=== PATIENT | female | born 1940 | race Caucasian/White ===

== ENCOUNTER 2016-09-29 10:00 | Inpatient (IN) | payer MEDICARE ==
[2016-10-19 11:25] VITALS: BMI 48.3
--- NOTE | 2016-10-29 11:22 | HP ---
DATE OF ADMISSION: Radha Ventura is a 76-year-old patient seen with symptomatic left knee osteoarthritis. After having options regarding treatment discussed, she elected to proceed with left total knee arthroplasty. Consent was obtained. Medical clearance was provided by Dr. Santhosh Ponce. Past medical history is hypertension, hypothyroidism. PAST SURGICAL HISTORY: Cataract surgery. Daily medications: 1. Aspirin. 2. Atenolol. 3. Hydrochlorothiazide/triamterene. 4. Synthroid. ALLERGIES: PENICILLIN, CIPROFLOXACIN, MOTRIN AND LASIX. SOCIAL HISTORY: Patient denies tobacco use. Physical evaluation of the left knee: Range of motion is -4 to 95 degrees. There is a mild effusion. Tenderness along the lateral joint line with a positive lateral Deb's. Ligaments are stable. Hip rotation is limited, but without pain. Crepitus along the lateral and patellofemoral compartments with range of motion. Pain with patellofemoral compression. Distal neurovascular exam intact. Left knee radiographs revealed severe lateral and moderate patellofemoral compartment osteoarthritis. IMPRESSION: Left knee osteoarthritis. PLAN: Left total knee arthroplasty.
[2016-10-30] MEDS ORDERED: MELOXICAM 7.5 MG TAB PO ONE (05:00)
[2016-10-30] MEDS ORDERED: CLINDAMYCIN 900 MG in DEXTROSE 5% IN WATER 50 ML IVPB ONE ×2 (05:00)
[2016-10-30] MEDS ORDERED: TRANEXAMIC ACID 1,000 MG in SODIUM CHLORIDE 0.9% 100 ML IVPB ONE ×4 (05:00)
[2016-10-30] MEDS ORDERED: ACETAMINOPHEN TAB 500 MG TAB PO ONE (05:00)
[2016-10-30] MEDS ORDERED: DEXAMETHASONE SOD PHOSPHATE 10 MG/ML 1 ML VIAL IV ONE (05:59)
[2016-10-30] MEDS ORDERED: MIDAZOLAM 2 MG/2 ML VIAL IV PRN (05:59)
[2016-10-30] MEDS ORDERED: LIDOCAINE 1% 20 ML VIAL (10MG/ML) FOR IV START INTRADERMA ONE ×2 (11:25→11:32)
[2016-10-30] MEDS: LACTATED RINGERS 1,000 ML IV SCH (11:28)
[2016-10-30] MEDS: ONDANSETRON 4 MG/2 ML VIAL IVP ONE ×2 (11:30→15:44)
[2016-10-30] MEDS ORDERED: ROPIVACAINE 246.25 MG, EPINEPHrine 0.5 MG, KETOROLAC 30 MG, cloNIDine HCL/PF 80 MCG, WA... MISCELLANE ONE ×5 (12:31)
[2016-10-30] MEDS ORDERED: MIDAZOLAM 2 MG/2 ML VIAL ONE (13:16)
[2016-10-30] MEDS ORDERED: TRANEXAMIC ACID 1,000 MG/10 ML VIAL ONE (13:16)
[2016-10-30] MEDS ORDERED: SODIUM CHLORIDE 0.9% 100 ML BAG ONE (13:16)
[2016-10-30] MEDS ORDERED: GLYCOPYRROLATE 0.2 MG/ML 2 ML VIAL ONE (13:16)
[2016-10-30] MEDS ORDERED: LIDOCAINE 1% INJ 10MG/ML (20 ML MDV) ONE (13:16)
[2016-10-30] MEDS ORDERED: PROPOFOL 10 MG/ML 20 ML VIAL IV ONE (13:16)
[2016-10-30] MEDS ORDERED: HYDROmorphone (PF) 1 MG/ML ONE (13:16)
[2016-10-30] MEDS ORDERED: LACTATED RINGERS 1,000 ML IV ONE ×2 (14:02→15:22)
[2016-10-30] MEDS ORDERED: CLINDAMYCIN 1,800 MG in SODIUM CHLORIDE 0.9% IRRIGATIO 3,000 ML IRRIGATION ONE (14:02)
[2016-10-30] MEDS ORDERED: HYDROmorphone 1 MG/ML 1 ML SYRINGE IVP PRN ×3 (15:39)
[2016-10-30] MEDS ORDERED: NALOXONE 0.4 MG/ML 1 ML VIAL IV PRN (15:39)
[2016-10-30] MEDS ORDERED: hydrOXYzine PAMOATE 25 MG CAP PO PRN (15:39)
[2016-10-30] MEDS ORDERED: HYDROcodone/APAP 7.5-325MG 1 EACH TAB PO PRN (15:39)
--- NOTE | 2016-10-30 15:39 | P.OP ---
Date of Procedure: 10/30/16 Preoperative Diagnosis: Left knee osteoarthritis Postoperative Diagnosis: Left knee osteoarthritis Procedure(s) Performed: Left total knee arthroplasty Implants: 1. Angela persona size 7 left cruciate-retaining standard cemented femoral component 2. Angela persona size D left cemented tibial component 3. Angela persona 12 mm medial congruent polyethylene tibial insert 4. Angela persona 32 mm all polyethylene cemented patella Anesthesia: local, spinal Surgeon: Bola Bae Incubator Tender #1: Rinku Valdovinos Estimated Blood Loss (ml): 150 Pathology: other (Bone) Condition: stable Disposition: PACU Indications for Procedure: 76-year-old patient seen with symptomatically left knee osteoarthritis. After having treatment options discussed, she elected to proceed with left total knee arthroplasty. Operative Findings: See description of procedure Description of Procedure: Patient was taken to the operative suite. Patient underwent a spinal anesthetic by the department of anesthesia. Patient was given preoperative IV intake antibiotics and TXA. A well-padded tourniquet was placed about the left lower extremity. The lower extremity was then prepped and draped in the normal sterile orthopedic fashion. The extremity was elevated, a tourniquet was insufflated to 350. A standard anterior incision was made sharply through skin. Dissection was taken down through the subcutaneous soft tissues down to the extensor mechanism. A medial arthrotomy was performed, patella was everted and knee was flexed. There was advanced osteoarthritis noted. A proximal tibial cutting guide was positioned. Proximal tibial cut was made. A distal intramedullary femoral cutting guide was positioned, distal femoral cut made. We placed the appropriate sizing guide and selected the appropriate size. A distal 4-in-1 femoral cutting block was positioned, distal femoral cuts were made. We now placed a trial femoral component into position, along with an appropriate size tibial tray and insert. We now took the knee through range of motion and had full extension good flexion and good overall soft tissue balance noted. The patella was everted and a flush cut made with patellar quad tendon. We templated the patella, appropriate drill holes were made. An appropriate trial patella was positioned, knee was taken through full range of motion with the patella tracking very nicely. The trial patella was removed. Drill holes were made through the femoral component. All trial components were removed after marking off the appropriate rotation of the tibia. Retractors were now positioned along the proximal tibia. An appropriate keel punch was made with the appropriate size tibial guide. At this point appropriate size implants were chosen and opened. The joint was irrigated copiously with pulse lavage mechanical irrigation. The deep soft tissues were infiltrated local analgesic. We mixed antibiotic methylmethacrylate. Once the methyl methacrylate was ready, the tibial component was cemented into place removing any excess methylmethacrylate. The femoral component was cemented into place removing the removing any excess methylmethacrylate. We then inserted the appropriate size polyethylene tibial insert. We made sure that it was locked into position. We took the knee into full extension, and then back in a flexion making sure we had removed any excess methylmethacrylate. The patellar component was then cemented down and secured with clamp. Excess methylmethacrylate removed. We kept the knee in full extension, patellar clamp in position until methylmethacrylate had hardened. Once it had hardened the patellar clamp was removed. The knee was taken through full range of motion. The patella tracked nicely. There was good soft tissue balancing. The tourniquet was now released. Additional hemostasis was achieved via electrocautery. A second gram of TXA was given. The wound was irrigated with pulse lavage mechanical irrigation. The superficial soft tissues were infiltrated local analgesic. The extensor mechanism was repaired with Vicryl. We checked the repair with range of motion and it was stable. The subcutaneous soft tissues were repaired with Vicryl in layers. The skin was approximated with skin jose. Sterile dressings were applied followed by loose web roll and Casey bandage. The patient was transferred to a bed, and taken to recovery in stable and satisfactory condition. Rinku TORRES assisted with the procedure.
[2016-10-30] MEDS: HYDROmorphone 1 MG/ML 1 ML SYRINGE IVP PRN ×2 (16:09→16:21)
--- NOTE | 2016-10-30 16:22 | XR ---
EXAMINATION TYPE: XR knee limited LT DATE OF EXAM: 10/30/2016 4:14 PM CLINICAL HISTORY: pain TECHNIQUE: Three views of the left knee are obtained. COMPARISON: None. FINDINGS: There is no acute fracture/dislocation. The tri-compartment joint spaces appear within no rmal limits. The overlying soft tissue appears unremarkable. IMPRESSION: There is no acute fracture or dislocation ICD 10 NO FRACTURE, INITIAL EVALUATION
[2016-10-30] MEDS: CLINDAMYCIN 900 MG in DEXTROSE 5% IN WATER 50 ML IVPB SCH ×2 (18:01)
[2016-10-30] MEDS: ONDANSETRON 4 MG/2 ML VIAL IVP PRN (18:01)
[2016-10-30 18:30] LABS: Glucose,Whole Blood 154 mg/dL (75-99)
--- NOTE | 2016-10-30 20:26 | CONS ---
DATE OF CONSULTATION: 10/30/2016 This is a 76-year-old white female who has a long-standing history of degenerative arthritis of the knees bilaterally. Her left knee was progressively getting worse and patient was evaluated by Dr. Bae and patient was recommended to have left knee arthroplasty. She had the surgery this morning, a left total knee arthroplasty by Dr. Bae. I was asked to see the patient for postoperative medical management. Her past medical history reveals that that she has multiple medical problems: 1. Morbid obesity. 2. Hypertensive cardiovascular disease. 3. Hypothyroidism. 4. Gastroesophageal reflux disease. Her current medications include: 1. Synthroid 100 mcg p.o. daily. 2. Dyazide 37.5/25 one daily. 3. Atenolol 25 mg daily. 4. Multivitamins. 5. Prevacid 30 mg p.o. daily. 6. She has been on aspirin 81 mg p.o. daily. She denies any diabetes mellitus. She has had no major operations in the past. ALLERGIES: 1. CIPRO. 2. LASIX. 3. DOXYCYCLINE. 4. LATEX. 5. PRILOSEC. 6. PENICILLINS. The exact allergic reaction to these medications is not clear. She does not smoke and she does not drink alcohol. Family history is strongly positive for hypertension, diabetes and heart disease. REVIEW OF SYSTEMS: Patient denies any headache. Appetite has been good, bowels regular. She has had no chest pain. She has no cough. She has no abdominal pain. She has no polyuria or dysuria. She has no neurological symptoms. Physical examination reveals a 76-year-old white female who is morbidly obese. She is still sleepy from anesthesia, but she is gradually waking up. She complains of nausea. There is no jaundice. There is no generalized lymphadenopathy. There are no petechiae or bruises. Pulse 76 per minute, regular. She is afebrile. Blood pressure 152/67. Examination of the ENT is negative. Neck is supple. There is no jugular venous distention. There is no goiter. There is no carotid bruit. Heart is in sinus rhythm. Lungs are clear to auscultation and percussion. There are diminished breath sounds over both bases. Abdomen is soft and nontender. There is no mass palpable. Examination of the lower extremities: She is status post left total knee arthroplasty. IMPRESSION: 1. Degenerative arthritis of left knee, status post total left knee arthroplasty. 2. Hypertensive cardiovascular disease. 3. Hypothyroidism. 4. Gastroesophageal reflux disease. 5. Degenerative arthritis of multiple joints. This patient was extensively evaluated by clinical document improvement educator prior to surgery. Patient was cleared for surgery by clinical document improvement educator. Postoperatively her vital signs are stable and she has no acute cardiorespiratory problems. Will place her back on her home medications and we will monitor her blood pressure and hemoglobin, etc. Over prognosis is guarded. Thank you for asking me to see this patient in consultation. Will follow the patient with you for her medical problems.
[2016-10-30] MEDS: traMADol 50 MG TAB PO SCH ×2 (21:45→22:13)
[2016-10-30] MEDS: ENOXAPARIN 30 MG/0.3 ML SYRINGE SQ SCH (21:45)
[2016-10-30] MEDS: SENNOSIDES-DOCUSATE SODIUM 1 EACH TAB PO SCH (21:47)
[2016-10-30] MEDS: SODIUM CHLORIDE 0.9% 1,000 ML IV SCH (22:15)
[2016-10-31] MEDS: CLINDAMYCIN 900 MG in DEXTROSE 5% IN WATER 50 ML IVPB SCH ×2 (00:24)
[2016-10-31] MEDS: HYDROcodone/APAP 7.5-325MG 1 EACH TAB PO PRN ×4 (00:25→18:10)
[2016-10-31] MEDS: ONDANSETRON 4 MG/2 ML VIAL IVP PRN ×2 (01:43→07:38)
[2016-10-31] MEDS: LEVOTHYROXINE 100 MCG TAB PO SCH (04:59)
[2016-10-31 07:48] LABS: Basophils % (A) 0 %; CH 26.8; Eosinophils % (A) 0 %; HCT 32.2 % (34.0-46.0); HDW 2.43; Hypochromasia Slight; Luc # (Auto) 0.08; Luc % (Auto) 1; Lymphocytes # (A) 0.4 k/uL (1.0-4.8); Lymphocytes % (A) 5 %; MCH 27.1 pg (25.0-35.0); MCHC 31.1 g/dL (31.0-37.0); MCV 87.1 fL (80.0-100.0); Mean Platelet Volume 6.8; Monocytes # (A) 0.4 k/uL (0-1.0); Monocytes % (A) 5 %; Neutrophils # (A) 6.3 k/uL (1.3-7.7); Neutrophils % (A) 89 %; RBC 3.69 m/uL (3.80-5.40); RDW 12.9 % (11.5-15.5); WBC 7.1 k/uL (3.8-10.6); WBC (Perox) 7.57
[2016-10-31] MEDS ORDERED: FAMOTIDINE 20 MG TAB PO SCH (09:00)
[2016-10-31] MEDS: traMADol 50 MG TAB PO SCH ×4 (09:20→21:37)
[2016-10-31] MEDS: ENOXAPARIN 30 MG/0.3 ML SYRINGE SQ SCH ×2 (09:21→20:01)
[2016-10-31] MEDS: MELOXICAM 7.5 MG TAB PO SCH (09:22)
[2016-10-31] MEDS: TRIAMTERENE-HCTZ 37.5-25MG 1 EACH TAB PO SCH ×2 (09:22→09:24)
[2016-10-31] MEDS: PANTOPRAZOLE 40 MG TABLET PO SCH (09:24)
[2016-10-31] MEDS: ATENOLOL 25 MG TAB PO SCH (09:24)
[2016-10-31] MEDS: LACTATED RINGERS 1,000 ML IV SCH ×2 (09:28→19:54)
[2016-10-31] MEDS ORDERED: FUROSEMIDE 10 MG/ML 2 ML VIAL IV ONE (10:22)
[2016-10-31] MEDS: ALPRAZolam 0.25 MG TAB PO PRN (10:25)
[2016-10-31] MEDS: CALCIUM CARB-VIT D 500MG-200UN 1 EACH TAB PO SCH (11:50)
[2016-10-31] MEDS: SODIUM CHLORIDE 0.9% 250 ML IV SCH ×3 (14:06→15:14)
--- NOTE | 2016-10-31 15:29 | P.PN ---
Subjective Principal diagnosis: Status post left total knee arthroplasty Patient is seen today in her hospital chair, she appears comfortable. Patient had a lot of nausea and vomiting today. She is ambulating very minimally at this time. She denies any chest pain, shortness of breath, lightheadedness. Objective - Vital Signs Vital signs: Vital Signs Temp 97.4 F L 10/31/16 14:08 Pulse 51 L 10/31/16 14:08 Resp 17 10/31/16 14:08 BP 143/72 10/31/16 14:08 Pulse Ox 98 10/31/16 14:08 Intake & Output 10/30/16 10/31/16 10/31/16 18:59 06:59 18:59 Intake Total 3278 1050 370 Output Total 185 280 580 Balance 3093 770 -210 Weight 116.12 kg Intake: IV 3158 Intake, IV Titration 750 250 Amount Clindamycin 900 mg In 50 Dextrose 5% in Water 50 ml @ 100 mls/hr IVPB Q6HR [facility] Rx#:[id number] Sodium Chloride 0.9% 1, 700 000 ml @ 50 mls/hr IV . Q20H [facility] Rx#:[id number] Sodium Chloride 0.9% 250 250 ml @ 999 mls/hr IV .Q16M [facility] Rx#:[id number] Oral 120 300 120 Output: Urine 60 250 580 Uretheral (Woodward) 580 Emesis 30 Estimated Blood Loss 125 Other: Voiding Method Indwelling Catheter Indwelling Catheter Indwelling Catheter - Exam Left lower extremity: Incision is clean, dry and intact. [place] are in good position. The swelling surrounding the knee. Calf is soft, no tenderness with palpation. Plantar flexion, dorsiflexion, EHL, FHL are intact. Sensory exam to light touch is intact, cap refills less than 3 seconds. - Labs CBC & Chem 7: 10/31/16 06:54 Labs: Abnormal Lab Results - Last 24 Hours (Table) 10/30/16 10/31/16 Range/Units 18:28 06:54 RBC 3.69 L (3.80-5.40) m/uL Hgb 10.0 L (11.4-16.0) gm/dL Hct 32.2 L (34.0-46.0) % Lymphocytes # 0.4 L (1.0-4.8) k/uL POC Glucose (mg/dL) 154 H (75-99) mg/dL Assessment and Plan Plan: Assessment: 1. Postop day #1 status post left total knee arthroplasty Plan: 1. Pain control, limit narcotics due to nausea and vomiting 2. Ice and elevate the leg 3. Daily dressing changes 4. Encourage incentive spirometer 5. Continue use of IV fluids and IV bolus to help prevent dehydration 6. GI and DVT prophylaxis, continue Lovenox during inpatient stay 7. Medical recommendations 8. Discharge planning: Patient will be discharged to rehab in 2 days Time with Patient: Less than 30
--- NOTE | 2016-10-31 15:32 | P.DS ---
Providers Date of admission: 10/30/16 10:50 Expected date of discharge: 11/02/16 Attending physician: Bola Bae Consults: 10/30/16 15:39 Consult Physician Routine Consulting Provider: Beny Ponce Reason/Comments: Medical management Do you want consulting provider notified?: Yes Primary care physician: Beny Ponce [facility] Course: Date of admission: 10/30/2016 Date of discharge: 11/02/2016 Admission diagnosis: Status post left total knee arthroplasty Discharge diagnosis: Same Attending physician: Dr. Bae Surgical procedures: Left total knee arthroplasty Brief history: Patient is a 76-year-old female with a history of progressive left knee osteoarthritis. At this point patient has failed conservative treatment measures and has opted to proceed with a elective total knee arthroplasty. Hospital course: Details of patient's surgery can be found in operative report. Patient tolerated the procedure well and was subsequently transported to orthopedic floor. Patient's orthopeidc and medical care was provided daily. Patient had daily laboratory tests performed for evaluation of overall blood counts. Patient had daily physical therapy to include strengthening range of motion as well as education with walker ambulation. Patient had daily CPM usage as part of their physical therapy program. Patient was treated with Lovenox for their postoperative DVT prophylaxis during their inpatient stay. Patient was noted to have a relatively uneventful postoperative course. Patient reported satisfactory pain control with oral pain medications by postoperative day 0. Patient showed satisfactory progress with physical therapy. Patient moved steadily through the program and had no difficulty meeting the goals by postoperative day 3. Given patient's otherwise satisfactory course and having met physical therapy goals, plan is to discharge patient rehab on postoperative day 3. Discharge condition/disposition: Patient will be discharged rehab in stable condition. Discharge medications: Instructions are given on resumption of patient's normal daily medications per primary care recommendation, in addition patient will be prescribed [place] 7.5 mg/5 mg, Colace 100 mg, Pepcid 20 mg, Xarelto 10 mg. Discharge instructions: 1. Wound care and infection precautions, keep incision dry and covered while showering, no lotions, creams, moisturizers. No soaking, tubs, pools, hottubs. Do not scrub over the incision. 2. Weight-bear as tolerated with walker / cane until follow-up. 3. Ice and elevate when necessary. Do not exceed 20 minutes per hour with ice pack. 4. Utilize compression sleeve until seen at first follow up appointment. 5. Visiting nursing care. 6. Home physical therapy including home CPM. 7. Pain meds and anticoagulants per prescription. 8. Pain medication has potential to cause constipation. Increase oral fluid and fiber intake. Contact primary care provider if you have not had a bowel movement within 48 hours after discharge 9. No anti-inflammatory medication until discussed at first post operative visit, this including Motrin, Aleve, Mobic, Diclofenac. 10. Follow up in office at 2 weeks postop with Evans Valdovinos PA-C 11. Follow up with your primary care doctor 7-10 days after discharge. 12. Contact [facility] with any questions, . Procedures: Left total knee arthroplasty Patient Condition at Discharge: Good Plan - Discharge Summary New Discharge Prescriptions: Docusate [Colace] 100 mg PO DAILY #30 capsule Famotidine [Pepcid] 20 mg PO DAILY #30 tablet HYDROcodone/APAP 7.5-325MG [Austin 7.5] 1 - 2 each PO Q6HR PRN #60 tab PRN Reason: Pain Rivaroxaban [Xarelto] 10 mg PO DAILY #12 tab Discharge Medication List Aspirin 81 mg PO DAILY 09/26/14 [History] Atenolol [Tenormin] 25 mg PO DAILY 09/26/14 [History] Calcium Carbonate/Vitamin D3 [Caltrate 600 + D Tablet] 1 tab PO DAILY 09/26/14 [ History] Lansoprazole 30 mg PO DAILY 09/26/14 [History] Levothyroxine Sodium [Synthroid] 100 mcg PO DAILY 09/26/14 [History] Multivitamin/Iron/Folic Acid [Centrum Complete Multivit Tab] 1 tab PO DAILY [History] Triamterene-Hctz 37.5-25Mg [Maxzide 37.5-25] 1 tab PO DAILY 09/26/14 [History] Acetaminophen Tab [Tylenol Tab] 1,000 mg PO Q6H PRN 10/19/16 [History] Calcium Carbonate [Tums] 500 mg PO TID PRN 10/19/16 [History] Rivaroxaban [Xarelto] 10 mg PO DAILY #12 tab 10/31/16 [Rx] Docusate [Colace] 100 mg PO DAILY #30 capsule 11/02/16 [Rx] Famotidine [Pepcid] 20 mg PO DAILY #30 tablet 11/02/16 [Rx] HYDROcodone/APAP 7.5-325MG [[place] 7.5] 1 - 2 each PO Q6HR PRN #60 tab 11/02/16 [ Rx] Follow up Appointment(s)/Referral(s): Beny Ponce MD [Primary Care Provider] - 1 Week Rinku Valdovinos PAC [PHYSICIAN BALANCING MACHINE SET UP WORKER] - 11/17/16 2:10 pm Patient Instructions/Handouts: Knee Replacement (DC) Activity/Diet/Wound Care/Special Instructions: Orthopedic Discharge Instructions: 1. Wound care and infection precautions, keep incision dry and covered while showering, no lotions, creams, moisturizers. No soaking, pools, hot tubs. Do not scrub over incision. 2. Weight-bear as tolerated with walker / cane until follow-up. 3. Ice and elevate when necessary. Do not exceed 20 minutes per hour with ice pack. 4. Utilize compression sleeve until seen at first follow up appointment. 5. Visiting nursing care. 6. Home physical therapy including home CPM. 7. Pain meds and anticoagulants per prescription. 8. Pain medication has potential to cause constipation. Increase oral fluid and fiber intake. Contact primary care provider if you have not had a bowel movement within 48 hours after discharge. 9. No anti-inflammatory medication until discussed at first post operative visit, this including Motrin, Aleve, Mobic, Diclofenac. 10. Follow up in office at 2 weeks postop with Evans Valdovinos PA-C 11. Follow up with your primary care doctor 7-10 days after discharge. 12. Contact [facility] with any questions, . Discharge Disposition: TRANSFER TO SNF/ECF
[2016-10-31] MEDS: MULTIVITAMINS, THERA 1 EACH TAB PO SCH (15:34)
[2016-10-31] MEDS: SODIUM CHLORIDE 0.9% 1,000 ML IV SCH (16:22)
--- NOTE | 2016-10-31 19:05 | PN ---
DATE OF SERVICE: 10/31/2016 This 76-year-old white female who has a history of advanced degenerative arthritis of the left knee had a left total knee arthroplasty yesterday. I was asked to see the patient in consultation for postoperative medical management. Patient is known to have morbid obesity, hypothyroidism, gastroesophageal reflux disease and hypertensive cardiovascular disease. Patient was placed back on her previous medications. Her vital signs are stable. She had some bradycardia and the atenolol is being held. Patient also has nausea and vomiting which are being controlled with Zofran given on a p.r.n. basis. Otherwise her vital signs are stable. Heart is in sinus rhythm. Lungs are clear to auscultation and percussion. Patient is tolerating increased activities well. Prognosis guarded.
[2016-10-31] MEDS: SENNOSIDES-DOCUSATE SODIUM 1 EACH TAB PO SCH (20:01)
[2016-10-31 20:59] VITALS: RESP 16
[2016-11-01] MEDS: HYDROcodone/APAP 7.5-325MG 1 EACH TAB PO PRN ×2 (01:04→06:12)
[2016-11-01] MEDS: LEVOTHYROXINE 100 MCG TAB PO SCH (05:15)
[2016-11-01] MEDS: ATENOLOL 25 MG TAB PO SCH (06:28)
[2016-11-01] MEDS: PANTOPRAZOLE 40 MG TABLET PO SCH (08:24)
[2016-11-01] MEDS: SODIUM CHLORIDE 0.9% 1,000 ML IV SCH ×2 (08:25→20:58)
[2016-11-01] MEDS: TRIAMTERENE-HCTZ 37.5-25MG 1 EACH TAB PO SCH (08:25)
[2016-11-01] MEDS: MELOXICAM 7.5 MG TAB PO SCH (08:25)
[2016-11-01] MEDS: ENOXAPARIN 30 MG/0.3 ML SYRINGE SQ SCH ×2 (08:25→20:59)
[2016-11-01] MEDS: CALCIUM CARB-VIT D 500MG-200UN 1 EACH TAB PO SCH (08:26)
[2016-11-01] MEDS: MULTIVITAMINS, THERA 1 EACH TAB PO SCH (08:26)
[2016-11-01] MEDS: traMADol 50 MG TAB PO SCH ×4 (08:31→20:59)
[2016-11-01] MEDS: ALPRAZolam 0.25 MG TAB PO PRN ×2 (12:39→18:24)
--- NOTE | 2016-11-01 19:55 | PN ---
DATE OF SERVICE: 11/01/2016 This 76-year-old white female who had a left total knee arthroplasty by Dr. Bae was seen by me in consultation for postoperative medical management. Patient is known to have morbid obesity, hypothyroidism and hypertensive cardiovascular disease. Patient has been placed back on her previous medications. She also has severe anxiety. This is being controlled with Xanax p.r.n. Patient is recovering from surgery without any complications; however, Dr. Bae feels that the patient is going to be transferred to a rehab unit rather than being discharged home. The patient seems to be doing all right except that she still has some nausea and also has some headache. Will give her Zofran for controlling nausea and ( ) patient's vital signs are stable. Heart is in sinus rhythm. Lungs are clear. No acute cardiorespiratory problems. Prognosis guarded.
[2016-11-01] MEDS: LACTATED RINGERS 1,000 ML IV SCH (20:59)
[2016-11-01] MEDS: SENNOSIDES-DOCUSATE SODIUM 1 EACH TAB PO SCH (20:59)
[2016-11-02] MEDS: HYDROcodone/APAP 7.5-325MG 1 EACH TAB PO PRN ×3 (01:03→14:09)
[2016-11-02] MEDS: LEVOTHYROXINE 100 MCG TAB PO SCH (05:00)
[2016-11-02 07:14] VITALS: BP 148/61; PULSE 59; TEMP 97.9
[2016-11-02] MEDS: MELOXICAM 7.5 MG TAB PO SCH (07:30)
[2016-11-02] MEDS: ENOXAPARIN 30 MG/0.3 ML SYRINGE SQ SCH (07:30)
[2016-11-02] MEDS: ALPRAZolam 0.25 MG TAB PO PRN (07:31)
[2016-11-02] MEDS: TRIAMTERENE-HCTZ 37.5-25MG 1 EACH TAB PO SCH (07:31)
[2016-11-02] MEDS: ATENOLOL 25 MG TAB PO SCH (07:31)
[2016-11-02] MEDS: PANTOPRAZOLE 40 MG TABLET PO SCH (07:31)
[2016-11-02 07:37] LABS: Basophils % (A) 0 %; CH 27.2; CHCM 31.8; Eosinophils # (A) 0.1 k/uL (0-0.7); Eosinophils % (A) 1 %; HCT 34.2 % (34.0-46.0); HGB 10.5 gm/dL (11.4-16.0); Luc # (Auto) 0.12; Luc % (Auto) 2; Lymphocytes # (A) 0.9 k/uL (1.0-4.8); Lymphocytes % (A) 11 %; MCH 26.3 pg (25.0-35.0); MCHC 30.7 g/dL (31.0-37.0); MCV 85.8 fL (80.0-100.0); Mean Platelet Volume 7.3; Monocytes # (A) 0.7 k/uL (0-1.0); Monocytes % (A) 8 %; Neutrophils # (A) 6.4 k/uL (1.3-7.7); Neutrophils % (A) 78 %; RBC 3.98 m/uL (3.80-5.40); RDW 13.1 % (11.5-15.5); WBC 8.2 k/uL (3.8-10.6); WBC (Perox) 8.45
[2016-11-02] MEDS: traMADol 50 MG TAB PO SCH ×2 (10:35→14:10)
--- NOTE | 2016-11-02 11:01 | P.PN ---
Subjective Principal diagnosis: Status post left total knee arthroplasty Patient is seen today in her hospital chair, she appears comfortable. Patient is continued to feel better during the hospital stay. She denies headaches, lightheadedness, chest pain. Objective - Vital Signs Vital signs: Vital Signs Temp 97.9 F 11/02/16 07:00 Pulse 59 L 11/02/16 07:00 Resp 16 11/02/16 07:00 BP 148/61 11/02/16 07:00 Pulse Ox 96 11/02/16 07:00 Intake & Output 11/01/16 11/02/16 11/02/16 18:59 06:59 18:59 Intake Total 300 120 Output Total 650 Balance -350 120 Intake: Oral 300 120 Output: Urine 650 Uretheral ([place]) 250 Other: Voiding Method Indwelling Catheter Toilet Toilet # Voids 1 1 2 - Exam Left lower extremity: Incision is clean, dry and intact. [place] are in good position. The swelling surrounding the knee. Calf is soft, no tenderness with palpation. Plantar flexion, dorsiflexion, EHL, FHL are intact. Sensory exam to light touch is intact, cap refills less than 3 seconds. - Labs CBC & Chem 7: 11/02/16 07:11 Labs: Abnormal Lab Results - Last 24 Hours (Table) 11/02/16 Range/Units 07:11 Hgb 10.5 L (11.4-16.0) gm/dL MCHC 30.7 L (31.0-37.0) g/dL Lymphocytes # 0.9 L (1.0-4.8) k/uL Assessment and Plan Plan: Assessment: 1. Postop day #3 status post left total knee arthroplasty Plan: 1. Pain control, continue with oral medications 2. Ice and elevate the leg 3. Daily dressing changes 4. Encourage incentive spirometer 5. GI and DVT prophylaxis, will be discharged on Xarelto 10 mg 6. Medical recommendations 7. Discharge planning: Patient will be discharged to rehab today Time with Patient: Less than 30
[2016-11-02] MEDS: CALCIUM CARB-VIT D 500MG-200UN 1 EACH TAB PO SCH (14:09)
[2016-11-02] MEDS: MULTIVITAMINS, THERA 1 EACH TAB PO SCH (14:09)
--- NOTE | 2016-11-02 18:19 | PN ---
This is a 76-year-old white female who has a long-standing history of degenerative arthritis of the knee and she had a left total knee arthroplasty by Dr. Bae and patient was seen by me in consultation for her postoperative medical management. Patient is known to have hypertensive cardiovascular disease and hypothyroidism and morbid obesity. Patient postoperatively recovered without any significant complications and her vital signs were stable. There was no acute cardiorespiratory problems. She tolerated the increased activities and physical therapy well. Patient is going to be transferred to [facility] rehab unit today and detailed discharge instructions were given and the patient has been given pain medication and physical therapy instructions were given by the orthopedic surgeon and patient also needs a prescription for Xanax and we have given a prescription. The patient will continue on the Xanax while she is in the rehab unit at [facility]. For her medical problems she will be followed by me in [facility]. Prognosis guarded.
== END 2016-11-02 15:09 | DRG 470 ==
LOC: 2ORMAIN 10-30 10:50 → 3SUR 10-30 15:29
PROVIDERS: ADMIT Orthopaedic Surgery; ATTEND Orthopaedic Surgery
PROC: 0SRD0J9 Replacement of Left Knee Joint with Synthetic Substitute, Cemented, Open Approach (ICD-10-PCS; principal; 2016-10-30 12:55)
DX: M17.0 Bilateral primary osteoarthritis of knee (principal); I11.9 Hypertensive heart disease without heart failure; E03.9 Hypothyroidism, unspecified; F41.9 Anxiety disorder, unspecified; K21.9 Gastro-esophageal reflux disease without esophagitis; Z79.82 Long term (current) use of aspirin; Z79.899 Other long term (current) drug therapy; Z88.6 Allergy status to analgesic agent; Z88.1 Allergy status to other antibiotic agents; Z88.0 Allergy status to penicillin; Z88.8 Allergy status to other drugs, medicaments and biological substances; Z91.040 Latex allergy status
CPT/HCPCS: 85025; 88300

== ENCOUNTER → 2016-10-14 | Outpatient (CLI) | payer MEDICARE ==
[2016-10-14 11:54] LABS: Basophils % (A) 0 %; CH 27.1; CHCM 30.9; Eosinophils # (A) 0.2 k/uL (0-0.7); Eosinophils % (A) 4 %; HCT 36.8 % (34.0-46.0); HDW 2.48; HGB 11.2 gm/dL (11.4-16.0); Hypochromasia Slight; Luc # (Auto) 0.15; Luc % (Auto) 3; Lymphocytes % (A) 16 %; MCH 26.9 pg (25.0-35.0); MCHC 30.5 g/dL (31.0-37.0); MCV 88.3 fL (80.0-100.0); Mean Platelet Volume 7.5; Monocytes # (A) 0.4 k/uL (0-1.0); Monocytes % (A) 7 %; Neutrophils # (A) 4.2 k/uL (1.3-7.7); Neutrophils % (A) 71 %; RBC 4.17 m/uL (3.80-5.40); RDW 13.4 % (11.5-15.5); WBC 5.9 k/uL (3.8-10.6); WBC (Perox) 6.34
[2016-10-14 12:02] LABS: Anion Gap 10 mmol/L; Blood Urea Nitrogen 29 mg/dL (7-17); Calcium 10.1 mg/dL (8.4-10.2); Carbon Dioxide 30 mmol/L (22-30); Chloride 103 mmol/L (98-107); Glucose 93 mg/dL (74-99); Non-African American GFR(MDRD) 53 (>60 ml/min/1.73 sqM); Partial Thromboplastin Time 25.9 sec (22.0-30.0); Potassium 4.6 mmol/L (3.5-5.1); Prothrombin Time 10.5 sec (9.0-12.0); Sodium 143 mmol/L (137-145)
[2016-10-14 12:40] LABS: Appearance,Urine Clear (Clear); Bilirubin,Urine Negative (Negative); Glucose,Urine (UA) Negative (Negative); Ketones,Urine Negative (Negative); Leukocyte Esterase,Urine Negative (Negative); Nitrite,Urine Negative (Negative); PH, Urine 7.5 (5.0-8.0); Protein,Urine Negative (Negative); Specific Gravity,Urine 1.016 (1.001-1.035); UA Billing (MACRO vs. MICRO) CHEM; Urobilinogen,Urine <2.0 mg/dL (<2.0)
--- NOTE | 2016-10-14 13:09 | XR ---
EXAMINATION TYPE: XR chest 2V DATE OF EXAM: 10/14/2016 12:27 PM COMPARISON: 03/28/2016 HISTORY: 76-year-old female preoperative evaluation prior to knee replacement TECHNIQUE: Frontal and lateral views FINDINGS: The heart remains borderline enlarged. Aorta within normal limits. Mild diffuse interstitial prominen ce is unchanged. No consolidation or pleural effusion. IMPRESSION: Chronic changes, possible chronic bronchitis/asthma. No acute infiltrate.
== END | disposition home or self-care (01) ==
LOC: LABPAT 11:27
PROVIDERS: ATTEND Internal Medicine
DX: Z01.818 Encounter for other preprocedural examination (principal); Z01.812 Encounter for preprocedural laboratory examination; R91.8 Other nonspecific abnormal finding of lung field; E03.9 Hypothyroidism, unspecified; I11.9 Hypertensive heart disease without heart failure; M19.90 Unspecified osteoarthritis, unspecified site
CPT/HCPCS: 71020; 80048; 81003; 85025; 85610; 85730; 87070

== ENCOUNTER → 2017-05-11 | Outpatient (CLI) | payer MEDICARE ==
[2017-05-11 10:37] LABS: CH 25.9; CHCM 30.7; HCT 33.9 % (34.0-46.0); HDW 2.54; HGB 10.2 gm/dL (11.4-16.0); Hypochromasia Moderate; MCH 25.6 pg (25.0-35.0); MCHC 30.2 g/dL (31.0-37.0); MCV 84.8 fL (80.0-100.0); Mean Platelet Volume 7.5; WBC 6.2 k/uL (3.8-10.6)
[2017-05-11 10:55] LABS: Calcium 9.8 mg/dL (8.4-10.2); Potassium 4.6 mmol/L (3.5-5.1); Total Bilirubin 0.6 mg/dL (0.2-1.3); Total Protein 7.6 g/dL (6.3-8.2)
== END | disposition home or self-care (01) ==
LOC: LABWHC1 10:11
PROVIDERS: ATTEND Internal Medicine
DX: Z00.01 Encounter for general adult medical examination with abnormal findings (principal); E03.9 Hypothyroidism, unspecified; E78.2 Mixed hyperlipidemia; I11.9 Hypertensive heart disease without heart failure
CPT/HCPCS: 36415; 80053; 80061; 84439; 84443; 85027

== ENCOUNTER → 2017-05-18 | Outpatient (CLI) | payer MEDICARE ==
--- NOTE | 2017-05-21 09:56 | MM ---
Reason for exam: screening (asymptomatic). Last mammogram was performed 1 year and 3 months ago. History: Patient is postmenopausal and is nulliparous. Physical Findings: A clinical breast exam by your physician is recommended on an annual basis and results should be correlated with mammographic findings. MG Screening Mammo w CAD Bilateral CC and MLO view(s) were taken. Prior study comparison: February 18, 2016, bilateral MG screening mammo w CAD. January 06, 2015, bilateral MG screening mammo w CAD. There are scattered fibroglandular densities. Finding: There are typically benign calcifications in both breasts. There is a chronic nodularity in the left breast. ASSESSMENT: Benign, BI-RAD 2 RECOMMENDATION: Routine screening mammogram of both breasts in 1 year.
== END | disposition home or self-care (01) ==
LOC: RADMAMWWP 14:34
PROVIDERS: ATTEND Internal Medicine
DX: Z12.31 Encounter for screening mammogram for malignant neoplasm of breast (principal)

== ENCOUNTER 2018-03-27 09:37 | Day surgery (SDC) | payer MEDICARE ==
[2018-03-21 16:26] VITALS: BMI 48.2
[~2018-03-27 09:37] MED LIST: TETRACAINE 0.5% OPHTH (PF) DROPS 4 ML BTL OP ONE; TIMOLOL 0.5% OPHTH DROPS 5 ML BTL OP ONE
[2018-03-27] MEDS ORDERED: LACTATED RINGERS 1,000 ML IV SCH (11:07)
[2018-03-27] MEDS: PHENYLEPHRINE 2.5% OPHTH DRP 2ML OP NR ×4 (11:49→12:04)
[2018-03-27] MEDS: CYCLOPENTOLATE 1% OPHTH SOLN 2 ML BTL OP ONE ×3 (11:52→12:06)
[2018-03-27] MEDS: MOXIFLOXACIN HCL 0.5% DROPS 3 ML BTL OP ONE ×2 (11:53→12:37)
[2018-03-27] MEDS ORDERED: LIDOCAINE 1% 20 ML VIAL (10MG/ML) FOR IV START INTRADERMA ONE (12:17)
[2018-03-27] MEDS ORDERED: MIDAZOLAM 2 MG/2 ML VIAL ONE (12:25)
[2018-03-27] MEDS ORDERED: LACTATED RINGERS 1,000 ML IV ONE (12:25)
[2018-03-27] MEDS ORDERED: fentaNYL (PF) 50 MCG/ML 2 ML AMP ONE (12:25)
[2018-03-27 12:29] VITALS: RESP 16; TEMP 98
[2018-03-27] MEDS ORDERED: BALANCED SALT IRRIG SOLN COMB2 15 ML IRRIG.SOLN IRRIGATION ONE (12:36)
[2018-03-27] MEDS ORDERED: DUOVISC KIT (GREEN BOX) INTRAOCULA ONE (12:36)
[2018-03-27] MEDS ORDERED: LIDOCAINE 1% (PF) 10MG/ML VIAL SQ ONE (12:37)
[2018-03-27] MEDS ORDERED: EPINEPHrine (PF) 0.3 ML in BALANCED SALT IRRIG SOLN COMB2 500 ML IRRIGATION ONE (12:38)
--- NOTE | 2018-03-27 13:01 | P.OP ---
Date of Procedure: 03/27/18 Preoperative Diagnosis: NS & CS & PSC Postoperative Diagnosis: same Procedure(s) Performed: PIOL, OD Implants: PCB00 25.50 Anesthesia: MAC Surgeon: Omar Orr Estimated Blood Loss (ml): 0 Pathology: none sent Condition: stable Disposition: same day Indications for Procedure: blurry vision Operative Findings: No complication
[2018-03-27 13:44] VITALS: BP 168/73; PULSE 55
[2018-03-27] MEDS ORDERED: ACETAMINOPHEN TAB 325 MG TAB PO ONE (13:48)
--- NOTE | 2018-04-02 17:10 | OP ---
OPERATIVE REPORT DATE OF SURGERY: 27 March 2018. PROCEDURE: Phacoemulsification of cataract and intraocular lens implant of the right eye. PREOPERATIVE DIAGNOSES:: 1. Nuclear sclerosis. 2. Cortical sclerosis. 3. Posterior subcapsular cataract. POSTOPERATIVE DIAGNOSES:: 1. Nuclear sclerosis. 2. Cortical sclerosis. 3. Posterior subcapsular cataract. ESTIMATED BLOOD LOSS:: Zero. SPECIMEN TAKEN:: None. NARRATIVE: After obtaining the appropriate consent, the patient was brought to the Operating Room where the patient was placed under cardiac monitoring and prepped and draped in the usual sterile manner. At the 11 o'clock position a 15 degree super sharp blade was used to create a paracentesis followed by instillation of 1% Xylocaine MPF 50:50 mix with BSS into the anterior chamber. This was followed by Duovisc to stabilize the anterior chamber. At the 9 o'clock position a self-sealing corneal flap incision was created using 2.8 mm cindy keratome. A cystatome was used to initiate a continuous tear capsulorrhexis which was completed with the Utrata forceps. A Binkhorst cannula was used to hydrodissect the lens nucleus followed by hydrodelineation. Phacoemulsification of the lens was performed utilizing phacochop in 24.92 seconds at 12% power. The remaining cortical material was removed using the irrigation aspiration mode followed by additional 1% Xylocaine MPF into the anterior chamber followed by viscoelastic to stabilize the capsular bag. An AMEI PCP 00 25.5 diopters posterior chamber lens was placed into the capsular bag without difficulty. The remaining viscoelastic material was removed from the anterior chamber with the irrigation/aspiration. Balanced salt solution was used to normalize the intraocular pressure. The incision was checked for watertight integrity. The patient then received two drops of 0.5% timolol followed by two drops Vigamox, was lightly patched and shielded in the usual manner. There were no complications from the procedure. The patient tolerated the procedure well and was returned to recovery in good condition. MMODL / IJN: [id number] /
== END 2018-03-27 14:33 | disposition home or self-care (01) ==
LOC: OR 09:37
PROVIDERS: ATTEND Ophthalmology
DX: H25.011 Cortical age-related cataract, right eye (principal); I10 Essential (primary) hypertension; E07.9 Disorder of thyroid, unspecified; K21.9 Gastro-esophageal reflux disease without esophagitis; Z79.82 Long term (current) use of aspirin; Z79.890 Hormone replacement therapy; Z79.899 Other long term (current) drug therapy; Z88.0 Allergy status to penicillin; Z88.2 Allergy status to sulfonamides; Z88.8 Allergy status to other drugs, medicaments and biological substances; Z88.6 Allergy status to analgesic agent; Z88.1 Allergy status to other antibiotic agents; Z91.040 Latex allergy status; Z91.09 Other allergy status, other than to drugs and biological substances
CPT/HCPCS: 66984; C1780; J2250; J0171; J3010; J2001

== ENCOUNTER → 2018-06-14 | Outpatient (CLI) | payer MEDICARE ==
--- NOTE | 2018-06-17 12:38 | MM ---
Reason for exam: screening (asymptomatic). Last mammogram was performed 1 year and 1 month ago. History: Patient is postmenopausal and is nulliparous. Physical Findings: A clinical breast exam by your physician is recommended on an annual basis and results should be correlated with mammographic findings. MG Screening Mammo w CAD Bilateral CC and MLO view(s) were taken. Prior study comparison: May 18, 2017, bilateral MG screening mammo w CAD. February 18, 2016, bilateral MG screening mammo w CAD. There are scattered fibroglandular densities. Stable benign calcifications. There is no discrete abnormality. No significant changes when compared with prior studies. ASSESSMENT: Benign, BI-RAD 2 RECOMMENDATION: Routine screening mammogram of both breasts in 1 year.
== END | disposition home or self-care (01) ==
LOC: RADMAMWWP 15:59
PROVIDERS: ATTEND Internal Medicine
DX: Z12.31 Encounter for screening mammogram for malignant neoplasm of breast (principal)
CPT/HCPCS: 77067

== ENCOUNTER → 2018-07-05 | Outpatient (CLI) | payer MEDICARE ==
[2018-07-05 11:42] LABS: HCT 35.7 % (34.0-46.0); HGB 11.3 gm/dL (11.4-16.0); MCH 27.2 pg (25.0-35.0); MCHC 31.8 g/dL (31.0-37.0); MCV 85.6 fL (80.0-100.0); Mean Platelet Volume 6.5; Platelet Count 214 k/uL (150-450); RBC 4.17 m/uL (3.80-5.40); RDW 14.3 % (11.5-15.5); WBC 9.2 k/uL (3.8-10.6)
[2018-07-05 12:05] LABS: Albumin 3.6 g/dL (3.5-5.0); Calcium 9.9 mg/dL (8.4-10.2); Potassium 4.5 mmol/L (3.5-5.1); Total Bilirubin 0.6 mg/dL (0.2-1.3); Total Protein 7.1 g/dL (6.3-8.2)
[2018-07-05 12:18] LABS: T4, Free (Free Thyroxine) 1.48 ng/dL (0.78-2.19)
== END | disposition home or self-care (01) ==
LOC: LABWHC1 10:40
PROVIDERS: ATTEND Internal Medicine
DX: Z00.00 Encounter for general adult medical examination without abnormal findings (principal); E78.2 Mixed hyperlipidemia; E83.9 Disorder of mineral metabolism, unspecified; I11.9 Hypertensive heart disease without heart failure; K21.0 Gastro-esophageal reflux disease with esophagitis
CPT/HCPCS: 36415; 80053; 80061; 84439; 84443; 85027

== ENCOUNTER → 2019-07-30 | Outpatient (CLI) | payer MEDICARE ==
--- NOTE | 2019-08-01 14:31 | MM ---
Reason for exam: screening (asymptomatic). Last mammogram was performed 1 year and 2 months ago. History: Patient is postmenopausal and is nulliparous. Physical Findings: A clinical breast exam by your physician is recommended on an annual basis and results should be correlated with mammographic findings. MG Screening Mammo w CAD Bilateral CC and MLO view(s) were taken. Prior study comparison: June 14, 2018, bilateral MG screening mammo w CAD. May 18, 2017, bilateral MG screening mammo w CAD. There are scattered fibroglandular densities. Benign appearing bilateral calcifications. No suspicious abnormality. No significant changes when compared with prior studies. ASSESSMENT: Benign, BI-RAD 2 RECOMMENDATION: Routine screening mammogram of both breasts in 1 year.
== END | disposition home or self-care (01) ==
LOC: RADMAMWWP 13:49
PROVIDERS: ATTEND Internal Medicine
DX: Z12.31 Encounter for screening mammogram for malignant neoplasm of breast (principal); Z90.12 Acquired absence of left breast and nipple
CPT/HCPCS: 77067

== ENCOUNTER → 2019-11-18 | Outpatient (CLI) | payer MEDICARE ==
[2019-11-18 10:15] LABS: Basophils % (A) 0 %; Eosinophils # (A) 0.3 k/uL (0-0.7); Eosinophils % (A) 4 %; HCT 35.8 % (34.0-46.0); HGB 11.2 gm/dL (11.4-16.0); Lymphocytes # (A) 0.9 k/uL (1.0-4.8); Lymphocytes % (A) 12 %; MCH 27.3 pg (25.0-35.0); MCHC 31.3 g/dL (31.0-37.0); MCV 87.3 fL (80.0-100.0); Mean Platelet Volume 7.5; Monocytes # (A) 0.5 k/uL (0-1.0); Monocytes % (A) 7 %; Neutrophils # (A) 5.3 k/uL (1.3-7.7); Neutrophils % (A) 74 %; Platelet Count 234 k/uL (150-450); RDW 12.6 % (11.5-15.5); WBC 7.2 k/uL (3.8-10.6)
[2019-11-18 14:42] LABS: Erythrocyte Sedimentation Rate 58 mm/hr (0-20)
[2019-11-18 16:57] LABS: African American GFR (CKD) 55.3 (60.0-200.0); Albumin 3.8 g/dL (3.80-4.90); Albumin/Globulin Ratio 1.52 (1.60-3.17); Anion Gap 9.5 mmol/L (4.00-12.00); BUN/Creat Ratio 33.64 Ratio (12.00-20.00); C Reactive Protein 1.3 mg/dL (0.0-0.8); Calcium 9.6 mg/dL (8.7-10.3); Carbon Dioxide 26.5 mmol/L (21.6-31.8); Chol/HDL Ratio 2.63; Globulin 2.5 g/dL (1.6-3.3); LDL Cholesterol,Calculated 102.2 mg/dL (0.0-131.0); Non-African American GFR(CKD) 47.7 (60.0-200.0); Potassium 4.6 mmol/L (3.5-5.5); Total Bilirubin 0.3 mg/dL (0.3-1.2); Total Protein 6.3 g/dL (6.2-8.2); VLDL Calculation 14.8 mg/dL (5.00-40.00)
[2019-11-18 17:09] LABS: T4, Free (Free Thyroxine) 1.5 ng/dL (0.80-1.80)
[2019-11-18 18:53] LABS: Appearance,Urine Clear (Clear); Color,Urine Yellow
[2019-11-18 18:54] LABS: Bilirubin,Urine Negative (Negative); Blood,Urine Negative (Negative); Glucose,Urine (UA) Negative (Negative); Ketones,Urine Negative (Negative); Leukocyte Esterase,Urine Negative (Negative); Nitrite,Urine Negative (Negative); Protein,Urine Negative (Negative); Urobilinogen,Urine <2.0 mg/dL (<2.0)
[2019-11-18 19:39] LABS: Hemoglobin A1C 5.5 % (4.0-6.0)
== END | disposition home or self-care (01) ==
LOC: LABWHC1 09:27
PROVIDERS: ATTEND Internal Medicine
DX: D64.9 Anemia, unspecified (principal); E11.9 Type 2 diabetes mellitus without complications; I10 Essential (primary) hypertension; E78.5 Hyperlipidemia, unspecified; E55.9 Vitamin D deficiency, unspecified
CPT/HCPCS: 36415; 80053; 80061; 81003; 82272; 82306; 82550; 83036; 84439; 84443; 85025; 85652; 86140

== ENCOUNTER → 2020-08-02 | Outpatient (CLI) | payer MEDICARE ==
--- NOTE | 2020-08-02 15:43 | CT ---
EXAMINATION TYPE: CT iac wo con DATE OF EXAM: 08/02/2020 COMPARISON: None HISTORY: hearing loss CT DLP: 142mGycm Automated exposure control for dose reduction was used. FINDINGS: The external auditory canals are patent bilaterally. Mastoid air cells show no evidence of abnormal opacification bilaterally. The middle ear ossicles are symmetric and unremarkable. There is no evidence of suspicious surrounding soft tissue density to suggest cholesteatoma. The scutum is preserved bilaterally. The cochlea and the semicircular canals are symmetric and unremarkable. Ves tibular aqueduct and internal carotid canal appear unremarkable. Temporomandibular joints are mainta ined bilaterally. IMPRESSION: No significant abnormality seen to account for patient's symptoms.
== END | disposition home or self-care (01) ==
LOC: RADCTMAIN 14:36
PROVIDERS: ATTEND Otolaryngology
DX: H91.90 Unspecified hearing loss, unspecified ear (principal); Z91.09 Other allergy status, other than to drugs and biological substances
CPT/HCPCS: 70480

== ENCOUNTER → 2021-01-04 | Outpatient (CLI) | payer MEDICARE ==
--- NOTE | 2021-01-04 15:22 | US ---
EXAMINATION TYPE: US kidneys/renal and bladder DATE OF EXAM: 01/04/2021 COMPARISON: NONE CLINICAL HISTORY: N18.30 Chronic kidney disease, stage 3. abnormal labs, patient scanned in [facility] EXAM MEASUREMENTS: Right Kidney: 8.2 x 4.5 x 4.8 cm Left Kidney: 9.1 x 3.9 x 5.4 cm Right Kidney: lateral lower pole cystic lesion = 3.3 x 3.7 x 2.5 cm Left Kidney: No hydronephrosis or masses seen Bladder: mildly distended, anechoic Right jet seen Incidental finding: Right adnexal cystic lesion = 6.5 x 6.4 x 5.1 cm IMPRESSION: 1. Right renal cysts. 2. Incidental note made of a right adnexal cyst. Pelvic ultrasound could further evaluate this findin g
[2021-01-04 15:34] LABS: Calcium 9.5 mg/dL (8.4-10.2); Potassium 4.8 mmol/L (3.5-5.1)
== END | disposition home or self-care (01) ==
LOC: RADUSWWP 14:35
PROVIDERS: ATTEND Internal Medicine
DX: N28.1 Cyst of kidney, acquired (principal); N18.30 Chronic kidney disease, stage 3 unspecified; E87.8 Other disorders of electrolyte and fluid balance, not elsewhere classified; E87.5 Hyperkalemia
CPT/HCPCS: 76770; 80048

== ENCOUNTER → 2021-02-24 | Outpatient (CLI) | payer MEDICARE ==
--- NOTE | 2021-02-24 15:54 | US ---
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 EXAM MEASUREMENTS: RIGHT: Peak Systolic Velocity (PSV) cm/sec ----- Right CCA: 96.8 ----- Right ICA: 88.0 ----- Right ECA: 136.0 ICA/CCA ratio: 0.9 RIGHT: End Diastole cm/sec ----- Right CCA: 16.9 ----- Right ICA: 23.0 ----- Right ECA: 0.0 LEFT: Peak Systolic Velocity (PSV) cm/sec ----- Left CCA: 64.0 ----- Left ICA: 67.6 ----- Left ECA: 61.2 ICA/CCA ratio: 1.1 LEFT: End Diastole cm/sec ----- Left CCA: 9.6 ----- Left ICA: 20.0 ----- Left ECA: 0.0 VERTEBRALS (direction of flow): Right Vertebral: Antegrade Left Vertebral: Antegrade Rhythm: Normal No significant stenosis. Wkys-oa-brirdioe atherosclerotic plaque at the common carotid artery bifurca tions. IMPRESSION: 1. No hemodynamically significant stenosis. Less than 50% stenosis of the bilateral internal caroti d arteries is seen. Mild to moderate atherosclerotic plaque at the bilateral common carotid artery bi furcations. Criteria for Assigning % of Stenosis / Diameter reduction (Estimation based on the indirect measurements of the internal carotid artery velocities (ICA PSV). 1. Normal (no stenosis)=ICA PSV < 125 cm/s: ratio < 2.0: ICA EDV<40 cm/s. 2. Less than 50% stenosis=ICA PSV < 125 cm/s: ratio < 2.0: ICA EDV<40 cm/s. 3. 50 to 69% stenosis=ICA PSV of 125 to 230 cm/s: ration 2.0 ? 4.0: ICA EDV 40-100 cm/s. 4. Greater than 70% stenosis to near occlusion= ICA PSV > 230 cm/s: ratio > 4.0: ICA EDV > 100 cm/s. 5. Near occlusion= ICA PSV velocities may be low or undetectable: variable ratio and ICA EDV. 6. Total occlusion=unable to detect flow.
--- NOTE | 2021-02-24 16:43 | US ---
EXAMINATION TYPE: US pelvic complete DATE OF EXAM: 02/24/2021 COMPARISON: 01/04/2021 ultrasound kidney study CLINICAL HISTORY: N83.8 noninflammatory disorders of ovary, fallopian. Right adnexal mass, 0 TECHNIQUE: Transabdominal sonographic images of the pelvis were acquired. Date of LMP: 25 years ago EXAM MEASUREMENTS: Uterus: 5.5 x 2.0 x 3.2 cm Endometrial Stripe: 0.3 cm Right Ovary there is a cystic structure within the right adnexa measuring 7.2 x 4.8 x 5.6 cm. This ab uts the uterus. This may represent a cystadenoma or cystadenocarcinoma. This is indeterminate on this study 80-year-old postmenopausal patient. Gynecologic evaluation and possible MRI of the pelvis is r ecommended. Left Ovary: 1.6 x 0.9 x 1.2 cm 1. Uterus: anteverted 2. Endometrium: appears wnl 3. Right Ovary: Not visualized 4. Left Ovary: wnl 5. Bilateral Adnexa: Right adnexal cystic mass: 7.2 x 4.8 x 5.6cm cystic mass 6. Posterior cul-de-sac: wnl IMPRESSION: 1. Right adnexal cystic mass measuring 7.2 cm. This abuts the uterus. This may represent a cystadenom a or cystadenocarcinoma. This is indeterminant. This patient is 80-year-old postmenopausal patient. G ynecologic evaluation and possible pelvic MRI is recommended.
== END ==
LOC: RADUSWWP 13:19
PROVIDERS: ATTEND Internal Medicine
DX: N83.8 Other noninflammatory disorders of ovary, fallopian tube and broad ligament (principal); I63.233 Cerebral infarction due to unspecified occlusion or stenosis of bilateral carotid arteries
CPT/HCPCS: 76856; 93880

== ENCOUNTER → 2021-05-16 | Outpatient (CLI) | payer MEDICARE | END | disposition home or self-care (01) | LOC: LABWHC1 16:05 | PROVIDERS: ATTEND Internal Medicine | DX: R19.00 Intra-abdominal and pelvic swelling, mass and lump, unspecified site (principal) | CPT/HCPCS: 36415; 82105 ==

== ENCOUNTER → 2021-05-25 | Outpatient (CLI) | payer MEDICARE ==
--- NOTE | 2021-05-25 22:08 | CT ---
EXAMINATION TYPE: CT pelvis w con DATE OF EXAM: 05/25/2021 COMPARISON: Correlation ultrasound 02/24/2021 HISTORY: 81-year-old female R1 9.00, Pelvic mass TECHNIQUE: Contiguous axial scanning of the pelvis following administration of 80 ml Isovue 300 IV co ntrast. Delayed images through the bladder and coronal/sagittal reconstructions performed. CT DLP: 1401 mGycm Automated exposure control for dose reduction was used. FINDINGS: Redemonstrated cystic right adnexal mass. This measures 6.7 x 5.7 x 5.6 cm. No enhancing internal sep tations or nodularity is apparent by CT. Bladder partially distended. There is pelvic floor relaxation with numerous pelvic phleboliths. Uteru s is anteverted. Left ovary is visualized. Moderate stool burden. Extensive sigmoid diverticulosis without pericolonic inflammation. Partially visualized cyst lower pole right kidney measuring 3.2 cm. No abnormal fluid collection in the pelvis or pelvic lymphadenopathy. Bones: Advanced hypertrophic facet arthropathy with nearly grade 2 anterolisthesis L4-L5. Trace grade 1 retrolisthesis L3-L4.. IMPRESSION: 1. RIGHT OVARIAN LESION HAS THE APPEARANCE OF A SIMPLE CYST MEASURING 6.7 CM. IN A POSTMENOPAUSAL FEM MELIDA, THIS IS CLASSIFIED O-RADS 2, ALMOST CERTAINLY BENIGN, <1% RISK OF MALIGNANCY. 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 CONSIDER PEDIATRIC SOCIAL WORKER CONSULTATION TO CONFIRM MANAGEMENT RECOMMENDATIONS WITH ANNUAL ULTRASOU ND SURVEILLANCE. 2. EXTENSIVE SIGMOID DIVERTICULOSIS WITHOUT ACUTE DIVERTICULITIS.
== END | disposition home or self-care (01) ==
LOC: RADCTMAIN 13:35
PROVIDERS: ATTEND Internal Medicine
DX: N83.201 Unspecified ovarian cyst, right side (principal); K57.30 Diverticulosis of large intestine without perforation or abscess without bleeding
CPT/HCPCS: 82565; 84520; 72193; 36415; Q9967

== ENCOUNTER → 2021-09-06 | Outpatient (CLI) | payer MEDICARE ==
[2021-09-06 20:25] LABS: Cancer Antigen 19-9 9.3 U/mL (0.0-34.9); Carcinoembryonic Antigen 1.8 ng/mL (0.0-4.9)
== END | disposition home or self-care (01) ==
LOC: LABWHC1 11:51
PROVIDERS: ATTEND Obstetrics & Gynecology
DX: N83.201 Unspecified ovarian cyst, right side (principal)
CPT/HCPCS: 36415; 82378; 86301; 86304

== ENCOUNTER → 2021-09-07 | Outpatient (CLI) | payer MEDICARE ==
--- NOTE | 2021-09-07 15:13 | US ---
EXAMINATION TYPE: US pelvic complete DATE OF EXAM: 09/07/2021 COMPARISON: NONE CLINICAL HISTORY: N83.201 Unspecified ovarian cyst, right side. elderly female with known right ovari an cyst, no pelvic pain TECHNIQUE: TA. Transabdominal sonographic images of the pelvis were acquired. pt did not want TV a pproach Date of LMP: 26 yrs ago EXAM MEASUREMENTS: Uterus: 5.1 x 3.9 x 2.3 cm Endometrial Stripe: unable to discern Right Ovary: 7.2 x 5.8 x 5.1 cm Left Ovary: not seen 1. Uterus: Anteverted atrophic and heterogenous 2. Endometrium: unable to visualize 3. Right Ovary: 6.6 x 5.2 x 5.1cm 4. Left Ovary: not seen due to atrophy and bowel gas 5. Bilateral Adnexa: wnl 6. Posterior cul-de-sac: wnl IMPRESSION: 1. Right ovarian cyst. Follow-up is recommended.
== END | disposition home or self-care (01) ==
LOC: RADUSWWP 12:30
PROVIDERS: ATTEND Obstetrics & Gynecology
DX: N83.291 Other ovarian cyst, right side (principal)
CPT/HCPCS: 76856

== ENCOUNTER → 2021-12-20 | Outpatient (CLI) | payer MEDICARE ==
[2021-12-20 20:12] LABS: ALT 17 U/L (8-44); AST 30 U/L (13-35); African American GFR (CKD) 52.8 (60.0-200.0); Albumin 4.2 g/dL (3.8-4.9); Albumin/Globulin Ratio 1.15 (1.60-3.17); Alkaline Phosphatase 148 U/L (41-126); BUN/Creat Ratio 18.32 Ratio (12.00-20.00); Blood Urea Nitrogen 20.7 mg/dL (9.0-27.0); Calcium 10.6 mg/dL (8.7-10.3); Carbon Dioxide 22.6 mmol/L (20.0-27.5); Chloride 103 mmol/L (96-109); Chol/HDL Ratio 2.15 Ratio; Creatine Kinase 173 U/L (26-186); Globulin 3.6 g/dL (1.6-3.3); Glucose 88 mg/dL (70-110); LDL Cholesterol,Calculated 92.6 mg/dL (0.0-131.0); Non-African American GFR(CKD) 45.5 (60.0-200.0); Phosphorus 3.1 mg/dL (2.4-5.1); Potassium 4.7 mmol/L (3.5-5.5); Sodium 142 mmol/L (135-145); Total Protein 7.8 g/dL (6.2-8.2); Uric Acid 6.6 mg/dL (2.9-7.7)
[2021-12-20 21:09] LABS: Basophils # (A) 0.04 X 10*3/uL (0.00-0.10); Basophils % (A) 0.5 %; Eosinophils # (A) 0.07 X 10*3/uL (0.04-0.35); Eosinophils % (A) 0.8 %; HCT 38.3 % (37.2-46.3); HGB 11.8 g/dL (12.0-15.0); Immature Grans, Automated 0.3 %; Lymphocytes # (A) 0.87 X 10*3/uL (0.90-5.00); MCH 26.6 pg (27.0-32.0); MCHC 30.8 g/dL (32.0-37.0); MCV 86.5 fL (80.0-97.0); Mean Platelet Volume 11.7 fL (9.5-12.2); Monocytes # (A) 0.63 X 10*3/uL (0.20-1.00); Monocytes % (A) 7.3 %; NRBC Per 100 WBC 0 /100 WBCS (0.0-0.0); Neutrophils # (A) 7.02 X 10*3/uL (1.80-7.70); Neutrophils % (A) 81.1 %; Platelet Count 245 X 10*3/uL (140-440); RBC 4.43 X 10*6/uL (4.10-5.20); RDW 15.3 % (11.5-14.5); WBC 8.66 X 10*3/uL (4.50-10.00)
[2021-12-20 21:32] LABS: Erythrocyte Sedimentation Rate 105 mm/Hr (0-30)
[2021-12-21 05:29] LABS: Appearance,Urine Clear (Clear); Bilirubin,Urine Negative (Negative); Blood,Urine Negative (Negative); Color,Urine Yellow (Yellow); Ketones,Urine Negative (Negative); Leukocyte Esterase,Urine Negative (Negative); Nitrite,Urine Negative (Negative); Protein,Urine Negative (Negative); Specific Gravity,Urine 1.015 (1.001-1.030); Urobilinogen,Urine 0.2 (0.2,1.0)
[2021-12-21 06:26] LABS: Microalbumin Creatinine Ratio <30 mg/g Creat (0-30); Urine Creatinine 54.9 mg/dL (28.0-217.0)
== END | disposition home or self-care (01) ==
LOC: LABWHC1 10:57
PROVIDERS: ATTEND Internal Medicine
DX: Z00.00 Encounter for general adult medical examination without abnormal findings (principal); I10 Essential (primary) hypertension; E78.5 Hyperlipidemia, unspecified; E21.3 Hyperparathyroidism, unspecified; E03.9 Hypothyroidism, unspecified; E55.9 Vitamin D deficiency, unspecified; M81.0 Age-related osteoporosis without current pathological fracture; R80.9 Proteinuria, unspecified
CPT/HCPCS: 36415; 80053; 80061; 81003; 82043; 82272; 82306; 82550; 82570; 83735; 83970; 84100; 84439; 84443; 84550; 85025; 85652; 86140; 86376

== ENCOUNTER → 2022-07-25 | Outpatient (CLI) | payer MEDICARE ==
[2022-07-25 23:46] LABS: Basophils # (A) 0.04 X 10*3/uL (0.00-0.10); Basophils % (A) 0.7 %; Eosinophils # (A) 0.17 X 10*3/uL (0.04-0.35); Eosinophils % (A) 2.8 %; HCT 33.3 % (37.2-46.3); HGB 10.5 g/dL (12.0-15.0); Immature Grans, Automated 0.3 %; Lymphocytes # (A) 1.15 X 10*3/uL (0.90-5.00); MCH 26.9 pg (27.0-32.0); MCHC 31.5 g/dL (32.0-37.0); MCV 85.4 fL (80.0-97.0); Mean Platelet Volume 11.2 fL (9.5-12.2); Monocytes # (A) 0.67 X 10*3/uL (0.20-1.00); Monocytes % (A) 11.1 %; NRBC Per 100 WBC 0 /100 WBCS (0.0-0.0); Neutrophils # (A) 3.99 X 10*3/uL (1.80-7.70); Neutrophils % (A) 66.1 %; Platelet Count 301 X 10*3/uL (140-440); RDW 14.7 % (11.5-14.5); WBC 6.04 X 10*3/uL (4.50-10.00)
[2022-07-26 00:05] LABS: Erythrocyte Sedimentation Rate 118 mm/Hr (0-30)
[2022-07-26 05:19] LABS: Magnesium 1.8 mg/dL (1.5-2.4); T4, Free (Free Thyroxine) 1.21 ng/dL (0.800-1.800)
[2022-07-26 05:36] LABS: Albumin 3.7 g/dL (3.8-4.9); Albumin/Globulin Ratio 1.12 (1.60-3.17); Anion Gap 12.8 mmol/L (10.00-18.00); BUN/Creat Ratio 18.5 Ratio (12.00-20.00); Blood Urea Nitrogen 19.8 mg/dL (9.0-27.0); Calcium 9.4 mg/dL (8.7-10.3); Carbon Dioxide 23.5 mmol/L (20.0-27.5); Globulin 3.3 g/dL (1.6-3.3); Non-African American GFR(CKD) 48.3 (60.0-200.0); Potassium 4.6 mmol/L (3.5-5.5); Total Bilirubin 0.2 mg/dL (0.30-1.20); Total Protein 6.9 g/dL (6.2-8.2)
== END | disposition home or self-care (01) ==
LOC: LABWHC1 16:08
PROVIDERS: ATTEND Internal Medicine
DX: I10 Essential (primary) hypertension (principal); D64.9 Anemia, unspecified; E87.8 Other disorders of electrolyte and fluid balance, not elsewhere classified; E03.9 Hypothyroidism, unspecified
CPT/HCPCS: 36415; 80053; 82306; 83735; 84100; 84439; 84443; 85025; 85652

== ENCOUNTER 2022-08-27 18:59 | Emergency (ER) | payer MEDICARE ==
[2022-08-27 20:07] LABS: Basophils % (A) 0 %; Eosinophils % (A) 0 %; HCT 35.7 % (34.0-46.0); HGB 11.7 gm/dL (11.4-16.0); Hypochromasia Slight; Lymphocytes # (A) 0.7 k/uL (1.0-4.8); Lymphocytes % (A) 20 %; MCH 27.3 pg (25.0-35.0); MCHC 32.7 g/dL (31.0-37.0); MCV 83.6 fL (80.0-100.0); Mean Platelet Volume 8.9; Monocytes # (A) 0.3 k/uL (0-1.0); Monocytes % (A) 8 %; Neutrophils # (A) 2.5 k/uL (1.3-7.7); Neutrophils % (A) 68 %; Platelet Count 137 k/uL (150-450); RBC 4.27 m/uL (3.80-5.40); RDW 13.8 % (11.5-15.5); WBC 3.6 k/uL (3.8-10.6)
--- NOTE | 2022-08-27 20:19 | ED ---
General Adult HPI - General Chief complaint: Nausea/Vomiting/Diarrhea Stated complaint: Diarrhea Time Seen by Provider: 08/27/22 19:03 Source: patient, RN notes reviewed Mode of arrival: EMS Limitations: no limitations - History of Present Illness Initial comments: Patient is a 82-year-old female presenting to the emergency room via EMS with complaints of generalized unwell feeling along with diarrhea ongoing since Sunday (6 days ago). She reports that she received her flu vaccination on Sunday and symptoms began afterwards. She does report that she had a headache initially as well but denies any headache at this time and just reports gen eralized malaise. She denies any abdominal pain, chest pain, shortness of breath, nausea, vomiting, dizziness, lethargy, fevers or chills. Patient has a past medical history significant for hypertension, arthritis, hypothyroidism, urinary incontinence, and very hard of hearing. - Related Data Home Medications Medication Instructions Recorded Confirmed Aspirin 81 mg PO DAILY 09/26/14 03/27/18 Atenolol [Tenormin] 25 mg PO DAILY 09/26/14 03/27/18 Calcium Carbonate/Vitamin D3 1 tab PO DAILY 09/26/14 03/27/18 [Caltrate 600 + D Tablet] Lansoprazole 30 mg PO DAILY 09/26/14 03/27/18 Levothyroxine Sodium [Synthroid] 100 mcg PO DAILY 09/26/14 03/27/18 Multivitamin/Iron/Folic Acid 1 tab PO DAILY 09/26/14 03/27/18 [Centrum Complete Multivit Tab] Acetaminophen Tab [Tylenol Tab] 1,000 mg PO Q6H PRN 10/19/16 03/27/18 Calcium Carbonate [Tums] 500 mg PO TID PRN 10/19/16 03/27/18 Triamterene-Hctz 37.5-25Mg 1 cap PO DAILY 03/21/18 03/27/18 [Dyazide 37.5-25 Capsule] Previous Rx's Medication Instructions Recorded Docusate [Colace] 100 mg PO DAILY #30 capsule 11/02/16 Famotidine [Pepcid] 20 mg PO DAILY #30 tablet 11/02/16 Allergies Allergy/AdvReac Type Severity Reaction Status Date / Time sulfamethoxazole Allergy Unknown "Sick as a Verified 08/27/22 19:06 [From Bactrim] Dog" trimethoprim [From Bactrim] Allergy Unknown "Sick as a Verified 08/27/22 19:06 Dog" adhesive AdvReac Unknown Rash, Red Verified 08/27/22 19:06 Skin from tape and cardiac electrodes. ciprofloxacin [From Cipro] AdvReac Unknown Pain in Verified 08/27/22 19:06 Arms ibuprofen [From Motrin] AdvReac Unknown Eye Pain Verified 08/27/22 19:06 doxycycline AdvReac Unknown Verified 08/27/22 19:06 ferrous sulfate AdvReac SEVERE Verified 08/27/22 19:06 HEADACHE furosemide [From Lasix] AdvReac Rapid Verified 08/27/22 19:06 Heart Rate latex AdvReac Unknown Verified 08/27/22 19:06 omeprazole [From Prilosec] AdvReac Unknown Verified 08/27/22 19:06 omeprazole magnesium AdvReac Unknown Verified 08/27/22 19:06 [From Prilosec] Penicillins AdvReac Unknown Verified 08/27/22 19:06 Review of Systems ROS Statement: Those systems with pertinent positive or pertinent negative responses have been documented in the HPI. ROS Other: All systems not noted in ROS Statement are negative. Past Medical History Past Medical History: Hypertension, Osteoarthritis (OA), Thyroid Disorder Additional Past Medical History / Comment(s): arthritis, sub arachniod hemorhage, URINARY INCONTINENCE History of Any Multi-Drug Resistant Organisms: None Reported Past Surgical History: Joint Replacement Additional Past Surgical History / Comment(s): L cataract. LEFT KNEE Past Anesthesia/Blood Transfusion Reactions: Motion Sickness, Postoperative Nausea & Vomiting (PONV) Past Psychological History: No Psychological Hx Reported Smoking Status: Never smoker Past Alcohol Use History: None Reported Past Drug Use History: None Reported - Past Family History Sister(s) Family Medical History: Cancer Additional Family Medical History / Comment(s): SKIN CANCER Mother Family Medical History: CVA/TIA General Exam Limitations: physical limitation (Very hard of hearing) General appearance: alert, in no apparent distress Head exam: Present: atraumatic, normocephalic, normal inspection Eye exam: Present: normal appearance, PERRL, EOMI. Absent: scleral icterus, conjunctival injection, periorbital swelling ENT exam: Present: normal exam, mucous membranes moist Neck exam: Present: normal inspection. Absent: lymphadenopathy Respiratory exam: Present: normal lung sounds bilaterally. Absent: respiratory distress, wheezes, rales, rhonchi, stridor Cardiovascular Exam: Present: regular rate, normal rhythm, normal heart sounds. Absent: systolic murmur, diastolic murmur, rubs, gallop, clicks GI/Abdominal exam: Present: soft, normal bowel sounds. Absent: distended, tenderness, guarding, rebound, rigid Rectal exam: Present: deferred Extremities exam: Present: normal inspection. Absent: pedal edema, joint swelling Back exam: Present: normal inspection Neurological exam: Present: alert, oriented X3, CN II-XII intact Psychiatric exam: Present: normal affect, normal mood Skin exam: Present: warm, dry, intact, normal color. Absent: rash Course Vital Signs 08/27/22 08/27/22 08/27/22 19:02 19:37 20:33 Temperature 98.1 F 97.8 F 98.6 F Pulse Rate 66 68 78 Respiratory 16 18 16 Rate Blood Pressure 169/80 168/78 O2 Sat by Pulse 97 97 97 Oximetry Medical Decision Making - Medical Decision Making 82-year-old female presenting to the emergency room with complaints of generalized malaise along with worsening of chronic and diarrhea with benign cardiovascular, respiratory and abdominal exam and no acute distress. No indication for diagnostic imaging at this time. Will obtain a CBC, CMP along with COVID and influenza swabs. CBC reveals chronic anemia and leukopenia no other significant abnormalities. CMP with slight dehydration noted with a BUN of 20 normal creatinine alk phos and AST slightly elevated no other concerning abnormalities with electrolytes. Influenza swabs negative, Covid swab positive. No indication for further diagnostic imaging or laboratory studies. Education regarding Covid symptoms and symptomatic management for Covid reviewed with family. Due to onset of symptoms a week ago not a candidate for Paxlovid. Return parameters to the emergency room reviewed. Will discharge home with family in stable condition with symptomatic management. Case discussed with Dr. Coffman. - Lab Data Result diagrams: 08/27/22 19:33 08/27/22 19:33 Lab Results 08/27/22 08/27/22 08/27/22 Range/Units 19:17 19:17 19:33 WBC 3.6 L (3.8-10.6) k/uL RBC 4.27 (3.80-5.40) m/uL Hgb 11.7 (11.4-16.0) gm/dL Hct 35.7 (34.0-46.0) % MCV 83.6 (80.0-100.0) fL MCH 27.3 (25.0-35.0) pg MCHC 32.7 (31.0-37.0) g/dL RDW 13.8 (11.5-15.5) % Plt Count 137 L (150-450) k/uL MPV 8.9 Neutrophils % 68 % Lymphocytes % 20 % Monocytes % 8 % Eosinophils % 0 % Basophils % 0 % Neutrophils # 2.5 (1.3-7.7) k/uL Lymphocytes # 0.7 L (1.0-4.8) k/uL Monocytes # 0.3 (0-1.0) k/uL Eosinophils # 0.0 (0-0.7) k/uL Basophils # 0.0 (0-0.2) k/uL Hypochromasia Slight Sodium (137-145) mmol/L Potassium (3.5-5.1) mmol/L Chloride (98-107) mmol/L Carbon Dioxide (22-30) mmol/L Anion Gap mmol/L BUN (7-17) mg/dL Creatinine (0.52-1.04) mg/dL Est GFR (CKD-EPI)AfAm (>60 ml/min/1.73 sqM) Est GFR (CKD-EPI)NonAf (>60 ml/min/1.73 sqM) Glucose (74-99) mg/dL Calcium (8.4-10.2) mg/dL Total Bilirubin (0.2-1.3) mg/dL AST (14-36) U/L ALT (4-34) U/L Alkaline Phosphatase (38-126) U/L Total Protein (6.3-8.2) g/dL Albumin (3.5-5.0) g/dL Coronavirus (PCR) Detected A (Not Detectd) Influenza Type A RNA Not Detected (Not Detectd) Influenza Type B (PCR) Not Detected (Not Detectd) 08/27/22 Range/Units 19:33 WBC (3.8-10.6) k/uL RBC (3.80-5.40) m/uL Hgb (11.4-16.0) gm/dL Hct (34.0-46.0) % MCV (80.0-100.0) fL MCH (25.0-35.0) pg MCHC (31.0-37.0) g/dL RDW (11.5-15.5) % Plt Count (150-450) k/uL MPV Neutrophils % % Lymphocytes % % Monocytes % % Eosinophils % % Basophils % % Neutrophils # (1.3-7.7) k/uL Lymphocytes # (1.0-4.8) k/uL Monocytes # (0-1.0) k/uL Eosinophils # (0-0.7) k/uL Basophils # (0-0.2) k/uL Hypochromasia Sodium 134 L (137-145) mmol/L Potassium 4.3 (3.5-5.1) mmol/L Chloride 102 (98-107) mmol/L Carbon Dioxide 27 (22-30) mmol/L Anion Gap 5 mmol/L BUN 20 H (7-17) mg/dL Creatinine 0.96 (0.52-1.04) mg/dL Est GFR (CKD-EPI)AfAm 64 (>60 ml/min/1.73 sqM) Est GFR (CKD-EPI)NonAf 55 (>60 ml/min/1.73 sqM) Glucose 101 H (74-99) mg/dL Calcium 8.1 L (8.4-10.2) mg/dL Total Bilirubin 0.3 (0.2-1.3) mg/dL AST 54 H (14-36) U/L ALT 23 (4-34) U/L Alkaline Phosphatase 163 H (38-126) U/L Total Protein 6.9 (6.3-8.2) g/dL Albumin 3.5 (3.5-5.0) g/dL Coronavirus (PCR) (Not Detectd) Influenza Type A RNA (Not Detectd) Influenza Type B (PCR) (Not Detectd) Disposition Clinical Impression: COVID-19 Disposition: HOME SELF-CARE Condition: Stable Instructions (If sedation given, give patient instructions): Acute Diarrhea ( ED), COVID-19 (Coronavirus Disease 2019) (ED) Additional Instructions: Please quarantine for 5 days after testing positive and restart quarantine if symptoms worsen. Please utilize Tylenol as needed for fevers and pain. Taking vitamin C, Zinc, vitamin D 50 mcg, and melatonin may help symptom recovery. Please return to the Emergency Department if symptoms worsen or any other concerns. Is patient prescribed a controlled substance at d/c from ED?: No Referrals: Sorin Reynoso MD [Primary Care Provider] - 1-2 days Time of Disposition: 20:43
[2022-08-27 20:34] VITALS: BP 168/78; PULSE 78; RESP 16; TEMP 98.6
[2022-08-27 20:45] LABS: Albumin 3.5 g/dL (3.5-5.0); Calcium 8.1 mg/dL (8.4-10.2); Potassium 4.3 mmol/L (3.5-5.1); Total Bilirubin 0.3 mg/dL (0.2-1.3); Total Protein 6.9 g/dL (6.3-8.2)
== END 2022-08-27 21:01 | disposition home or self-care (01) ==
LOC: SUPCPDRO 18:59 → EC 18:59
DX: U07.1 COVID-19 (principal); I10 Essential (primary) hypertension; E03.9 Hypothyroidism, unspecified; Z88.0 Allergy status to penicillin; Z88.1 Allergy status to other antibiotic agents; Z88.2 Allergy status to sulfonamides; Z88.6 Allergy status to analgesic agent; Z88.8 Allergy status to other drugs, medicaments and biological substances; Z91.048 Other nonmedicinal substance allergy status; Z91.040 Latex allergy status; Z79.890 Hormone replacement therapy; Z79.82 Long term (current) use of aspirin
CPT/HCPCS: 36415; 80053; 85025; 87502; 87635; 99285

== ENCOUNTER → 2023-01-18 | Outpatient (CLI) | payer MEDICARE | END | disposition home or self-care (01) | LOC: LABWHC1 15:24 | PROVIDERS: ATTEND Obstetrics & Gynecology | DX: N83.201 Unspecified ovarian cyst, right side (principal) | CPT/HCPCS: 36415; 86304 ==

== ENCOUNTER → 2023-01-18 | Outpatient (CLI) | payer MEDICARE ==
--- NOTE | 2023-01-18 15:31 | US ---
EXAMINATION TYPE: US pelvic complete DATE OF EXAM: 01/18/2023 COMPARISON: NONE CLINICAL INDICATION: Female, 82 years old with history of N83.201 UNSPECIFIED OVARIAN CYST, RIGHT SHANNON E; h/o right ovarian cyst, no pain, 82 years old TECHNIQUE: TA. Transabdominal sonographic images of the pelvis were acquired. *Patient states she physically could not tolerate TV Date of LMP: 30+yrs ago EXAM MEASUREMENTS: Uterus: 5.5 x 3.4 x 1.8 cm Endometrial Stripe: 0.3 cm Right Ovary: 7.5 x 4.9 x 4.1cm Left Ovary: not seen 1. Uterus: Anteverted wnl 2. Endometrium: wnl 3. Right Ovary: 7.0 x 3.8 x 3.9cm simple 4. Left Ovary: not seen due to atrophy and bowel gas 5. Bilateral Adnexa: wnl 6. Posterior cul-de-sac: wnl Unremarkable appearance of the uterus and endometrium. Simple appearing right ovarian cyst is redemon strated measuring up to 7 cm. Left ovary is not visualized due to atrophy M overlying bowel gas. No f ree fluid. IMPRESSION: Stable right ovarian simple appearing cyst. Follow-up ultrasound in one year is recommended.
== END | disposition home or self-care (01) ==
LOC: RADUSWWP 14:41
PROVIDERS: ATTEND Obstetrics & Gynecology
DX: N83.201 Unspecified ovarian cyst, right side (principal)
CPT/HCPCS: 76856

== ENCOUNTER → 2023-03-27 | Outpatient (CLI) | payer MEDICARE ==
[2023-03-27 20:17] LABS: BUN/Creat Ratio 22.73 Ratio (12.00-20.00); Calcium 9.7 mg/dL (8.7-10.3); Carbon Dioxide 25.1 mmol/L (21.6-31.8); Chloride 104 mmol/L (96-109); Glucose 89 mg/dL (70-110); Potassium 4.9 mmol/L (3.5-5.5); Sodium 139 mmol/L (135-145)
[2023-03-27 20:50] LABS: Basophils # (A) 0.03 X 10*3/uL (0.00-0.10); Basophils % (A) 0.5 %; Eosinophils # (A) 0.12 X 10*3/uL (0.04-0.35); Eosinophils % (A) 1.9 %; HCT 32.8 % (37.2-46.3); HGB 10.4 d/dL (12.0-15.0); Lymphocytes # (A) 1.28 X 10*3/uL (0.90-5.00); Lymphocytes % (A) 19.9 %; MCH 27.5 pg (27.0-32.0); MCHC 31.7 d/dL (32.0-37.0); MCV 86.8 FL (80.0-97.0); Mean Platelet Volume 10.6 FL (9.5-12.2); Monocytes % (A) 10.9 %; NRBC Per 100 WBC 0 X 10*3/uL (0.00-0.01); Neutrophils % (A) 66.6 %; Platelet Count 237 X 10*3/uL (140-440); RBC 3.78 X 10*6/uL (4.10-5.20); RDW 14.9 % (11.5-14.5); WBC 6.44 X 10*3/uL (4.50-10.00)
[2023-03-27 21:48] LABS: Erythrocyte Sedimentation Rate 125 mm/Hr (0-30)
--- NOTE | 2023-03-28 07:31 | XR ---
EXAMINATION TYPE: XR chest 2V DATE OF EXAM: 03/27/2023 4:24 PM COMPARISON: Chest radiographs from 10/14/2016 TECHNIQUE: XR chest 2V Frontal and lateral views of the chest. CLINICAL INDICATION:Female, 82 years old with history of R06.02 SHORTNESS OF BREATH; FINDINGS: Lungs/Pleura: There is no evidence of pleural effusion, focal consolidation, or pneumothorax. Pulmonary vascularity: Pulmonary vascular congestion. Heart/mediastinum: Cardiomediastinal silhouette is enlarged and stable. Musculoskeletal: No acute osseous pathology. IMPRESSION: Cardiomegaly and mild pulmonary vascular congestion. Correlate with BNP for congestive heart failure.
== END | disposition home or self-care (01) ==
LOC: LABWHC1 15:08
PROVIDERS: ATTEND Internal Medicine
DX: I10 Essential (primary) hypertension (principal); J44.9 Chronic obstructive pulmonary disease, unspecified; E87.8 Other disorders of electrolyte and fluid balance, not elsewhere classified; R09.89 Other specified symptoms and signs involving the circulatory and respiratory systems
CPT/HCPCS: 36415; 71046; 80048; 85025; 85652

== ENCOUNTER → 2023-06-07 | Outpatient (CLI) | payer MEDICARE ==
[2023-06-07 13:24] LABS: NT-Pro-B-Type Natriuretic Pept 1860 pg/mL
[2023-06-08 02:53] LABS: % Iron Saturation 14.29 (12.00-45.00); Iron 41 UG/DL (50-170); Total Iron Binding Capacity 287 UG/DL (228-460)
== END | disposition home or self-care (01) ==
LOC: LABWHC1 11:41
PROVIDERS: ATTEND Internal Medicine
DX: D64.9 Anemia, unspecified (principal)
CPT/HCPCS: 36415; 80048; 82728; 83540; 83550; 83880

== ENCOUNTER → 2023-09-20 | Outpatient (CLI) | payer MEDICARE ==
--- NOTE | 2023-09-20 19:25 | XR ---
EXAMINATION TYPE: XR cervical spine comp DATE OF EXAM: 09/20/2023 3:10 PM CLINICAL INDICATION:Female, 83 years old with history of M81.0; COMPARISON: None TECHNIQUE: The cervical spine was imaged in frontal, lateral, odontoid and bilateral oblique. FINDINGS: The osseous structures show normal alignment without evidence of an acute fracture. There are osteoph ytes noted throughout the cervical spine on the anterior and lateral aspects of the vertebral bodies. The intervertebral disk spaces are narrowed at multiple levels. Pedicles are intact. Soft tissues a re within normal limits. The odontoid appears intact. Neural foraminal stenosis worse in the upper sp ine at C3-C4 and C4-C5. IMPRESSION: 1. No fracture or dislocation. 2. Moderate to severe degenerative disc disease changes of the cervical spine.
== END | disposition home or self-care (01) ==
LOC: RADXRMAIN 14:17
PROVIDERS: ATTEND Internal Medicine
DX: M50.30 Other cervical disc degeneration, unspecified cervical region (principal)
CPT/HCPCS: 72050

== ENCOUNTER → 2023-10-29 | Outpatient (CLI) | payer MEDICARE ==
[2023-10-29 19:04] LABS: BUN/Creat Ratio 19.73 Ratio (12.00-20.00); Blood Urea Nitrogen 29.6 mg/dL (9.0-27.0); Carbon Dioxide 26.4 mmol/L (21.6-31.8); Chloride 105 mmol/L (96-109); Glucose 111 mg/dL (70-110); Sodium 144 mmol/L (135-145)
[2023-10-29 19:05] LABS: ALT 18 U/L (8-44); AST 26 U/L (13-35); Albumin 3.8 g/dL (3.8-4.9); Albumin/Globulin Ratio 1.15 Ratio (1.60-3.17); Alkaline Phosphatase 156 U/L (41-126); Calcium 9.5 mg/dL (8.7-10.3); Globulin 3.3 g/dL (1.6-3.3); T4, Free (Free Thyroxine) 1.38 ng/dL (0.80-1.80); Total Bilirubin 0.2 mg/dL (0.3-1.2); Total Protein 7.1 g/dL (6.2-8.2)
[2023-10-29 20:19] LABS: Thyroid Peroxidase Antibodies 21.1 U/mL (0.0-33.0)
== END | disposition home or self-care (01) ==
LOC: LABWHC1 13:56
PROVIDERS: ATTEND Internal Medicine
DX: I10 Essential (primary) hypertension (principal); E55.9 Vitamin D deficiency, unspecified; E03.9 Hypothyroidism, unspecified
CPT/HCPCS: 36415; 80053; 84439; 84443; 86376; 86800

== ENCOUNTER 2023-11-20 17:08 | Observation (INO) | payer MEDICARE ==
--- NOTE | 2023-11-20 17:44 | ED ---
General Adult HPI - General Chief complaint: Weakness Stated complaint: Weakness Time Seen by Provider: 11/20/23 17:15 Source: EMS Mode of arrival: EMS - History of Present Illness Initial comments: Dictation was produced using [employer] dictation software. please excuse any grammatical, word or spelling errors. Chief Complaint: 83-year-old female presents to the emergency department for worsening disability History of Present Illness: Patient is 83-year-old female who presents with worsening disability. She was told by correction that she should come to the ER if she felt like she was unable to care for self at home. For the last several days her leg symptoms have been making it harder for her to perform her activities of daily living. She lives at home by herself and does not have any assistance. The ROS documented in this emergency department record has been reviewed and confirmed by me. Those systems with pertinent positive or negative responses have been documented in the HPI. All other systems are other negative and/or noncontributory. - Related Data Home Medications Medication Instructions Recorded Confirmed Aspirin 81 mg PO DAILY 09/26/14 03/27/18 Atenolol [Tenormin] 25 mg PO DAILY 09/26/14 03/27/18 Calcium Carbonate/Vitamin D3 1 tab PO DAILY 09/26/14 03/27/18 [Caltrate 600 + D Tablet] Lansoprazole 30 mg PO DAILY 09/26/14 03/27/18 Levothyroxine Sodium [Synthroid] 100 mcg PO DAILY 09/26/14 03/27/18 Multivitamin/Iron/Folic Acid 1 tab PO DAILY 09/26/14 03/27/18 [Centrum Complete Multivit Tab] Acetaminophen Tab [Tylenol Tab] 1,000 mg PO Q6H PRN 10/19/16 03/27/18 Calcium Carbonate [Tums] 500 mg PO TID PRN 10/19/16 03/27/18 Triamterene-Hctz 37.5-25Mg 1 cap PO DAILY 03/21/18 03/27/18 [Dyazide 37.5-25 Capsule] Previous Rx's Medication Instructions Recorded Docusate [Colace] 100 mg PO DAILY #30 capsule 11/02/16 Famotidine [Pepcid] 20 mg PO DAILY #30 tablet 11/02/16 Allergies Allergy/AdvReac Type Severity Reaction Status Date / Time sulfamethoxazole Allergy Unknown "Sick as a Verified 08/27/22 19:06 [From Bactrim] Dog" trimethoprim [From Bactrim] Allergy Unknown "Sick as a Verified 08/27/22 19:06 Dog" adhesive AdvReac Unknown Rash, Red Verified 08/27/22 19:06 Skin from tape and cardiac electrodes. ciprofloxacin [From Cipro] AdvReac Unknown Pain in Verified 08/27/22 19:06 Arms ibuprofen [From Motrin] AdvReac Unknown Eye Pain Verified 08/27/22 19:06 doxycycline AdvReac Unknown Verified 08/27/22 19:06 ferrous sulfate AdvReac SEVERE Verified 08/27/22 19:06 HEADACHE furosemide [From Lasix] AdvReac Rapid Verified 08/27/22 19:06 Heart Rate latex AdvReac Unknown Verified 08/27/22 19:06 omeprazole [From Prilosec] AdvReac Unknown Verified 08/27/22 19:06 omeprazole magnesium AdvReac Unknown Verified 08/27/22 19:06 [From Prilosec] Penicillins AdvReac Unknown Verified 08/27/22 19:06 Review of Systems ROS Statement: Those systems with pertinent positive or pertinent negative responses have been documented in the HPI. ROS Other: All systems not noted in ROS Statement are negative. Past Medical History Past Medical History: Hypertension, Osteoarthritis (OA), Thyroid Disorder Additional Past Medical History / Comment(s): arthritis, sub arachniod hemorhage, URINARY INCONTINENCE History of Any Multi-Drug Resistant Organisms: None Reported Past Surgical History: Joint Replacement Additional Past Surgical History / Comment(s): L cataract. LEFT KNEE Past Anesthesia/Blood Transfusion Reactions: Motion Sickness, Postoperative Nausea & Vomiting (PONV) Past Psychological History: No Psychological Hx Reported Smoking Status: Never smoker Past Alcohol Use History: None Reported Past Drug Use History: None Reported - Past Family History Sister(s) Family Medical History: Cancer Additional Family Medical History / Comment(s): SKIN CANCER Mother Family Medical History: CVA/TIA General Exam - General Exam Comments Initial Comments: ed General: Well-appearing, nontoxic, no acute distress. Head: Normocephalic, atraumatic Eyes: PERRLA, EOMI ENT: Airway patent Chest: Nonlabored breathing Skin: No visual rash, normal skin tone Neuro: Alert and oriented 3 Musculoskeletal: No gross abnormalities Course Vital Signs 11/20/23 17:11 Temperature 97.9 F Pulse Rate 53 L Respiratory 18 Rate Blood Pressure 159/70 O2 Sat by Pulse 96 Oximetry Medical Decision Making - Medical Decision Making Was pt. sent in by a medical professional or institution (MELISSA Dale, ASSEMBLING MACHINE OPERATOR, urgent care, hospital, or correction...) When possible be specific @ -No Did you speak to anyone other than the patient for history (EMS, parent, family, police, friend...)? What history was obtained from this source @ -No Did you review nursing and triage notes (agree or disagree)? Why? @ -I reviewed and agree with nursing and triage notes Were old charts reviewed (outside hosp., previous admission, EMS record, old EKG, old radiological studies, urgent care reports/EKG's, correction records)? Report findings @ -No old charts were reviewed Differential Diagnosis (chest pain, altered mental status, abdominal pain women, abdominal pain men, vaginal bleeding, musculoskeletal, weakness, fever, dyspnea, syncope, headache, dizziness, GI bleed, back pain, seizure, CVA, palpatations, m ental health)? @ -Differential Weakness: Hypoglycemia, shock, sepsis, hyponatremia, anemia, infection, CO, ETOH, adverse medicine reaction, overdose, stroke, this is not meant to be an all-inclusive list. EKG interpreted by me (3pts min.). @ -None done X-rays interpreted by me (1pt min.). @ -None done CT interpreted by me (1pt min.). @ -None done U/S interpreted by me (1pt. min.). @ -None done What testing was considered but not performed or refused? (CT, X-rays, U/S, labs)? Why? @ -None What meds were considered but not given or refused? Why? @ -None Did you discuss the management of the patient with other professionals (professionals i.e. MELISSA Dale, ASSEMBLING MACHINE OPERATOR, lab, RT, psych nurse, social worker assistant, material handler loader, teacher, international first officer, director of casework services)? Give summary @ -No Was smoking cessation discussed for >3mins.? @ -No Was critical care preformed (if so, how long)? @ -No Were there social determinants of health that impacted care today? How? (Homelessness, low income, unemployed, alcoholism, drug addiction, transportation, low edu. Level, literacy, decrease access to med. care, custodial, r ehab)? @ -No Was there de-escalation of care discussed even if they declined (Discuss DNR or withdrawal of care, Hospice)? DNR status @ -No What co-morbidities impacted this encounter? (DM, HTN, Smoking, COPD, CAD, Cancer, CVA, ARF, Chemo, Hep., AIDS, mental health diagnosis, sleep apnea, morbid obesity)? @ -None Was patient admitted / discharged? Hospital course, mention meds given and route, prescriptions, significant lab abnormalities, going to OR and other pertinent info. @ -83-year-old female being admitted to the hospital for grave disability. She is 83 with very poor social support. She has chronic lower extremity lymphedema that she reports makes performing her activities daily living difficult. Vital signs stable. Patient has no acute complaints. Physical examination is o therwise benign. Patient will be admitted with social work consult Undiagnosed new problem with uncertain prognosis? @ -No Drug Therapy requiring intensive monitoring for toxicity (Heparin, Nitro, I nsulin, Cardizem)? @ -No Were any procedures done? @ -No Diagnosis/symptom? Acute, or Chronic, or Acute on Chronic? Uncomplicated (without systemic symptoms) or Complicated (systemic symptoms)? @ -Gravely disabled Side effects of treatment? @ -No Exacerbation, Progression, or Severe Exacerbation? @ -No Poses a threat to life or bodily function? How? (Chest pain, USA, CO, pneumonia, PE, COPD, DKA, ARF, appy, cholecystitis, CVA, Diverticulitis, Homicidal, Suicidal, threat to staff... and all critical care pts) @ -yes - Lab Data Result diagrams: 11/20/23 18:31 11/20/23 18:31 Lab Results 11/20/23 11/20/23 Range/Units 18:31 18:31 WBC 6.0 (3.8-10.6) k/uL RBC 3.80 (3.80-5.40) m/uL Hgb 10.6 L (11.4-16.0) gm/dL Hct 33.1 L (34.0-46.0) % MCV 87.1 (80.0-100.0) fL MCH 28.0 (25.0-35.0) pg MCHC 32.1 (31.0-37.0) g/dL RDW 15.5 (11.5-15.5) % Plt Count 120 L (150-450) k/uL MPV 10.3 Neutrophils % 64 % Lymphocytes % 22 % Monocytes % 7 % Eosinophils % 3 % Basophils % 0 % Neutrophils # 3.8 (1.3-7.7) k/uL Lymphocytes # 1.3 (1.0-4.8) k/uL Monocytes # 0.4 (0-1.0) k/uL Eosinophils # 0.2 (0-0.7) k/uL Basophils # 0.0 (0-0.2) k/uL Hypochromasia Slight Sodium 142 (137-145) mmol/L Potassium 5.6 H (3.5-5.1) mmol/L Chloride 108 H (98-107) mmol/L Carbon Dioxide 32 H (22-30) mmol/L Anion Gap 2 mmol/L BUN 39 H (7-17) mg/dL Creatinine 1.72 H (0.52-1.04) mg/dL Est GFR (CKD-EPI)AfAm 31 (>60 ml/min/1.73 sqM) Est GFR (CKD-EPI)NonAf 27 (>60 ml/min/1.73 sqM) Glucose 106 H (74-99) mg/dL Calcium 9.5 (8.4-10.2) mg/dL Total Bilirubin 0.9 (0.2-1.3) mg/dL AST 68 H (14-36) U/L ALT 34 (4-34) U/L Alkaline Phosphatase 143 H (38-126) U/L Total Protein 7.4 (6.3-8.2) g/dL Albumin 3.8 (3.5-5.0) g/dL Disposition Clinical Impression: Gravely disabled Disposition: ADMITTED IP TO THIS HOSP Condition: Fair Referrals: Sorin Reynoso MD [Primary Care Provider] - 1-2 days Decision Time: 19:05
[2023-11-20 18:45] LABS: Basophils % (A) 0 %; Eosinophils # (A) 0.2 k/uL (0-0.7); Eosinophils % (A) 3 %; HCT 33.1 % (34.0-46.0); HGB 10.6 gm/dL (11.4-16.0); Hypochromasia Slight; Lymphocytes # (A) 1.3 k/uL (1.0-4.8); Lymphocytes % (A) 22 %; MCHC 32.1 g/dL (31.0-37.0); MCV 87.1 fL (80.0-100.0); Mean Platelet Volume 10.3; Monocytes # (A) 0.4 k/uL (0-1.0); Monocytes % (A) 7 %; Neutrophils # (A) 3.8 k/uL (1.3-7.7); Neutrophils % (A) 64 %; Platelet Count 120 k/uL (150-450); RDW 15.5 % (11.5-15.5)
[2023-11-20 18:53] LABS: ALT 34 U/L (4-34); AST 68 U/L (14-36); African American GFR (CKD) 31 (>60 ml/min/1.73 sqM); Albumin 3.8 g/dL (3.5-5.0); Alkaline Phosphatase 143 U/L (38-126); Anion Gap 2 mmol/L; Blood Urea Nitrogen 39 mg/dL (7-17); Calcium 9.5 mg/dL (8.4-10.2); Carbon Dioxide 32 mmol/L (22-30); Chloride 108 mmol/L (98-107); Glucose 106 mg/dL (74-99); Non-African American GFR(CKD) 27 (>60 ml/min/1.73 sqM); Sodium 142 mmol/L (137-145); Total Bilirubin 0.9 mg/dL (0.2-1.3); Total Protein 7.4 g/dL (6.3-8.2)
[2023-11-20 18:54] LABS: Potassium 5.6 mmol/L (3.5-5.1)
[2023-11-20] MEDS ORDERED: NALOXONE 0.4 MG/ML 1 ML VIAL IV PRN (19:03)
[2023-11-20 21:36] LABS: Appearance,Urine Clear (Clear); Bilirubin,Urine Negative (Negative); Blood,Urine Negative (Negative); Color,Urine Colorless; Glucose,Urine (UA) Negative (Negative); Ketones,Urine Negative (Negative); Leukocyte Esterase,Urine Negative (Negative); Nitrite,Urine Negative (Negative); Protein,Urine Negative (Negative); Specific Gravity,Urine 1.011 (1.001-1.035); Urobilinogen,Urine <2.0 mg/dL (<2.0)
[2023-11-21] MEDS ORDERED: CALCIUM CARBONATE 500 MG CHEWABLE PO PRN (09:25)
[2023-11-21] MEDS ORDERED: PANTOPRAZOLE 40 MG TABLET PO SCH (09:30)
[2023-11-21] MEDS: PANTOPRAZOLE 40 MG TABLET PO SCH (10:15)
[2023-11-21] MEDS: ASPIRIN 81 MG PO SCH (10:15)
[2023-11-21] MEDS: hydrALAZINE HCL 50 MG TAB PO SCH (10:15)
[2023-11-21] MEDS: LEVOTHYROXINE 75 MCG TAB PO SCH (10:15)
[2023-11-21] MEDS: TORSEMIDE 20 MG TAB PO SCH (10:15)
[2023-11-21] MEDS: METOPROLOL SUCCINATE (ER) 25 MG TAB.ER.24H PO SCH (10:15)
[2023-11-21] MEDS: LOSARTAN 25 MG TAB PO SCH (10:16)
--- NOTE | 2023-11-21 11:22 | XR ---
EXAMINATION TYPE: XR Hip Bilateral 2 views Complete, XR knee complete 3 views bilateral DATE OF EXAM: 11/21/2023 COMPARISON: NONE HISTORY: 83-year-old female unable to stand or walk, pain after fall FINDINGS: Hips: There is marked osteopenia limiting evaluation. Hips appear symmetric with mild degenerative spurring . No displaced fracture is seen. Knees: Generalized soft tissue swelling bilaterally. On the right, there is end-stage, [id number] tricompa rtmental degenerative change. Small knee joint effusion likely reactive. There is a retained 1.1 cm l carla needle fragment within the anteromedial infrapatellar soft tissues. Vascular calcifications. On t he left, there is a total knee arthroplasty. Post distal femoral proximal tibial components appear we ll-seated without periprosthetic fracture. IMPRESSION: 1. Hips: The degree of marked osteopenia significantly limits the exam. No displaced fracture is seen . If concern for occult osseous injury, MRI can provide more sensitive evaluation. 2. Right knee: End stage, [id number] tricompartmental osteoarthrosis. Note a 1.1 cm long retained n eedle fragment within the anteromedial infrapatellar soft tissues. 3. Left knee: Uncomplicated left total knee arthroplasty. Some generalized soft tissue swelling is pr esent on both sides. No acute osseous abnormality seen.
[2023-11-21 12:54] LABS: African American GFR (CKD) 30 (>60 ml/min/1.73 sqM); Anion Gap 5 mmol/L; Blood Urea Nitrogen 33 mg/dL (7-17); Calcium 9.6 mg/dL (8.4-10.2); Carbon Dioxide 31 mmol/L (22-30); Chloride 108 mmol/L (98-107); Glucose 124 mg/dL (74-99); Non-African American GFR(CKD) 26 (>60 ml/min/1.73 sqM); Potassium 4.4 mmol/L (3.5-5.1); Sodium 144 mmol/L (137-145)
[2023-11-21 15:04] LABS: T4, Free (Free Thyroxine) 1.54 ng/dL (0.78-2.19)
--- NOTE | 2023-11-21 15:33 | P.CNOR ---
History of Present Illness - [facility] Consult date: 11/21/23 Requesting physician: Sorin Reynoso Consult reason: other (Severe bone on bone, 1.1cm needle fragment, effusion, see imaging....) History of present illness: Patient is an 83 -year-old female who presented to the emergency department today due to worsening disability. Patient says that at home she is having a difficult time getting care of herself and she uses a walker all the time and sometimes even with a walker still has difficulty ambulating due to some lower leg symptoms. Patient states she does live by herself at home and does not have anyone to help her. Orthopedics was consulted due to [id number] arthritis and knee effusion. Patient was seen at bedside this afternoon lying in semirecumbent position in the emergency department. Patient does present with significant edema to the bilateral lower extremities and cellulitis in the bilateral ankles and calves. Patient says she presented to the hospital because she has been having difficulty performing activities of daily living at home and is using a walker all the time. Even with the use a walker she says she has difficulty walking and notes that she has very weak. Patient says sometimes she does fall at home and denies ever losing consciousness/hitting her head. Patient currently does not complain of any significant pain in lower extremities. She says she had a previous left total knee arthroplasty [place] [address] Bae. She also mentions she does have oglv-[id number] arthritis in the right knee. Patient denies any other previous orthopedic surgeries. Patient states she does take aspirin daily. Patient denies chest pain, fever, shortness of breath, nausea, vomiting, change in vision, loss of bowel/bladder control. Past Medical History Past Medical History: Hypertension, Osteoarthritis (OA), Thyroid Disorder Additional Past Medical History / Comment(s): arthritis, sub arachniod hemorhage, URINARY INCONTINENCE History of Any Multi-Drug Resistant Organisms: None Reported Past Surgical History: Joint Replacement Additional Past Surgical History / Comment(s): L cataract. LEFT KNEE Past Anesthesia/Blood Transfusion Reactions: Motion Sickness, Postoperative Nausea & Vomiting (PONV) Past Psychological History: No Psychological Hx Reported Smoking Status: Never smoker Past Alcohol Use History: None Reported Past Drug Use History: None Reported - Past Family History Sister(s) Family Medical History: Cancer Additional Family Medical History / Comment(s): SKIN CANCER Mother Family Medical History: CVA/TIA Medications and Allergies Home Medications Medication Instructions Recorded Confirmed Type Aspirin 81 mg PO DAILY 09/26/14 11/20/23 History Calcium Carbonate/Vitamin D3 1 tab PO HS 09/26/14 11/20/23 History [Caltrate 600 + D Tablet] Lansoprazole 30 mg PO DAILY 09/26/14 11/20/23 History Calcium Carbonate [Tums] 500 mg PO TID PRN 10/19/16 11/20/23 History Levothyroxine Sodium [Synthroid] 75 mcg PO DAILY 11/20/23 11/20/23 History Losartan [Cozaar] 25 mg PO DAILY 11/20/23 11/20/23 History Metoprolol Succinate (ER) [Toprol 25 mg PO DAILY 11/20/23 11/20/23 History Xl] Multivit-Min/Iron/Folic/Lutein 1 tab PO HS 11/20/23 11/20/23 History [Centrum Silver Women Tablet] Torsemide [Demadex] 40 mg PO DAILY 11/20/23 11/20/23 History hydrALAZINE HCL [Apresoline] 50 mg PO BID 11/20/23 11/20/23 History Allergies Allergy/AdvReac Type Severity Reaction Status Date / Time sulfamethoxazole Allergy Unknown "Sick as a Verified 11/20/23 19:28 [From Bactrim] Dog" trimethoprim [From Bactrim] Allergy Unknown "Sick as a Verified 11/20/23 19:28 Dog" Penicillins Allergy Verified 11/20/23 19:28 adhesive AdvReac Unknown Rash, Red Verified 11/20/23 19:28 Skin from tape and cardiac electrodes. ciprofloxacin [From Cipro] AdvReac Unknown Pain in Verified 11/20/23 19:28 Arms ibuprofen [From Motrin] AdvReac Unknown Eye Pain Verified 11/20/23 19:28 doxycycline AdvReac Unknown Verified 11/20/23 19:28 ferrous sulfate AdvReac SEVERE Verified 11/20/23 19:28 HEADACHE furosemide [From Lasix] AdvReac Rapid Verified 11/20/23 19:28 Heart Rate latex AdvReac Unknown Verified 11/20/23 19:28 omeprazole [From Prilosec] AdvReac Unknown Verified 11/20/23 19:28 omeprazole magnesium AdvReac Unknown Verified 11/20/23 19:28 [From Prilosec] Physical Examination Inspection: Significant edema present in the bilateral lower extremities from the knees extending distally into the feet. Cellulitis present in the bilateral lower extremities and both ankles extending proximally to mid calf. Negative for any open fractures, significant erythema/ecchymosis. Negative for any significant effusion/redness/swelling to the bilateral knees. Scar is present over the left anterior knee appears to be well-healed. Sensation: Equal, symmetric, bilaterally intact throughout the upper and lower extremities Palpation: There is some tenderness to palpation over the bilateral ankles and lower calves near the cellulitic areas. There is some generalized tenderness to the patient over the medial and lateral femoral condyle on the right knee. nonTender to palpation throughout rest of exam Range of motion: Patient does have some movement range of motion in the bilat eral shoulders and internal/external rotation and forward elevation. Patient has full range of motion throughout bilateral elbows and wrists in flexion/extension. Patient is able to flex and extend both knees to about 105 flexion and lacking about 10 of extension bilaterally. Motor: 4/5 in all major motor groups in upper extremities. Principal Statistical Programmer strength 4/5 bilaterally. 4-/5 in bilateral lower extremities on exam Special tests: Negative Homans bilaterally. Negative clonus. Negative Samia bilaterally. Neurovascular: Radial pulse intact, 2+. Cap refill under 3 seconds in digits upper extremities. Results - Labs Labs: Abnormal Lab Results - Last 24 Hours (Table) 11/20/23 11/20/23 11/21/23 Range/Units 18:31 18:31 11:35 Hgb 10.6 L (11.4-16.0) gm/dL Hct 33.1 L (34.0-46.0) % Plt Count 120 L (150-450) k/uL Potassium 5.6 H (3.5-5.1) mmol/L Chloride 108 H 108 H (98-107) mmol/L Carbon Dioxide 32 H 31 H (22-30) mmol/L BUN 39 H 33 H (7-17) mg/dL Creatinine 1.72 H 1.76 H (0.52-1.04) mg/dL Glucose 106 H 124 H (74-99) mg/dL AST 68 H (14-36) U/L Alkaline Phosphatase 143 H (38-126) U/L TSH 4.860 H (0.465-4.680) mIU/L H & H 11/20/23 Range/Units 18:31 Hgb 10.6 L (11.4-16.0) gm/dL Hct 33.1 L (34.0-46.0) % Result Diagrams: 11/20/23 18:31 11/21/23 11:35 - Diagnostic results Knee x-ray: report reviewed, image reviewed (X-rays of the bilateral knees have been reviewed. Femoral and tibial implants appear to be stable in left knee negative for any loosening. Negative for any fractures/dislocations. X-ray of the right knee does reveal severe osteoarthritis in the medial and lateral compartments. Negative for any f) Assessment and Plan Assessment: 1 Lymphedema BLE; right knee osteoarthritis; history of left total knee arthroplasty; bilateral lower extremity weakness Plan: 1. Lymphedema BLE; right knee osteoarthritis; history of left total knee arthroplasty; bilateral lower extremity weakness - X-rays of the bilateral knees have been reviewed. Femoral and tibial implants appear to be stable in left knee; negative for any loosening. Negative for any fractures/dislocations. X- ray of the right knee does reveal severe osteoarthritis in the medial and lateral compartments. On exam patient does not present with any significant pain during range of motion in the bilateral knees in flexion/extension. Both knees lukewarm to touch and some generalized swelling. Negative for any fractures/dislocations. I did review the findings of the imaging with my attending, Dr. Newman. At this time are not recommending any surgical int ervention. We recommend surgery measures at this time with the use of pain medication and daily PT/OT. Recommend as PANDA placement. Patient is stable from orthopedic standpoint for discharge. Orthopedics is signing off at this time. Please do not hesitate to contact us for any further questions. Patient may follow-up in the outpatient setting as needed 2. Appreciate medical management 3. Pain management recs 4. DVT prophylaxis - aspirin; heparin 5. GI Prophylaxis - tums; Protonix 6. PT/OT - weightbearing is hard with walker and assistance 7. Encourage incentive spirometer use 8. Appreciate consult Time with Patient: Less than 30
--- NOTE | 2023-11-21 15:44 | P.HPIM ---
History of Present Illness H&P Date: 11/21/23 Chief Complaint: Patient cannot care for herself, living alone, edema of the lower extremiti History and physical Dictation by Dr. Reynoso Date of service 11/21 2023 Chief complaint: Patient presented to the emergency room at [facility] with the severe debility weakness could not ambulate with the progression of her symptoms she called the ambulance to bring her to the ER with the underlying edema of the lower extremities and unable to do her daily activity with inability to thrive, no children and no family. History of present illness Radha Marroquin 83 years old white female single live alone no family member and no children. Date of 1940. Patient seen in the ER and complaining of generalized weakness with the underlying multiple medical problem but she could not navigate on her own. In the ER seen by Dr. Deniz Alvarez evaluated had a laboratories and subsequently he called me to be admitted the patient with the future plan correction however patient is evaluated today and examined she had multiple other medical problem. On reviewing the laboratory done in the ER found that she had Acute on the top of chronic renal failure nonoliguric with the history of chronic kidney disease stage III with the GFR down to 27 and a creatinine up from 1.1-1.7 to. Also found her potassium 5.6. Her CBC was indicators of anemia with a hemoglobin 10.6 and a hematocrit 33.1 and MCV 87.1 with the platelet count 120 slightly below normal level and underlying anemia the etiology is unclear could be from chronic kidney disease versus underlying blood loss considering or mixed picture. On admission her vital sign on 11/20/2023 1711 the temperature was 97.9 F heart rate 53 respiratory rate 18 and blood pressure was 159/70 with the oxygen saturation 96%. On questioning the patient in module 9 ER Patient stated that she could not help herself anymore with severe leg edema and advanced arthritis of her right knee and the left knee with a history of left total knee arthroplasty also she had pain in the hips bilateral with inability to walk and she could not navigate with wheelchair as she could not drive herself. And with being lonely alone her necessity of life is not present. She complained of her leg swelling and erythematous but she denied any diabetes in the past and the underlying dermatitis on the front of the shaft of the legs with the significant edema unclear etiology will be consulting infectious disease. She had multiple allergy to all antibiotic medication. Which is noted above Current list of medication: She is on bumetanide 1 mg once a day and she take also multivitamin, she is on lansoprazole 30 mg every morning for GERD, levothyroxine 75 mcg for hypothyroidism, hydralazine 50 mg 3 times a day for hypertension, She is also on Caltrate 600 mg once a day Sustain solution ophthalmic as needed aspirin 81 mg daily Metoprolol succinate 25 mg daily and losartan 25 mg daily at suppertime MiraLAX 17 g scoop powder dissolved in water or juice as needed once a day. Tylenol extra strength 500 mg p.o. twice a day. Past medical history Hypothyroidism hyper lipidemia. Arthritis with left total knee arthroplasty and history of subarachnoid hemorrhage in 1986 Urinary incontinence since 1986 Cholelithiasis Hypertension GERD disease. Family history: 1. She is single retired had 2 pets cats drink 1 cup of coffee a day Never smoked in her life. Allergy multiple including doxycycline penicillin amlodipine, Bactrim ferrous sulfate Maxzide ciprofloxacin ibuprofen Most of the above is adverse effect not actual allergy and her Lasix did not help her for diuresis and she considered that is allergy. Review review of system: Neuropsychiatry: Awake alert oriented no evidence of dementia Cardiovascular history of congestive heart failure in the past and hypertension, bradycardia Pulmonary: Never smoked however had short of breath with obesity Abdomen chronic constipation Bladder urine incontinent Endocrine thyroid disease Musculoskeletal inability to walk and inability to stand up, left knee arthroplasty and severe arthritis and osteopenia. Extremities heavy legs with lymphedema and edema. Neurologically stable no lateralizing sign but severe weakness unable to stand up or do her ADLs and could not walk with advanced arthritis. Assessment: Patient is very disabled with inability to do her daily activity and even to buy groceries or go out of the house and has to be in a wheelchair dependent. Bradycardia with the chronic congestive heart failure and history of elevated pro BNP. Need cardiac evaluation and treatment Obesity class II Large lower extremities due to combined lymphedema as well has edema Extremities she had erythema of the shaft and underlying cellulitis versus dermatitis will consult infectious disease. Chronic kidney disease currently acute with the change creatinine from 1.1-1.7 to and will consult nephrology. It regard of anemia we will check her stool for Hemoccult, iron studies and to exclude anemia of blood loss. Plan: Will consult cardiology For evaluation and echocardiogram and the pro BNP 2. Consult rehabilitation 3. Consult orthopedic as the x-ray was done today after I saw the patient ordered and found that she had right knee [id number] Tricon compartmental degenerative changes small knee effusion and there is a 1.1 cm long needle fragment within the anteromedial infrapatellar soft tissue left knee she had left knee arthroplasty hip was severe marked osteopenia. Dr. Dia has been consulted orthopedic for this matter. Will check on the thyroid function Consult with Dr. Barajas infectious disease for her erythema and possible cellulitis of the lower extremities Will consult nephrology Dr. Crawford/Dr. Dr. Awan. And consultation with the vp digital marketing social media and crm and habitat conservation planner for future plan and for correction placement. Past Medical History Past Medical History: Hypertension, Osteoarthritis (OA), Thyroid Disorder Additional Past Medical History / Comment(s): arthritis, sub arachniod hemorhage, URINARY INCONTINENCE History of Any Multi-Drug Resistant Organisms: None Reported Past Surgical History: Joint Replacement Additional Past Surgical History / Comment(s): L cataract. LEFT KNEE Past Anesthesia/Blood Transfusion Reactions: Motion Sickness, Postoperative Nausea & Vomiting (PONV) Past Psychological History: No Psychological Hx Reported Smoking Status: Never smoker Past Alcohol Use History: None Reported Past Drug Use History: None Reported - Past Family History Sister(s) Family Medical History: Cancer Additional Family Medical History / Comment(s): SKIN CANCER Mother Family Medical History: CVA/TIA Medications and Allergies Home Medications Medication Instructions Recorded Confirmed Type Aspirin 81 mg PO DAILY 09/26/14 11/20/23 History Calcium Carbonate/Vitamin D3 1 tab PO HS 09/26/14 11/20/23 History [Caltrate 600 + D Tablet] Lansoprazole 30 mg PO DAILY 09/26/14 11/20/23 History Calcium Carbonate [Tums] 500 mg PO TID PRN 10/19/16 11/20/23 History Levothyroxine Sodium [Synthroid] 75 mcg PO DAILY 11/20/23 11/20/23 History Losartan [Cozaar] 25 mg PO DAILY 11/20/23 11/20/23 History Metoprolol Succinate (ER) [Toprol 25 mg PO DAILY 11/20/23 11/20/23 History Xl] Multivit-Min/Iron/Folic/Lutein 1 tab PO HS 11/20/23 11/20/23 History [Centrum Silver Women Tablet] Torsemide [Demadex] 40 mg PO DAILY 11/20/23 11/20/23 History hydrALAZINE HCL [Apresoline] 50 mg PO BID 11/20/23 11/20/23 History Allergies Allergy/AdvReac Type Severity Reaction Status Date / Time sulfamethoxazole Allergy Unknown "Sick as a Verified 11/20/23 19:28 [From Bactrim] Dog" trimethoprim [From Bactrim] Allergy Unknown "Sick as a Verified 11/20/23 19:28 Dog" Penicillins Allergy Verified 11/20/23 19:28 adhesive AdvReac Unknown Rash, Red Verified 11/20/23 19:28 Skin from tape and cardiac electrodes. ciprofloxacin [From Cipro] AdvReac Unknown Pain in Verified 11/20/23 19:28 Arms ibuprofen [From Motrin] AdvReac Unknown Eye Pain Verified 11/20/23 19:28 doxycycline AdvReac Unknown Verified 11/20/23 19:28 ferrous sulfate AdvReac SEVERE Verified 11/20/23 19:28 HEADACHE furosemide [From Lasix] AdvReac Rapid Verified 11/20/23 19:28 Heart Rate latex AdvReac Unknown Verified 11/20/23 19:28 omeprazole [From Prilosec] AdvReac Unknown Verified 11/20/23 19:28 omeprazole magnesium AdvReac Unknown Verified 11/20/23 19:28 [From Prilosec] Physical Exam Vitals: Vital Signs Temp Pulse Resp BP Pulse Ox 11/21/23 10:00 50 L 20 173/76 95 11/21/23 07:31 52 L 16 199/71 93 L 11/21/23 06:00 51 L 14 145/69 95 11/21/23 04:00 53 L 13 164/75 95 11/20/23 22:10 56 L 15 170/90 95 11/20/23 21:40 58 L 16 184/77 94 L 11/20/23 21:30 52 L 13 175/68 95 11/20/23 17:11 97.9 F 53 L 18 159/70 96 Intake and Output 11/21/23 11/21/23 11/21/23 06:59 14:59 22:59 Output Total 800 Balance -800 Output: Urine 800 Results CBC & Chem 7: 11/20/23 18:31 11/21/23 11:35 Labs: Abnormal Lab Results - Last 24 Hours (Table) 11/20/23 11/20/23 11/21/23 Range/Units 18:31 18:31 11:35 Hgb 10.6 L (11.4-16.0) gm/dL Hct 33.1 L (34.0-46.0) % Plt Count 120 L (150-450) k/uL Potassium 5.6 H (3.5-5.1) mmol/L Chloride 108 H 108 H (98-107) mmol/L Carbon Dioxide 32 H 31 H (22-30) mmol/L BUN 39 H 33 H (7-17) mg/dL Creatinine 1.72 H 1.76 H (0.52-1.04) mg/dL Glucose 106 H 124 H (74-99) mg/dL AST 68 H (14-36) U/L Alkaline Phosphatase 143 H (38-126) U/L TSH 4.860 H (0.465-4.680) mIU/L
--- NOTE | 2023-11-21 16:03 | US ---
EXAMINATION TYPE: US kidneys/renal and bladder DATE OF EXAM: 11/21/2023 COMPARISON: Pelvic ultrasound 01/18/2023 CLINICAL INDICATION: Female, 83 years old with history of Chronic kidney disease with acute renal kameron lure on; Chronic kidney disease. EXAM MEASUREMENTS: Right Kidney: 9.2 x 4.2 x 5.0 cm Left Kidney: 9.1 x 4.2 x 4.6 cm Right Kidney: Anechoic area seen lower pole: 3.7 x 3.9 x 3.2 cm. Left Kidney: Hyperechoic focus seen lower pole: 0.4 x 0.4 x 0.4 cm. Both kidneys show cortical thinning and increased echogenicity. No hydronephrosis on either side. Bladder: Appears wnl Bilateral Jets seen: Yes Incidental finding: Anechoic area seen in right adnexa, as seen on prior ultrasound: 5.1 x 3.6 x 3.8 cm. 7.0 x 3.9 x 3.8 cm on 01/18/2023) IMPRESSION: 1. Changes of bilateral chronic medical renal disease. No hydronephrosis. 2. A benign cortical cyst right kidney measuring 3.9 cm and a nonobstructive 4 mm left renal calculus . 3. Incidental right adnexal cyst measuring 5.1 cm, likely of ovarian origin. The patient's previous ultrasound shows a 7.0 cm cyst at that time. Given size, annual ultrasound surveillance foll ow-up is advised. A cystic epithelial ovarian neoplasm is in the differential, though likely benign.
--- NOTE | 2023-11-21 18:51 | XR ---
EXAMINATION TYPE: XR chest 2V DATE OF EXAM: 11/21/2023 5:54 PM CLINICAL INDICATION:Female, 83 years old with history of Cardiomegaly, shortness of breath, edema of the lo; COMPARISON: Chest radiographs from 03/27/2023. TECHNIQUE: XR chest 2V Frontal and lateral views of the chest. FINDINGS: Lungs/Pleura: There is no evidence of pleural effusion, focal consolidation, or pneumothorax. Pulmonary vascularity: Pulmonary vascular congestion. Heart/mediastinum: Cardiomediastinal silhouette is enlarged and stable. Musculoskeletal: No acute osseous pathology. IMPRESSION: Cardiomegaly and mild pulmonary vascular congestion. Correlate with BNP for congestive heart failure.
[2023-11-21 19:46] LABS: % Iron Saturation 17.34 (12.00-45.00); Iron 60 UG/DL (50-170); Total Iron Binding Capacity 346 UG/DL (228-460)
[2023-11-21] MEDS: CALCIUM CARB-VIT D 500 MG-5 MCG TAB PO SCH (20:29)
[2023-11-21] MEDS: HEPARIN SODIUM,PORCINE 5,000 UNIT/ML 1 ML VIAL SQ SCH (20:29)
[2023-11-22] MEDS: CLOBETASOL PROP 0.05% CR 15GM TOPICAL SCH (01:53)
[2023-11-22] MEDS: ACETAMINOPHEN TAB 325 MG TAB PO PRN (06:35)
--- NOTE | 2023-11-22 08:35 | P.CONS ---
History of Present Illness - Reason for Consult Consult date: 11/21/23 - History of Present Illness Patient is a 83-year-old female with a past medical history significant for hypertension osteoarthritis renal disease hypothyroidism heart failure patient has been brought to the hospital for evaluation of worsening disability, patient was advised to go to the ER as the patient was unable to take care of her self at home for several days her legs has been making it harder for activities of daily living patient lives at home by herself and does not have any help patient did have a chronic swelling to lower extremity and also have some erythema to bilateral lower leg which has been chronic for her the patient denies having any worsening swelling or redness to the lower extremity and denies having any significant pain to the lower extremity patient denies having any fever or any chills no headache or URI symptoms no chest pain shortness of breath or cough abdominal pain or any diarrhea patient on presentation to the hospital was afebrile and no fever have been called subse quently patient was not tachycardic hypotensive or hypoxic and no need for supplemental oxygen white count was 6.0 BUN and creatinine has been mildly elevated AST was mildly elevated urine has been negative patient did have a hip and knee x-ray negative for any fracture and did have severe osteoarthritis in the right knee, infectious disease was consulted concern for possible cellulitis to bilateral extremity and need for antibiotic therapy Past Medical History Past Medical History: Heart Failure, Hypertension, Osteoarthritis (OA), Renal Disease, Thyroid Disorder Additional Past Medical History / Comment(s): arthritis, sub arachnoid hemorrhage 1986, URINARY INCONTINENCE, CKD stage 3, cyst on kidney and ovary, hypothyroidism History of Any Multi-Drug Resistant Organisms: None Reported Past Surgical History: Joint Replacement Additional Past Surgical History / Comment(s): bilat. cataract surgery, LEFT KNEE replacement Past Anesthesia/Blood Transfusion Reactions: Motion Sickness, Postoperative Nausea & Vomiting (PONV) Past Psychological History: No Psychological Hx Reported Smoking Status: Never smoker Past Alcohol Use History: None Reported Past Drug Use History: None Reported - Past Family History Sister(s) Family Medical History: Cancer Additional Family Medical History / Comment(s): SKIN CANCER Mother Family Medical History: CVA/TIA Medications and Allergies Home Medications Medication Instructions Recorded Confirmed Type Aspirin 81 mg PO DAILY 09/26/14 11/20/23 History Calcium Carbonate/Vitamin D3 1 tab PO HS 09/26/14 11/20/23 History [Caltrate 600 + D Tablet] Lansoprazole 30 mg PO DAILY 09/26/14 11/20/23 History Calcium Carbonate [Tums] 500 mg PO TID PRN 10/19/16 11/20/23 History Levothyroxine Sodium [Synthroid] 75 mcg PO DAILY 11/20/23 11/20/23 History Losartan [Cozaar] 25 mg PO DAILY 11/20/23 11/20/23 History Metoprolol Succinate (ER) [Toprol 25 mg PO DAILY 11/20/23 11/20/23 History Xl] Multivit-Min/Iron/Folic/Lutein 1 tab PO HS 11/20/23 11/20/23 History [Centrum Silver Women Tablet] Torsemide [Demadex] 40 mg PO DAILY 11/20/23 11/20/23 History hydrALAZINE HCL [Apresoline] 50 mg PO BID 11/20/23 11/20/23 History Allergies Allergy/AdvReac Type Severity Reaction Status Date / Time sulfamethoxazole Allergy Unknown "Sick as a Verified 11/20/23 19:28 [From Bactrim] Dog" trimethoprim [From Bactrim] Allergy Unknown "Sick as a Verified 11/20/23 19:28 Dog" Penicillins Allergy Verified 11/20/23 19:28 adhesive AdvReac Unknown Rash, Red Verified 11/20/23 19:28 Skin from tape and cardiac electrodes. ciprofloxacin [From Cipro] AdvReac Unknown Pain in Verified 11/20/23 19:28 Arms ibuprofen [From Motrin] AdvReac Unknown Eye Pain Verified 11/20/23 19:28 doxycycline AdvReac Unknown Verified 11/20/23 19:28 ferrous sulfate AdvReac SEVERE Verified 11/20/23 19:28 HEADACHE furosemide [From Lasix] AdvReac Rapid Verified 11/20/23 19:28 Heart Rate latex AdvReac Unknown Verified 11/20/23 19:28 omeprazole [From Prilosec] AdvReac Unknown Verified 11/20/23 19:28 omeprazole magnesium AdvReac Unknown Verified 11/20/23 19:28 [From Prilosec] Physical Exam Vitals: Vital Signs Temp Pulse Pulse Resp BP BP Pulse Ox 11/21/23 19:23 57 L 18 156/75 95 11/21/23 16:25 97.8 F 54 L 17 158/59 95 11/21/23 15:58 56 L 16 130/60 96 11/21/23 10:00 50 L 20 173/76 95 11/21/23 07:31 52 L 16 199/71 93 L 11/21/23 06:00 51 L 14 145/69 95 11/21/23 04:00 53 L 13 164/75 95 11/20/23 22:10 56 L 15 170/90 95 11/20/23 21:40 58 L 16 184/77 94 L 11/20/23 21:30 52 L 13 175/68 95 Intake and Output 11/21/23 11/21/23 11/21/23 06:59 14:59 22:59 Intake Total 120 Output Total 800 Balance -800 120 Intake: Oral 120 Output: Urine 800 Other: Weight 80.558 kg Results CBC & Chem 7: 11/20/23 18:31 11/21/23 11:35 Labs: Abnormal Lab Results - Last 24 Hours (Table) 11/21/23 Range/Units 11:35 Chloride 108 H (98-107) mmol/L Carbon Dioxide 31 H (22-30) mmol/L BUN 33 H (7-17) mg/dL Creatinine 1.76 H (0.52-1.04) mg/dL Glucose 124 H (74-99) mg/dL TSH 4.860 H (0.465-4.680) mIU/L Assessment and Plan Plan: 1patient with bilateral lower extremity swelling and also have some 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 please excuse any grammatical, word or spelling errors. Time with Patient: Greater than 30
[2023-11-22 10:01] LABS: African American GFR (CKD) 31 (>60 ml/min/1.73 sqM); Anion Gap 2 mmol/L; Blood Urea Nitrogen 37 mg/dL (7-17); Calcium 9.7 mg/dL (8.4-10.2); Carbon Dioxide 32 mmol/L (22-30); Chloride 109 mmol/L (98-107); Glucose 109 mg/dL (74-99); Non-African American GFR(CKD) 27 (>60 ml/min/1.73 sqM); Potassium 4.3 mmol/L (3.5-5.1); Sodium 143 mmol/L (137-145)
[2023-11-22] MEDS: BUMETANIDE 1 MG TAB PO SCH (10:35)
[2023-11-22] MEDS: ISOSORBIDE MONONITRATE ER 30 MG TAB.ER.24H PO SCH (10:35)
--- NOTE | 2023-11-22 11:09 | P.CRDCN ---
History of Present Illness Consult date: 11/22/23 Reason for Consult (text): BRADYCARDIA, CHF, CHRONIC EDEMA History of present illness: History of present illness: This is an 83-year-old female with past medical history of hypertension, hypothyroidism, subarachnoid hemorrhage, chronic kidney disease stage III. We have been asked to evaluate the patient for bradycardia, CHF and chronic edema. Patient's history is mostly obtained from the patient's daughter. Patient presented to the hospital due to generalized weakness struggling to stand up and walk. She is sleeping more during the day and may be not eating enough food or drinking enough. Patient currently lives alone and daughter states it may be time for her to go to rehab or other setting. Patient denies having any chest pain. No history of coronary artery disease and no previous cardiac workup. Patient does not follow with a hemodialysis charge nurse. EKG sinus rhythm at 50 bpm Chest x-ray: Cardiomegaly and mild pulmonary vascular congestion. WBC 6, hemoglobin 10.6, platelet count 120. Sodium 143, potassium 4.3, chloride 109, CO2 32, BUN 37 creatinine 1.74. Glucose 109. AST 68, alkaline phosphatase 143. proBNP 9340. TSH 4.86. Procalcitonin 0.08. Home cardiac medications: Aspirin 81 mg daily, hydralazine 50 mg twice daily, losartan 25 mg daily, metoprolol succinate 25 mg daily, torsemide 40 mg daily, also on levothyroxine 75 mcg daily Review Of Systems: At the time of my exam: CONSTITUTIONAL: Denies fever or chills. + Generalized weakness HEENT: Denies blurred vision, vision changes, or eye pain. Denies hemoptysis CARDIOVASCULAR: Denies chest pain. Denies orthopnea. Denies PND. Denies palpitations RESPIRATORY: Denies shortness of breath. GASTROINTESTINAL: Denies abdominal pain. Denies nausea or vomiting. HEMATOLOGIC: Denies bleeding disorders. GENITOURINARY: Denies any blood in urine. SKIN: Denies pruitis. Denies rash. Physical examination: Gen: This is an 83-year-old female in no acute distress VS: reviewed blood pressure 159/69, heart rate 53, pulse ox 94% on room air. HEENT: Head is atraumatic, normocephalic. Pupils equal, round. Sclerae is anicteric. NECK: Supple. No JVD. LUNGS: Clear to auscultation. No wheezes or rhonchi. No intercostal retractions. HEART: Regular rate and rhythm. No murmur. ABDOMEN: Soft No tenderness. EXTREMITIES: 2+ bilateral pedal edema with chronic skin changes. No calf tenderness. NEUROLOGICAL: Patient is awake, alert and oriented x3. Assessment: Bradycardia stable Acute on chronic heart failure Chronic lower extremity edema Generalized weakness Chronic kidney disease stage III, possible acute kidney injury Hypertension Hypothyroidism Plan: Resume patient's home hydralazine Discontinue aspirin, Toprol-XL, Demadex Start patient on Bumex 1 mg twice daily Start patient on Imdur 30 mg daily Monitor TYLER, daily weights, electrolytes and renal function Obtain 2-D echocardiogram and Doppler study to assess cardiac structure and function Start telemetry monitoring Further recommendations to follow based upon clinical course Thank you kindly for this consultation. Nurse practitioner note has been reviewed, I agree with documented findings and plan of care. Patient was seen and examined. Past Medical History Past Medical History: Heart Failure, Hypertension, Osteoarthritis (OA), Renal Disease, Thyroid Disorder Additional Past Medical History / Comment(s): arthritis, sub arachnoid hemorrhage 1986, URINARY INCONTINENCE, CKD stage 3, cyst on kidney and ovary, hypothyroidism History of Any Multi-Drug Resistant Organisms: None Reported Past Surgical History: Joint Replacement Additional Past Surgical History / Comment(s): bilat. cataract surgery, LEFT KNEE replacement Past Anesthesia/Blood Transfusion Reactions: Motion Sickness, Postoperative Nausea & Vomiting (PONV) Past Psychological History: No Psychological Hx Reported Smoking Status: Never smoker Past Alcohol Use History: None Reported Past Drug Use History: None Reported - Past Family History Sister(s) Family Medical History: Cancer Additional Family Medical History / Comment(s): SKIN CANCER Mother Family Medical History: CVA/TIA Medications and Allergies Home Medications Medication Instructions Recorded Confirmed Type Aspirin 81 mg PO DAILY 09/26/14 11/20/23 History Calcium Carbonate/Vitamin D3 1 tab PO HS 09/26/14 11/20/23 History [Caltrate 600 + D Tablet] Lansoprazole 30 mg PO DAILY 09/26/14 11/20/23 History Calcium Carbonate [Tums] 500 mg PO TID PRN 10/19/16 11/20/23 History Levothyroxine Sodium [Synthroid] 75 mcg PO DAILY 11/20/23 11/20/23 History Losartan [Cozaar] 25 mg PO DAILY 11/20/23 11/20/23 History Metoprolol Succinate (ER) [Toprol 25 mg PO DAILY 11/20/23 11/20/23 History Xl] Multivit-Min/Iron/Folic/Lutein 1 tab PO HS 11/20/23 11/20/23 History [Centrum Silver Women Tablet] Torsemide [Demadex] 40 mg PO DAILY 11/20/23 11/20/23 History hydrALAZINE HCL [Apresoline] 50 mg PO BID 11/20/23 11/20/23 History Allergies Allergy/AdvReac Type Severity Reaction Status Date / Time sulfamethoxazole Allergy Unknown "Sick as a Verified 11/20/23 19:28 [From Bactrim] Dog" trimethoprim [From Bactrim] Allergy Unknown "Sick as a Verified 11/20/23 19:28 Dog" Penicillins Allergy Verified 11/20/23 19:28 adhesive AdvReac Unknown Rash, Red Verified 11/20/23 19:28 Skin from tape and cardiac electrodes. ciprofloxacin [From Cipro] AdvReac Unknown Pain in Verified 11/20/23 19:28 Arms ibuprofen [From Motrin] AdvReac Unknown Eye Pain Verified 11/20/23 19:28 doxycycline AdvReac Unknown Verified 11/20/23 19:28 ferrous sulfate AdvReac SEVERE Verified 11/20/23 19:28 HEADACHE furosemide [From Lasix] AdvReac Rapid Verified 11/20/23 19:28 Heart Rate latex AdvReac Unknown Verified 11/20/23 19:28 omeprazole [From Prilosec] AdvReac Unknown Verified 11/20/23 19:28 omeprazole magnesium AdvReac Unknown Verified 11/20/23 19:28 [From Prilosec] Physical Exam Vitals: Vital Signs Temp Pulse Pulse Resp BP BP Pulse Ox 11/22/23 02:04 97.4 F L 50 L 18 162/70 96 11/21/23 19:23 57 L 18 156/75 95 11/21/23 16:25 97.8 F 54 L 17 158/59 95 11/21/23 15:58 56 L 16 130/60 96 11/21/23 10:00 50 L 20 173/76 95 Intake and Output 11/21/23 11/22/23 11/22/23 22:59 06:59 14:59 Intake Total 120 Output Total 300 Balance 120 -300 Intake: Oral 120 Output: Urine 300 Other: Voiding Method Toilet External Catheter Weight 80.558 kg 80.739 kg Results 11/20/23 18:31 11/22/23 09:20 Comprehensive Metabolic Panel 11/21/23 Range/Units 11:35 Sodium 144 (137-145) mmol/L Potassium 4.4 (3.5-5.1) mmol/L Chloride 108 H (98-107) mmol/L Carbon Dioxide 31 H (22-30) mmol/L BUN 33 H (7-17) mg/dL Creatinine 1.76 H (0.52-1.04) mg/dL Glucose 124 H (74-99) mg/dL Calcium 9.6 (8.4-10.2) mg/dL Current Medications Generic Name Dose Route Start Last Admin Trade Name Freq PRN Reason Stop Dose Admin Acetaminophen 650 mg 11/22/23 06:25 11/22/23 06:35 Acetaminophen Tab 325 Mg Tab PO 650 mg Q8HR PRN Administration Fever and/ or Mild Pain Aspirin 81 mg 11/21/23 09:30 11/21/23 10:15 Aspirin 81 Mg PO 81 mg DAILY TAYLOR Administration Calcium Carbonate 1 each 11/21/23 21:00 11/21/23 20:29 Calcium Carb-Vit D 500 Mg-5 Mcg Tab PO 1 each HS TAYLOR Administration Calcium Carbonate/Glycine 500 mg 11/21/23 09:25 Calcium Carbonate 500 Mg Chewable PO TID PRN Heartburn Clobetasol Propionate 1 applic 11/21/23 21:30 11/22/23 01:53 Clobetasol Prop 0.05% Cr 15gm TOPICAL 1 applic DAILY TAYLOR Administration Protocol Heparin Sodium (Porcine) 5,000 unit 11/21/23 21:00 11/21/23 20:29 Heparin Sodium,Porcine 5,000 Unit/Ml 1 Ml Vial SQ 5,000 unit Q12HR TAYLOR Administration Hydralazine HCl 50 mg 11/21/23 09:30 11/21/23 20:29 Hydralazine Hcl 50 Mg Tab PO 50 mg BID TAYLOR Administration Levothyroxine Sodium 75 mcg 11/21/23 09:30 11/22/23 06:13 Levothyroxine 75 Mcg Tab PO 75 mcg DAILY@0630 TAYLOR Administration Losartan Potassium 25 mg 11/21/23 09:30 11/21/23 10:16 Losartan 25 Mg Tab PO 25 mg DAILY TAYLOR Administration Metoprolol Succinate 25 mg 11/21/23 09:30 11/21/23 10:15 Metoprolol Succinate (Er) 25 Mg Tab.Er.24h PO 25 mg DAILY TAYLOR Administration Naloxone HCl 0.2 mg 11/20/23 19:03 Naloxone 0.4 Mg/Ml 1 Ml Vial IV Q2M PRN Opioid Reversal Pantoprazole Sodium 40 mg 11/21/23 10:00 11/21/23 10:15 Pantoprazole 40 Mg Tablet PO 40 mg [id number] TAYLOR Administration Torsemide 40 mg 11/21/23 10:00 11/21/23 10:15 Torsemide 20 Mg Tab PO 40 mg DAILY TAYLOR Administration Intake and Output 11/21/23 11/22/23 11/22/23 22:59 06:59 14:59 Intake Total 120 Output Total 300 Balance 120 -300 Intake: Oral 120 Output: Urine 300 Other: Voiding Method Toilet External Catheter Weight 80.558 kg 80.739 kg 11/20/23 18:31 11/21/23 11:35
--- NOTE | 2023-11-22 14:57 | P.PN ---
Subjective Progress Note Date: 11/22/23 Principal diagnosis: Bilateral lower extremity necrobiosis lipoidica Patient is a 83-year-old female with a past medical history significant for hypertension osteoarthritis renal disease hypothyroidism heart failure patient has been brought to the hospital for evaluation of worsening dability and also complaining of pain to bilateral knee also noticed to have some erythema to bilateral neck concerning for possible cellulitis On today's evaluation that is 11/22/2023,the patient denies any fever or any chills, patient is breathing comfortably on room air, the patient denies chest pain shortness of breath and no significant cough, patient denies abdominal pain, no nausea vomiting or diarrhea., However has been complaining of weakness and pain to bilateral knee area denies pain to bilateral lower legs with the patient did have area of erythema. The patient did have a creatinine of 1.74 white count was normal 6.0 on admission no CBC done today Objective - Vital Signs Vital signs: Vital Signs Temp 97.3 F L 11/22/23 08:00 Pulse 53 L 11/22/23 08:00 Resp 17 11/22/23 08:00 BP 159/69 11/22/23 08:00 Pulse Ox 94 L 11/22/23 08:00 FiO2 Intake & Output 11/21/23 11/22/23 11/22/23 18:59 06:59 18:59 Intake Total 120 Output Total 800 300 Balance -680 -300 Weight 80.558 kg 80.739 kg Intake: Oral 120 Output: Urine 800 300 Other: Voiding Method Toilet Diaper External Catheter External Catheter - Exam GENERAL DESCRIPTION: An elderly female lying in bed in no distress RESPIRATORY SYSTEM: Unlabored breathing , decreased breath sounds at bases HEART: S1 S2 regular rate and rhythm , ABDOMEN: Soft , no tenderness EXTREMITIES: Bilateral lower extremity with swelling did have any erythema to the anterior castillo area - Labs CBC & Chem 7: 11/20/23 18:31 11/22/23 09:20 Labs: Abnormal Lab Results - Last 24 Hours (Table) 11/22/23 Range/Units 09:20 Chloride 109 H (98-107) mmol/L Carbon Dioxide 32 H (22-30) mmol/L BUN 37 H (7-17) mg/dL Creatinine 1.74 H (0.52-1.04) mg/dL Glucose 109 H (74-99) mg/dL Assessment and Plan (1) Necrobiosis lipoidica Current Visit: Yes Status: Acute Code(s): L92.1 - NECROBIOSIS LIPOIDICA, NOT ELSEWHERE CLASSIFIED SNOMED Code(s): 6010268 (2) Localized swelling of both lower legs Current Visit: Yes Status: Acute Code(s): R22.43 - LOCALIZED SWELLING, MASS AND LUMP, LOWER LIMB, BILATERAL SNOMED Code(s): 52596642185231341 Plan: 1patient with bilateral lower extremity swelling and also have some erythema which is mostly suggestive of necrobiosis lipoidica and not behaving as a cellulitis as the patient does not have significant warmth fever or elevated white count 2 patient with multiple antibiotic ALLERGIES that would limit the number of antibiotic safe to use 3-we will advise local steroids in the form of clobetasol 0.05 daily at night and also benefit from Casey wrap to keep some of the swelling down Daughter at the bedside questions were answered Dictation was produced using Qraved dictation software. please excuse any grammatical, word or spelling errors. Time with Patient: Less than 30
[2023-11-22] MEDS ORDERED: BUMETANIDE 1 MG TAB PO SCH (16:00)
--- NOTE | 2023-11-22 17:19 | P.PN ---
Subjective Progress Note Date: 11/22/23 Principal diagnosis: Diagnosis: #1 severe debility with inability to ambulate #2 advanced arthritis of the knee bilateral with the presence of bone on bone in the right knee and a foreign body i.e. unequal. #3 total left knee arthroplasty #4 bilateral lower extremities lymphedema as well as pitting edema #5 lower shaft above the ankle erythematous patch seen by infectious disease with the thought to be cellulitis his diagnosis necrobiosis lipoidica #6 congestive heart failure acute on the top of chronic with the pro BNP 9340. #7 anemia of chronic disease with normal iron. #8 hypercalcemia on admission resolved #9 acute kidney injury on the top of chronic kidney disease currently stage IV. #10 no evidence of diabetes mellitus hemoglobin A1c 5.5. #11 multiple ALLERGIES #12 obesity class I #13 Limited mobility with inability to walk and use only wheelchair with difficulty with transfer This progress note Dictation by Dr. Reynoso Date of service 11/22/2023. Patient seen today [id number] and evaluated and discussed with her the plan. Patient is conscious alert oriented 3. Laboratories: Sodium 143, potassium 4.3, chloride 109, carbon dioxide 32, creatinine 1.74 with a baseline 1.1, bun 37, EGFR 27 Hemoglobin A1c 5.5, iron 60, TIBC 346, transferrin 247. Pro-BNP 9340 Vitamin B12 613 Pro-calcitonin 0.08. Vital sign: Temperature 97.0 oral, heart rate fluctuating between 52 and 63. Respiratory rate 16 blood pressure 97/61 and 102/58 Oxygen saturation 95% on room air. Nephrology did see the patient today however we waiting for their note and the recommendation. Echocardiogram ordered however the results in on available with the underlying acute congestive heart failure on the top of chronic On examination: Patient in bed conscious alert oriented 3, Head was normocephalic and atraumatic pupil was equal reactive conjunctiva was pink sclera was nonicteric and she wearing glasses and no fascial asymmetry Neck was supple thyromegaly and she had hypothyroidism, no lymph nodes Chest: The increased anteroposterior diameter with the kyphoscoliosis and consi deration of rales has been improved Heart she had underlying bradycardia with elevated pro-BNP and underlying congestive heart failure echocardiogram is not available Abdomen obese positive bowel sounds no tenderness. Musculoskeletal in the x-ray of the right knee indicating foreign body with navel in the soft tissue however we don't have any note from the orthopedic to indicate what should be done for that or leave it alone. Physical therapy was ordered and occupational therapy and the plan for [facility] care home once we clear the patient. Assessment: And plan #1 we will will be waiting for advice of nephrology with the chronic kidney disease stage IV as well as acute event Waiting for the cardiology to evaluate the echocardiogram with the evidence of hypo-BMP and edema of the lower extremities and chronic congestive heart failure with the x-ray indicating also congestion. #3 waiting for the orthopedic surgeon opinion in the regarding of the foreign body in the right knee has been mentioned in the x-ray of the right knee and what to do with it. #4 plan for care home placement once we have the clearance from the above workday consultant. Objective - Vital Signs Vital signs: Vital Signs Temp 97.0 F L 11/22/23 16:11 Pulse 63 11/22/23 16:11 Resp 16 11/22/23 16:11 BP 102/58 11/22/23 16:11 Pulse Ox 95 11/22/23 16:11 FiO2 Intake & Output 11/21/23 11/22/23 11/22/23 18:59 06:59 18:59 Intake Total 120 Output Total 800 300 200 Balance -680 -300 -200 Weight 80.558 kg 80.739 kg Intake: Oral 120 Output: Urine 800 300 200 Other: Voiding Method Toilet Diaper External Catheter External Catheter - Labs CBC & Chem 7: 11/20/23 18:31 11/22/23 09:20 Labs: Abnormal Lab Results - Last 24 Hours (Table) 11/22/23 Range/Units 09:20 Chloride 109 H (98-107) mmol/L Carbon Dioxide 32 H (22-30) mmol/L BUN 37 H (7-17) mg/dL Creatinine 1.74 H (0.52-1.04) mg/dL Glucose 109 H (74-99) mg/dL
--- NOTE | 2023-11-22 17:58 | P.NPCON ---
History of Present Illness - Reason for Consult acute renal failure - History of Present Illness Patient is an 83-year-old female with history of chronic kidney disease and Stage III a with previous creatinine 1.1 to 1.5 mg/dL Patient is admitted to the hospital with complaints of decreased ambulation and increased weakness. There are plans for admission to rehab versus ECF. Patient is hard of hearing. Most of the history is obtained from chart review. Serum creatinine was 1.7 mg/dL on admission and has stayed the same for the last 3 days. Blood pressure has not been low however last couple of readings showed systolic blood pressure of 103 and 98 mmHg. Maintained on angiotensin receptor blockers. Patient has an external catheter. Urine output not charted. Patient is maintained on oral diuretics. Chest x-ray on admission showed pulmonary vascular congestion. Patient also has significant chronic lower extremity edema. Currently not on oxygen. No diarrhea or vomiting nausea or chest pain reported. No complaints of shortness of breath. Review of Systems As per HPI Past Medical History Past Medical History: Heart Failure, Hypertension, Osteoarthritis (OA), Renal Disease, Thyroid Disorder Additional Past Medical History / Comment(s): arthritis, sub arachnoid hemorrhage 1986, URINARY INCONTINENCE, CKD stage 3, cyst on kidney and ovary, hypothyroidism History of Any Multi-Drug Resistant Organisms: None Reported Past Surgical History: Joint Replacement Additional Past Surgical History / Comment(s): bilat. cataract surgery, LEFT KNEE replacement Past Anesthesia/Blood Transfusion Reactions: Motion Sickness, Postoperative Nausea & Vomiting (PONV) Past Psychological History: No Psychological Hx Reported Smoking Status: Never smoker Past Alcohol Use History: None Reported Past Drug Use History: None Reported - Past Family History Sister(s) Family Medical History: Cancer Additional Family Medical History / Comment(s): SKIN CANCER Mother Family Medical History: CVA/TIA Medications and Allergies Home Medications Medication Instructions Recorded Confirmed Type Aspirin 81 mg PO DAILY 09/26/14 11/20/23 History Calcium Carbonate/Vitamin D3 1 tab PO HS 09/26/14 11/20/23 History [Caltrate 600 + D Tablet] Lansoprazole 30 mg PO DAILY 09/26/14 11/20/23 History Calcium Carbonate [Tums] 500 mg PO TID PRN 10/19/16 11/20/23 History Levothyroxine Sodium [Synthroid] 75 mcg PO DAILY 11/20/23 11/20/23 History Losartan [Cozaar] 25 mg PO DAILY 11/20/23 11/20/23 History Metoprolol Succinate (ER) [Toprol 25 mg PO DAILY 11/20/23 11/20/23 History Xl] Multivit-Min/Iron/Folic/Lutein 1 tab PO HS 11/20/23 11/20/23 History [Centrum Silver Women Tablet] Torsemide [Demadex] 40 mg PO DAILY 11/20/23 11/20/23 History hydrALAZINE HCL [Apresoline] 50 mg PO BID 11/20/23 11/20/23 History Allergies Allergy/AdvReac Type Severity Reaction Status Date / Time sulfamethoxazole Allergy Unknown "Sick as a Verified 11/20/23 19:28 [From Bactrim] Dog" trimethoprim [From Bactrim] Allergy Unknown "Sick as a Verified 11/20/23 19:28 Dog" Penicillins Allergy Verified 11/20/23 19:28 adhesive AdvReac Unknown Rash, Red Verified 11/20/23 19:28 Skin from tape and cardiac electrodes. ciprofloxacin [From Cipro] AdvReac Unknown Pain in Verified 11/20/23 19:28 Arms ibuprofen [From Motrin] AdvReac Unknown Eye Pain Verified 11/20/23 19:28 doxycycline AdvReac Unknown Verified 11/20/23 19:28 ferrous sulfate AdvReac SEVERE Verified 11/20/23 19:28 HEADACHE furosemide [From Lasix] AdvReac Rapid Verified 11/20/23 19:28 Heart Rate latex AdvReac Unknown Verified 11/20/23 19:28 omeprazole [From Prilosec] AdvReac Unknown Verified 11/20/23 19:28 omeprazole magnesium AdvReac Unknown Verified 11/20/23 19:28 [From Prilosec] Physical Exam Vitals: Vital Signs Temp Pulse Resp BP Pulse Ox 11/22/23 16:11 97.0 F L 63 16 102/58 95 11/22/23 14:00 97.4 F L 52 L 17 97/61 11/22/23 08:00 97.3 F L 53 L 17 159/69 94 L 11/22/23 02:04 97.4 F L 50 L 18 162/70 96 11/21/23 19:23 57 L 18 156/75 95 Intake and Output 11/22/23 11/22/23 11/22/23 06:59 14:59 22:59 Output Total 300 200 Balance -300 -200 Output: Urine 300 200 Other: Voiding Method Diaper External Catheter Weight 80.739 kg Patient is awake, comfortable, no acute distress Patient is hard of hearing but responds appropriately to questions. Examination of the heart S1 and S2 Examination of the lungs bilateral breath sounds are heard, decreased breath sounds at the bases Abdomen is soft morbidly obese Examination of lower extremities showed chronic edema 3+ bilaterally with chronic skin changes Results - Lab Results Most recent lab results Calcium 9.7 mg/dL (8.4-10.2) 11/22/23 09:20 11/20/23 18:31 11/22/23 09:20 Assessment and Plan Assessment: 1. Acute kidney injury, ATN rule out urine retention. UA is completely benign. No evidence of hydronephrosis on ultrasound. Angiotensin receptor blockers currently on hold. 2. Chronic kidney disease and Stage III a with baseline creatinine 1.1 to 1.5 mg/dL. Etiology is nephrosclerosis 3. Chronic lower extremity edema. Ejection fraction not known. Possible elevated right heart pressures. 4. Hypertension with low blood pressures noted today. Cozaar is held. 5. Volume overload maintained on oral Bumex Plan: Continue oral Bumex Check bladder scan Continue to hold angiotensin receptor blockers as blood pressure is borderline. Repeat labs in a.m. Avoid hypotension. Thank you for the consultation. We will continue to follow the patient with you during her hospitalization.
[2023-11-23 09:24] VITALS: BMI 34.0
--- NOTE | 2023-11-23 10:34 | CA ---
Transthoracic Echo Report Name: Radha Villavicencio Age: 83 Gender: F : 1940 Exam Date: 11/22/2023 08:38 Exam Location: [facility] Ht (in): 61 Wt (lb): 177 Ordering Physician: Sorin Reynoso MD Attending/Referring Phys: Web Marketing Manager Kary Fenton RCS Procedure CPT: Indications: atrial fib .htnurgency,tia, bradycardia, congestiv Cardiac Hx: Technical Quality: Good, Fair Contrast 1: Total Dose (mL): Contrast 2: Total Dose (mL): MEASUREMENTS (Male / Female) Normal Values 2D ECHO LV Diastolic Diameter PLAX 5.5 cm 4.2 - 5.9 / 3.9 - 5.3 cm LV Systolic Diameter PLAX 3.4 cm IVS Diastolic Thickness 0.9 cm 0.6 - 1.0 / 0.6 - 0.9 cm LVPW Diastolic Thickness 0.9 cm 0.6 - 1.0 / 0.6 - 0.9 cm LV Relative Wall Thickness 0.3 LVOT Diameter 1.9 cm LV Diastolic Volume MOD BP 138.8 cm??? 67 - 155 / 56 - 104 cm??? LV Systolic Volume MOD BP 53.6 cm??? 22 - 58 / 19 - 49 cm??? LV Ejection Fraction MOD BP 61.4 % >= 55 % LV Cardiac Index MOD BP 2741.4 cm???/min???m??? LV Diastolic Volume MOD 4C 141.2 cm??? LV Systolic Volume MOD 4C 59.6 cm??? LV Ejection Fraction MOD 4C 57.8 % LV Cardiac Index MOD 4C 2629.6 cm???/min???m??? LV Diastolic Length 4C 7.8 cm LV Systolic Length 4C 7.0 cm LV Diastolic Volume MOD 2C 125.0 cm??? LV Systolic Volume MOD 2C 46.0 cm??? LV Ejection Fraction MOD 2C 63.2 % LV Cardiac Index MOD 2C 2545.4 cm???/min???m??? LV Diastolic Length 2C 8.5 cm LV Systolic Length 2C 6.6 cm LA Volume 149.0 cm??? 18 - 58 / 22 - 52 cm??? LA Volume Index 78.6 cm???/m??? 16 - 28 cm???/m??? DOPPLER AV Peak Velocity 134.3 cm/s AV Peak Gradient 7.2 mmHg AV Mean Velocity 88.0 cm/s AV Mean Gradient 3.6 mmHg AV Velocity Time Integral 34.4 cm LVOT Peak Velocity 93.7 cm/s LVOT Peak Gradient 3.5 mmHg LVOT Velocity Time Integral 23.2 cm LVOT Stroke Volume 64.6 cm??? LVOT Stroke Volume Index 36.0 ml/m??? LVOT Cardiac Index 2078.6 cm???/min???m??? AV Area Cont Eq vti 1.9 cm??? AV Area Cont Eq pk 1.9 cm??? MV Area PHT 4.4 cm??? Mitral E Point Velocity 67.4 cm/s Mitral A Point Velocity 50.0 cm/s Mitral E to A Ratio 1.3 MV Deceleration Time 173.4 ms TR Peak Velocity 308.9 cm/s TR Peak Gradient 38.2 mmHg PV Peak Velocity 84.9 cm/s PV Peak Gradient 2.9 mmHg FINDINGS Left Ventricle Left ventricular ejection fraction is estimated at 55-60 %. Mildly increased left ventricular diastolic diameter. Mildly increased left ventricular systolic volume. No obvious regional wall motion abnormalities. Right Ventricle Right ventricle not well visualized. Severely increased right ventricular systolic pressure. Right Atrium Severe right atrial dilatation. Left Atrium Severely increased left atrial volume. Moderately increased left atrial area. Mitral Valve Structurally normal mitral valve. No mitral stenosis. Mild mitral regurgitation. Aortic Valve Trileaflet aortic valve. No aortic valve stenosis or regurgitation. Tricuspid Valve Structurally normal tricuspid valve. No tricuspid stenosis. Moderate tricuspid regurgitation. Pulmonic Valve No pulmonic stenosis. Trace pulmonic regurgitation. Pericardium No pericardial effusion. Aorta Normal size aortic root and proximal ascending aorta. CONCLUSIONS Left ventricular ejection fraction is estimated at 55-60 %. No obvious regional wall motion abnormalities. Severe Pulmo HTN with RVSP 55 mmHg Mild mitral regurgitation. Dilated IVC with <50% collapse Previewed by: Dr Alin Stallings (Electronically Signed) Final Date: 23 November 2023 10:33
--- NOTE | 2023-11-23 10:38 | P.PN ---
Subjective Progress Note Date: 11/23/23 Reason for Consult (text): BRADYCARDIA, CHF, CHRONIC EDEMA History of present illness: History of present illness: This is an 83-year-old female with past medical history of hypertension, hypothyroidism, subarachnoid hemorrhage, chronic kidney disease stage III. We have been asked to evaluate the patient for bradycardia, CHF and chronic edema. Patient's history is mostly obtained from the patient's daughter. Patient presented to the hospital due to generalized weakness struggling to stand up and walk. She is sleeping more during the day and may be not eating enough food or drinking enough. Patient currently lives alone and daughter states it may be time for her to go to rehab or other setting. Patient denies having any chest pain. No history of coronary artery disease and no previous cardiac workup. Patient does not follow with a manganese heater. EKG sinus rhythm at 50 bpm Chest x-ray: Cardiomegaly and mild pulmonary vascular congestion. WBC 6, hemoglobin 10.6, platelet count 120. Sodium 143, potassium 4.3, chloride 109, CO2 32, BUN 37 creatinine 1.74. Glucose 109. AST 68, alkaline phosphatase 143. proBNP 9340. TSH 4.86. Procalcitonin 0.08. Home cardiac medications: Aspirin 81 mg daily, hydralazine 50 mg twice daily, losartan 25 mg daily, metoprolol succinate 25 mg daily, torsemide 40 mg daily, also on levothyroxine 75 mcg daily 11/23 Patient's concern today is regarding knee pain. She denies having any chest pain or shortness of breath. Telemetry has been a sinus bradycardia lowest being 48 bpm, no pauses and no blocks noted. Blood pressure running between 115/50 to 164/66, pulse ox 94% on room air. Echocardiogram reveals EF of 55 to 60%, severe pulmonary hypertension with RVSP 55 mmHg, mild mitral regurgitation. Dilated IVC with less than 50% collapse. Physical examination: Gen: This is an 83-year-old female in no acute distress VS: reviewed blood pressure 159/69, heart rate 53, pulse ox 94% on room air. HEENT: Head is atraumatic, normocephalic. Pupils equal, round. Sclerae is anicteric. NECK: Supple. No JVD. LUNGS: Clear to auscultation. No wheezes or rhonchi. No intercostal retractions. HEART: Regular rate and rhythm. No murmur. ABDOMEN: Soft No tenderness. EXTREMITIES: 2+ bilateral pedal edema with chronic skin changes. No calf tenderness. NEUROLOGICAL: Patient is awake, alert and oriented x3. Assessment: Bradycardia stable Acute on chronic heart failure Chronic lower extremity edema Generalized weakness Chronic kidney disease stage III, possible acute kidney injury Hypertension Hypothyroidism Plan: Continue patient's current cardiac medications No further cardiac workup warranted at this time. Cardiology will sign off this case and follow on an as-needed basis. Please r econsult for any new concerns. Patient may follow-up in the office in one to 2 weeks.. Nurse practitioner note has been reviewed, I agree with documented findings and plan of care. Patient was seen and examined. Objective - Vital Signs Vital signs: Vital Signs Temp 97.7 F 11/23/23 07:34 Pulse 54 L 11/23/23 07:34 Resp 17 11/23/23 07:34 BP 164/66 11/23/23 07:34 Pulse Ox 94 L 11/23/23 07:34 FiO2 Intake & Output 11/22/23 11/23/23 11/23/23 18:59 06:59 18:59 Intake Total 780 Output Total 1000 575 Balance -220 -575 Weight 81.542 kg 81.542 kg Intake: Oral 780 Output: Urine 1000 575 Other: Voiding Method Diaper Toilet External Catheter External Catheter Bedside Commode External Catheter # Voids 1 # Bowel Movements 1 - Labs CBC & Chem 7: 11/20/23 18:31 11/22/23 09:20
--- NOTE | 2023-11-23 13:27 | P.PN ---
Subjective Progress Note Date: 11/23/23 Principal diagnosis: Bilateral lower extremity necrobiosis lipoidica Patient is a 83-year-old female with a past medical history significant for hypertension osteoarthritis renal disease hypothyroidism heart failure patient has been brought to the hospital for evaluation of worsening dability and also complaining of pain to bilateral knee also noticed to have some erythema to bilateral neck concerning for possible cellulitis On today's evaluation that is 11/23/2023,the patient remains to be afebrile, patient is on room air not requiring supplemental oxygen and denies any shortness of breath no chest pain or cough.Patient denies having any nausea or vomiting, no abdominal pain and no diarrhea has been reported denies pain to the bilateral lower extremity erythematous area still complaining of pain to the joints. Patient creatinine is 1.74 procalcitonin 0.08 urine is negative Objective - Vital Signs Vital signs: Vital Signs Temp 97.7 F 11/23/23 07:34 Pulse 54 L 11/23/23 07:34 Resp 17 11/23/23 07:34 BP 164/66 11/23/23 07:34 Pulse Ox 94 L 11/23/23 07:34 FiO2 Intake & Output 11/22/23 11/23/23 11/23/23 18:59 06:59 18:59 Intake Total 780 Output Total 1000 575 Balance -220 -575 Weight 81.542 kg 81.542 kg Intake: Oral 780 Output: Urine 1000 575 Other: Voiding Method Diaper Toilet External Catheter External Catheter Bedside Commode External Catheter # Voids 1 # Bowel Movements 1 - Exam GENERAL DESCRIPTION: An elderly female lying in bed in no distress RESPIRATORY SYSTEM: Unlabored breathing , decreased breath sounds at bases HEART: S1 S2 regular rate and rhythm , ABDOMEN: Soft , no tenderness EXTREMITIES: Bilateral lower extremity with swelling did have any erythema to the anterior castillo area - Labs CBC & Chem 7: 11/20/23 18:31 11/22/23 09:20 Assessment and Plan (1) Necrobiosis lipoidica Current Visit: Yes Status: Acute Code(s): L92.1 - NECROBIOSIS LIPOIDICA, NOT ELSEWHERE CLASSIFIED SNOMED Code(s): 3558167 (2) Localized swelling of both lower legs Current Visit: Yes Status: Acute Code(s): R22.43 - LOCALIZED SWELLING, MASS AND LUMP, LOWER LIMB, BILATERAL SNOMED Code(s): 43808671092276140 Plan: 1patient with bilateral lower extremity swelling and also have some erythema which is mostly suggestive of necrobiosis lipoidica and not behaving as a cellulitis as the patient does not have significant warmth fever or elevated white count 2 patient with multiple antibiotic ALLERGIES that would limit the number of antibiotic safe to use 3-patient to continue with clobtetasol 0.05 daily along with Casey wrap to keep some of the swelling down Family member at the bedside questions were answered Dictation was produced using [employer] dictation software. please excuse any grammatical, word or spelling errors. Time with Patient: Less than 30
[2023-11-23 17:02] LABS: African American GFR (CKD) 31 (>60 ml/min/1.73 sqM); Anion Gap 4 mmol/L; Blood Urea Nitrogen 45 mg/dL (7-17); Calcium 9.5 mg/dL (8.4-10.2); Carbon Dioxide 32 mmol/L (22-30); Chloride 105 mmol/L (98-107); Glucose 116 mg/dL (74-99); Non-African American GFR(CKD) 27 (>60 ml/min/1.73 sqM); Potassium 4.6 mmol/L (3.5-5.1); Sodium 141 mmol/L (137-145)
--- NOTE | 2023-11-23 20:54 | P.PN ---
Subjective Patient is seen for follow-up for acute kidney injury and chronic kidney disease. No significant complaints today. Serum creatinine staying at about 1.7 mg/dL Urine output at 1100 mL 4024 hours. Objective - Vital Signs Vital signs: Vital Signs Temp 97.3 F L 11/23/23 19:38 Pulse 59 L 11/23/23 19:38 Resp 16 11/23/23 19:38 BP 137/69 11/23/23 19:38 Pulse Ox 95 11/23/23 19:38 FiO2 Intake & Output 11/23/23 11/23/23 11/24/23 06:59 18:59 06:59 Output Total 575 1100 Balance -575 -1100 Weight 81.542 kg 81.542 kg Output: Urine 575 1100 Other: Voiding Method Toilet External Catheter Toilet Bedside Commode Bedside Commode External Catheter Diaper Incontinent External Catheter - Exam Patient is awake, comfortable, no acute distress Examination lower extremity shows edema 1+ bilaterally SHINGLE GRADER exam grossly intact Patient is currently sitting on the toilet - Labs CBC & Chem 7: 11/20/23 18:31 11/23/23 15:55 Labs: Abnormal Lab Results - Last 24 Hours (Table) 11/23/23 Range/Units 15:55 Carbon Dioxide 32 H (22-30) mmol/L BUN 45 H (7-17) mg/dL Creatinine 1.73 H (0.52-1.04) mg/dL Glucose 116 H (74-99) mg/dL Assessment and Plan Assessment: 1. Acute kidney injury, ATN rule out urine retention. UA is completely benign. No evidence of hydronephrosis on ultrasound. Angiotensin receptor blockers currently on hold. 2. Chronic kidney disease and Stage III a with baseline creatinine 1.1 to 1.5 mg/dL. Etiology is nephrosclerosis 3. Chronic lower extremity edema. Ejection fraction not known. Possible elevated right heart pressures. 4. Hypertension with low blood pressures noted today. Cozaar is held. 5. Volume overload maintained on oral Bumex 6. Bradycardia currently stable. Being followed by cardiology. Plan: Continue oral Bumex Continue to hold angiotensin receptor blockers as blood pressure is borderline. Repeat labs in a.m. Avoid hypotension.
--- NOTE | 2023-11-24 00:30 | PN ---
PROGRESS NOTE DATE OF SERVICE: 11/23/2023 SUBJECTIVE: This is an 83-year-old white female. The patient is seen and evaluated [id number] and discussed with her the plan. Her vital sign is stable. She has no complaint at this time. I reviewed the laboratory with anemia and she had congestive heart failure with an elevated troponin. Seen by several consulting physicians and currently her bradycardia improved with the adjustment. She had underlying elevation of the troponin, acute congestive heart failure on the top of chronic, the underlying also bradycardia, but currently improved with the adjustment of medication. She has history of hypertension and underlying edema of the lower extremities as well as lymphedema and generalized weakness due to effect of severe arthropathy of the knee with bone on bone by the x-ray on the right knee. She had also underlying foreign body needle 1.1 cm and we did consult Orthopedics; however, Orthopedics stated that they will not do anything for that and we are not intended to have any surgery. We really also did reevaluation by Nephrology and with the underlying acute kidney injury as well as the chronic kidney disease, Dr. Awan did see the patient, evaluated, as well as Dr. Barajas, Infectious Disease with the erythema of the front of the shaft of tibia above the ankle joint and currently he did indicate that is not cellulitis, but it is underlying reaction which has indicated necrobiosis lipoidica and he recommended the treatment and Casey bandage; however, the patient is currently using it by applying the nurses help. We did the rehabilitation as well and we are today on the physical exam. Please note that there is retained 1.1 cm long needle fragment within the anteromedial infrapatellar soft tissue, but at this time as nursing staff did contact the Orthopedics, Dr. Dia, and stated that no intention for doing any surgical approach for that. PHYSICAL EXAMINATION: GENERAL: The patient is conscious, alert, oriented. She has severe hearing deficit. Oropharynx normal, natural teeth. NECK: Supple. CHEST: Normal breath sounds today with the diuresis. She has underlying urinary incontinence, but no infection and checking the 4-hour bladder scan per order of the Nephrology, Dr. Awan. She had an echocardiogram also obtained and we have a question of consideration of atrial fibrillation and the echocardiogram result with the underlying valvular heart disease and chronic diastolic dysfunction. ABDOMEN: Obese, positive bowel sounds. EXTREMITIES: She has lymphedema as well as pitting edema and she had treatment with Casey bandage wrap and continuation of physical therapy. ASSESSMENT: 1. She is very disabled for ambulation physically and failure to thrive alone at home with no help. 2. Obesity. 3. 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 Left knee has a total knee arthroplasty. RECOMMENDATION AND PLAN: 1. The patient will be planned for going to prison, [facility]. 2. Authorization is in process by the director of casework. However, we do not have the authorization from the insurance today and the patient will be waiting for the approval from the insurance and subsequently we will transfer the patient to [facility]. However, we are going to request clearance from the Cardiology as well as the Orthopedics and Orthopedics stated that they will not do any surgical intervention and for any of her knees or the underlying foreign body needle retained in 1.1 cm long fragment in the right knee in the anteromedial infrapatellar soft tissue. The patient will wait for tomorrow and hopefully be able to be discharged tomorrow on Sunday, November. MMODL / IJN: [id number] /
[2023-11-24 02:33] VITALS: TEMP 97
--- NOTE | 2023-11-24 10:58 | P.PN ---
Subjective Patient is seen for follow-up for acute kidney injury and chronic kidney disease. No significant complaints today. Serum creatinine staying at about 1.7 mg/dL Urine output at 1800 mL for 24 hours. Maintained on oral Bumex. No complaints of shortness of breath. Objective - Vital Signs Vital signs: Vital Signs Temp 97.0 F L 11/24/23 02:00 Pulse 50 L 11/24/23 09:52 Resp 18 11/24/23 02:00 BP 184/68 11/24/23 08:00 Pulse Ox 98 11/24/23 08:00 FiO2 Intake & Output 11/23/23 11/24/23 11/24/23 18:59 06:59 18:59 Output Total 1100 700 Balance -1100 -700 Weight 81.542 kg 75.8 kg Output: Urine 1100 700 Other: Voiding Method External Catheter Toilet Bedside Commode Diaper Incontinent External Catheter # Bowel Movements 2 - Exam Patient is awake, comfortable, no acute distress Examination of the heart S1 and S2 Examination of the lungs bilateral breath sounds are heard Abdomen is soft nontender Examination lower extremity shows edema 1+ bilaterally APPOINTMENT COORDINATOR exam grossly intact - Labs CBC & Chem 7: 11/20/23 18:31 11/23/23 15:55 Labs: Abnormal Lab Results - Last 24 Hours (Table) 11/23/23 Range/Units 15:55 Carbon Dioxide 32 H (22-30) mmol/L BUN 45 H (7-17) mg/dL Creatinine 1.73 H (0.52-1.04) mg/dL Glucose 116 H (74-99) mg/dL Assessment and Plan Assessment: 1. Acute kidney injury, ATN rule out urine retention. UA is completely benign. No evidence of hydronephrosis on ultrasound. Angiotensin receptor blockers c urrently on hold. 2. Chronic kidney disease and Stage III a with baseline creatinine 1.1 to 1.5 mg/dL. Etiology is nephrosclerosis 3. Chronic lower extremity edema. Ejection fraction not known. Possible elevated right heart pressures. 4. Hypertension with low blood pressures noted today. Cozaar is held. 5. Volume overload maintained on oral Bumex 6. Bradycardia currently stable. Being followed by cardiology. Plan: Continue oral Bumex Repeat chest x-ray Continue to hold angiotensin receptor blockers for now Repeat labs in a.m. Avoid hypotension.
--- NOTE | 2023-11-24 11:54 | P.PN ---
Subjective Progress Note Date: 11/24/23 Principal diagnosis: Bilateral lower extremity necrobiosis lipoidica Patient is a 83-year-old female with a past medical history significant for hypertension osteoarthritis renal disease hypothyroidism heart failure patient has been brought to the hospital for evaluation of worsening dability and also complaining of pain to bilateral knee also noticed to have some erythema to bilateral neck concerning for possible cellulitis On today's evaluation that is 11/24/2023, the patient continues to be afebrile, the patient is on room air and breathing comfortably, the Pt denies having any chest pain or cough, the patient denies having any abdominal pain no vomiting or any diarrhea, denies pain to the bilateral lower extremity rash area. No new labs has been obtained today Objective - Vital Signs Vital signs: Vital Signs Temp 97.0 F L 11/24/23 02:00 Pulse 50 L 11/24/23 09:52 Resp 18 11/24/23 08:35 BP 184/68 11/24/23 08:00 Pulse Ox 98 11/24/23 08:00 FiO2 Intake & Output 11/23/23 11/24/23 11/24/23 18:59 06:59 18:59 Output Total 1100 700 Balance -1100 -700 Weight 81.542 kg 75.8 kg Output: Urine 1100 700 Other: Voiding Method External Catheter Toilet Toilet Bedside Commode Bedside Commode Diaper Diaper Incontinent Incontinent External Catheter External Catheter # Bowel Movements 2 - Exam GENERAL DESCRIPTION: An elderly female lying in bed in no distress RESPIRATORY SYSTEM: Unlabored breathing , decreased breath sounds at bases HEART: S1 S2 regular rate and rhythm , ABDOMEN: Soft , no tenderness EXTREMITIES: Bilateral lower extremity with swelling did have any erythema to the anterior castillo area - Labs CBC & Chem 7: 11/20/23 18:31 11/23/23 15:55 Labs: Abnormal Lab Results - Last 24 Hours (Table) 11/23/23 Range/Units 15:55 Carbon Dioxide 32 H (22-30) mmol/L BUN 45 H (7-17) mg/dL Creatinine 1.73 H (0.52-1.04) mg/dL Glucose 116 H (74-99) mg/dL Assessment and Plan (1) Necrobiosis lipoidica Current Visit: Yes Status: Acute Code(s): L92.1 - NECROBIOSIS LIPOIDICA, NOT ELSEWHERE CLASSIFIED SNOMED Code(s): 3118406 (2) Localized swelling of both lower legs Current Visit: Yes Status: Acute Code(s): R22.43 - LOCALIZED SWELLING, MASS AND LUMP, LOWER LIMB, BILATERAL SNOMED Code(s): 45728806130506054 Plan: 1patient with bilateral lower extremity swelling and also have some erythema which is mostly suggestive of necrobiosis lipoidica and not behaving as a cellulitis as the patient does not have significant warmth fever or elevated white count 2 patient with multiple antibiotic ALLERGIES that would limit the number of antibiotic safe to use 3-patient remains to be afebrile, white count has been normal to continue with clobtetasol 0.05 daily along with Casey wrap to keep some of the swelling down, no need for systemic antibiotics Dictation was produced using [employer] dictation software. please excuse any grammatical, word or spelling errors. Time with Patient: Less than 30
[2023-11-24] MEDS: hydrALAZINE HCL 50 MG TAB PO SCH (12:29)
--- NOTE | 2023-11-24 12:39 | P.DS ---
Providers Date of admission: 11/20/23 19:04 Expected date of discharge: 11/24/23 Attending physician: Sorin Reynoso Consults: 11/21/23 12:22 Consult Physician Stat Consulting Provider: Silvestre Newman Consult Reason/Comments: Severe bone on bone, 1.1cm needle fragment, effusion, see imaging.... Do you want consulting provider notified?: Yes 11/21/23 14:59 Consult Physician Urgent Consulting Provider: Jemal Cobos Consult Reason/Comments: Bradycardia, congestive heart failure chronic with chronic edema Do you want consulting provider notified?: Yes 11/21/23 15:46 Consult Physician Routine Consulting Provider: Ivis Awan Consult Reason/Comments: Acute kidney injury on the top of chronic kidney disease Do you want consulting provider notified?: Yes Consult Physician Urgent Consulting Provider: Justin Barajas Consult Reason/Comments: Cellulitis of the legs bilateral Do you want consulting provider notified?: Yes Primary care physician: Sorin Reynoso Dictation discharge summary Date of service 11/24/[address] Reynoso. Final diagnosis: 1. Failure to thrive living alone, severe disability of ambulation 2. Advanced osteoarthritis of the knee, right knee [id number] by x-ray, foreign body 1.1 cm remnant of needle in the soft tissue of the right knee Left knee total arthroplasty, underlying obesity. 3. Lymphedema of the lower extremities 4. 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 5. Acute kidney injury on the top of chronic kidney disease with the thinning of the cortex of the kidney and stage IV. 6. Hypertension with hypertensive heart disease 7. Diastolic dysfunction with valvular heart disease grade 2. 8. Obesity 9. Hypothyroidism.. Disposition to [facility] and rehab. Consulting physician: Cardiology Nephrology Infectious disease Rehabilitation. Presentation to the ER Brought by EMS from home with inability to take care of herself with progressive disease and edema and swelling of her legs and lives alone. No family and she is single Patient admitted to the hospital with the several consulting physician due to the fact of acute kidney injury as well as congestive heart failure was found to be diastolic as well as edema of the lower extremities and lymphedema. On exam on discharge: HEENT normal head was normocephalic atraumatic, pupils equal reactive, patient is conscious alert oriented x 3 Neck was supple no JVD no thyromegaly no lymphadenopathy trachea midline, she had history of arthritis of the cervical spine as generalized arthritis. Chest mild thoracic kyphosis and along on admission was congestive heart failure with vascular congestion and elevated proBNP seen by cardiology. Heart she had bradycardia with the underlying hypertension and she received an echo by cardiology reading with normal ejection fraction but with diastolic dysfunction and valvular heart disease Abdomen obese positive bowel sound and she had also ultrasound of the kidney and indicating thinning of the cortex with the elevated creatinine recommendation from nephrology no HERSON inhibitor or HERSON receptor inhibitor with the initial a dmission she was with hyperkalemia. Extremities very advanced arthritis of the joint right knee [id number] orthopedic consultation indicating that no for third treatment even with the foreign body in the right knee by x-ray and the indicating to go to the skilled nursing. Left knee total arthroplasty in the past. Neurologically stable with a conscious alert oriented. Psychiatry stable no anxiety and no depression Assessment: Patient today increased her medication the hydralazine to 50 mg 4 times daily due to elevated blood pressure cardiology did not follow the patient unfortunately with the blood pressure adjustment and we had to increase her hydralazine to 4 times a day to be started today and she cleared to go to skilled nursing for placement. Patient plan: Admitted to skilled nursing [facility] and rehab I will be following her at [facility]. Patient has multiple allergy and allergy to codeine and she treated with simple Tylenol, acetaminophen Medication reconciled. Patient Condition at Discharge: Fair Plan - Discharge Summary Discharge Rx Participant: No New Discharge Prescriptions: New Bumetanide [BUMEX] 1 mg PO BID@0900,1600 tab Isosorbide Mononitrate ER [Imdur] 30 mg PO DAILY tab Clobetasol Propionate [Temovate 0.05% Cream] 1 applic TOPICAL DAILY each hydrALAZINE HCL [Apresoline] 50 mg PO QID tab Heparin Sodium,Porcine (1 ml) [Heparin Sodium] 5,000 unit SQ Q12HR each Acetaminophen Tab [Tylenol] 650 mg PO Q8HR PRN tab PRN Reason: Fever and/ or Mild Pain Continue Lansoprazole 30 mg PO DAILY Aspirin 81 mg PO DAILY Calcium Carbonate/Vitamin D3 [Caltrate 600 Plus D3 Tablet] 1 tab PO HS Calcium Carbonate [Tums] 500 mg PO TID PRN PRN Reason: Heartburn Levothyroxine Sodium [Synthroid] 75 mcg PO DAILY Multivit-Min/Iron/Folic/Lutein [Centrum Silver Women Tablet] 1 tab PO HS Discontinued hydrALAZINE HCL [Apresoline] 50 mg PO BID Metoprolol Succinate (ER) [Toprol Xl] 25 mg PO DAILY Torsemide [Demadex] 40 mg PO DAILY Losartan [Cozaar] 25 mg PO DAILY Discharge Medication List Aspirin 81 mg PO DAILY 09/26/14 [History] Calcium Carbonate/Vitamin D3 [Caltrate 600 Plus D3 Tablet] 1 tab PO HS 09/26/14 [History] Lansoprazole 30 mg PO DAILY 09/26/14 [History] Calcium Carbonate [Tums] 500 mg PO TID PRN 10/19/16 [History] Levothyroxine Sodium [Synthroid] 75 mcg PO DAILY 11/20/23 [History] Multivit-Min/Iron/Folic/Lutein [Centrum Silver Women Tablet] 1 tab PO HS 11/20/23 [History] Acetaminophen Tab [Tylenol] 650 mg PO Q8HR PRN tab 11/24/23 [Rx] Bumetanide [BUMEX] 1 mg PO BID@0900,1600 tab 11/24/23 [Rx] Clobetasol Propionate [Temovate 0.05% Cream] 1 applic TOPICAL DAILY each 11/24/23 [Rx] Heparin Sodium,Porcine (1 ml) [Heparin Sodium] 5,000 unit SQ Q12HR each 11/24/23 [Rx] Isosorbide Mononitrate ER [Imdur] 30 mg PO DAILY tab 11/24/23 [Rx] hydrALAZINE HCL [Apresoline] 50 mg PO QID tab 11/24/23 [Rx] Follow up Appointment(s)/Referral(s): Sorin Reynoso MD [Primary Care Provider] - 1-2 days
[2023-11-24 13:30] VITALS: BP 130/64; PULSE 48; RESP 16
--- NOTE | 2023-11-24 13:53 | XR ---
EXAMINATION TYPE: XR chest 2V DATE OF EXAM: 11/24/2023 1:35 PM CLINICAL INDICATION:Female, 83 years old with history of chf; [facility] COMPARISON: Chest radiographs from 11/21/2023 TECHNIQUE: XR chest 2V Frontal and lateral views of the chest. FINDINGS: Lungs/Pleura: There is no evidence of pleural effusion, focal consolidation, or pneumothorax. Pulmonary vascularity: Pulmonary vascular congestion. Heart/mediastinum: Cardiomediastinal silhouette is enlarged and stable. Musculoskeletal: Degenerative changes of the shoulder joints. IMPRESSION: Cardiomegaly and mild pulmonary vascular congestion. Correlate with BNP for congestive heart failure.
== END 2023-11-24 16:08 ==
LOC: EC 17:08 → OBSVTOIN 19:04 → 5NMEDONC 19:04 → INTOOBSV 19:04 → 5NMEDONC 20:28
PROVIDERS: ADMIT Internal Medicine; ATTEND Internal Medicine
DX: R62.7 Adult failure to thrive (principal); M17.11 Unilateral primary osteoarthritis, right knee; I89.0 Lymphedema, not elsewhere classified; L92.1 Necrobiosis lipoidica, not elsewhere classified; R54 Age-related physical debility; R60.0 Localized edema; M17.0 Bilateral primary osteoarthritis of knee; D63.1 Anemia in chronic kidney disease; E83.52 Hypercalcemia; R26.2 Difficulty in walking, not elsewhere classified; N17.9 Acute kidney failure, unspecified; R00.1 Bradycardia, unspecified; E03.9 Hypothyroidism, unspecified; I13.0 Hypertensive heart and chronic kidney disease with heart failure and stage 1 through stage 4 chronic kidney disease, or unspecified chronic kidney disease; I50.32 Chronic diastolic (congestive) heart failure; N18.4 Chronic kidney disease, stage 4 (severe); E78.5 Hyperlipidemia, unspecified; K21.9 Gastro-esophageal reflux disease without esophagitis; E66.9 Obesity, unspecified; Z68.31 Body mass index [BMI] 31.0-31.9, adult; Z96.652 Presence of left artificial knee joint; Z79.82 Long term (current) use of aspirin; Z79.890 Hormone replacement therapy; Z79.899 Other long term (current) drug therapy; Z88.0 Allergy status to penicillin; Z88.1 Allergy status to other antibiotic agents; Z88.2 Allergy status to sulfonamides; Z88.5 Allergy status to narcotic agent; Z88.6 Allergy status to analgesic agent; Z91.040 Latex allergy status
CPT/HCPCS: 96372 ×4; 99285; 36415; 93005 ×2; 93306; 97530; 97162; 97166; 84439; 83880; 80053; 80048 ×3; 84443; 82607; 83540; 83550; 85025; 81003; 83036; 84145; 73562; 73521; 71046 ×2; 76770; G0378 ×5; J1644 ×4

== ENCOUNTER 2024-06-23 08:12 | Inpatient (IN) | payer MEDICARE ==
[2024-06-23] MEDS: SODIUM CHLORIDE 0.9% 1,000 ML IV STA (08:31)
[2024-06-23] MEDS: ONDANSETRON 4 MG/2 ML VIAL IVP STA (08:32)
--- NOTE | 2024-06-23 08:32 | ED ---
Recheck HPI - General Chief Complaint: Shortness of Breath Stated Complaint: covid Time Seen by Provider: 06/23/24 08:13 Source: patient, RN notes reviewed, old records reviewed Mode of arrival: EMS Limitations: no limitations - History of Present Illness Initial Comments: This is a 84-year-old female to the ER today. Presenting today for evaluation regards to coronavirus with known coronavirus diagnosis. Patient comes from [facility] care facility where coronavirus is going around. She feels weak persistent fever and shortness of breath -: days(s) Returns Today for: Called Because of Abnormal Lab/Test, persistent/worsening pain related to initial visit Symptoms Since Prior Visit: no new symptoms Associated Symptoms: none Treatments Prior to Arrival: other (0) - Related Data Home Medications Medication Instructions Recorded Confirmed Aspirin 81 mg PO DAILY 09/26/14 06/23/24 Lansoprazole 30 mg PO DAILY 09/26/14 06/23/24 Levothyroxine Sodium [Synthroid] 75 mcg PO DAILY 11/20/23 06/23/24 Torsemide [Demadex] 20 mg PO BID 06/23/24 06/23/24 hydrALAZINE HCL [Apresoline] 25 mg PO QID 06/23/24 06/23/24 Previous Rx's Medication Instructions Recorded Isosorbide Mononitrate ER [Imdur] 30 mg PO DAILY tab 11/24/23 Acetaminophen Tab [Tylenol] 650 mg PO Q6HR PRN tab 06/30/24 Albuterol Inhaler [Ventolin Hfa 2 puff INHALATION RT-QID PRN each 06/30/24 Inhaler] Spironolactone [Aldactone] 25 mg PO DAILY tab 06/30/24 guaiFENesin-DM 100-10MG/5ML 10 ml PO Q6H ml 06/30/24 [Robitussin DM] Allergies Allergy/AdvReac Type Severity Reaction Status Date / Time sulfamethoxazole Allergy Unknown "Sick as a Verified 06/23/24 14:28 [From Bactrim] Dog" trimethoprim [From Bactrim] Allergy Unknown "Sick as a Verified 06/23/24 14:28 Dog" Penicillins Allergy Rash/Hives Verified 06/23/24 14:28 adhesive AdvReac Unknown Rash, Red Verified 06/23/24 14:28 Skin from tape and cardiac electrodes. ciprofloxacin [From Cipro] AdvReac Unknown Pain in Verified 06/23/24 14:28 Arms ibuprofen [From Motrin] AdvReac Unknown Eye Pain Verified 06/23/24 14:28 doxycycline AdvReac Unknown Verified 06/23/24 14:28 ferrous sulfate AdvReac SEVERE Verified 06/23/24 14:28 HEADACHE furosemide [From Lasix] AdvReac Rapid Verified 06/23/24 14:28 Heart Rate latex AdvReac Unknown Verified 06/23/24 14:28 omeprazole [From Prilosec] AdvReac Unknown Verified 06/23/24 14:28 omeprazole magnesium AdvReac Unknown Verified 06/23/24 14:28 [From Prilosec] Review of Systems ROS Statement: Those systems with pertinent positive or pertinent negative responses have been documented in the HPI. ROS Other: All systems not noted in ROS Statement are negative. Past Medical History Past Medical History: Heart Failure, Hypertension, Osteoarthritis (OA), Renal Disease, Thyroid Disorder Additional Past Medical History / Comment(s): arthritis, sub arachnoid hemorrhage 1986, URINARY INCONTINENCE, CKD stage 3, cyst on kidney and ovary, hypothyroidism History of Any Multi-Drug Resistant Organisms: None Reported Past Surgical History: Joint Replacement Additional Past Surgical History / Comment(s): bilat. cataract surgery, LEFT KNEE replacement Past Anesthesia/Blood Transfusion Reactions: Motion Sickness, Postoperative Nausea & Vomiting (PONV) Past Psychological History: No Psychological Hx Reported Smoking Status: Never smoker Past Alcohol Use History: None Reported Past Drug Use History: None Reported - Past Family History Sister(s) Family Medical History: Cancer Additional Family Medical History / Comment(s): SKIN CANCER Mother Family Medical History: CVA/TIA General Exam Limitations: no limitations General appearance: alert, in no apparent distress, anxious Head exam: Present: atraumatic, normocephalic, normal inspection Eye exam: Present: normal appearance, PERRL, EOMI. Absent: scleral icterus, conjunctival injection, periorbital swelling ENT exam: Present: normal exam, mucous membranes moist Neck exam: Present: normal inspection. Absent: tenderness, meningismus, lymphadenopathy Respiratory exam: Present: normal lung sounds bilaterally. Absent: respiratory distress, wheezes, rales, rhonchi, stridor Cardiovascular Exam: Present: regular rate, normal rhythm, normal heart sounds. Absent: systolic murmur, diastolic murmur, rubs, gallop, clicks GI/Abdominal exam: Present: soft, normal bowel sounds. Absent: distended, tenderness, guarding, rebound, rigid Extremities exam: Present: normal inspection, full ROM, normal capillary refill. Absent: tenderness, pedal edema, joint swelling, calf tenderness Back exam: Present: normal inspection Neurological exam: Present: alert, oriented X3, CN II-XII intact Psychiatric exam: Present: normal affect, normal mood Skin exam: Present: warm, dry, intact, normal color. Absent: rash Course Vital Signs 06/23/24 06/23/24 06/23/24 08:20 08:34 10:06 Temperature 100.6 F H 98.1 F Pulse Rate 93 58 L Respiratory 24 18 16 Rate Blood Pressure 172/71 130/59 O2 Sat by Pulse 95 91 L Oximetry 06/23/24 06/23/24 06/23/24 11:00 12:36 14:39 Temperature 97.6 F Pulse Rate 60 61 58 L Respiratory 18 18 18 Rate Blood Pressure 141/66 118/52 131/57 O2 Sat by Pulse 96 96 97 Oximetry 06/23/24 06/23/24 06/23/24 15:00 15:54 18:21 Temperature 98.4 F Pulse Rate 56 L 57 L Respiratory 18 18 Rate Blood Pressure 137/59 150/80 O2 Sat by Pulse 97 94 L 95 Oximetry 06/23/24 06/23/24 21:25 22:20 Temperature Pulse Rate 57 L 61 Respiratory 16 18 Rate Blood Pressure 149/69 143/72 O2 Sat by Pulse 94 L 94 L Oximetry - Reevaluation(s) Reevaluation #1: 06/23/24 13:09 Medical records reviewed Reevaluation #2: 06/23/24 13:09 Patient symptoms unchanged Reevaluation #3: 06/23/24 13:09 Informed of results and questions answered Reevaluation #4: Was pt. sent in by a medical professional or institution (, PA, FAMILY MEDICINE CHAIR, urgent care, hospital, or assisted...) When possible be specific @ -no Did you speak to anyone other than the patient for history (EMS, parent, family, police, friend...)? What history was obtained from this source @ -no Did you review nursing and triage notes (agree or disagree)? Why? @ -agree Are old charts reviewed (outside hosp., previous admission, EMS record, old EKG, old radiological studies, urgent care reports/EKG's, assisted records)? Report findings @ -yes Differential Diagnosis (chest pain, altered mental status, abdominal pain women, abdominal pain men, vaginal bleeding, weakness, fever, dyspnea, syncope, headache, dizziness, GI bleed, back pain, seizure, CVA, palpatations, mental health, musculoskeletal)? @ -prior EKG interpreted by me (3pts min.). @ -yes X-rays interpreted by me (1pt min.). @ -yes negative for acute disease CT interpreted by me (1pt min.). @ -no U/S interpreted by me (1pt. min.). @ -no What testing was considered but not performed or refused? (CT, X-rays, U/S, labs)? Why? @ -none What meds were considered but not given or refused? Why? @ -none Did you discuss the management of the patient with other professionals (professionals i.e. , PA, FAMILY MEDICINE CHAIR, lab, RT, psych nurse, social security specialist, physician surgeon, teacher, navigation officer, case management social worker)? Give summary @ -no Was smoking cessation discussed for >3mins.? @ -no Was critical care preformed (if so, how long)? @ -yes31 Were there social determinants of health that impacted care today? How? (Homelessness, low income, unemployed, alcoholism, drug addiction, transportation, low edu. Level, literacy, decrease access to med. care, nursing home, rehab)? @ -none Was there de-escalation of care discussed even if they declined (Discuss DNR or withdrawal of care, Hospice)? DNR status @ -no What co-morbidities impacted this encounter? (DM, HTN, Smoking, COPD, CAD, Cancer, CVA, ARF, Chemo, Hep., AIDS, mental health diagnosis, sleep apnea, morbid obesity)? @ -none Was patient admitted / discharged? Hospital course, mention meds given and route, prescriptions, significant lab abnormalities, going to OR and other pertinent info. @ - 84 female to ER for evaluation patient [facility] for evaluation regards to a fever. Patient has known coronavirus will admit for symptom control and pneumonia Admitted Undiagnosed new problem with uncertain prognosis? @ -no Drug Therapy requiring intensive monitoring for toxicity (Heparin, Nitro, Insulin, Cardizem)? @ -no Were any procedures done? @ -no Diagnosis/symptom? @ -Fever and illness Acute, or Chronic, or Acute on Chronic? @ -Acute Uncomplicated (without systemic symptoms) or Complicated (systemic symptoms)? @ -Complicated Side effects of treatment? @ -no Exacerbation, Progression, or Severe Exacerbation? @ -exacerbation Poses a threat to life or bodily function? How? (Chest pain, USA, DC, pneumonia, PE, COPD, DKA, ARF, appy, cholecystitis, CVA, Diverticulitis, Homicidal, Suicidal, threat to staff... and all critical care pts) @ -yes with sepsis Reevaluation #5: Differential Fever: Pneumonia, viral URI, endocarditis, myocarditis, pericarditis, otitis, sinusitis, peritonsillar Abscess, retropharyngeal Abscess, epiglottitis, peritonitis, appendicitis, Faiza cystitis, diverticulitis, hepatitis, colitis, UTI, PID, TOA, pyelonephritis, prostatitis, epididymitis, meningitis, encephalitis, pulmonary embolism, CVA, thyroid storm, pancreatitis, adrenal crisis, cavernous sinus thrombosis, this is not meant to be an all-inclusive list. Differential Dyspnea: Coronary syndrome, arrhythmia, tamponade, asthma, COPD, pulmonary embolism, pneumonia, pneumothorax, pulmonary effusion, anaphylaxis, diabetic ketoacidosis, flailed chest, pulmonary contusion, diaphragmatic rupture, anemia, neuromuscular, this is not meant to be an all-inclusive list. - Consultations Consultation #1: Spoke with admitting who agrees to admit this patient Medical Decision Making - Medical Decision Making 84 female to ER for evaluation patient [facility] for evaluation regards to a fever. Patient has known coronavirus will admit for symptom control and pneumonia - Lab Data Result diagrams: 06/26/24 02:44 06/26/24 02:44 Lab Results 06/23/24 06/23/24 06/23/24 Range/Units 08:38 08:38 08:38 WBC 7.9 (3.8-10.6) k/uL RBC 3.84 (3.80-5.40) m/uL Hgb 10.4 L (11.4-16.0) gm/dL Hct 32.8 L (34.0-46.0) % MCV 85.5 (80.0-100.0) fL MCH 27.0 (25.0-35.0) pg MCHC 31.6 (31.0-37.0) g/dL RDW 14.2 (11.5-15.5) % Plt Count 189 (150-450) k/uL MPV 8.5 Neutrophils % 78 % Lymphocytes % 10 % Monocytes % 8 % Eosinophils % 0 % Basophils % 0 % Neutrophils # 6.2 (1.3-7.7) k/uL Lymphocytes # 0.8 L (1.0-4.8) k/uL Monocytes # 0.6 (0-1.0) k/uL Eosinophils # 0.0 (0-0.7) k/uL Basophils # 0.0 (0-0.2) k/uL Hypochromasia Slight PT 10.3 (10.0-12.5) sec INR 0.9 (<1.2) APTT 28.4 (22.0-30.0) sec Sodium 133 L (137-145) mmol/L Potassium 3.8 (3.5-5.1) mmol/L Chloride 104 (98-107) mmol/L Carbon Dioxide 29 (22-30) mmol/L Anion Gap 0 mmol/L BUN 38 H (7-17) mg/dL Creatinine 1.45 H (0.52-1.04) mg/dL Est GFR (CKD-EPI)AfAm 38 (>60 ml/min/1.73 sqM) Est GFR (CKD-EPI)NonAf 33 (>60 ml/min/1.73 sqM) Glucose 98 (74-99) mg/dL Plasma Lactic Acid Kimani (0.7-2.0) mmol/L Calcium 8.9 (8.4-10.2) mg/dL Phosphorus 3.2 (2.5-4.5) mg/dL Magnesium 1.9 (1.6-2.3) mg/dL Total Bilirubin 0.5 (0.2-1.3) mg/dL AST 50 H (14-36) U/L ALT 26 (4-34) U/L Alkaline Phosphatase 164 H (38-126) U/L Troponin I (0.000-0.034) ng/mL NT-Pro-B Natriuret Pep 2350 pg/mL Total Protein 7.0 (6.3-8.2) g/dL Albumin 3.5 (3.5-5.0) g/dL Procalcitonin (0.02-0.50) ng/mL Influenza Type A (PCR) (Not Detectd) Influenza Type B (PCR) (Not Detectd) RSV (PCR) (Not Detectd) SARS-CoV-2 (PCR) (Not Detectd) 06/23/24 06/23/24 06/23/24 Range/Units 08:38 08:38 08:38 WBC (3.8-10.6) k/uL RBC (3.80-5.40) m/uL Hgb (11.4-16.0) gm/dL Hct (34.0-46.0) % MCV (80.0-100.0) fL MCH (25.0-35.0) pg MCHC (31.0-37.0) g/dL RDW (11.5-15.5) % Plt Count (150-450) k/uL MPV Neutrophils % % Lymphocytes % % Monocytes % % Eosinophils % % Basophils % % Neutrophils # (1.3-7.7) k/uL Lymphocytes # (1.0-4.8) k/uL Monocytes # (0-1.0) k/uL Eosinophils # (0-0.7) k/uL Basophils # (0-0.2) k/uL Hypochromasia PT (10.0-12.5) sec INR (<1.2) APTT (22.0-30.0) sec Sodium (137-145) mmol/L Potassium (3.5-5.1) mmol/L Chloride (98-107) mmol/L Carbon Dioxide (22-30) mmol/L Anion Gap mmol/L BUN (7-17) mg/dL Creatinine (0.52-1.04) mg/dL Est GFR (CKD-EPI)AfAm (>60 ml/min/1.73 sqM) Est GFR (CKD-EPI)NonAf (>60 ml/min/1.73 sqM) Glucose (74-99) mg/dL Plasma Lactic Acid Kimani 0.6 L (0.7-2.0) mmol/L Calcium (8.4-10.2) mg/dL Phosphorus (2.5-4.5) mg/dL Magnesium (1.6-2.3) mg/dL Total Bilirubin (0.2-1.3) mg/dL AST (14-36) U/L ALT (4-34) U/L Alkaline Phosphatase (38-126) U/L Troponin I 0.013 (0.000-0.034) ng/mL NT-Pro-B Natriuret Pep pg/mL Total Protein (6.3-8.2) g/dL Albumin (3.5-5.0) g/dL Procalcitonin (0.02-0.50) ng/mL Influenza Type A (PCR) Not Detected (Not Detectd) Influenza Type B (PCR) Not Detected (Not Detectd) RSV (PCR) Not Detected (Not Detectd) SARS-CoV-2 (PCR) Detected A (Not Detectd) 06/23/24 Range/Units 08:38 WBC (3.8-10.6) k/uL RBC (3.80-5.40) m/uL Hgb (11.4-16.0) gm/dL Hct (34.0-46.0) % MCV (80.0-100.0) fL MCH (25.0-35.0) pg MCHC (31.0-37.0) g/dL RDW (11.5-15.5) % Plt Count (150-450) k/uL MPV Neutrophils % % Lymphocytes % % Monocytes % % Eosinophils % % Basophils % % Neutrophils # (1.3-7.7) k/uL Lymphocytes # (1.0-4.8) k/uL Monocytes # (0-1.0) k/uL Eosinophils # (0-0.7) k/uL Basophils # (0-0.2) k/uL Hypochromasia PT (10.0-12.5) sec INR (<1.2) APTT (22.0-30.0) sec Sodium (137-145) mmol/L Potassium (3.5-5.1) mmol/L Chloride (98-107) mmol/L Carbon Dioxide (22-30) mmol/L Anion Gap mmol/L BUN (7-17) mg/dL Creatinine (0.52-1.04) mg/dL Est GFR (CKD-EPI)AfAm (>60 ml/min/1.73 sqM) Est GFR (CKD-EPI)NonAf (>60 ml/min/1.73 sqM) Glucose (74-99) mg/dL Plasma Lactic Acid Kimani (0.7-2.0) mmol/L Calcium (8.4-10.2) mg/dL Phosphorus (2.5-4.5) mg/dL Magnesium (1.6-2.3) mg/dL Total Bilirubin (0.2-1.3) mg/dL AST (14-36) U/L ALT (4-34) U/L Alkaline Phosphatase (38-126) U/L Troponin I (0.000-0.034) ng/mL NT-Pro-B Natriuret Pep pg/mL Total Protein (6.3-8.2) g/dL Albumin (3.5-5.0) g/dL Procalcitonin 0.25 (0.02-0.50) ng/mL Influenza Type A (PCR) (Not Detectd) Influenza Type B (PCR) (Not Detectd) RSV (PCR) (Not Detectd) SARS-CoV-2 (PCR) (Not Detectd) - EKG Data -: EKG Interpreted by Me (EKG is Sinus 69 NM 172 QRS 90 QTc 393) - Radiology Data Radiology results: report reviewed (Chest x-ray is positive for pneumonia), image reviewed Critical Care Time Critical Care Time: Yes Total Critical Care Time: 31 Disposition Clinical Impression: Weakness, Community acquired pneumonia, Coronavirus infection, Fever Disposition: ADMITTED IP TO THIS HOSP Condition: Fair Is patient prescribed a controlled substance at d/c from ED?: No Time of Disposition: 13:00
[2024-06-23] MEDS: ACETAMINOPHEN TAB 500 MG TAB PO STA (08:33)
[2024-06-23] MEDS: DEXAMETHASONE SOD PHOSPHATE 10 MG/ML 1 ML VIAL IVP STA (08:37)
[2024-06-23 08:47] LABS: Basophils % (A) 0 %; Eosinophils % (A) 0 %; HCT 32.8 % (34.0-46.0); HGB 10.4 gm/dL (11.4-16.0); Hypochromasia Slight; Lymphocytes # (A) 0.8 k/uL (1.0-4.8); Lymphocytes % (A) 10 %; MCHC 31.6 g/dL (31.0-37.0); MCV 85.5 fL (80.0-100.0); Mean Platelet Volume 8.5; Monocytes # (A) 0.6 k/uL (0-1.0); Monocytes % (A) 8 %; Neutrophils # (A) 6.2 k/uL (1.3-7.7); Neutrophils % (A) 78 %; Platelet Count 189 k/uL (150-450); RBC 3.84 m/uL (3.80-5.40); RDW 14.2 % (11.5-15.5); WBC 7.9 k/uL (3.8-10.6)
[2024-06-23 09:05] LABS: INR 0.9 (<1.2); Partial Thromboplastin Time 28.4 sec (22.0-30.0); Prothrombin Time 10.3 sec (10.0-12.5)
[2024-06-23 10:04] LABS: ALT 26 U/L (4-34); AST 50 U/L (14-36); African American GFR (CKD) 38 (>60 ml/min/1.73 sqM); Albumin 3.5 g/dL (3.5-5.0); Alkaline Phosphatase 164 U/L (38-126); Anion Gap 0 mmol/L; Blood Urea Nitrogen 38 mg/dL (7-17); Calcium 8.9 mg/dL (8.4-10.2); Carbon Dioxide 29 mmol/L (22-30); Chloride 104 mmol/L (98-107); Glucose 98 mg/dL (74-99); Magnesium 1.9 mg/dL (1.6-2.3); Non-African American GFR(CKD) 33 (>60 ml/min/1.73 sqM); Phosphorus 3.2 mg/dL (2.5-4.5); Potassium 3.8 mmol/L (3.5-5.1); Sodium 133 mmol/L (137-145); Total Bilirubin 0.5 mg/dL (0.2-1.3)
[2024-06-23 10:12] LABS: NT-Pro-B-Type Natriuretic Pept 2350 pg/mL
--- NOTE | 2024-06-23 10:36 | XR ---
EXAMINATION TYPE: XR chest 1V DATE OF EXAM: 06/23/2024 COMPARISON: 11/24/2023 INDICATION: Cough TECHNIQUE: Single frontal view of the chest is obtained. FINDINGS: The heart size is upper limits of normal. The pulmonary vasculature is normal. Retrocardiac infiltrate may be present. IMPRESSION: 1. Retrocardiac infiltrate. Proliferative pneumonia and atelectasis. Underlying hiatal hernia may be present. Follow-up recommended [facility], , 06/23/2024 10:33 AM
[2024-06-23] MEDS ORDERED: PNEUMONIA PROTOCOL UTILIZED 1 EACH MISC PO PRN (13:07)
[2024-06-23] MEDS ORDERED: IPRATROPIUM-ALBUTEROL 3 ML NEB INHALATION PRN (13:07)
[2024-06-23] MEDS: SODIUM CHLORIDE 0.9% 1,000 ML IV SCH (14:51)
[2024-06-23] MEDS: AZITHROMYCIN 500 MG in SODIUM CHLORIDE 0.9% 250 ML IVPB STA (15:56)
[2024-06-23] MEDS: ACETAMINOPHEN TAB 325 MG TAB PO PRN (16:16)
[2024-06-23] MEDS: hydrALAZINE HCL 25 MG TAB PO SCH (18:23)
[2024-06-23] MEDS: DEXAMETHASONE SOD PHOSPHATE 4 MG/ML 1 ML VIAL IVP SCH (18:23)
--- NOTE | 2024-06-23 19:10 | P.HPIM ---
History of Present Illness H&P Date: 06/23/24 Chief Complaint: Shortness of breath with the low-grade temperature and sore throat Admission history and physical Date of service 06/23/[address] Reynoso. Chief complaint: Short of breath, sore throat, low-grade temperature started on Sunday. History of present illness: Patient brought to the emergency room by ambulance and send from [facility] living will be COVID-19 has been running in the facility which the current team and the patient in their room. Patient checked in the facility for COVID on last Sunday which was negative. Patient subsequently worsened her condition and started with low-grade temperature, sore throat, shortness of breath, patient send to the hospital for reevaluation with the presence of cough and in the hospital ER They found the patient is positive for COVID they did a chest x-ray and indicat ing a retrocardiac pneumonia with normal white count 7.9 WBC and hemoglobin of 10.4/hematocrit 32.5/platelet count 189 with normal PTT and normal INR Patient seen in the ER by Audie Mendiola and he called me to admit the patient with the advice of pulmonary as well as cardiology with the elevated proBNP with the congestive heart failure diastolic is in consideration. EKG in the ER ordered with the underlying right bundle branch block and sinus rhythm, her textile designer is Dr. Tam Vazquez who was consulted as well Chest x-ray was read with a retrocardiac infiltrate with possible pneumonia and atelectasis. Patient admitted regular admission to the hospital. Past medical history: Bilateral hearing deficit, she wearing her hearing aid today. She had history of admission earlier this year in November 2023 at that time she had acute renal failure and congestive heart failure and seen by cardiology and nephrology Patient with the underlying chronic kidney disease stage III. History of hypothyroidism History of COVID19 on 08/27/2022 at that time treated symptomatically only she could not recall if she had antiviral. Bladder incontinent with a history of recurrent UTI. History of coronary artery disease atherosclerotic heart disease and she was seen by Dr. Turcios with the underlying as well hypertensive heart disease History of GERD disease. She had history of subarachnoid hemorrhage in 1986 and she had history of cholelithiasis and GERD disease. She had moderate to severe cervical disc disease affecting C3--C4, C4-C5 with no fracture on 09/22 x-ray of the cervical spine She had total left knee arthroplasty by Dr. Dia and she had right knee adva nced arthritis with the previous x-ray on 11/21/2023 indicating retained fragment of amenable in the anteromedial and infrapatellar soft tissue we ask at that time the orthopedic but there is no comment at that time. She has multiple allergy has been written on the computer which is long last of allergies. Social history: Patient single never and no children. No smoking, no drinking, no illicit drugs. 2 cats Review of system: Neuropsychiatry: Patient able to give history she is conscious alert oriented x 3 Musculoskeletal she is morbidly obese with the bilateral lymphedema and diasto lic dysfunction preventing her from exercise but she uses wheelchair or walker. Respiratory she stated that she is always have a borderline shortness of breath Cardiac serrano she denied any chest pain but she is short of breath Genitourinary she indicating she had urine incontinent with occasional urine infection but she could not feel it. Endocrine she had hypothyroidism but no diabetes. Reviewing rest of the 14 Blount was not contributories The physical exam: Normal Respiratory rate on admission 24 and On admission her temperature was 100.6, subsequently the heart rate slowed down to the 48 and 60 bpm Respiratory rate 24/min and short of breath with cough Blood pressure 172/71 with the mean blood pressure 104 and oxygen saturation on admission 95 on room air however she desaturated subsequently to 91 and started on 2 L nasal cannula. On examination: Patient is conscious alert oriented x 3 no history of dementia Head was normocephalic atraumatic and pupil was equal reactive and oropharynx natural teeth with covering with the mask because of the COVID, hearing aid bilateral able to hear me however she read lips. Neck supple no JVD no thyromegaly no lymphadenopathy trachea midline however he he had short neck Chest auscultation bilateral rhonchi's with no wheezes. Heart: Regular sinus rhythm and she had soft murmur with the no available echocardiogram with the elevated proBNP for her age 2350 NT proB natruretic peptide, troponin was 0.013 with no chest pain In regard of genitourinary she has severe incontinent as well as she had chronic kidney disease with the baseline 1.45 currently BUN 38 and creatinine 1.45 with the GFR for non- 33 with no metabolic acidosis and her lactic acid is 0.6. New Abdomen: Obese positive bowel sounds and she had no tenderness in the 4 quadrant. Extremities she had significant lymphedema but also she had a pitting edema 2+. Bilateral and she had left total knee scar for total knee arthroplasty. Pulse ox is intact on the dorsalis pedis and posterior tibial and popliteal with good perfusion Assessment: 1. Short of breath 2. Retrocardiac infiltrate per chest x-ray with normal white count 3. BMI of 34.2 kg/m with the obesity 4. Lymphedema severe as well as pitting edema 5. Positive SARSCOV2 PCR COVID detected, negative for influenza A, influenza B PCR and negative for RSV PCR. 6. Chronic kidney disease stage III 7. Chronic anemia 8. Chronic bladder incontinent 9. Diastolic congestive heart failure with elevated NT proBNP. Plan and recommendation: 1. Consultation with the pulmonary for evaluation and treatment with the underlying COVID and x-ray indicating retrocardiac pneumonia and the question of and resolved antiviral treatment 2. Community-acquired pneumonia currently on the protocol started in the ER. 3. Pulmonary consideration of elevated NT proBNP and the possibility of diastolic dysfunction consultation with Dr. Tam Vazquez cardiology her textile designer. 4. Laboratory evaluated with the repeat lab in a.m. 5. Patient started in the ER on ceftriaxone 2 g IV piggyback every 12 hours and azithromycin 500 mg daily 6. They started on dexamethasone IV every 6 hour, which considered for age of the patient to high-dose and will change it to once a day until pulmonary reevaluate the dose of the dexamethasone and changed will be up to the pulmonary and critical care 7. Heparin subcu every 12 hour 8. Continue home medication for the hypertension and thyroid however will obtain in a.m. TSH and free T4 prior to the morning dose to assess the hypothyroid level and control. 9. Further adjustment of her medication depending on the patient condition and improvement. Past Medical History Past Medical History: Heart Failure, Hypertension, Osteoarthritis (OA), Renal Disease, Thyroid Disorder Additional Past Medical History / Comment(s): arthritis, sub arachnoid hemorrhage 1986, URINARY INCONTINENCE, CKD stage 3, cyst on kidney and ovary, hypothyroidism History of Any Multi-Drug Resistant Organisms: None Reported Past Surgical History: Joint Replacement Additional Past Surgical History / Comment(s): bilat. cataract surgery, LEFT KNEE replacement Past Anesthesia/Blood Transfusion Reactions: Motion Sickness, Postoperative Nausea & Vomiting (PONV) Past Psychological History: No Psychological Hx Reported Smoking Status: Never smoker Past Alcohol Use History: None Reported Past Drug Use History: None Reported - Past Family History Sister(s) Family Medical History: Cancer Additional Family Medical History / Comment(s): SKIN CANCER Mother Family Medical History: CVA/TIA Medications and Allergies Home Medications Medication Instructions Recorded Confirmed Type Aspirin 81 mg PO DAILY 09/26/14 06/23/24 History Lansoprazole 30 mg PO DAILY 09/26/14 06/23/24 History Levothyroxine Sodium [Synthroid] 75 mcg PO DAILY 11/20/23 06/23/24 History Isosorbide Mononitrate ER [Imdur] 30 mg PO DAILY tab 11/24/23 06/23/24 Rx Torsemide [Demadex] 20 mg PO BID 06/23/24 06/23/24 History hydrALAZINE HCL [Apresoline] 25 mg PO QID 06/23/24 06/23/24 History Allergies Allergy/AdvReac Type Severity Reaction Status Date / Time sulfamethoxazole Allergy Unknown "Sick as a Verified 06/23/24 14:28 [From Bactrim] Dog" trimethoprim [From Bactrim] Allergy Unknown "Sick as a Verified 06/23/24 14:28 Dog" Penicillins Allergy Rash/Hives Verified 06/23/24 14:28 adhesive AdvReac Unknown Rash, Red Verified 06/23/24 14:28 Skin from tape and cardiac electrodes. ciprofloxacin [From Cipro] AdvReac Unknown Pain in Verified 06/23/24 14:28 Arms ibuprofen [From Motrin] AdvReac Unknown Eye Pain Verified 06/23/24 14:28 doxycycline AdvReac Unknown Verified 06/23/24 14:28 ferrous sulfate AdvReac SEVERE Verified 06/23/24 14:28 HEADACHE furosemide [From Lasix] AdvReac Rapid Verified 06/23/24 14:28 Heart Rate latex AdvReac Unknown Verified 06/23/24 14:28 omeprazole [From Prilosec] AdvReac Unknown Verified 06/23/24 14:28 omeprazole magnesium AdvReac Unknown Verified 06/23/24 14:28 [From Prilosec] Physical Exam Vitals: Vital Signs Temp Pulse Resp BP Pulse Ox 06/23/24 18:21 98.4 F 57 L 18 150/80 95 06/23/24 15:54 56 L 18 137/59 94 L 06/23/24 15:00 97 06/23/24 14:39 97.6 F 58 L 18 131/57 97 06/23/24 12:36 61 18 118/52 96 06/23/24 11:00 60 18 141/66 96 06/23/24 10:06 98.1 F 58 L 16 130/59 91 L 06/23/24 08:34 18 06/23/24 08:20 100.6 F H 93 24 172/71 95 Intake and Output 06/23/24 06/23/24 06/23/24 06:59 14:59 22:59 Other: Weight 79.379 kg Results CBC & Chem 7: 06/23/24 08:38 06/23/24 08:38 Labs: Abnormal Lab Results - Last 24 Hours (Table) 06/23/24 06/23/24 06/23/24 Range/Units 08:38 08:38 08:38 Hgb 10.4 L (11.4-16.0) gm/dL Hct 32.8 L (34.0-46.0) % Lymphocytes # 0.8 L (1.0-4.8) k/uL Sodium 133 L (137-145) mmol/L BUN 38 H (7-17) mg/dL Creatinine 1.45 H (0.52-1.04) mg/dL Plasma Lactic Acid Kimani 0.6 L (0.7-2.0) mmol/L AST 50 H (14-36) U/L Alkaline Phosphatase 164 H (38-126) U/L SARS-CoV-2 (PCR) (Not Detectd) 06/23/24 Range/Units 08:38 Hgb (11.4-16.0) gm/dL Hct (34.0-46.0) % Lymphocytes # (1.0-4.8) k/uL Sodium (137-145) mmol/L BUN (7-17) mg/dL Creatinine (0.52-1.04) mg/dL Plasma Lactic Acid Kimani (0.7-2.0) mmol/L AST (14-36) U/L Alkaline Phosphatase (38-126) U/L SARS-CoV-2 (PCR) Detected A (Not Detectd)
[2024-06-23] MEDS: TORSEMIDE 20 MG TAB PO SCH (21:29)
[2024-06-23] MEDS: ASCORBIC ACID 500 MG TAB PO SCH (21:29)
[2024-06-23] MEDS: ZINC SULFATE 220 MG CAP PO SCH (21:32)
[2024-06-23] MEDS: HEPARIN SODIUM,PORCINE 5,000 UNIT/ML 1 ML VIAL SQ SCH (21:32)
[2024-06-23 23:48] LABS: Appearance,Urine Clear (Clear); Bilirubin,Urine Negative (Negative); Blood,Urine Negative (Negative); Color,Urine Light Yellow; Glucose,Urine (UA) Negative (Negative); Ketones,Urine Negative (Negative); Leukocyte Esterase,Urine Negative (Negative); Nitrite,Urine Negative (Negative); Protein,Urine Trace (Negative); Specific Gravity,Urine 1.016 (1.001-1.035); Urobilinogen,Urine <2.0 mg/dL (<2.0)
[2024-06-24] MEDS: PANTOPRAZOLE 40 MG TABLET PO SCH (08:23)
[2024-06-24] MEDS: ISOSORBIDE MONONITRATE ER 30 MG TAB.ER.24H PO SCH (08:23)
[2024-06-24] MEDS: LEVOTHYROXINE 75 MCG TAB PO SCH (08:23)
[2024-06-24] MEDS: ASPIRIN 81 MG PO SCH (08:23)
[2024-06-24] MEDS: DEXAMETHASONE SOD PHOSPHATE 4 MG/ML 1 ML VIAL IVP SCH (08:24)
[2024-06-24 08:48] LABS: Basophils # (A) 0.01 X 10*3/uL (0.00-0.10); Basophils % (A) 0.1 %; Eosinophils # (A) 0 X 10*3/uL (0.04-0.35); Eosinophils % (A) 0 %; HCT 30.6 % (37.2-46.3); HGB 9.4 g/dL (12.0-15.0); Lymphocytes # (A) 0.65 X 10*3/uL (0.90-5.00); MCH 26.5 pg (27.0-32.0); MCHC 30.7 g/dL (32.0-37.0); MCV 86.2 FL (80.0-97.0); Mean Platelet Volume 11.1 FL (9.5-12.2); Monocytes # (A) 0.62 X 10*3/uL (0.20-1.00); Monocytes % (A) 8.6 %; NRBC Per 100 WBC 0 X 10*3/uL (0.00-0.01); Neutrophils # (A) 5.92 X 10*3/uL (1.80-7.70); Neutrophils % (A) 81.6 %; Platelet Count 197 X 10*3/uL (140-440); RBC 3.55 X 10*6/uL (4.10-5.20); RDW 14.9 % (11.5-14.5); WBC 7.25 X 10*3/uL (4.50-10.00)
[2024-06-24 09:16] LABS: BUN/Creat Ratio 29.43 Ratio (12.00-20.00); Blood Urea Nitrogen 41.2 mg/dL (9.0-27.0); Chloride 106 mmol/L (96-109); Glucose 125 mg/dL (70-110); Sodium 143 mmol/L (135-145)
[2024-06-24 09:17] LABS: Calcium 8.3 mg/dL (8.7-10.3); Carbon Dioxide 26.5 mmol/L (21.6-31.8)
[2024-06-24] MEDS: BUMETANIDE 0.25 MG/ML 4 ML VIAL IVP SCH (11:02)
--- NOTE | 2024-06-24 11:13 | P.CRDCN ---
History of Present Illness History of present illness: HISTORY OF PRESENT ILLNESS: This is a 84-year-old female with a past medical history significant for hypertension, congestive heart failure, and hypothyroidism. Patient follows in the office with Dr. Sierra. We have been asked to see the patient in consultation for congestive heart failure. Patient examined at the bedside. Patient was brought to the hospital from her E[facility] due to fever and shortness of breath. Patient was found to be positive for COVID. The patient currently denies any chest pain or pressure. She does report port a frequent cough and feels congested this morning. DIAGNOSTICS: - EKG reveals sinus mechanism with no signs of acute ischemia - Chest xray retrocardiac infiltrate. Proliferative pneumonia and atelectasis. - Laboratory data: WBC 7.25. Hemoglobin 9.4. Platelet count 197. Sodium 143. Potassium 4.0. BUN 41. Creatinine 1.40. proBNP 2350. - Current home cardiac medications include aspirin 81 mg daily, Demadex 20 mg twice a day, hydralazine 25 mg 4 times a day, Imdur 30 mg daily - Most recent echocardiogram obtained in November 2023 revealed ejection fraction 55 to 60%, severe pulmonary hypertension, mild MR -Patient underwent Lexiscan stress test in 2017 which was negative for ischemia REVIEW OF SYSTEMS: At the time of my exam: CONSTITUTIONAL: Denies fever or chills. HEENT: Denies blurred vision, vision changes, or eye pain. Denies hemoptysis CARDIOVASCULAR: Denies chest pain. Denies orthopnea. Denies PND. Denies palpitations RESPIRATORY: Denies shortness of breath. GASTROINTESTINAL: Denies abdominal pain. Denies nausea or vomiting. HEMATOLOGIC: Denies bleeding disorders. GENITOURINARY: Denies any blood in urine. SKIN: Denies pruitis. Denies rash. PHYSICAL EXAM: VITAL SIGNS: Reviewed. GENERAL: Well-developed in no acute distress. HEENT: Head is normocephalic. Pupils are equal, round. Sclerae anicteric. Mucous membranes of the mouth are moist. Neck supple. No JVD or thyromegaly LUNGS: Respirations even and unlabored. Lungs with expiratory wheezing noted. Congested. HEART: Regular rate and rhythm. S1 and S2 heard. ABDOMEN: Soft. Nondistended. Nontender. EXTREMITIES: Normal range of motion. No clubbing or cyanosis. Peripheral pulses intact. 3+ bilateral lower extremity edema NEUROLOGIC: Awake and alert. Oriented x 3. ASSESSMENT: Fever Acute COVID-19 Acute on chronic heart failure with preserved EF Severe pulmonary hypertension Chronic kidney disease Hypertension Hypothyroidism PLAN: Obtain additional troponin level Obtain 2D echo to assess cardiac structure and function Resume home cardiac medications Discontinue oral Demadex. Begin Bumex 1 mg IV push every 12 hours Daily weights, accurate intake and output, and monitoring of kidney function Further recommendations pending patient course Nurse practitioner note has been reviewed by physician. Signing provider agrees with the documented findings, assessment, and plan of care documented by FILENET P8 DEVELOPER as a scribe. Past Medical History Past Medical History: Heart Failure, Hypertension, Osteoarthritis (OA), Renal Disease, Thyroid Disorder Additional Past Medical History / Comment(s): arthritis, sub arachnoid hemorrhage 1986, URINARY INCONTINENCE, CKD stage 3, cyst on kidney and ovary, hypothyroidism History of Any Multi-Drug Resistant Organisms: None Reported Past Surgical History: Joint Replacement Additional Past Surgical History / Comment(s): bilat. cataract surgery, LEFT KNEE replacement Past Anesthesia/Blood Transfusion Reactions: Motion Sickness, Postoperative Naus ea & Vomiting (PONV) Past Psychological History: No Psychological Hx Reported Smoking Status: Never smoker Past Alcohol Use History: None Reported Past Drug Use History: None Reported - Past Family History Sister(s) Family Medical History: Cancer Additional Family Medical History / Comment(s): SKIN CANCER Mother Family Medical History: CVA/TIA Medications and Allergies Home Medications Medication Instructions Recorded Confirmed Type Aspirin 81 mg PO DAILY 09/26/14 06/23/24 History Lansoprazole 30 mg PO DAILY 09/26/14 06/23/24 History Levothyroxine Sodium [Synthroid] 75 mcg PO DAILY 11/20/23 06/23/24 History Isosorbide Mononitrate ER [Imdur] 30 mg PO DAILY tab 11/24/23 06/23/24 Rx Torsemide [Demadex] 20 mg PO BID 06/23/24 06/23/24 History hydrALAZINE HCL [Apresoline] 25 mg PO QID 06/23/24 06/23/24 History Allergies Allergy/AdvReac Type Severity Reaction Status Date / Time sulfamethoxazole Allergy Unknown "Sick as a Verified 06/23/24 14:28 [From Bactrim] Dog" trimethoprim [From Bactrim] Allergy Unknown "Sick as a Verified 06/23/24 14:28 Dog" Penicillins Allergy Rash/Hives Verified 06/23/24 14:28 adhesive AdvReac Unknown Rash, Red Verified 06/23/24 14:28 Skin from tape and cardiac electrodes. ciprofloxacin [From Cipro] AdvReac Unknown Pain in Verified 06/23/24 14:28 Arms ibuprofen [From Motrin] AdvReac Unknown Eye Pain Verified 06/23/24 14:28 doxycycline AdvReac Unknown Verified 06/23/24 14:28 ferrous sulfate AdvReac SEVERE Verified 06/23/24 14:28 HEADACHE furosemide [From Lasix] AdvReac Rapid Verified 06/23/24 14:28 Heart Rate latex AdvReac Unknown Verified 06/23/24 14:28 omeprazole [From Prilosec] AdvReac Unknown Verified 06/23/24 14:28 omeprazole magnesium AdvReac Unknown Verified 06/23/24 14:28 [From Prilosec] Physical Exam Vitals: Vital Signs Temp Pulse Pulse Resp BP BP Pulse Ox 06/24/24 07:34 98.7 F 62 16 160/73 94 L 06/24/24 04:09 158/66 06/24/24 02:05 97.5 F L 62 18 171/89 93 L 06/23/24 22:20 61 18 143/72 94 L 06/23/24 21:25 57 L 16 149/69 94 L 06/23/24 18:21 98.4 F 57 L 18 150/80 95 06/23/24 15:54 56 L 18 137/59 94 L 06/23/24 15:00 97 06/23/24 14:39 97.6 F 58 L 18 131/57 97 06/23/24 12:36 61 18 118/52 96 Intake and Output 06/23/24 06/24/24 06/24/24 22:59 06:59 14:59 Intake Total 540 Output Total 600 Balance -60 Intake: Oral 540 Output: Urine 600 Other: # Voids 1 Weight 79.379 kg Results 06/24/24 06:25 06/24/24 05:55 CBC 06/24/24 Range/Units 06:25 WBC 7.25 (4.50-10.00) X 10*3/uL RBC 3.55 L (4.10-5.20) X 10*6/uL Hgb 9.4 L (12.0-15.0) g/dL Hct 30.6 L (37.2-46.3) % Plt Count 197 (140-440) X 10*3/uL Comprehensive Metabolic Panel 06/24/24 Range/Units 05:55 Sodium 143 (135-145) mmol/L Potassium 4.0 (3.5-5.5) mmol/L Chloride 106 (96-109) mmol/L Carbon Dioxide 26.5 (21.6-31.8) mmol/L BUN 41.2 H (9.0-27.0) mg/dL Creatinine 1.4 (0.6-1.5) mg/dL Glucose 125 H (70-110) mg/dL Calcium 8.3 L (8.7-10.3) mg/dL Current Medications Generic Name Dose Route Start Last Admin Trade Name Freq PRN Reason Stop Dose Admin Acetaminophen 650 mg 06/23/24 16:03 06/23/24 16:16 Acetaminophen Tab 325 Mg Tab PO 650 mg Q6HR PRN Administration Fever and/ or Pain Albuterol Sulfate 2 puff 06/23/24 15:11 Albuterol Hfa Inhaler INHALATION RT-QID PRN Shortness Of Breath Or Wheezing Ascorbic Acid 500 mg 06/23/24 19:15 06/24/24 08:23 Ascorbic Acid 500 Mg Tab PO 500 mg DAILY TAYLOR Administration Aspirin 81 mg 06/24/24 09:00 06/24/24 08:23 Aspirin 81 Mg PO 81 mg DAILY TAYLOR Administration Azithromycin 500 mg 06/24/24 09:00 Azithromycin 500 Mg Tab PO 06/25/24 09:01 DAILY [facility] Protocol Bumetanide 1 mg 06/24/24 10:00 06/24/24 11:02 Bumetanide 0.25 Mg/Ml 4 Ml Vial IVP 1 mg Q12HR TAYLOR Administration Dexamethasone Sodium Phosphate 4 mg 06/24/24 09:00 06/24/24 08:24 Dexamethasone Sod Phosphate 4 Mg/Ml 1 Ml Vial IVP 4 mg DAILY TAYLOR Administration Heparin Sodium (Porcine) 5,000 unit 06/23/24 21:00 06/24/24 08:24 Heparin Sodium,Porcine 5,000 Unit/Ml 1 Ml Vial SQ 5,000 unit Q12HR TAYLOR Administration Hydralazine HCl 25 mg 06/23/24 18:00 06/24/24 08:23 Hydralazine Hcl 25 Mg Tab PO 25 mg QID TAYLOR Administration Ceftriaxone Sodium 2 gm/ 50 mls @ 100 mls/hr 06/24/24 09:00 06/24/24 08:24 Sodium Chloride IVPB 06/27/24 09:29 100 mls/hr Q24HR TAYLOR Administration Protocol Isosorbide Mononitrate 30 mg 06/24/24 09:00 06/24/24 08:23 Isosorbide Mononitrate Er 30 Mg Tab.Er.24h PO 30 mg DAILY TAYLOR Administration Levothyroxine Sodium 75 mcg 06/24/24 09:00 06/24/24 08:23 Levothyroxine 75 Mcg Tab PO 75 mcg DAILY TAYLOR Administration Miscellaneous Information 1 each 06/23/24 13:07 Pneumonia Protocol Utilized 1 Each Misc PO ONCE PRN Per Protocol Pantoprazole Sodium 40 mg 06/24/24 09:00 06/24/24 08:23 Pantoprazole 40 Mg Tablet PO 40 mg DAILY TAYLOR Administration Zinc Sulfate 220 mg 06/23/24 19:15 06/24/24 08:23 Zinc Sulfate 220 Mg Cap PO 220 mg DAILY TAYLOR Administration Intake and Output 06/23/24 06/24/24 06/24/24 22:59 06:59 14:59 Intake Total 540 Output Total 600 Balance -60 Intake: Oral 540 Output: Urine 600 Other: # Voids 1 Weight 79.379 kg 06/24/24 06:25 06/24/24 05:55
--- NOTE | 2024-06-24 13:25 | P.PN ---
Subjective Progress Note Date: 06/24/24 Progress note Date of service 06/24/[address] Reynoso Patient seen today [id number] and evaluated. Patient also seen by the PA of cardiology Deb Manning nurse practitioner. Patient denied any complaint except for cough, not seen yet by the pulmonary. Vital sign temperature 98.7, pulse 62 bpm regular, respiratory rate 16, blood pressure 160/74 with a mean 102. Oxygen on room air 94%. Patient admitted through the emergency room with the underlying COVID-pneumonia with the community acquired pneumonia protocol placed this is her second episode of infection with the COVID and the first COVID was not 2021. Her blood pressure is uncontrolled patient has multiple medical adverse effect and allergy Patient seen by cardiology team and they placed her on the diuretic. On the exam Head was normocephalic atraumatic pupil was equal reactive conjunctiva was pink sclera was nonicteric Able to eat and swallow but she lost her appetite Probably lost the taste as well Chest she had bilateral basilar rhonchi's with the history of retrocardiac pneumonia, we do not have yet the input from pulmonary and critical care or any fourth or adding on the treatment Cardiac she has underlying chronic diastolic congestive heart failure on the top acute with the edema of the lower extremity pitting as well as she had lymphedema. Abdomen is obese positive bowel sounds Extremities there is large edema of the lower extremities. She had also history of pulmonary hypertension. Laboratory today WBC 7.25, hemoglobin 9.4 and hematocrit 30.6 and platelet count 149 TSH 1.24 and the free T4 1 normal range and continued on her thyroid pill Legionella of the urine test was negative and procalcitonin 0.25 which is normal Urine was negative for infection with trace protein. Sodium 143, potassium 4, chloride 106, carbon dioxide 26.5 and creatinine 1.4 with a BUN 48.2, glucose 125, calcium 8.3. Assessment and plan 1. I did ask the nurse Reg to apply Casey bandage 6 cm from the foot to below the knee bilaterally #2 patient started on diuresis 3. Because of the incontinent Woodward catheter was placed and draining well patient lost her ability to control her urine which will result in maceration of the skin of the perineal area. 4. Hypertension with hypertensive heart disease 5. Multiple allergies to medication. 6. Acute diastolic congestive heart failure on top of chronic 7. Cardiology order echocardiogram the result is not available. 8. COVID pneumonia with a community-acquired on the protocol for treatment. Will continue the current treatment Will wait for the pulmonary and critical care evaluation Objective - Vital Signs Vital signs: Vital Signs Temp 98.7 F 06/24/24 07:34 Pulse 62 06/24/24 07:34 Resp 16 06/24/24 07:34 BP 160/73 06/24/24 07:34 Pulse Ox 94 L 06/24/24 07:34 FiO2 Intake & Output 06/23/24 06/24/24 06/24/24 18:59 06:59 18:59 Intake Total 540 Output Total 600 Balance -60 Weight 79.379 kg 79.379 kg Intake: Oral 540 Output: Urine 600 Other: # Voids 1 - Labs CBC & Chem 7: 06/24/24 06:25 06/24/24 05:55 Labs: Abnormal Lab Results - Last 24 Hours (Table) 06/23/24 06/24/24 06/24/24 Range/Units 23:30 05:55 06:25 RBC 3.55 L (4.10-5.20) X 10*6/uL Hgb 9.4 L (12.0-15.0) g/dL Hct 30.6 L (37.2-46.3) % MCH 26.5 L (27.0-32.0) pg MCHC 30.7 L (32.0-37.0) g/dL RDW 14.9 H (11.5-14.5) % Immature Gran # 0.05 H (0.00-0.04) X 10*3/uL Lymphocytes # 0.65 L (0.90-5.00) X 10*3/uL Eosinophils # 0 L (0.04-0.35) X 10*3/uL BUN 41.2 H (9.0-27.0) mg/dL Est GFR (CKD-EPI) 37 L (>=60) BUN/Creatinine Ratio 29.43 H (12.00-20.00) Ratio Glucose 125 H (70-110) mg/dL Calcium 8.3 L (8.7-10.3) mg/dL Urine Protein Trace H (Negative)
--- NOTE | 2024-06-24 15:26 | P.CNPUL ---
History of Present Illness Consult date: 06/24/24 Reason for consult: dyspnea History of present illness: this is a 84-year-old female patient who is being seen for some symptoms of increased shortness of breath. The patient lives in an assisted living, and apparently, COVID-19 has been going around the facility and the patient has been exposed to the virus. Subsequently, she started developing symptoms of low- grade fever, sore throat, cough and congestion. No nausea no vomiting. No di arrhea. Abdominal pain. No altered mentation. There was a concern for COVID- 19 and the patient was brought into the hospital and she tested positive. Her chest x-ray shows some left basilar atelectasis, questionable retrocardiac infiltrate. Nevertheless, the patient is currently on room air oxygen. She has no signs of any respiratory distress. She is hemodynamically stable. The white cell count of 7.25 with a hemoglobin 9.4 and a platelet count of 197. Normal electrolytes. Procalcitonin level is at 0.25. Troponin is 0.01. proBNP level is 2350. LFTs are normal. Normal thyroid function test. Normal UA. The rest of the viral screen was negative. The patient is currently stable on room air oxygen with a pulse ox of 94%. She was started on Decadron and she is also on broad-spectrum antibiotics with a combination of Rocephin and Zithromax. She states that this is her second infection with a virus. She has never been vaccinated for COVID-19. Review of Systems Constitutional: Reports fatigue, Reports weakness Eyes: denies as per HPI, denies blurred vision, denies bulging eye, denies decreased vision, denies diplopia, denies discharge, denies dry eye, denies irritation, denies itching, denies pain, denies photophobia, denies loss of peripheral vision, denies loss of vision, denies tunnel vision/blind spots Ears: bilateral: decreased hearing, deny: ear discharge, earache, tinnitus Ears, nose, mouth and throat: Reports as per HPI, Reports sore throat Breasts: absent: as per HPI, change in shape, gynecomastia, masses, nipple d ischarge, pain, skin changes, swelling Cardiovascular: Reports as per HPI, Reports dyspnea on exertion Respiratory: Reports cough with sputum, Reports dyspnea Gastrointestinal: Reports as per HPI Genitourinary: Reports as per HPI Menstruation: Reports as per HPI Musculoskeletal: Reports as per HPI Musculoskeletal: absent: ankle pain, ankle stiffness, ankle swelling Integumentary: Reports as per HPI Neurological: Reports as per HPI, Reports balance difficulties, Reports gait dysfunction Psychiatric: Reports as per HPI Endocrine: Reports as per HPI Hematologic/Lymphatic: Reports as per HPI Allergic/Immunologic: Reports as per HPI Past Medical History Past Medical History: Heart Failure, Hypertension, Osteoarthritis (OA), Renal Disease, Thyroid Disorder Additional Past Medical History / Comment(s): arthritis, sub arachnoid hemorrhage 1986, URINARY INCONTINENCE, CKD stage 3, cyst on kidney and ovary, hypothyroidism History of Any Multi-Drug Resistant Organisms: None Reported Past Surgical History: Joint Replacement Additional Past Surgical History / Comment(s): bilat. cataract surgery, LEFT KNEE replacement Past Anesthesia/Blood Transfusion Reactions: Motion Sickness, Postoperative Nausea & Vomiting (PONV) Past Psychological History: No Psychological Hx Reported Smoking Status: Never smoker Past Alcohol Use History: None Reported Past Drug Use History: None Reported - Past Family History Sister(s) Family Medical History: Cancer Additional Family Medical History / Comment(s): SKIN CANCER Mother Family Medical History: CVA/TIA Medications and Allergies Home Medications Medication Instructions Recorded Confirmed Type Aspirin 81 mg PO DAILY 09/26/14 06/23/24 History Lansoprazole 30 mg PO DAILY 09/26/14 06/23/24 History Levothyroxine Sodium [Synthroid] 75 mcg PO DAILY 11/20/23 06/23/24 History Isosorbide Mononitrate ER [Imdur] 30 mg PO DAILY tab 11/24/23 06/23/24 Rx Torsemide [Demadex] 20 mg PO BID 06/23/24 06/23/24 History hydrALAZINE HCL [Apresoline] 25 mg PO QID 06/23/24 06/23/24 History Allergies Allergy/AdvReac Type Severity Reaction Status Date / Time sulfamethoxazole Allergy Unknown "Sick as a Verified 06/23/24 14:28 [From Bactrim] Dog" trimethoprim [From Bactrim] Allergy Unknown "Sick as a Verified 06/23/24 14:28 Dog" Penicillins Allergy Rash/Hives Verified 06/23/24 14:28 adhesive AdvReac Unknown Rash, Red Verified 06/23/24 14:28 Skin from tape and cardiac electrodes. ciprofloxacin [From Cipro] AdvReac Unknown Pain in Verified 06/23/24 14:28 Arms ibuprofen [From Motrin] AdvReac Unknown Eye Pain Verified 06/23/24 14:28 doxycycline AdvReac Unknown Verified 06/23/24 14:28 ferrous sulfate AdvReac SEVERE Verified 06/23/24 14:28 HEADACHE furosemide [From Lasix] AdvReac Rapid Verified 06/23/24 14:28 Heart Rate latex AdvReac Unknown Verified 06/23/24 14:28 omeprazole [From Prilosec] AdvReac Unknown Verified 06/23/24 14:28 omeprazole magnesium AdvReac Unknown Verified 06/23/24 14:28 [From Prilosec] Physical Exam Vitals: Vital Signs Temp Pulse Pulse Resp BP BP Pulse Ox 06/24/24 07:34 98.7 F 62 16 160/73 94 L 06/24/24 04:09 158/66 06/24/24 02:05 97.5 F L 62 18 171/89 93 L 06/23/24 22:20 61 18 143/72 94 L 06/23/24 21:25 57 L 16 149/69 94 L 06/23/24 18:21 98.4 F 57 L 18 150/80 95 06/23/24 15:54 56 L 18 137/59 94 L 06/23/24 15:00 97 06/23/24 14:39 97.6 F 58 L 18 131/57 97 06/23/24 12:36 61 18 118/52 96 Intake and Output 06/23/24 06/24/24 06/24/24 22:59 06:59 14:59 Intake Total 540 Output Total 600 Balance -60 Intake: Oral 540 Output: Urine 600 Other: # Voids 1 Weight 79.379 kg General Appearance the patient is calm and comfortable and she is on room air oxygen. Head exam was generally normal. There was no scleral icterus or corneal arcus. Mucous membranes were moist. Neck was supple and without jugular venous distension, thyromegaly, or carotid bruits. Carotids were easily palpable bilaterally. There was no adenopathy. Lungs were clear to auscultation and percussion, and with normal diaphragmatic excursion. No wheezes or rales were noted. Diminished breath sounds at lung bases bilaterally, few scattered rhonchi. Cardiac exam revealed the PMI to be normally situated and sized. The rhythm was regular and no extrasystoles were noted during several minutes of auscultation. The first and second heart sounds were normal and physiologic splitting of the second heart sound was noted. There were no murmurs, rubs, clicks, or gallops. Abdominal exam revealed normal bowel sounds. The abdomen was soft, non-tender, and without masses, organomegaly, or appreciable enlargement of the abdominal aorta. Examination of the extremities revealed easily palpable radial, femoral and pedal pulses. There was no cyanosis, clubbing or edema. Examination of the skin revealed no evidence of significant rashes, suspicious appearing nevi or other concerning lesions. Neurologically, the patient is awake and alert and the patient does not have any focal neurological deficit. Cranial nerves are essentially intact. Results - Laboratory Findings CBC and BMP: 06/24/24 06:25 06/24/24 05:55 PT/INR, D-dimer PT 10.3 sec (10.0-12.5) 06/23/24 08:38 INR 0.9 (<1.2) 06/23/24 08:38 Abnormal lab findings: Abnormal Labs 06/23/24 06/23/24 06/23/24 08:38 08:38 08:38 RBC Hgb 10.4 L Hct 32.8 L MCH MCHC RDW Immature Gran # Lymphocytes # 0.8 L Eosinophils # Sodium 133 L BUN 38 H Creatinine 1.45 H Est GFR (CKD-EPI) BUN/Creatinine Ratio Glucose Plasma Lactic Acid Kimani 0.6 L Calcium AST 50 H Alkaline Phosphatase 164 H Urine Protein SARS-CoV-2 (PCR) 06/23/24 06/23/24 06/24/24 08:38 23:30 05:55 RBC Hgb Hct MCH MCHC RDW Immature Gran # Lymphocytes # Eosinophils # Sodium BUN 41.2 H Creatinine Est GFR (CKD-EPI) 37 L BUN/Creatinine Ratio 29.43 H Glucose 125 H Plasma Lactic Acid Kimani Calcium 8.3 L AST Alkaline Phosphatase Urine Protein Trace H SARS-CoV-2 (PCR) Detected A 06/24/24 06:25 RBC 3.55 L Hgb 9.4 L Hct 30.6 L MCH 26.5 L MCHC 30.7 L RDW 14.9 H Immature Gran # 0.05 H Lymphocytes # 0.65 L Eosinophils # 0 L Sodium BUN Creatinine Est GFR (CKD-EPI) BUN/Creatinine Ratio Glucose Plasma Lactic Acid Kimain Calcium AST Alkaline Phosphatase Urine Protein SARS-CoV-2 (PCR) - Diagnostic Findings Chest x-ray: image reviewed Assessment and Plan Plan: Acute COVID-19 infection, no previous vaccination and this is the patient's second infection with a virus. The first infection was few years back. Cough and chest congestion secondary to above Left basilar atelectasis with a vague left retrocardiac infiltrate. Possibility of a bacterial pneumonia is felt to be less likely History of subarachnoid hemorrhage back in 1986 Hypothyroidism Hypertension Chronic stage III kidney disease Chronic normocytic anemia Chronic urinary incontinence Chronic diastolic heart failure Chronic lymphedema involving lower extremities History of severe pulmonary hypertension, likely group 2. Negative stress test back in 2017. Plan Currently on room air oxygen. Monitor respiratory status. Will check inflammatory markers including LDH and CRP. Antibiotic coverage essentially empiric at this point in time. Agree with Decadron. Monitor renal function. 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 No altered mentation. No other end organ damage. Most recent echocardiogram shows a preserved LV function with severe pulm hypertension
[2024-06-24] MEDS: AZITHROMYCIN 500 MG TAB PO SCH (17:35)
[2024-06-24] MEDS: ONDANSETRON 4 MG/2 ML VIAL IVP PRN (17:52)
[2024-06-25 10:44] LABS: BUN/Creat Ratio 48.57 Ratio (12.00-20.00); Calcium 8.4 mg/dL (8.7-10.3); Carbon Dioxide 27.4 mmol/L (21.6-31.8); Chloride 103 mmol/L (96-109); Glucose 114 mg/dL (70-110); Potassium 4.1 mmol/L (3.5-5.5); Sodium 142 mmol/L (135-145)
--- NOTE | 2024-06-25 10:47 | P.PN ---
Subjective HISTORY OF PRESENT ILLNESS: This is a 84-year-old female with a past medical history significant for hypertension, congestive heart failure, and hypothyroidism. Patient follows in the office with Dr. Sierra. We have been asked to see the patient in consultation for congestive heart failure. Patient examined at the bedside. Patient was brought to the hospital from her ECF due to fever and shortness of breath. Patient was found to be positive for COVID. The patient currently denies any chest pain or pressure. She does report port a frequent cough and feels congested this morning. DIAGNOSTICS: - EKG reveals sinus mechanism with no signs of acute ischemia - Chest xray retrocardiac infiltrate. Proliferative pneumonia and atelectasis. - Laboratory data: WBC 7.25. Hemoglobin 9.4. Platelet count 197. Sodium 143. Potassium 4.0. BUN 41. Creatinine 1.40. proBNP 2350. - Current home cardiac medications include aspirin 81 mg daily, Demadex 20 mg twice a day, hydralazine 25 mg 4 times a day, Imdur 30 mg daily - Most recent echocardiogram obtained in November 2023 revealed ejection fraction 55 to 60%, severe pulmonary hypertension, mild MR -Patient underwent Lexiscan stress test in 2017 which was negative for ischemia 06/25/2024 Patient examined this morning at the bedside. Patient denies chest pain or pressure. She reports mild shortness of breath. She continues to have a cough. She remains on IV diuretics with Bumex 1 mg every 12 hours. Creatinine remained stable at 1.4. 2D echo remains pending. PHYSICAL EXAM: VITAL SIGNS: Reviewed. GENERAL: Well-developed in no acute distress. HEENT: Head is normocephalic. Pupils are equal, round. Sclerae anicteric. Mucous membranes of the mouth are moist. Neck supple. No JVD or thyromegaly LUNGS: Respirations even and unlabored. Lungs with expiratory wheezing noted. Congested. HEART: Regular rate and rhythm. S1 and S2 heard. ABDOMEN: Soft. Nondistended. Nontender. EXTREMITIES: Normal range of motion. No clubbing or cyanosis. Peripheral pulses intact. 2-3+ bilateral lower extremity edema NEUROLOGIC: Awake and alert. Oriented x 3. ASSESSMENT: Fever Acute COVID-19 Acute on chronic heart failure with preserved EF Severe pulmonary hypertension Chronic kidney disease Hypertension Hypothyroidism PLAN: 2D echo ordered. Await results. Continue current cardiac medications Continue IV Bumex 1 mg every 12 hours Daily weights, accurate intake and output, and monitoring of kidney function Further recommendations pending patient course Nurse practitioner note has been reviewed by physician. Signing provider agrees with the documented findings, assessment, and plan of care documented by CUSTOMER ADVOCACY MANAGER as a scribe. Objective - Vital Signs Vital signs: Vital Signs Temp 97.6 F 06/25/24 07:45 Pulse 60 06/25/24 07:45 Resp 18 06/25/24 07:45 BP 138/75 06/25/24 07:45 Pulse Ox 97 06/25/24 07:45 FiO2 Intake & Output 06/24/24 06/25/24 06/25/24 18:59 06:59 18:59 Intake Total 540 Output Total 2450 Balance -1910 Intake: Oral 540 Output: Urine 2450 Other: Voiding Method External Catheter # Voids 1 - Labs CBC & Chem 7: 06/24/24 06:25 06/25/24 02:54 Labs: Abnormal Lab Results - Last 24 Hours (Table) 06/25/24 Range/Units 02:54 BUN 68.0 H (9.0-27.0) mg/dL Est GFR (CKD-EPI) 37 L (>=60) BUN/Creatinine Ratio 48.57 H (12.00-20.00) Ratio Glucose 114 H (70-110) mg/dL Calcium 8.4 L (8.7-10.3) mg/dL Microbiology - Last 24 Hours (Table) 06/23/24 14:45 Blood Culture - Preliminary Blood
--- NOTE | 2024-06-25 12:49 | P.PN ---
Subjective Progress Note Date: 06/25/24 Progress note Date of service 06/25/[address] Reynoso Patient seen and evaluated today Patient stated that she had yesterday nausea questionable vomiting and the cold me on the [employer] and we started her on Zofran IV, Today no evidence of nausea or vomiting and she had yesterday small bowel movement. Still have the cough and the rhonchi and some wheezing she currently receiving dexamethasone 4 mg once a day with the question if we need to increase her steroid we will wait for the pulmonary input or if we need to switch her to Solu-Medrol IV piggyback. I will wait for the pulmonary to decide which is appropriate way to go. Patient otherwise she is comfortable and she sitting in Cyndi chair but she had a cough as well minimal expectoration Vital sign indicating temperature 97.6 F oral, heart rate 60 bpm regular sinus, respiratory rate 18/min, her blood pressure 138/75 with a mean blood pressure 96, her oxygen saturation 97% on 3 L nasal cannula. Head and neck no new changes Chest bilateral wheezing and rhonchi's Heart regular sinus rhythm and patient has significant diuresis with the intake was 540 and output 2450 with a negative balance 1910 mL. Abdomen is nontender positive bowel sounds and Extremities gradual improvement of severe pitting edema and lymphedema and posi tive pulses with gradual improvement with the diuresis. Laboratories: Chemistry sodium 142, potassium 4.1, chloride 103, carbon dioxide 27.4 no acidosis and anion gap 11.60. BUN 68 probably due to effect of dexamethasone, creatinine stable 1.4 and blood sugar glucose 114 which is stable Troponin repeated on 06/24/2025 still normal 0.013 and thyroid function was normal Because of the low calcium will obtain ionized calcium. Urine analysis was done on fourth 06/23/2024 was essentially negative. As well as urine Legionella antigen. Assessment 1. Patient admitted with the shortness of breath 2. Chest x-ray was read by radiology with the retrocardiac infiltrate with the underlying positive COVID 19 pneumonia. No leukocytosis 3. Chronic kidney disease stage III 4. Acute on the top of chronic congestive diastolic heart failure with preserved ejection fraction 5. Pulmonary hypertension 6. Primary essential hypertension 7. Hypothyroidism and has been stable. Plan and recommendation 1. Patient currently followed by cardiology as well as pulmonary 2. Because of the wheezing we will ask the pulmonary in regard of steroid planning is continue with the dexamethasone and increasing the dose or switching patient to Solu-Medrol IV piggyback with the underlying COPD probable exacerbati on with the underlying pneumonia and she is on protocol for community acquired pneumonia. 3. Will obtain chest x-ray tomorrow and a CBC for further evaluation. Objective - Vital Signs Vital signs: Vital Signs Temp 97.6 F 06/25/24 07:45 Pulse 60 06/25/24 07:45 Resp 18 06/25/24 07:45 BP 138/75 06/25/24 07:45 Pulse Ox 97 06/25/24 07:45 FiO2 Intake & Output 06/24/24 06/25/24 06/25/24 18:59 06:59 18:59 Intake Total 540 Output Total 2450 Balance -1910 Intake: Oral 540 Output: Urine 2450 Other: Voiding Method External Catheter # Voids 1 - Labs CBC & Chem 7: 06/24/24 06:25 06/25/24 02:54 Labs: Abnormal Lab Results - Last 24 Hours (Table) 06/25/24 Range/Units 02:54 BUN 68.0 H (9.0-27.0) mg/dL Est GFR (CKD-EPI) 37 L (>=60) BUN/Creatinine Ratio 48.57 H (12.00-20.00) Ratio Glucose 114 H (70-110) mg/dL Calcium 8.4 L (8.7-10.3) mg/dL Microbiology - Last 24 Hours (Table) 06/23/24 14:45 Blood Culture - Preliminary Blood
--- NOTE | 2024-06-25 15:42 | CA ---
Transthoracic Echo Report Name: Radha Villavicencio Age: 84 Gender: F : 1940 Exam Date: 06/25/2024 09:12 Exam Location: [facility] Ht (in): 60 Wt (lb): 175 Ordering Physician: Deb Manning Attending/Referring Phys: [id number], Nigel Manager [employer] Kusum Hardy RDCS Procedure CPT: Indications: LV function, CHF, COVID Cardiac Hx: Technical Quality: Fair Contrast 1: Total Dose (mL): Contrast 2: Total Dose (mL): MEASUREMENTS (Male / Female) Normal Values 2D ECHO LV Diastolic Diameter PLAX 4.5 cm 4.2 - 5.9 / 3.9 - 5.3 cm LV Systolic Diameter PLAX 2.4 cm IVS Diastolic Thickness 1.0 cm 0.6 - 1.0 / 0.6 - 0.9 cm LVPW Diastolic Thickness 1.4 cm 0.6 - 1.0 / 0.6 - 0.9 cm LV Relative Wall Thickness 0.6 RV Internal Dim ED PLAX 3.5 cm LA Volume 99.9 cm??? 18 - 58 / 22 - 52 cm??? LA Volume Index 53.4 cm???/m??? 16 - 28 cm???/m??? M-MODE Aortic Root Diameter MM 2.8 cm LA Systolic Diameter MM 5.6 cm LA Ao Ratio MM 2.0 AV Cusp Separation MM 2.0 cm DOPPLER AV Peak Velocity 141.8 cm/s AV Peak Gradient 8.0 mmHg AV Mean Velocity 83.6 cm/s AV Mean Gradient 3.4 mmHg AV Velocity Time Integral 29.6 cm LVOT Peak Velocity 115.4 cm/s LVOT Peak Gradient 5.3 mmHg LVOT Velocity Time Integral 22.2 cm MV Area PHT 2.9 cm??? Mitral E Point Velocity 85.1 cm/s Mitral A Point Velocity 81.0 cm/s Mitral E to A Ratio 1.0 MV Deceleration Time 258.8 ms MV E' Velocity 5.8 cm/s Mitral E to MV E' Ratio 14.7 TR Peak Velocity 301.9 cm/s TR Peak Gradient 36.5 mmHg Right Ventricular Systolic Press 41.2 mmHg FINDINGS Left Ventricle Mildly increased left ventricular wall thickness. Left ventricular cavity size normal. No obvious regional wall motion abnormalities. Left ventricular ejection fraction is estimated at 55-60 %. Grade 2 diastolic dysfunction. Right Ventricle Mild right ventricular dilatation. Mild pulmonary hypertension. Right Atrium Moderate right atrial dilatation. Left Atrium Severely increased left atrial volume. Mildly increased left atrial area. Mitral Valve Structurally normal mitral valve. Mitral valve thickened. Moderate mitral annular calcification. [id number] mitral regurgitation. Aortic Valve Trileaflet aortic valve. No aortic valve stenosis or regurgitation. Aortic valve sclerosis. Tricuspid Valve Structurally normal tricuspid valve. [id number] tricuspid regurgitation. Pulmonic Valve Structurally normal pulmonic valve. Pericardium No pericardial effusion. Echo free space anterior to the right ventricle likely represents a fat pad. Aorta Normal size aortic root and proximal ascending aorta. CONCLUSIONS Normal LV systolic function Mild to moderate mitral regurgitation Aortic valve sclerosis Mild pulmonary hypertension Mildly dilated right ventricle An incidental echodensity was identified in the liver on subcostal view Previewed by: Dr. Jemal Cobos MD (Electronically Signed) Final Date: 25 June 2024 15:39
--- NOTE | 2024-06-25 16:43 | P.PN ---
Subjective Progress Note Date: 06/25/24 this is a 84-year-old female patient who is being seen for some symptoms of increased shortness of breath. The patient lives in an assisted living, and apparently, COVID-19 has been going around the facility and the patient has been exposed to the virus. Subsequently, she started developing symptoms of low- grade fever, sore throat, cough and congestion. No nausea no vomiting. No diarrhea. Abdominal pain. No altered mentation. There was a concern for COVID-19 and the patient was brought into the hospital and she tested positive. Her chest x-ray shows some left basilar atelectasis, questionable retrocardiac infiltrate. Nevertheless, the patient is currently on room air oxygen. She has no signs of any respiratory distress. She is hemodynamically stable. The white cell count of 7.25 with a hemoglobin 9.4 and a platelet count of 197. Normal electrolytes. Procalcitonin level is at 0.25. Troponin is 0.01. proBNP level is 2350. LFTs are normal. Normal thyroid function test. Normal UA. The rest of the viral screen was negative. The patient is currently stable on room air oxygen with a pulse ox of 94%. She was started on Decadron and she is also on broad-spectrum antibiotics with a combination of Rocephin and Zithromax. She states that this is her second infection with a virus. She has never been vaccinated for COVID-19. 06/25/2024, the patient is being seen for a follow-up. Continues to have some congested cough. Continues to have some increased bronchospasm and wheezing. The patient Heather having an acute CF exacerbation and the patient is infected with COVID-19. Meanwhile, she remains on room air oxygen with a pulse ox of 94%. No new labs are available from today. The patient's troponin was negative. Thyroid function test was essentially within normal limits. The rest of the chemistry showed a procalcitonin level of 0.25, and the patient remains on Decadron 4 mg IV every 24 hours. She is also on albuterol HFA 4 times a day and Bumex 1 mg every 12 hours. Sodium levels at 142, potassium is 4.1, BUN 68 with a creatinine of 1.4 and a GFR is at 37. The calcium level is at 8.4. Ionized calcium is at 4.7. Echocardiogram was also done and the patient was found to have normal LV function, mild to moderate MR, aortic valve sclerosis, mild pulm hypertension and mild dilatation of the RV. Objective - Vital Signs Vital signs: Vital Signs Temp 97.6 F 06/25/24 07:45 Pulse 60 06/25/24 07:45 Resp 18 06/25/24 07:45 BP 138/75 06/25/24 07:45 Pulse Ox 97 06/25/24 07:45 FiO2 Intake & Output 06/24/24 06/25/24 06/25/24 18:59 06:59 18:59 Intake Total 540 Output Total 2450 Balance -1910 Intake: Oral 540 Output: Urine 2450 Other: Voiding Method External Catheter # Voids 1 - Exam General Appearance the patient is calm and comfortable and she is on room air oxygen. Head exam was generally normal. There was no scleral icterus or corneal arcus. Mucous membranes were moist. Neck was supple and without jugular venous distension, thyromegaly, or carotid bruits. Carotids were easily palpable bilaterally. There was no adenopathy. Lungs were clear to auscultation and percussion, and with normal diaphragmatic excursion. No wheezes or rales were noted. Diminished breath sounds at lung bases bilaterally, few scattered rhonchi. Cardiac exam revealed the PMI to be normally situated and sized. The rhythm was regular and no extrasystoles were noted during several minutes of auscultation. The first and second heart sounds were normal and physiologic splitting of the second heart sound was noted. There were no murmurs, rubs, clicks, or gallops. Abdominal exam revealed normal bowel sounds. The abdomen was soft, non-tender, and without masses, organomegaly, or appreciable enlargement of the abdominal aorta. Examination of the extremities revealed easily palpable radial, femoral and pedal pulses. There was no cyanosis, clubbing or edema. Examination of the skin revealed no evidence of significant rashes, suspicious appearing nevi or other concerning lesions. Neurologically, the patient is awake and alert and the patient does not have any focal neurological deficit. Cranial nerves are essentially intact. - Labs CBC & Chem 7: 06/24/24 06:25 06/25/24 02:54 Labs: Microbiology - Last 24 Hours (Table) 06/23/24 14:45 Blood Culture - Preliminary Blood Assessment and Plan Plan: Acute COVID-19 infection, no previous vaccination and this is the patient's second infection with a virus. The first infection was few years back. Afeb rile, no significant oxygen desaturation the patient is currently on room air oxygen with a pulse ox of 94%. Cough and chest congestion secondary to above, stable Left basilar atelectasis with a vague left retrocardiac infiltrate. Possibility of a bacterial pneumonia is felt to be less likely History of subarachnoid hemorrhage back in 1986 Hypothyroidism Hypertension Chronic stage III kidney disease Chronic normocytic anemia Chronic urinary incontinence Chronic diastolic heart failure Chronic lymphedema involving lower extremities History of severe pulmonary hypertension, likely group 2. Negative stress test back in 2017. Plan Currently on room air oxygen. Echocardiogram was essentially within normal limits Continue Decadron Continue diuretics Repeat chest x-ray in the morning We will continue to follow
[2024-06-25] MEDS: ALBUTEROL HFA INHALER INHALATION PRN (20:27)
[2024-06-25] MEDS: guaiFENesin-DM 100-10MG/5ML 10 ML CUP PO SCH (20:27)
[2024-06-26 08:24] LABS: Basophils # (A) 0.01 X 10*3/uL (0.00-0.10); Basophils % (A) 0.1 %; Eosinophils # (A) 0.01 X 10*3/uL (0.04-0.35); Eosinophils % (A) 0.1 %; HCT 28.1 % (37.2-46.3); Lymphocytes # (A) 1.43 X 10*3/uL (0.90-5.00); MCH 27.4 pg (27.0-32.0); MCV 85.7 FL (80.0-97.0); Mean Platelet Volume 11.3 FL (9.5-12.2); Monocytes # (A) 0.63 X 10*3/uL (0.20-1.00); Monocytes % (A) 7.9 %; NRBC Per 100 WBC 0 X 10*3/uL (0.00-0.01); Neutrophils # (A) 5.81 X 10*3/uL (1.80-7.70); Neutrophils % (A) 73.3 %; Platelet Count 252 X 10*3/uL (140-440); RBC 3.28 X 10*6/uL (4.10-5.20); RDW 14.6 % (11.5-14.5); WBC 7.94 X 10*3/uL (4.50-10.00)
[2024-06-26] MEDS: SPIRONOLACTONE 25 MG TAB PO SCH (09:02)
[2024-06-26] MEDS: TORSEMIDE 20 MG TAB PO SCH (09:03)
[2024-06-26 09:36] LABS: % Iron Saturation 24.91 (12.00-45.00); BUN/Creat Ratio 52.15 Ratio (12.00-20.00); Blood Urea Nitrogen 67.8 mg/dL (9.0-27.0); Calcium 8.7 mg/dL (8.7-10.3); Carbon Dioxide 29.9 mmol/L (21.6-31.8); Chloride 100 mmol/L (96-109); Glucose 108 mg/dL (70-110); Iron 69 UG/DL (50-170); Potassium 4.3 mmol/L (3.5-5.5); Sodium 141 mmol/L (135-145); Total Iron Binding Capacity 277 UG/DL (228-460)
--- NOTE | 2024-06-26 10:08 | P.PN ---
Subjective HISTORY OF PRESENT ILLNESS: This is a 84-year-old female with a past medical history significant for hypertension, congestive heart failure, and hypothyroidism. Patient follows in the office with Dr. Sierra. We have been asked to see the patient in consultation for congestive heart failure. Patient examined at the bedside. Patient was brought to the hospital from her ECF due to fever and shortness of breath. Patient was found to be positive for COVID. The patient currently denies any chest pain or pressure. She does report port a frequent cough and feels congested this morning. DIAGNOSTICS: - EKG reveals sinus mechanism with no signs of acute ischemia - Chest xray retrocardiac infiltrate. Proliferative pneumonia and atelectasis. - Laboratory data: WBC 7.25. Hemoglobin 9.4. Platelet count 197. Sodium 143. Potassium 4.0. BUN 41. Creatinine 1.40. proBNP 2350. - Current home cardiac medications include aspirin 81 mg daily, Demadex 20 mg twice a day, hydralazine 25 mg 4 times a day, Imdur 30 mg daily - Most recent echocardiogram obtained in November 2023 revealed ejection fraction 55 to 60%, severe pulmonary hypertension, mild MR -Patient underwent Lexiscan stress test in 2017 which was negative for ischemia 06/25/2024 Patient examined this morning at the bedside. Patient denies chest pain or pressure. She reports mild shortness of breath. She continues to have a cough. She remains on IV diuretics with Bumex 1 mg every 12 hours. Creatinine remained stable at 1.4. 2D echo remains pending. 06/26/2024 Patient examined this morning. Patient currently denies any chest pain or pressure. She reports improvement in her shortness of breath. At the time of examination, patient is ambulating back from the bathroom and does report shortness of breath with exertion. She remains on IV diuretics. BUN today 67.8 . Creatinine 1.3. Echocardiogram completed revealing ejection fraction 55 to 60%, mild pulm and hypertension, mild to moderate MR, mild to moderate TR PHYSICAL EXAM: VITAL SIGNS: Reviewed. GENERAL: Well-developed in no acute distress. HEENT: Head is normocephalic. Pupils are equal, round. Sclerae anicteric. Mucous membranes of the mouth are moist. Neck supple. No JVD or thyromegaly LUNGS: Respirations even and unlabored. Lungs with expiratory wheezing noted, improving HEART: Regular rate and rhythm. S1 and S2 heard. ABDOMEN: Soft. Nondistended. Nontender. EXTREMITIES: Normal range of motion. No clubbing or cyanosis. Peripheral pulses intact. 2+ bilateral lower extremity edema NEUROLOGIC: Awake and alert. Oriented x 3. ASSESSMENT: Fever Acute COVID-19 Acute on chronic heart failure with preserved EF Severe pulmonary hypertension Chronic kidney disease Hypertension Hypothyroidism PLAN: Continue current cardiac medications Discontinue IV Bumex Resume home dose of Demadex Add Aldactone 25 mg daily Patient is currently stable from a cardiac standpoint with no further inpatient recommendations We will sign off. Please reconsult if needed. Patient to follow-up postdischarge with Dr. Sierra Nurse practitioner note has been reviewed by physician. Signing provider agrees with the documented findings, assessment, and plan of care documented by [employer] as a scribe. Objective - Vital Signs Vital signs: Vital Signs Temp 97.9 F 06/26/24 07:26 Pulse 57 L 06/26/24 07:26 Resp 16 06/26/24 07:26 BP 150/68 06/26/24 07:26 Pulse Ox 94 L 06/26/24 07:26 FiO2 Intake & Output 06/25/24 06/26/24 06/26/24 18:59 06:59 18:59 Output Total 4000 1600 Balance -4000 -1600 Output: Urine 4000 1600 Other: Voiding Method External Catheter External Catheter - Labs CBC & Chem 7: 06/26/24 02:44 06/26/24 02:44 Labs: Abnormal Lab Results - Last 24 Hours (Table) 06/25/24 06/26/24 06/26/24 Range/Units 02:54 02:44 02:44 RBC 3.28 L (4.10-5.20) X 10*6/uL Hgb 9.0 L (12.0-15.0) g/dL Hct 28.1 L (37.2-46.3) % RDW 14.6 H (11.5-14.5) % Immature Gran # 0.05 H (0.00-0.04) X 10*3/uL Eosinophils # 0.01 L (0.04-0.35) X 10*3/uL BUN 68.0 H 67.8 H (9.0-27.0) mg/dL Est GFR (CKD-EPI) 37 L 41 L (>=60) BUN/Creatinine Ratio 48.57 H 52.15 H (12.00-20.00) Ratio Glucose 114 H (70-110) mg/dL Calcium 8.4 L (8.7-10.3) mg/dL Transferrin 198.0 L (204.0-354.0) mg/dL Microbiology - Last 24 Hours (Table) 06/23/24 14:45 Blood Culture - Preliminary Blood
--- NOTE | 2024-06-26 13:39 | P.PN ---
Subjective Progress Note Date: 06/26/24 Progress note Date of service 06/26/[address] Reynoso. Patient seen evaluated [id number] Currently she have Robitussin and it did help her cough. She has no other specific complaint Her vital signs stable with temperature 97.9 F oral, heart rate 57 bpm, respiratory rate 16/min, blood pressure 150/68 and the mean blood pressure 95., Pulse ox 94 on room air. Laboratories: WBC 7.94, hemoglobin 9 with a hematocrit 28.1 platelet count 252. Iron 69, TIBC 277, iron saturation 24.91, transferrin 198 within normal range [id number] with the conclusion patient has anemia of chronic disease. Chemistry indicating sodium 141, potassium 4.3, chloride 100, carbon dioxide 29.9, BUN 67.8, creatinine 1.3 and EGFR 41 with the underlying chronic kidney disease stage III. Calcium is 8.7 with ionized calcium 4.7 normal. On exam: Patient is conscious alert oriented severe hearing deficit but able to com municate and she is read lips. Head was normocephalic atraumatic pupils equal reactive, oropharynx natural teeth able to eat and swallow Neck was supple no JVD no thyromegaly no lymphadenopathy. Chest today has been much improvement on the wheezing and rhonchi and she had a chest x-ray today. Result is pending for the report Heart regular sinus rhythm echocardiogram result read by Dr. Damian who is also the rounder for the cardiology group with the ejection fraction 55-60 with the grade 2 diastolic dysfunction Mild right ventricular dilatation, mild pulmonary hypertension with the right ventricular systolic pressure 41.2 Moderate right atrial dilatation Left atrium severely increased left atrial volume, mild to moderate mitral regurg, aortic valve trileaflet no evidence of stenosis, tricuspid valve mild to moderate tricuspid regurg. Abdomen: Obese positive bowel sound and no tenderness in the 4 quadrant Extremities: The dorsum of the feet bilaterally edematous however the shaft of the leg significantly improved with the current treatment rendered with diuresis. Patient seen by cardiology team changed her diuretic to Demadex 20 mg twice a day and the add spironolactone. Assessment: Patient progressively improvement clinically Chest x-ray report not available yet for the improvement of the retrocardiac infiltrate with the underlying pneumonia. Grade 2 diastolic congestive heart failure with preserved ejection fraction. COVID 19 infection with pneumonia. Hypertension with hypertensive heart disease. Mild pulmonary hypertension aortic valve sclerosis without stenosis Normal ejection fraction 55-60% Mild mitral regurg and tricuspid regurg. Lymphedema bilateral Peripheral edema improving. Anemia of chronic disease with normal iron study Chronic kidney disease stage III. Hypothyroidism. COPD. Plan: #1 will continue the current treatment with the antibiotic We need the input of the pulmonary and if the patient need to continue antibiotic for how long, also from the pulmonary point of view she ready to go to a halfway for continuing therapy and rehabilitation. Will continue current treatment Will also requesting from cardiology as well as the pulmonary clearance for transfer to halfway when the bed is available. Objective - Vital Signs Vital signs: Vital Signs Temp 97.9 F 06/26/24 07:26 Pulse 57 L 06/26/24 07:26 Resp 16 06/26/24 07:26 BP 150/68 06/26/24 07:26 Pulse Ox 94 L 06/26/24 07:26 FiO2 Intake & Output 06/25/24 06/26/24 06/26/24 18:59 06:59 18:59 Output Total 4000 1600 Balance -4000 -1600 Output: Urine 4000 1600 Other: Voiding Method External Catheter External Catheter External Catheter - Labs CBC & Chem 7: 06/26/24 02:44 06/26/24 02:44 Labs: Abnormal Lab Results - Last 24 Hours (Table) 06/26/24 06/26/24 Range/Units 02:44 02:44 RBC 3.28 L (4.10-5.20) X 10*6/uL Hgb 9.0 L (12.0-15.0) g/dL Hct 28.1 L (37.2-46.3) % RDW 14.6 H (11.5-14.5) % Immature Gran # 0.05 H (0.00-0.04) X 10*3/uL Eosinophils # 0.01 L (0.04-0.35) X 10*3/uL BUN 67.8 H (9.0-27.0) mg/dL Est GFR (CKD-EPI) 41 L (>=60) BUN/Creatinine Ratio 52.15 H (12.00-20.00) Ratio Transferrin 198.0 L (204.0-354.0) mg/dL Microbiology - Last 24 Hours (Table) 06/23/24 14:45 Blood Culture - Preliminary Blood
--- NOTE | 2024-06-26 19:32 | P.PN ---
Subjective Progress Note Date: 06/26/24 this is a 84-year-old female patient who is being seen for some symptoms of increased shortness of breath. The patient lives in an assisted living, and apparently, COVID-19 has been going around the facility and the patient has been exposed to the virus. Subsequently, she started developing symptoms of low- grade fever, sore throat, cough and congestion. No nausea no vomiting. No diarrhea. Abdominal pain. No altered mentation. There was a concern for COVID-19 and the patient was brought into the hospital and she tested positive. Her chest x-ray shows some left basilar atelectasis, questionable retrocardiac infiltrate. Nevertheless, the patient is currently on room air oxygen. She has no signs of any respiratory distress. She is hemodynamically stable. The white cell count of 7.25 with a hemoglobin 9.4 and a platelet count of 197. Normal electrolytes. Procalcitonin level is at 0.25. Troponin is 0.01. proBNP level is 2350. LFTs are normal. Normal thyroid function test. Normal UA. The rest of the viral screen was negative. The patient is currently stable on room air oxygen with a pulse ox of 94%. She was started on Decadron and she is also on broad-spectrum antibiotics with a combination of Rocephin and Zithromax. She states that this is her second infection with a virus. She has never been vaccinated for COVID-19. 06/25/2024, the patient is being seen for a follow-up. Continues to have some congested cough. Continues to have some increased bronchospasm and wheezing. The patient Heather having an acute CF exacerbation and the patient is infected with COVID-19. Meanwhile, she remains on room air oxygen with a pulse ox of 94%. No new labs are available from today. The patient's troponin was negative. Thyroid function test was essentially within normal limits. The rest of the chemistry showed a procalcitonin level of 0.25, and the patient remains on Decadron 4 mg IV every 24 hours. She is also on albuterol HFA 4 times a day and Bumex 1 mg every 12 hours. Sodium levels at 142, potassium is 4.1, BUN 68 with a creatinine of 1.4 and a GFR is at 37. The calcium level is at 8.4. Ionized calcium is at 4.7. Echocardiogram was also done and the patient was found to have normal LV function, mild to moderate MR, aortic valve sclerosis, mild pulm hypertension and mild dilatation of the RV. On 06/26/2024, patient is being seen for a follow-up. Doing well. Specific complaints. No significant cough or congestion and the patient's oxygenation is stable with a pulse ox of 96% room air oxygen. The patient has no nausea. No emesis. No altered mentation. No fever. Tachycardia. A repeat chest x-ray was done today and the patient was found to have stable findings without any acute cardiopulmonary abnormalities. Labs from today show a white cell count of 7.9 with a hemoglobin of 9 and a platelet count of 252. Electrolytes are all within normal limits. Creatinine is 1.3 with a BUN of 67. Troponins are negative. Objective - Vital Signs Vital signs: Vital Signs Temp 97.9 F 06/26/24 07:26 Pulse 57 L 06/26/24 07:26 Resp 16 06/26/24 07:26 BP 150/68 06/26/24 07:26 Pulse Ox 94 L 06/26/24 07:26 FiO2 Intake & Output 06/25/24 06/26/24 06/26/24 18:59 06:59 18:59 Output Total 4000 1600 Balance -4000 -1600 Output: Urine 4000 1600 Other: Voiding Method External Catheter External Catheter - Exam General Appearance the patient is calm and comfortable and she is on room air o xygen. Head exam was generally normal. There was no scleral icterus or corneal arcus. Mucous membranes were moist. Neck was supple and without jugular venous distension, thyromegaly, or carotid bruits. Carotids were easily palpable bilaterally. There was no adenopathy. Lungs were clear to auscultation and percussion, and with normal diaphragmatic excursion. No wheezes or rales were noted. Diminished breath sounds at lung bases bilaterally, few scattered rhonchi. Cardiac exam revealed the PMI to be normally situated and sized. The rhythm was regular and no extrasystoles were noted during several minutes of auscultation. The first and second heart sounds were normal and physiologic splitting of the second heart sound was noted. There were no murmurs, rubs, clicks, or gallops. Abdominal exam revealed normal bowel sounds. The abdomen was soft, non-tender, and without masses, organomegaly, or appreciable enlargement of the abdominal aorta. Examination of the extremities revealed easily palpable radial, femoral and pedal pulses. There was no cyanosis, clubbing or edema. Examination of the skin revealed no evidence of significant rashes, suspicious appearing nevi or other concerning lesions. Neurologically, the patient is awake and alert and the patient does not have any focal neurological deficit. Cranial nerves are essentially intact. - Labs CBC & Chem 7: 06/26/24 02:44 06/26/24 02:44 Labs: Abnormal Lab Results - Last 24 Hours (Table) 06/25/24 06/26/24 06/26/24 Range/Units 02:54 02:44 02:44 RBC 3.28 L (4.10-5.20) X 10*6/uL Hgb 9.0 L (12.0-15.0) g/dL Hct 28.1 L (37.2-46.3) % RDW 14.6 H (11.5-14.5) % Immature Gran # 0.05 H (0.00-0.04) X 10*3/uL Eosinophils # 0.01 L (0.04-0.35) X 10*3/uL BUN 68.0 H 67.8 H (9.0-27.0) mg/dL Est GFR (CKD-EPI) 37 L 41 L (>=60) BUN/Creatinine Ratio 48.57 H 52.15 H (12.00-20.00) Ratio Glucose 114 H (70-110) mg/dL Calcium 8.4 L (8.7-10.3) mg/dL Transferrin 198.0 L (204.0-354.0) mg/dL Microbiology - Last 24 Hours (Table) 06/23/24 14:45 Blood Culture - Preliminary Blood Assessment and Plan Plan: Acute COVID-19 infection, no previous vaccination and this is the patient's second infection with a virus. The first infection was few years back. Afebrile, no significant oxygen desaturation the patient is currently on room air oxygen with a pulse ox of 94% to 96% Cough and chest congestion secondary to above, stable and improving Left basilar atelectasis with a vague left retrocardiac infiltrate. Possibility of a bacterial pneumonia is felt to be less likely History of subarachnoid hemorrhage back in 1986 Hypothyroidism Hypertension Chronic stage III kidney disease Chronic normocytic anemia Chronic urinary incontinence Chronic diastolic heart failure Chronic lymphedema involving lower extremities History of severe pulmonary hypertension, likely group 2. Negative stress test back in 2017. Plan Clinically improving Currently on room air oxygen. Echocardiogram was essentially within normal limits Continue Decadron Continue diuretics Repeat chest x-ray in the morning shows stable findings We will continue to follow
--- NOTE | 2024-06-27 14:34 | P.PN ---
Subjective Progress Note Date: 06/27/24 this is a 84-year-old female patient who is being seen for some symptoms of increased shortness of breath. The patient lives in an assisted living, and apparently, COVID-19 has been going around the facility and the patient has been exposed to the virus. Subsequently, she started developing symptoms of low- grade fever, sore throat, cough and congestion. No nausea no vomiting. No diarrhea. Abdominal pain. No altered mentation. There was a concern for COVID-19 and the patient was brought into the hospital and she tested positive. Her chest x-ray shows some left basilar atelectasis, questionable retrocardiac infiltrate. Nevertheless, the patient is currently on room air oxygen. She has no signs of any respiratory distress. She is hemodynamically stable. The white cell count of 7.25 with a hemoglobin 9.4 and a platelet count of 197. Normal electrolytes. Procalcitonin level is at 0.25. Troponin is 0.01. proBNP level is 2350. LFTs are normal. Normal thyroid function test. Normal UA. The rest of the viral screen was negative. The patient is currently stable on room air oxygen with a pulse ox of 94%. She was started on Decadron and she is also on broad-spectrum antibiotics with a combination of Rocephin and Zithromax. She states that this is her second infection with a virus. She has never been vaccinated for COVID-19. 06/25/2024, the patient is being seen for a follow-up. Continues to have some congested cough. Continues to have some increased bronchospasm and wheezing. The patient Heather having an acute CF exacerbation and the patient is infected with COVID-19. Meanwhile, she remains on room air oxygen with a pulse ox of 94%. No new labs are available from today. The patient's troponin was negative. Thyroid function test was essentially within normal limits. The rest of the chemistry showed a procalcitonin level of 0.25, and the patient remains on Decadron 4 mg IV every 24 hours. She is also on albuterol HFA 4 times a day and Bumex 1 mg every 12 hours. Sodium levels at 142, potassium is 4.1, BUN 68 with a creatinine of 1.4 and a GFR is at 37. The calcium level is at 8.4. Ionized calcium is at 4.7. Echocardiogram was also done and the patient was found to have normal LV function, mild to moderate MR, aortic valve sclerosis, mild pulm hypertension and mild dilatation of the RV. On 06/26/2024, patient is being seen for a follow-up. Doing well. Specific complaints. No significant cough or congestion and the patient's oxygenation is stable with a pulse ox of 96% room air oxygen. The patient has no nausea. No emesis. No altered mentation. No fever. Tachycardia. A repeat chest x-ray was done today and the patient was found to have stable findings without any acute cardiopulmonary abnormalities. Labs from today show a white cell count of 7.9 with a hemoglobin of 9 and a platelet count of 252. Electrolytes are all within normal limits. Creatinine is 1.3 with a BUN of 67. Troponins are negative. 06/27/2024, patient is being seen for a follow-up. Doing well on room air oxygen. No significant respiratory distress. The patient remains on Decadron regarding her COVID-19 infection. Rest of the medications remain unchanged. No other significant events overnight. No new labs are available from today. Tolerating the diet with no nausea vomiting or emesis. No other significant events overnight. Objective - Vital Signs Vital signs: Vital Signs Temp 97.6 F 06/27/24 07:08 Pulse 47 L 06/27/24 07:08 Resp 16 06/27/24 07:08 BP 136/77 06/27/24 07:08 Pulse Ox 93 L 06/27/24 08:57 FiO2 Intake & Output 06/26/24 06/27/24 06/27/24 18:59 06:59 18:59 Output Total 700 750 Balance -700 -750 Weight 66.5 kg Output: Urine 700 750 Other: Voiding Method External Catheter External Catheter - Exam General Appearance the patient is calm and comfortable and she is on room air oxygen. Head exam was generally normal. There was no scleral icterus or corneal arcus. Mucous membranes were moist. Neck was supple and without jugular venous distension, thyromegaly, or carotid bruits. Carotids were easily palpable bilaterally. There was no adenopathy. Lungs were clear to auscultation and percussion, and with normal diaphragmatic excursion. No wheezes or rales were noted. Diminished breath sounds at lung bases bilaterally, few scattered rhonchi. Cardiac exam revealed the PMI to be normally situated and sized. The rhythm was regular and no extrasystoles were noted during several minutes of auscultation. The first and second heart sounds were normal and physiologic splitting of the second heart sound was noted. There were no murmurs, rubs, clicks, or gallops. Abdominal exam revealed normal bowel sounds. The abdomen was soft, non-tender, and without masses, organomegaly, or appreciable enlargement of the abdominal aorta. Examination of the extremities revealed easily palpable radial, femoral and pedal pulses. There was no cyanosis, clubbing or edema. Examination of the skin revealed no evidence of significant rashes, suspicious appearing nevi or other concerning lesions. Neurologically, the patient is awake and alert and the patient does not have any focal neurological deficit. Cranial nerves are essentially intact. - Labs CBC & Chem 7: 06/26/24 02:44 06/26/24 02:44 Labs: Microbiology - Last 24 Hours (Table) 06/23/24 14:45 Blood Culture - Preliminary Blood Assessment and Plan Plan: Acute COVID-19 infection, no previous vaccination and this is the patient's second infection with a virus. The first infection was few years back. Afebrile, no significant oxygen desaturation the patient is currently on room air oxygen with a pulse ox of 94% to 96% Cough and chest congestion secondary to above, stable and improving Left basilar atelectasis with a vague left retrocardiac infiltrate. Possibility of a bacterial pneumonia is felt to be less likely History of subarachnoid hemorrhage back in 1986 Hypothyroidism Hypertension Chronic stage III kidney disease Chronic normocytic anemia Chronic urinary incontinence Chronic diastolic heart failure Chronic lymphedema involving lower extremities History of severe pulmonary hypertension, likely group 2. Negative stress test back in 2016. Plan Clinically improving Currently on room air oxygen. Echocardiogram was essentially within normal limits Continue Decadron Continue diuretics Repeat chest x-ray in the morning shows stable findings We will continue to follow, consider discharging this patient home today over the next 24 hours. The final discharge decision will be kept to the medical group.
--- NOTE | 2024-06-27 14:55 | P.PN ---
Subjective Progress Note Date: 06/27/24 Progress note Date of service 06/27/[address] Reynoso Patient seen and evaluated and discussed with the patient. She had today episode of gastric distress and but not associated with vomiting but she felt nauseating in association with heart rate went down to the 50s could be associated with the vagal stimulation. Her blood pressure has been elevated up to 164/74 and we continued with the hyd ralazine twice a day as needed with the blood pressure to be monitored meanwhile to hold the hydralazine if blood pressure below 120 systolic. Currently on exam her temperature 97.4 F oral, her heart rate 51 bpm and respiratory rate 18/min. Blood pressure 131/72 and pulse ox 97% on room air. Chest x-ray was done yesterday and reviewed by Dr. Ortega with the underlying less likely pneumonia however was no reading by the radiology today on the x-ray done on 06/26/2024 until this time of dictation. We thought that patient has retrocardiac pneumonitis versus atelectasis and she had pneumonia COVID. Will continue the antibiotic and the dexamethasone. Patient conscious alert oriented and able to breeze she has examination and is essentially stable and we were planning to go to [facility] if there is bed is available as she was accepted in [facility] however we had a problem with the insurance the [employer] as the have to kind of [employer] and so far we submitted for authorization again by the telehealth case manager and the possibility to be transferred to [facility] Sunday after the clarification from the insurance to be accepted to be transferred. In the meantime we will continue the current treatment. On the exam: Patient is conscious alert oriented x 3 able to communicate freely head and neck no changes and no lymphadenopathy. Chest she has decreased air entry with the atelectasis probably on the lower lung field and her white count has been stable normal. And her procalcitonin was normal. However with COVID 19 pneumonitis is viral and could be atypical no bacterial pneumonia. Heart was regular sinus rhythm and she had history of diastolic dysfunction with congestive heart failure with preserved systolic function and severe pulmonary hypertension. The blood pressure is controlled The extremities marked improved edema continue to be improving. And need for thorough rehabilitation. And follow-up for underlying post Pneumonia with COVID. The Assessment: #1 shortness of breath generalized weakness with the edema of the lower extremities and associated with diastolic congestive heart failure acute on the top of chronic with preserved systolic function and severe pulmonary hypertension. 2. Lymphedema chronic Underlying coronary artery disease atherosclerotic heart disease and valvular heart disease Hypothyroidism controlled Walking disability with the advanced arthritis of the joint. Chronic kidney disease stage III. Peripheral edema Plan: 1. Will continue the current planning of treatment 2. Waiting for authorization from insurance [facility] for acceptance to be transferred for continuing care and Adithya Walker 3. Will continue on her current treatment. Objective - Vital Signs Vital signs: Vital Signs Temp 97.4 F L 06/27/24 13:17 Pulse 51 L 06/27/24 13:17 Resp 18 06/27/24 13:17 BP 131/72 06/27/24 13:17 Pulse Ox 97 06/27/24 13:17 FiO2 Intake & Output 06/26/24 06/27/24 06/27/24 18:59 06:59 18:59 Output Total 700 750 Balance -700 -750 Weight 66.5 kg Output: Urine 700 750 Other: Voiding Method External Catheter External Catheter # Voids 1 - Labs CBC & Chem 7: 06/26/24 02:44 06/26/24 02:44 Labs: Microbiology - Last 24 Hours (Table) 06/23/24 14:45 Blood Culture - Preliminary Blood
[2024-06-28] MEDS: LEVOTHYROXINE 75 MCG TAB PO SCH (06:37)
--- NOTE | 2024-06-28 14:46 | P.PN ---
Subjective Progress Note Date: 06/28/24 this is a 84-year-old female patient who is being seen for some symptoms of increased shortness of breath. The patient lives in an assisted living, and apparently, COVID-19 has been going around the facility and the patient has been exposed to the virus. Subsequently, she started developing symptoms of low- grade fever, sore throat, cough and congestion. No nausea no vomiting. No diarrhea. Abdominal pain. No altered mentation. There was a concern for COVID-19 and the patient was brought into the hospital and she tested positive. Her chest x-ray shows some left basilar atelectasis, questionable retrocardiac infiltrate. Nevertheless, the patient is currently on room air oxygen. She has no signs of any respiratory distress. She is hemodynamically stable. The white cell count of 7.25 with a hemoglobin 9.4 and a platelet count of 197. Normal electrolytes. Procalcitonin level is at 0.25. Troponin is 0.01. proBNP level is 2350. LFTs are normal. Normal thyroid function test. Normal UA. The rest of the viral screen was negative. The patient is currently stable on room air oxygen with a pulse ox of 94%. She was started on Decadron and she is also on broad-spectrum antibiotics with a combination of Rocephin and Zithromax. She states that this is her second infection with a virus. She has never been vaccinated for COVID-19. 06/25/2024, the patient is being seen for a follow-up. Continues to have some congested cough. Continues to have some increased bronchospasm and wheezing. The patient Heather having an acute CF exacerbation and the patient is infected with COVID-19. Meanwhile, she remains on room air oxygen with a pulse ox of 94%. No new labs are available from today. The patient's troponin was negative. Thyroid function test was essentially within normal limits. The rest of the chemistry showed a procalcitonin level of 0.25, and the patient remains on Decadron 4 mg IV every 24 hours. She is also on albuterol HFA 4 times a day and Bumex 1 mg every 12 hours. Sodium levels at 142, potassium is 4.1, BUN 68 with a creatinine of 1.4 and a GFR is at 37. The calcium level is at 8.4. Ionized calcium is at 4.7. Echocardiogram was also done and the patient was found to have normal LV function, mild to moderate MR, aortic valve sclerosis, mild pulm hypertension and mild dilatation of the RV. On 06/26/2024, patient is being seen for a follow-up. Doing well. Specific complaints. No significant cough or congestion and the patient's oxygenation is stable with a pulse ox of 96% room air oxygen. The patient has no nausea. No emesis. No altered mentation. No fever. Tachycardia. A repeat chest x-ray was done today and the patient was found to have stable findings without any acute cardiopulmonary abnormalities. Labs from today show a white cell count of 7.9 with a hemoglobin of 9 and a platelet count of 252. Electrolytes are all within normal limits. Creatinine is 1.3 with a BUN of 67. Troponins are negative. 06/27/2024, patient is being seen for a follow-up. Doing well on room air oxygen. No significant respiratory distress. The patient remains on Decadron regarding her COVID-19 infection. Rest of the medications remain unchanged. No other significant events overnight. No new labs are available from today. Tolerating the diet with no nausea vomiting or emesis. No other significant events overnight. On 06/28/2024, no new complaints and the patient is on room air oxygen with a pulse ox of 92%. Medications are unchanged and the patient remains on Decadron. Remains on Demadex. Labs are not available from today. Objective - Vital Signs Vital signs: Vital Signs Temp 97.8 F 06/28/24 13:19 Pulse 55 L 06/28/24 13:19 Resp 18 06/28/24 13:19 BP 134/62 06/28/24 13:19 Pulse Ox 92 L 06/28/24 13:19 FiO2 Intake & Output 06/27/24 06/28/24 06/28/24 18:59 06:59 18:59 Output Total 800 900 Balance -800 -900 Weight 67 kg Output: Urine 800 900 Other: Voiding Method External Catheter External Catheter External Catheter # Voids 1 # Bowel Movements 1 - Exam General Appearance the patient is calm and comfortable and she is on room air oxygen. Head exam was generally normal. There was no scleral icterus or corneal arcus. Mucous membranes were moist. Neck was supple and without jugular venous distension, thyromegaly, or carotid bruits. Carotids were easily palpable bilaterally. There was no adenopathy. Lungs were clear to auscultation and percussion, and with normal diaphragmatic excursion. No wheezes or rales were noted. Diminished breath sounds at lung bases bilaterally, few scattered rhonchi. Cardiac exam revealed the PMI to be normally situated and sized. The rhythm was regular and no extrasystoles were noted during several minutes of auscultation. The first and second heart sounds were normal and physiologic splitting of the second heart sound was noted. There were no murmurs, rubs, clicks, or gallops. Abdominal exam revealed normal bowel sounds. The abdomen was soft, non-tender, and without masses, organomegaly, or appreciable enlargement of the abdominal aorta. Examination of the extremities revealed easily palpable radial, femoral and pedal pulses. There was no cyanosis, clubbing or edema. Examination of the skin revealed no evidence of significant rashes, suspicious appearing nevi or other concerning lesions. Neurologically, the patient is awake and alert and the patient does not have any focal neurological deficit. Cranial nerves are essentially intact. - Labs CBC & Chem 7: 06/26/24 02:44 06/26/24 02:44 Assessment and Plan Plan: Acute COVID-19 infection, no previous vaccination and this is the patient's second infection with a virus. The first infection was few years back. Afebrile, no significant oxygen desaturation the patient is currently on room air oxygen, no active issues for now Cough and chest congestion secondary to above, stable and improving Left basilar atelectasis with a vague left retrocardiac infiltrate. Possibility of a bacterial pneumonia is felt to be less likely History of subarachnoid hemorrhage back in 1986 Hypothyroidism Hypertension Chronic stage III kidney disease Chronic normocytic anemia Chronic urinary incontinence Chronic diastolic heart failure Chronic lymphedema involving lower extremities History of severe pulmonary hypertension, likely group 2. Negative stress test back in 2017. Plan Clinically improving Currently on room air oxygen. Echocardiogram was essentially within normal limits Continue Decadron Continue diuretics Repeat chest x-ray in the morning shows stable findings We will continue to follow,The final discharge decision will be kept to the medical group.
--- NOTE | 2024-06-28 15:42 | P.PN ---
Subjective Progress Note Date: 06/28/24 Progress note Date of service 06/28/[address] Reynoso. Patient seen and evaluated [id number] Conscious alert oriented x 3 No specific complaint Vital sign Temperature 97.8 F oral heart rate 55 bpm Respiratory rate 18/min Blood pressure 134/62 and mean blood pressure 86 Her oxygen saturation 92% on room air. On exam: Patient is conscious alert oriented x 3. Able to eat and swallow no difficulties. And she has been improved her breathing with no shortness of breath minimal cough with a history of COPD. HEENT negative Neck was supple Chest was underlying kyphoscoliosis with symmetry Minimal atelectasis on the lower lung field with improvement on breathing inspiratory and expiratory. Evidence of bacterial pneumonia Patient has COVID with the underlying initial x-ray indicating retrocardiac infiltrate with the possibility of viral in nature currently not appear to be concerning. Patient seen by pulmonary and critical care. Heart: She is regular sinus rhythm sinus rhythm and she had the echocardiogram with the underlying severe pulmonary hypertension and underlying grade 2 diast olic dysfunction with preserved systolic function Abdomen is soft positive bowel sound and no tenderness. Extremities significant improvement on the peripheral edema and she had left foot dorsal edema with the history of chronic presence and history of left ankle fracture. History of lymphedema in the past. Neurologically stable and psychiatrically stable. Assessment: Admitted with positive COVID-19 pneumonia. No evidence of bacterial pneumonia Hypertension with hypertensive heart disease currently blood pressure controlled Peripheral edema and lymphedema. Hypothyroidism Coronary artery disease atherosclerotic heart disease Mitral regurg, aortic valve sclerosis, pulmonary hypertension, Ejection fraction 55-60, severe increased left atrial volume. Right ventricular systolic pressure 41.2. Assessment and plan: Patient currently off her antibiotic and no fever no chills Dexamethasone will continue for total of 10 days and discontinue the IV dexamethasone and changed to oral dexamethasone for the remainder of the treatment protocol. Will continue diuresis with Demadex with no evidence of allergy Physical therapy planned and rehabilitation Transfer to [facility] and rehab on Sunday if bed is available and authorization from the insurance has been received and documented. Objective - Vital Signs Vital signs: Vital Signs Temp 97.8 F 06/28/24 13:19 Pulse 55 L 06/28/24 13:19 Resp 18 06/28/24 13:19 BP 134/62 06/28/24 13:19 Pulse Ox 92 L 06/28/24 13:19 FiO2 Intake & Output 06/27/24 06/28/24 06/28/24 18:59 06:59 18:59 Output Total 800 900 Balance -800 -900 Weight 67 kg Output: Urine 800 900 Other: Voiding Method External Catheter External Catheter External Catheter # Voids 1 # Bowel Movements 1 - Labs CBC & Chem 7: 06/26/24 02:44 06/26/24 02:44
[2024-06-29] MEDS: dexAMETHasone 4 MG TAB PO SCH (08:04)
--- NOTE | 2024-06-29 14:24 | P.PN ---
Subjective Progress Note Date: 06/29/24 this is a 84-year-old female patient who is being seen for some symptoms of increased shortness of breath. The patient lives in an assisted living, and apparently, COVID-19 has been going around the facility and the patient has been exposed to the virus. Subsequently, she started developing symptoms of low- grade fever, sore throat, cough and congestion. No nausea no vomiting. No diarrhea. Abdominal pain. No altered mentation. There was a concern for COVID-19 and the patient was brought into the hospital and she tested positive. Her chest x-ray shows some left basilar atelectasis, questionable retrocardiac infiltrate. Nevertheless, the patient is currently on room air oxygen. She has no signs of any respiratory distress. She is hemodynamically stable. The white cell count of 7.25 with a hemoglobin 9.4 and a platelet count of 197. Normal electrolytes. Procalcitonin level is at 0.25. Troponin is 0.01. proBNP level is 2350. LFTs are normal. Normal thyroid function test. Normal UA. The rest of the viral screen was negative. The patient is currently stable on room air oxygen with a pulse ox of 94%. She was started on Decadron and she is also on broad-spectrum antibiotics with a combination of Rocephin and Zithromax. She states that this is her second infection with a virus. She has never been vaccinated for COVID-19. 06/25/2024, the patient is being seen for a follow-up. Continues to have some congested cough. Continues to have some increased bronchospasm and wheezing. The patient Heather having an acute CF exacerbation and the patient is infected with COVID-19. Meanwhile, she remains on room air oxygen with a pulse ox of 94%. No new labs are available from today. The patient's troponin was negative. Thyroid function test was essentially within normal limits. The rest of the chemistry showed a procalcitonin level of 0.25, and the patient remains on Decadron 4 mg IV every 24 hours. She is also on albuterol HFA 4 times a day and Bumex 1 mg every 12 hours. Sodium levels at 142, potassium is 4.1, BUN 68 with a creatinine of 1.4 and a GFR is at 37. The calcium level is at 8.4. Ionized calcium is at 4.7. Echocardiogram was also done and the patient was found to have normal LV function, mild to moderate MR, aortic valve sclerosis, mild pulm hypertension and mild dilatation of the RV. On 06/26/2024, patient is being seen for a follow-up. Doing well. Specific complaints. No significant cough or congestion and the patient's oxygenation is stable with a pulse ox of 96% room air oxygen. The patient has no nausea. No emesis. No altered mentation. No fever. Tachycardia. A repeat chest x-ray was done today and the patient was found to have stable findings without any acute cardiopulmonary abnormalities. Labs from today show a white cell count of 7.9 with a hemoglobin of 9 and a platelet count of 252. Electrolytes are all within normal limits. Creatinine is 1.3 with a BUN of 67. Troponins are negative. 06/27/2024, patient is being seen for a follow-up. Doing well on room air oxygen. No significant respiratory distress. The patient remains on Decadron regarding her COVID-19 infection. Rest of the medications remain unchanged. No other significant events overnight. No new labs are available from today. Tolerating the diet with no nausea vomiting or emesis. No other significant events overnight. On 06/28/2024, no new complaints and the patient is on room air oxygen with a pulse ox of 92%. Medications are unchanged and the patient remains on Decadron. Remains on Demadex. Labs are not available from today. On 06/29/2024, the patient is resting comfortably bed and the patient is awaiting authorization insurance clearance for transfer to go to [facility]. Pulse ox 94% room air oxygen. Rest of the treatment remains unchanged. No other significant events overnight. Objective - Vital Signs Vital signs: Vital Signs Temp 97.6 F 06/29/24 07:06 Pulse 47 L 06/29/24 07:06 Resp 17 06/29/24 07:06 BP 130/63 06/29/24 07:06 Pulse Ox 94 L 06/29/24 07:06 FiO2 Intake & Output 06/28/24 06/29/24 06/29/24 18:59 06:59 18:59 Output Total 850 275 Balance -850 -275 Weight 61 kg Output: Urine 850 275 Other: Voiding Method External Catheter External Catheter # Bowel Movements 1 - Exam General Appearance the patient is calm and comfortable and she is on room air oxygen. Head exam was generally normal. There was no scleral icterus or corneal arcus. Mucous membranes were moist. Neck was supple and without jugular venous distension, thyromegaly, or carotid bruits. Carotids were easily palpable bilaterally. There was no adenopathy. Lungs were clear to auscultation and percussion, and with normal diaphragmatic excursion. No wheezes or rales were noted. Diminished breath sounds at lung bases bilaterally, few scattered rhonchi. Cardiac exam revealed the PMI to be normally situated and sized. The rhythm was regular and no extrasystoles were noted during several minutes of auscultation. The first and second heart sounds were normal and physiologic splitting of the second heart sound was noted. There were no murmurs, rubs, clicks, or gallops. Abdominal exam revealed normal bowel sounds. The abdomen was soft, non-tender, and without masses, organomegaly, or appreciable enlargement of the abdominal aorta. Examination of the extremities revealed easily palpable radial, femoral and pedal pulses. There was no cyanosis, clubbing or edema. Examination of the skin revealed no evidence of significant rashes, suspicious appearing nevi or other concerning lesions. Neurologically, the patient is awake and alert and the patient does not have any focal neurological deficit. Cranial nerves are essentially intact. - Labs CBC & Chem 7: 06/26/24 02:44 06/26/24 02:44 Labs: Microbiology - Last 24 Hours (Table) 06/23/24 14:45 Blood Culture - Final Blood Assessment and Plan Plan: Acute COVID-19 infection, no previous vaccination and this is the patient's second infection with a virus. The first infection was few years back. Afebrile, no significant oxygen desaturation the patient is currently on room air oxygen, no active issues for now Cough and chest congestion secondary to above, stable and improving Left basilar atelectasis with a vague left retrocardiac infiltrate. Possibility of a bacterial pneumonia is felt to be less likely History of subarachnoid hemorrhage back in 1986 Hypothyroidism Hypertension Chronic stage III kidney disease Chronic normocytic anemia Chronic urinary incontinence Chronic diastolic heart failure Chronic lymphedema involving lower extremities History of severe pulmonary hypertension, likely group 2. Negative stress test back in 2017. Plan Awaiting insurance authorization for ECF transfer Clinically improving Currently on room air oxygen. Echocardiogram was essentially within normal limits Continue Decadron Continue diuretics Repeat chest x-ray in the morning shows stable findings
--- NOTE | 2024-06-29 15:12 | P.PN ---
Subjective Progress Note Date: 06/29/24 Progress note Date of service 06/[address] Reynoso. Patient seen and evaluated [id number] and patient requested Ensure supplementation with the decreased appetite and decreased calorie Ensure has been ordered with meal twice a day Patient has no specific complaint with the significant improvement in her lower extremities edema pitting as well as lymphedema Her on 06/28/2024 her total intake 850 and output 850 and she had external catheter with the underlying urinary incontinent inability to control her bladder with the neurogenic bladder. Her admission was 67 kg currently on 929 2461 kg with a loss of 6 kg probably fluid in nature. Her vital sign: New Temperature 97.6 F oral, heart rate ranging between 53 and 47 bpm with the underlying bradycardia not associated with any medication currently she is not on beta-blockers or calcium channel blockers Respiratory rate 17/min, blood pressure 130/66 with a mean blood pressure 85. Oxygen saturation 94 on room air. Laboratory: Last lab was done on 06/26/2024 reviewed with the underlying normal calcium and ionized calcium, her creatinine 1.3, BUN was 67. Probably secondary to dexamethasone She has anemia of chronic disease with the laboratory indicating normal iron panel, normal troponin. Patient has grade 2 diastolic heart failure acute on the top of chronic with preserved ejection fraction. Seen by Dr. Damian cardiology and currently on diuretic Demadex to continue. History of lymphedema and pitting edema and was treated with the wrapping with his bandage of both lower extremities to be continued in the future in the [facility] home with the rehabilitation and she will be on her feet and probably will be swelling again. On exam: Patient is conscious alert oriented able to discuss her problem clearly Head was normocephalic atraumatic, pupil was equal reactive, she read lips with the underlying hearing deficit, Oropharynx natural teeth normal swallowing no choking Neck was supple no JVD no thyromegaly no lymphadenopathy trachea midline. Chest: Normal breath sound with kyphoscoliosis and minimal basal atelectasis. Heart: Sinus bradycardia with compensated no medication for beta-memo or calcium channel memo. And she was followed before with the cardiology Dr. Damian in the hospital and the primary cdl bulk driver is Dr. Tam Vazquez Abdomen soft positive bowel sounds and no tenderness in the 4 quadrant She had external [place] catheter. Extremities markedly improved and edema to appear to be completely resolved. Psych Psychiatry normal mood and affect Neurologically no lateralizing signs stable Assessment: And plan Patient currently stable 1. COVID19 infection with the possible pneumonitis as mentioned in the chest x-ray retrocardiac 2. Bacterial pneumonitis/pneumonia less likely 3. Acute congestive heart failure on the top of chronic diastolic with 2 grade dysfunction and severe peripheral edema 4. History of lymphedema. 5. COPD currently stable 6. Severe deconditioning with inability to walk need for thorough rehabilitation. 7. Hypothyroidism stable 8. Hypertension with hypertensive heart disease controlled 9. Nutritional deficiency with loss of appetite with the supplementation with Ensure twice a day. 10. Cough has improved. 11. GERD disease, mild nausea resolved #12 patient of antibiotic and probably tomorrow the last dose of dexamethasone 13. Plan for rehabilitation at [facility] and rehab patient accepted however insurance [employer] did not authorize for the transfer will wait for tomorrow. Objective - Vital Signs Vital signs: Vital Signs Temp 97.6 F 06/29/24 07:06 Pulse 47 L 06/29/24 07:06 Resp 17 06/29/24 07:06 BP 130/63 06/29/24 07:06 Pulse Ox 94 L 06/29/24 07:06 FiO2 Intake & Output 06/28/24 06/29/24 06/29/24 18:59 06:59 18:59 Output Total 850 275 Balance -850 -275 Weight 61 kg Output: Urine 850 275 Other: Voiding Method External Catheter External Catheter # Bowel Movements 1 - Labs CBC & Chem 7: 06/26/24 02:44 06/26/24 02:44 Labs: Microbiology - Last 24 Hours (Table) 06/23/24 14:45 Blood Culture - Final Blood
--- NOTE | 2024-06-30 00:19 | XR ---
EXAMINATION TYPE: XR chest 1V DATE OF EXAM: 06/26/2024 COMPARISON: 06/23/2024 INDICATION: Cold, cough TECHNIQUE: Single frontal view of the chest is obtained. FINDINGS: The heart size is enlarged. The pulmonary vasculature is normal. Mild left lower lobe infiltrate is present. Correlate for pneumonia. Atypical pneumonia should be con sidered. Chronic rotator cuff tears present on the right with degenerative joint change. Milder changes may be present on the left shoulder as well. IMPRESSION: 1. Left lower lobe infiltrate. Correlate for pneumonia. [facility], , 06/30/2024 12:17 AM
[2024-06-30 13:36] VITALS: TEMP 97.9
[2024-06-30 16:00] VITALS: BP 110/67; PULSE 61; RESP 19
--- NOTE | 2024-06-30 16:35 | P.PN ---
Subjective Progress Note Date: 06/30/24 this is a 84-year-old female patient who is being seen for some symptoms of increased shortness of breath. The patient lives in an assisted living, and apparently, COVID-19 has been going around the facility and the patient has been exposed to the virus. Subsequently, she started developing symptoms of low- grade fever, sore throat, cough and congestion. No nausea no vomiting. No diarrhea. Abdominal pain. No altered mentation. There was a concern for COVID-19 and the patient was brought into the hospital and she tested positive. Her chest x-ray shows some left basilar atelectasis, questionable retrocardiac infiltrate. Nevertheless, the patient is currently on room air oxygen. She has no signs of any respiratory distress. She is hemodynamically stable. The white cell count of 7.25 with a hemoglobin 9.4 and a platelet count of 197. Normal electrolytes. Procalcitonin level is at 0.25. Troponin is 0.01. proBNP level is 2350. LFTs are normal. Normal thyroid function test. Normal UA. The rest of the viral screen was negative. The patient is currently stable on room air oxygen with a pulse ox of 94%. She was started on Decadron and she is also on broad-spectrum antibiotics with a combination of Rocephin and Zithromax. She states that this is her second infection with a virus. She has never been vaccinated for COVID-19. 06/25/2024, the patient is being seen for a follow-up. Continues to have some congested cough. Continues to have some increased bronchospasm and wheezing. The patient Heather having an acute CF exacerbation and the patient is infected with COVID-19. Meanwhile, she remains on room air oxygen with a pulse ox of 94%. No new labs are available from today. The patient's troponin was negative. Thyroid function test was essentially within normal limits. The rest of the chemistry showed a procalcitonin level of 0.25, and the patient remains on Decadron 4 mg IV every 24 hours. She is also on albuterol HFA 4 times a day and Bumex 1 mg every 12 hours. Sodium levels at 142, potassium is 4.1, BUN 68 with a creatinine of 1.4 and a GFR is at 37. The calcium level is at 8.4. Ionized calcium is at 4.7. Echocardiogram was also done and the patient was found to have normal LV function, mild to moderate MR, aortic valve sclerosis, mild pulm hypertension and mild dilatation of the RV. On 06/26/2024, patient is being seen for a follow-up. Doing well. Specific complaints. No significant cough or congestion and the patient's oxygenation is stable with a pulse ox of 96% room air oxygen. The patient has no nausea. No emesis. No altered mentation. No fever. Tachycardia. A repeat chest x-ray was done today and the patient was found to have stable findings without any acute cardiopulmonary abnormalities. Labs from today show a white cell count of 7.9 with a hemoglobin of 9 and a platelet count of 252. Electrolytes are all within normal limits. Creatinine is 1.3 with a BUN of 67. Troponins are negative. 06/27/2024, patient is being seen for a follow-up. Doing well on room air oxygen. No significant respiratory distress. The patient remains on Decadron regarding her COVID-19 infection. Rest of the medications remain unchanged. No other significant events overnight. No new labs are available from today. Tolerating the diet with no nausea vomiting or emesis. No other significant events overnight. On 06/28/2024, no new complaints and the patient is on room air oxygen with a pulse ox of 92%. Medications are unchanged and the patient remains on Decadron. Remains on Demadex. Labs are not available from today. On 06/29/2024, the patient is resting comfortably bed and the patient is awaiting authorization insurance clearance for transfer to go to [facility]. Pulse ox 94% room air oxygen. Rest of the treatment remains unchanged. No other significant events overnight. The patient is seen today June 30, 2024 in follow-up on the regular medical floor. She is awake and alert in no acute distress. Sitting up in a chair at the bedside. Denies any worsening shortness of breath, cough or congestion. Maintaining good O2 saturations in the 90s on room air. She has been afebrile. Hemodynamically stable. Chest x-ray reveals a stable left lower lobe infiltrate. Blood cultures revealed no growth. He remains on Decadron, vitamin supplements. Heparin for DVT prophylaxis. Remains on oral diuretics Objective - Vital Signs Vital signs: Vital Signs Temp 97.9 F 09/30/24 14:41 Pulse 61 06/30/24 14:41 Resp 19 06/30/24 14:41 BP 110/67 06/30/24 14:41 Pulse Ox 95 06/30/24 14:41 FiO2 Intake & Output 06/29/24 06/30/24 06/30/24 18:59 06:59 18:59 Output Total 800 Balance -800 Output: Urine 800 Other: Voiding Method External Catheter External Catheter External Catheter - Exam GENERAL EXAM: Alert, pleasant 84-year-old female, sitting up in a chair, on room air, comfortable in no apparent distress. HEAD: Normocephalic. EYES: Normal reaction of pupils, equal size. NOSE: Clear with pink turbinates. THROAT: No erythema or exudates. NECK: No masses, no JVD. CHEST: No chest wall deformity. LUNGS: Equal air entry with faint crackles in the left lung base. CVS: S1 and S2 normal with no audible murmur, regular rhythm. ABDOMEN: No hepatosplenomegaly, normal bowel sounds, no guarding or rigidity. SPINE: No scoliosis or deformity SKIN: No rashes CENTRAL NERVOUS SYSTEM: No focal deficits, tone is normal in all 4 extremities. EXTREMITIES: There is no peripheral edema. No clubbing, no cyanosis. Peripheral pulses are intact. - Labs CBC & Chem 7: 06/26/24 02:44 06/26/24 02:44 Assessment and Plan Assessment: Acute COVID-19 infection, no previous vaccination and this is the patient's second infection with a virus. Left basilar atelectasis with a vague left retrocardiac infiltrate. Possibility of a bacterial pneumonia is felt to be less likely, procalcitonin negative History of subarachnoid hemorrhage back in 1986 Hypothyroidism Hypertension Chronic stage III kidney disease Chronic normocytic anemia Chronic urinary incontinence Chronic diastolic heart failure Chronic lymphedema involving lower extremities History of severe pulmonary hypertension, likely group 2. Negative stress test back in 2016 Plan: The patient was seen and evaluated Medications reviewed Stable and on room air Continued on steroids Continued on vitamin supplements Awaiting transfer to [facility] This patient was seen independently by the pulmonary nurse practitioner addressing pulmonary issues I have personally seen and examined the patient, performed the documentation and the assessment and plan as written. Number of minutes spent on the visit: 23.
--- NOTE | 2024-07-16 14:48 | P.DS ---
Providers Date of admission: 06/23/24 13:08 Expected date of discharge: 06/30/24 Attending physician: Sorin Reynoso Consults: 06/23/24 17:44 Consult Physician Urgent Consulting Provider: Matthew Moulton Consult Reason/Comments: Retrocardiac pneumonia and positive COVID Do you want consulting provider notified?: Yes Primary care physician: Sorin Reynoso Dictation discharge summary Date of service 06/30/[address] Reynoso Final diagnosis: 1. Acute COVID19 infection, no previous vaccination with her second episode 2. Left basilar atelectasis with left leg left retrocardiac infiltrate 3. Possibility of bacterial pneumonia is felt to be less likely. 4. Hypothyroidism stable 5. Chronic kidney disease stage III stable 6. Chronic anemia with the normocytic hypochromic with normal iron study 7. Acute congestive heart failure diastolic on the top of chronic with the underlying valvular heart disease 8. Severe pulmonary hypertension. 9. Chronic urinary incontinent with neurogenic bladder currently having [place] catheter to avoid maceration of her skin on the perineal area. 10. Hypertension with hypertensive heart disease. 11. History of 1987 subarachnoid hemorrhage. 12. Chronic lymphedema 13. Severe hearing impairment 14 COPD improved with inhalation therapy Consulting physician: 1. Dr. Damian manager financial planning 2. Dr. Ortega pulmonary and critical care. On admission patient has positive COVID19 and the x-ray was retrocardiac infiltrate treated with antibiotic also she had severe edema of the lower extremities pitting as well as nonpitting edema with the history of chronic lymphedema Investigation in the hospital: Echocardiogram to these with Doppler Repeated chest x-ray with the left lower lobe infiltrate however no clinical evidence of pneumonia and considered as atelectasis. With less likely bacterial pneumonia by pulmonary and critical care Dr. Ortega On discharge: Temperature 97.5 F oral and heart rate 4955 Respiratory rate 19, blood pressure 137/63, mean blood pressure 87, oxygen saturation 95 on room air. Patient is conscious alert oriented x 3 she able to communicate freely and the need for thorough rehabilitation. Head was normocephalic atraumatic, severe hearing deficitn hearing impairment, she used glasses, oropharynx is normal with natural teeth No history of strokes. Neck was supple no JVD no thyromegaly no lymphadenopathy trachea midline Chest she had dorsal kyphosis with the mild increased anteroposterior diameter with a history of cough and mild COPD Heart: Regular sinus rhythm with the preserved systolic function and 2+ diast olic dysfunction with the severe pulmonary hypertension Abdomen soft positive bowel sound no organ enlargement Extremities she had significant improvement on her edema of the lower extremities however when she rehabilitated and will be ambulated she may increase her edema again with the underlying venous insufficiency as well as severe pulmonary hypertension and she need continuation of wrapping of the Casey bandage 6 inches from the foot to the below the knee bilateral This psychiatry stable Anxiety or depression and Neurologically stable. Patient currently stable for discharge to [facility] for continued rehabilitation following her COVID infection and deconditioning. Will continue the current medication I did reconcile the medication Please apply Casey bandage on both lower extremities from the feet to below the knee wrapping daily And she will need lymphedema specialist to work with her for improving the lymphedema. I will follow the patient in [facility] thank you Patient Condition at Discharge: Fair Plan - Discharge Summary New Discharge Prescriptions: New Spironolactone [Aldactone] 25 mg PO DAILY tab guaiFENesin-DM 100-10MG/5ML [Robitussin DM] 10 ml PO Q6H ml Acetaminophen Tab [Tylenol] 650 mg PO Q6HR PRN tab PRN Reason: Fever And/ Or Pain Albuterol Inhaler [Ventolin Hfa Inhaler] 2 puff INHALATION RT-QID PRN each PRN Reason: Shortness Of Breath Or Wheezing Continue Lansoprazole 30 mg PO DAILY Aspirin 81 mg PO DAILY Levothyroxine Sodium [Synthroid] 75 mcg PO DAILY Isosorbide Mononitrate ER [Imdur] 30 mg PO DAILY tab Torsemide [Demadex] 20 mg PO BID hydrALAZINE HCL [Apresoline] 25 mg PO QID Discharge Medication List Aspirin 81 mg PO DAILY 09/26/14 [History] Lansoprazole 30 mg PO DAILY 09/26/14 [History] Levothyroxine Sodium [Synthroid] 75 mcg PO DAILY 11/20/23 [History] Isosorbide Mononitrate ER [Imdur] 30 mg PO DAILY tab 11/24/23 [Rx] Torsemide [Demadex] 20 mg PO BID 06/23/24 [History] hydrALAZINE HCL [Apresoline] 25 mg PO QID 06/23/24 [History] Acetaminophen Tab [Tylenol] 650 mg PO Q6HR PRN tab 06/30/24 [Rx] Albuterol Inhaler [Ventolin Hfa Inhaler] 2 puff INHALATION RT-QID PRN each 06/30/24 [Rx] Spironolactone [Aldactone] 25 mg PO DAILY tab 06/30/24 [Rx] guaiFENesin-DM 100-10MG/5ML [Robitussin DM] 10 ml PO Q6H ml 06/30/24 [Rx] Follow up Appointment(s)/Referral(s): None,Stated [REFERRING] - As Needed (Please follow-up appointment with a primary care provider.) Georeg Sierra MD [STAFF PHYSICIAN] - 1 Week (Please call for follow-up appointment. Office not answering at time of discharge.) Activity/Diet/Wound Care/Special Instructions: Patient transferred to [facility] for continued rehabilitation and ambulation and conditioning Discharge Disposition: TRANSFER TO SNF/F
== END 2024-06-30 17:43 | DRG 177 ==
LOC: EC 08:12 → 4SSUR 13:08
PROVIDERS: ADMIT Internal Medicine; ATTEND Internal Medicine
DX: U07.1 COVID-19 (principal); I50.43 Acute on chronic combined systolic (congestive) and diastolic (congestive) heart failure; J12.82 Pneumonia due to coronavirus disease 2019; I13.0 Hypertensive heart and chronic kidney disease with heart failure and stage 1 through stage 4 chronic kidney disease, or unspecified chronic kidney disease; J44.0 Chronic obstructive pulmonary disease with (acute) lower respiratory infection; J98.11 Atelectasis; N17.9 Acute kidney failure, unspecified; H91.93 Unspecified hearing loss, bilateral; J98.01 Acute bronchospasm; D63.1 Anemia in chronic kidney disease; E03.9 Hypothyroidism, unspecified; E66.01 Morbid (severe) obesity due to excess calories; I27.20 Pulmonary hypertension, unspecified; I08.0 Rheumatic disorders of both mitral and aortic valves; E63.9 Nutritional deficiency, unspecified; I25.10 Atherosclerotic heart disease of native coronary artery without angina pectoris; I89.0 Lymphedema, not elsewhere classified; R26.9 Unspecified abnormalities of gait and mobility; N83.209 Unspecified ovarian cyst, unspecified side; N28.1 Cyst of kidney, acquired; K21.9 Gastro-esophageal reflux disease without esophagitis; N18.30 Chronic kidney disease, stage 3 unspecified; M50.90 Cervical disc disorder, unspecified, unspecified cervical region; N31.9 Neuromuscular dysfunction of bladder, unspecified; Z68.34 Body mass index [BMI] 34.0-34.9, adult; Z79.82 Long term (current) use of aspirin; Z79.890 Hormone replacement therapy; Z79.899 Other long term (current) drug therapy; Z86.16 Personal history of COVID-19; Z87.440 Personal history of urinary (tract) infections; Z96.652 Presence of left artificial knee joint; Z28.310 Unvaccinated for COVID-19; Z88.0 Allergy status to penicillin; Z88.2 Allergy status to sulfonamides; Z88.8 Allergy status to other drugs, medicaments and biological substances; Z88.1 Allergy status to other antibiotic agents; Z91.040 Latex allergy status; Z97.4 Presence of external hearing-aid; Z86.73 Personal history of transient ischemic attack (TIA), and cerebral infarction without residual deficits
CPT/HCPCS: 36415; 71045; 80048; 80053; 81003; 82330; 83540; 83550; 83605; 83735; 83880; 84100; 84145; 84439; 84443; 84484; 85025; 85610; 85730; 87040; 87449; 87636; 93005; 93306; 94760; 96361; 96365; 96366; 96367; 96372; 96375; 99291

== ENCOUNTER → 2024-12-08 | Outpatient (CLI) | payer MEDICARE ==
[2024-12-08 15:37] LABS: BUN/Creat Ratio 29.47 Ratio (12.00-20.00); Blood Urea Nitrogen 44.2 mg/dL (9.0-27.0); Calcium 9.3 mg/dL (8.7-10.3); Chloride 102 mmol/L (96-109); Glucose 79 mg/dL (70-110); Potassium 4.3 mmol/L (3.5-5.5); Sodium 142 mmol/L (135-145)
[2024-12-08 17:11] LABS: NT-Pro-B-Type Natriuretic Pept 1492 pg/mL (0-450)
== END | disposition home or self-care (01) ==
LOC: LABWHC1 12:47
PROVIDERS: ATTEND Internal Medicine Cardiovascular Disease
DX: I50.22 Chronic systolic (congestive) heart failure (principal)
CPT/HCPCS: 36415; 80048; 83880

== ENCOUNTER 2024-12-09 22:21 | Emergency (ER) | payer MEDICARE ==
[2024-12-09 22:29] VITALS: TEMP 98.4
[2024-12-09 22:32] LABS: Glucose,Whole Blood 106 mg/dL (70-110)
--- NOTE | 2024-12-09 22:38 | ED ---
SOB HPI - General Chief Complaint: Shortness of Breath Stated Complaint: STONEY Time Seen by Provider: 12/09/24 22:37 Source: patient, RN notes reviewed, old records reviewed, Caregiver Mode of arrival: EMS Limitations: no limitations - History of Present Illness Initial Comments: This is an 84-year-old female to the ER for evaluation today. Patient coming in for shortness of breath found to have elevated blood pressure he does appear anxious on arrival to the hospital today. No fevers or illnesses. Patient aside from complaining of shortness of breath has no complaints, no chest pain history of heart failure and symptoms began 2 hours prior to arrival MD Complaint: shortness of breath -: hour(s) (2) Severity: moderate Severity scale (1-10): 4 Consistency: intermittent, now resolved Improves With: oxygen Known History Of: congestive heart failure Context: anxiety Associated Symptoms: denies other symptoms - Related Data Home Medications Medication Instructions Recorded Confirmed Aspirin 81 mg PO DAILY 09/26/14 06/23/24 Lansoprazole 30 mg PO DAILY 09/26/14 06/23/24 Levothyroxine Sodium [Synthroid] 75 mcg PO DAILY 11/20/23 06/23/24 Torsemide [Demadex] 20 mg PO BID 06/23/24 06/23/24 hydrALAZINE HCL [Apresoline] 25 mg PO QID 06/23/24 06/23/24 Previous Rx's Medication Instructions Recorded Isosorbide Mononitrate ER [Imdur] 30 mg PO DAILY tab 11/24/23 Acetaminophen Tab [Tylenol] 650 mg PO Q6HR PRN tab 06/30/24 Albuterol Inhaler [Ventolin Hfa 2 puff INHALATION RT-QID PRN each 06/30/24 Inhaler] Spironolactone [Aldactone] 25 mg PO DAILY tab 06/30/24 guaiFENesin-DM 100-10MG/5ML 10 ml PO Q6H ml 06/30/24 [Robitussin DM] Allergies Allergy/AdvReac Type Severity Reaction Status Date / Time sulfamethoxazole Allergy Unknown "Sick as a Verified 12/09/24 22:28 [From Bactrim] Dog" trimethoprim [From Bactrim] Allergy Unknown "Sick as a Verified 12/09/24 22:28 Dog" Penicillins Allergy Rash/Hives Verified 12/09/24 22:28 adhesive AdvReac Unknown Rash, Red Verified 12/09/24 22:28 Skin from tape and cardiac electrodes. ciprofloxacin [From Cipro] AdvReac Unknown Pain in Verified 12/09/24 22:28 Arms ibuprofen [From Motrin] AdvReac Unknown Eye Pain Verified 12/09/24 22:28 doxycycline AdvReac Unknown Verified 12/09/24 22:28 ferrous sulfate AdvReac SEVERE Verified 12/09/24 22:28 HEADACHE furosemide [From Lasix] AdvReac Rapid Verified 12/09/24 22:28 Heart Rate latex AdvReac Unknown Verified 12/09/24 22:28 omeprazole [From Prilosec] AdvReac Unknown Verified 12/09/24 22:28 omeprazole magnesium AdvReac Unknown Verified 12/09/24 22:28 [From Prilosec] Review of Systems ROS Statement: Those systems with pertinent positive or pertinent negative responses have been documented in the HPI. ROS Other: All systems not noted in ROS Statement are negative. Past Medical History Past Medical History: Heart Failure, Hypertension, Osteoarthritis (OA), Renal Disease, Thyroid Disorder Additional Past Medical History / Comment(s): arthritis, sub arachnoid hemorrhage 1986, URINARY INCONTINENCE, CKD stage 3, cyst on kidney and ovary, hypothyroidism History of Any Multi-Drug Resistant Organisms: None Reported Past Surgical History: Joint Replacement Additional Past Surgical History / Comment(s): bilat. cataract surgery, LEFT KNEE replacement Past Anesthesia/Blood Transfusion Reactions: Motion Sickness, Postoperative Nausea & Vomiting (PONV) Past Psychological History: No Psychological Hx Reported Smoking Status: Never smoker Past Alcohol Use History: None Reported Past Drug Use History: None Reported - Past Family History Sister(s) Family Medical History: Cancer Additional Family Medical History / Comment(s): SKIN CANCER Mother Family Medical History: CVA/TIA General Exam General appearance: alert, in no apparent distress, anxious Head exam: Present: atraumatic, normocephalic, normal inspection Eye exam: Present: normal appearance, PERRL, EOMI. Absent: scleral icterus, conjunctival injection, periorbital swelling ENT exam: Present: normal exam, mucous membranes moist Neck exam: Present: normal inspection. Absent: tenderness, meningismus, lymphadenopathy Respiratory exam: Present: normal lung sounds bilaterally. Absent: respiratory distress, wheezes, rales, rhonchi, stridor Cardiovascular Exam: Present: regular rate, normal rhythm, normal heart sounds. Absent: systolic murmur, diastolic murmur, rubs, gallop, clicks GI/Abdominal exam: Present: soft, normal bowel sounds. Absent: distended, tenderness, guarding, rebound, rigid Extremities exam: Present: normal inspection, full ROM, normal capillary refill. Absent: tenderness, pedal edema, joint swelling, calf tenderness Back exam: Present: normal inspection Neurological exam: Present: alert, oriented X3, CN II-XII intact Psychiatric exam: Present: normal affect, normal mood Skin exam: Present: warm, dry, intact, normal color. Absent: rash Course Vital Signs 12/09/24 12/09/24 12/09/24 22:24 22:52 23:02 Temperature 98.4 F Pulse Rate 90 90 92 Respiratory 22 Rate Blood Pressure 175/96 O2 Sat by Pulse 96 Oximetry 12/09/24 12/09/24 12/09/24 23:04 23:05 23:30 Temperature Pulse Rate 93 100 Respiratory 20 20 Rate Blood Pressure 200/92 185/69 O2 Sat by Pulse 96 97 98 Oximetry 12/09/24 23:47 Temperature Pulse Rate 100 Respiratory 18 Rate Blood Pressure 170/68 O2 Sat by Pulse 97 Oximetry - Reevaluation(s) Reevaluation #1: 12/10/24 00:31 Medical records reviewed Reevaluation #2: 12/10/24 00:32 Patient symptoms continue to improve Reevaluation #3: 12/10/24 00:32 Patient informed of results questions answered Reevaluation #4: Was pt. sent in by a medical professional or institution (, PA, TINSMITH APPRENTICE, urgent care, hospital, or shelter...) When possible be specific @ -no Did you speak to anyone other than the patient for history (EMS, parent, family, police, friend...)? What history was obtained from this source @ -no Did you review nursing and triage notes (agree or disagree)? Why? @ -agree Are old charts reviewed (outside hosp., previous admission, EMS record, old EKG, old radiological studies, urgent care reports/EKG's, shelter records)? Report findings @ -yes Differential Diagnosis (chest pain, altered mental status, abdominal pain women, abdominal pain men, vaginal bleeding, weakness, fever, dyspnea, syncope, headache, dizziness, GI bleed, back pain, seizure, CVA, palpatations, mental health, musculoskeletal)? @ -prior EKG interpreted by me (3pts min.). @ -yes X-rays interpreted by me (1pt min.). @ -yes negative for acute disease CT interpreted by me (1pt min.). @ -no U/S interpreted by me (1pt. min.). @ -no What testing was considered but not performed or refused? (CT, X-rays, U/S, labs)? Why? @ -none What meds were considered but not given or refused? Why? @ -none Did you discuss the management of the patient with other professionals (professionals i.e. , PA, TINSMITH APPRENTICE, lab, RT, psych nurse, director social welfare, order runner, teacher, fire control officer, case finisher)? Give summary @ -no Was smoking cessation discussed for >3mins.? @ -no Was critical care preformed (if so, how long)? @ -no Were there social determinants of health that impacted care today? How? (Homelessness, low income, unemployed, alcoholism, drug addiction, transporta tion, low edu. Level, literacy, decrease access to med. care, residential, rehab)? @ -none Was there de-escalation of care discussed even if they declined (Discuss DNR or withdrawal of care, Hospice)? DNR status @ -no What co-morbidities impacted this encounter? (DM, HTN, Smoking, COPD, CAD, Cancer, CVA, ARF, Chemo, Hep., AIDS, mental health diagnosis, sleep apnea, morbid obesity)? @ -none Was patient admitted / discharged? Hospital course, mention meds given and route, prescriptions, significant lab abnormalities, going to OR and other pertinent info. @ - Undiagnosed new problem with uncertain prognosis? @ -no Drug Therapy requiring intensive monitoring for toxicity (Heparin, Nitro, Insulin, Cardizem)? @ -no Were any procedures done? @ -no Diagnosis/symptom? @ - Acute, or Chronic, or Acute on Chronic? @ -Acute Uncomplicated (without systemic symptoms) or Complicated (systemic symptoms)? @ -Complicated Side effects of treatment? @ -no Exacerbation, Progression, or Severe Exacerbation? @ -exacerbation Poses a threat to life or bodily function? How? (Chest pain, [place], [place], pneumonia, PE, COPD, DKA, ARF, appy, cholecystitis, CVA, Diverticulitis, Homicidal, Suicidal, threat to staff... and all critical care pts) @ -yes Reevaluation #5: Differential Dyspnea: Coronary syndrome, arrhythmia, tamponade, asthma, COPD, pulmonary embolism, pneumonia, pneumothorax, pulmonary effusion, anaphylaxis, diabetic ketoacidosis, flailed chest, pulmonary contusion, diaphragmatic rupture, anemia, neuromuscular, this is not meant to be an all-inclusive list. Medical Decision Making - Medical Decision Making 84 female to ER for evaluation of dyspnea today. Patient is dyspnea and hypertension with symptoms resolved here in the ER for anxiety, patient can be discharged home - Lab Data Result diagrams: 12/09/24 22:30 12/09/24 22:30 Lab Results 12/09/24 12/09/24 12/09/24 Range/Units 22:29 22:30 22:30 WBC 10.8 H (3.8-10.6) k/uL RBC 4.22 (3.80-5.40) m/uL Hgb 11.0 L (11.4-16.0) gm/dL Hct 35.9 (34.0-46.0) % MCV 84.9 (80.0-100.0) fL MCH 26.0 (25.0-35.0) pg MCHC 30.6 L (31.0-37.0) g/dL RDW 15.1 (11.5-15.5) % Plt Count 328 (150-450) k/uL MPV 7.5 Neutrophils % 78 % Lymphocytes % 12 % Monocytes % 7 % Eosinophils % 2 % Basophils % 0 % Neutrophils # 8.4 H (1.3-7.7) k/uL Lymphocytes # 1.3 (1.0-4.8) k/uL Monocytes # 0.7 (0-1.0) k/uL Eosinophils # 0.2 (0-0.7) k/uL Basophils # 0.0 (0-0.2) k/uL Hypochromasia Slight PT 10.1 (10.0-12.5) sec INR 0.9 (<1.2) APTT 25.2 (22.0-30.0) sec Sodium (137-145) mmol/L Potassium (3.5-5.1) mmol/L Chloride (98-107) mmol/L Carbon Dioxide (22-30) mmol/L Anion Gap mmol/L BUN (7-17) mg/dL Creatinine (0.52-1.04) mg/dL Est GFR (CKD-EPI)AfAm (>60 ml/min/1.73 sqM) Est GFR (CKD-EPI)NonAf (>60 ml/min/1.73 sqM) Glucose (74-99) mg/dL POC Glucose (mg/dL) 106 (70-110) mg/dL POC Glu [employer] ID [employer] Plasma Lactic Acid Kimani (0.7-2.0) mmol/L Calcium (8.4-10.2) mg/dL Magnesium (1.6-2.3) mg/dL Total Bilirubin (0.2-1.3) mg/dL AST (14-36) U/L ALT (4-34) U/L Alkaline Phosphatase (38-126) U/L Troponin I (0.000-0.034) ng/mL NT-Pro-B Natriuret Pep pg/mL Total Protein (6.3-8.2) g/dL Albumin (3.5-5.0) g/dL Influenza Type A (PCR) (Not Detectd) Influenza Type B (PCR) (Not Detectd) RSV (PCR) (Not Detectd) SARS-CoV-2 (PCR) (Not Detectd) 12/09/24 12/09/24 12/09/24 Range/Units 22:30 22:30 22:30 WBC (3.8-10.6) k/uL RBC (3.80-5.40) m/uL Hgb (11.4-16.0) gm/dL Hct (34.0-46.0) % MCV (80.0-100.0) fL MCH (25.0-35.0) pg MCHC (31.0-37.0) g/dL RDW (11.5-15.5) % Plt Count (150-450) k/uL MPV Neutrophils % % Lymphocytes % % Monocytes % % Eosinophils % % Basophils % % Neutrophils # (1.3-7.7) k/uL Lymphocytes # (1.0-4.8) k/uL Monocytes # (0-1.0) k/uL Eosinophils # (0-0.7) k/uL Basophils # (0-0.2) k/uL Hypochromasia PT (10.0-12.5) sec INR (<1.2) APTT (22.0-30.0) sec Sodium 138 (137-145) mmol/L Potassium 4.5 (3.5-5.1) mmol/L Chloride 100 (98-107) mmol/L Carbon Dioxide 27 (22-30) mmol/L Anion Gap 11 mmol/L BUN 50 H (7-17) mg/dL Creatinine 1.39 H (0.52-1.04) mg/dL Est GFR (CKD-EPI)AfAm 40 (>60 ml/min/1.73 sqM) Est GFR (CKD-EPI)NonAf 35 (>60 ml/min/1.73 sqM) Glucose 102 H (74-99) mg/dL POC Glucose (mg/dL) (70-110) mg/dL POC Glu Geological Scout ID Plasma Lactic Acid Kimani 1.3 (0.7-2.0) mmol/L Calcium 9.6 (8.4-10.2) mg/dL Magnesium 2.0 (1.6-2.3) mg/dL Total Bilirubin 0.6 (0.2-1.3) mg/dL AST 37 H (14-36) U/L ALT 17 (4-34) U/L Alkaline Phosphatase 185 H (38-126) U/L Troponin I <0.012 (0.000-0.034) ng/mL NT-Pro-B Natriuret Pep 1490 pg/mL Total Protein 8.1 (6.3-8.2) g/dL Albumin 4.1 (3.5-5.0) g/dL Influenza Type A (PCR) (Not Detectd) Influenza Type B (PCR) (Not Detectd) RSV (PCR) (Not Detectd) SARS-CoV-2 (PCR) (Not Detectd) 12/09/24 Range/Units 22:50 WBC (3.8-10.6) k/uL RBC (3.80-5.40) m/uL Hgb (11.4-16.0) gm/dL Hct (34.0-46.0) % MCV (80.0-100.0) fL MCH (25.0-35.0) pg MCHC (31.0-37.0) g/dL RDW (11.5-15.5) % Plt Count (150-450) k/uL MPV Neutrophils % % Lymphocytes % % Monocytes % % Eosinophils % % Basophils % % Neutrophils # (1.3-7.7) k/uL Lymphocytes # (1.0-4.8) k/uL Monocytes # (0-1.0) k/uL Eosinophils # (0-0.7) k/uL Basophils # (0-0.2) k/uL Hypochromasia PT (10.0-12.5) sec INR (<1.2) APTT (22.0-30.0) sec Sodium (137-145) mmol/L Potassium (3.5-5.1) mmol/L Chloride (98-107) mmol/L Carbon Dioxide (22-30) mmol/L Anion Gap mmol/L BUN (7-17) mg/dL Creatinine (0.52-1.04) mg/dL Est GFR (CKD-EPI)AfAm (>60 ml/min/1.73 sqM) Est GFR (CKD-EPI)NonAf (>60 ml/min/1.73 sqM) Glucose (74-99) mg/dL POC Glucose (mg/dL) (70-110) mg/dL POC Glu Geological Scout ID Plasma Lactic Acid Kimani (0.7-2.0) mmol/L Calcium (8.4-10.2) mg/dL Magnesium (1.6-2.3) mg/dL Total Bilirubin (0.2-1.3) mg/dL AST (14-36) U/L ALT (4-34) U/L Alkaline Phosphatase (38-126) U/L Troponin I (0.000-0.034) ng/mL NT-Pro-B Natriuret Pep pg/mL Total Protein (6.3-8.2) g/dL Albumin (3.5-5.0) g/dL Influenza Type A (PCR) Not Detected (Not Detectd) Influenza Type B (PCR) Not Detected (Not Detectd) RSV (PCR) Not Detected (Not Detectd) SARS-CoV-2 (PCR) Not Detected (Not Detectd) - EKG Data -: EKG Interpreted by Me (EKG is sinus 89 CT 161 QRS 88 QTc 394) - Radiology Data Radiology results: report reviewed (X-ray is negative for acute disease), image reviewed Disposition Clinical Impression: Weakness, Anxiety, Hypertension Disposition: HOME SELF-CARE Condition: Good Instructions (If sedation given, give patient instructions): Anxiety (ED) Is patient prescribed a controlled substance at d/c from ED?: No Referrals: Sorin Reynoso MD [Primary Care Provider] - 1-2 days Time of Disposition: 00:30
[2024-12-09] MEDS: IPRATROPIUM-ALBUTEROL 3 ML NEB INHALATION STA (22:51)
[2024-12-09 23:20] LABS: ALT 17 U/L (4-34); AST 37 U/L (14-36); African American GFR (CKD) 40 (>60 ml/min/1.73 sqM); Albumin 4.1 g/dL (3.5-5.0); Alkaline Phosphatase 185 U/L (38-126); Anion Gap 11 mmol/L; Blood Urea Nitrogen 50 mg/dL (7-17); Calcium 9.6 mg/dL (8.4-10.2); Carbon Dioxide 27 mmol/L (22-30); Chloride 100 mmol/L (98-107); Glucose 102 mg/dL (74-99); Non-African American GFR(CKD) 35 (>60 ml/min/1.73 sqM); Potassium 4.5 mmol/L (3.5-5.1); Sodium 138 mmol/L (137-145); Total Bilirubin 0.6 mg/dL (0.2-1.3); Total Protein 8.1 g/dL (6.3-8.2)
[2024-12-09 23:27] LABS: INR 0.9 (<1.2); Partial Thromboplastin Time 25.2 sec (22.0-30.0); Prothrombin Time 10.1 sec (10.0-12.5)
[2024-12-09 23:29] LABS: NT-Pro-B-Type Natriuretic Pept 1490 pg/mL
[2024-12-09] MEDS: hydrALAZINE HCL 20 MG/ML 1 ML VIAL IVP STA (23:32)
[2024-12-09 23:48] LABS: Basophils % (A) 0 %; Eosinophils # (A) 0.2 k/uL (0-0.7); Eosinophils % (A) 2 %; HCT 35.9 % (34.0-46.0); Hypochromasia Slight; Lymphocytes # (A) 1.3 k/uL (1.0-4.8); Lymphocytes % (A) 12 %; MCHC 30.6 g/dL (31.0-37.0); MCV 84.9 fL (80.0-100.0); Mean Platelet Volume 7.5; Monocytes # (A) 0.7 k/uL (0-1.0); Monocytes % (A) 7 %; Neutrophils # (A) 8.4 k/uL (1.3-7.7); Neutrophils % (A) 78 %; Platelet Count 328 k/uL (150-450); RBC 4.22 m/uL (3.80-5.40); RDW 15.1 % (11.5-15.5); WBC 10.8 k/uL (3.8-10.6)
[2024-12-09 23:50] VITALS: RESP 18
[2024-12-10] LABS: Influenza A Not Detected (Not Detectd); Influenza B Not Detected (Not Detectd); RSV Not Detected (Not Detectd)
[2024-12-10] MEDS: LORazepam 2 MG/ML INJ IV STA (00:08)
--- NOTE | 2024-12-10 00:22 | XR ---
EXAM: XR Chest, 1 View CLINICAL HISTORY: ITS.REASON XR Reason: sob TECHNIQUE: Frontal view of the chest. COMPARISON: 06/26/24, 11/24/23 FINDINGS: Lungs: Mild left basilar opacity, stable across multiple prior exams, favored atelectasis in the setting of a hiatal hernia. No consolidation. Stable heart size. No significant pulmonary vascular congestion. Pleural space: No pleural effusion or pneumothorax. Heart: No cardiomegaly or pulmonary vascular congestion. Mediastinum: Suspect small hiatal hernia at the left lung base. Bones/joints: No acute fracture. No dislocation. IMPRESSION: 1. No consolidation. 2. Mild left basilar opacity, stable across multiple prior exams, favored atelectasis in the setting of a hiatal hernia. 3. Suspect small hiatal hernia at the left lung base.
[2024-12-10 00:34] VITALS: BP 168/80; PULSE 98
== END 2024-12-10 00:52 | disposition home or self-care (01) ==
LOC: EC 22:21
DX: R55 Syncope and collapse (principal); F41.9 Anxiety disorder, unspecified; I13.0 Hypertensive heart and chronic kidney disease with heart failure and stage 1 through stage 4 chronic kidney disease, or unspecified chronic kidney disease; I50.9 Heart failure, unspecified; N18.9 Chronic kidney disease, unspecified
CPT/HCPCS: 36415; 94640; 93005; 83880; 80053; 83605; 83735; 84484; 85025; 85610; 85730; 87636; 71045; 99285; 96374; 96375; J0360

== ENCOUNTER 2025-01-02 10:45 | Inpatient (IN) | payer MEDICARE ==
[2025-01-02 12:06] LABS: Influenza A Not Detected (Not Detectd); Influenza B Not Detected (Not Detectd); RSV Not Detected (Not Detectd)
--- NOTE | 2025-01-02 12:17 | ED ---
General Adult HPI - General Chief complaint: Upper Respiratory Infection Stated complaint: cough Time Seen by Provider: 01/02/25 11:08 Source: patient, family, RN notes reviewed Mode of arrival: wheelchair Limitations: no limitations - History of Present Illness Initial comments: Patient is an 84-year-old female presenting to the emergency department not feeling well. Symptoms been present for a couple of days. Patient does have cough and congestion. Patient feels fatigued. Patient is unclear whether or not she may have some mild dyspnea. Patient does have history of COPD. No reported fever. - Related Data Home Medications Medication Instructions Recorded Confirmed Aspirin 81 mg PO DAILY 09/26/14 01/02/25 Lansoprazole 30 mg PO DAILY 09/26/14 01/02/25 Levothyroxine Sodium [Synthroid] 75 mcg PO DAILY 11/20/23 01/02/25 Torsemide [Demadex] 20 mg PO BID 06/23/24 01/02/25 hydrALAZINE HCL [Apresoline] 25 mg PO QID 06/23/24 01/02/25 Acetaminophen Tab [Tylenol Tab] 1,000 mg PO Q6H PRN 01/02/25 01/02/25 Blue Emu Cream 1 applic TOPICAL DAILY PRN 01/02/25 01/02/25 Malcom/D3/Mag11/Zinc/Career Development Coordinator/Ady/Bor 1 tab PO DAILY 01/02/25 01/02/25 [Caltrate 600+D Plus Tablet] Clobetasol Propionate [Temovate 1 applic TOPICAL BID PRN 01/02/25 01/02/25 0.05% Cream] Ensure 1 can PO DAILY 01/02/25 01/02/25 Multivit with Calcium,Iron,Min 1 tab PO DAILY 01/02/25 01/02/25 [Women's Multivitamin] Prevent Silicone Cream W/ Zinc 1 applic TOPICAL DAILY PRN 01/02/25 01/02/25 Oxide busPIRone HCl [Buspar] 5 mg PO BID 01/02/25 01/02/25 Previous Rx's Medication Instructions Recorded Isosorbide Mononitrate ER [Imdur] 30 mg PO DAILY tab 11/24/23 Allergies Allergy/AdvReac Type Severity Reaction Status Date / Time sulfamethoxazole Allergy Unknown "Sick as a Verified 01/02/25 11:50 [From Bactrim] Dog" trimethoprim [From Bactrim] Allergy Unknown "Sick as a Verified 01/02/25 11:50 Dog" Penicillins Allergy Rash/Hives Verified 01/02/25 11:50 adhesive AdvReac Unknown Rash, Red Verified 01/02/25 11:50 Skin from tape and cardiac electrodes. ciprofloxacin [From Cipro] AdvReac Unknown Pain in Verified 01/02/25 11:50 Arms ibuprofen [From Motrin] AdvReac Unknown Eye Pain Verified 01/02/25 11:50 doxycycline AdvReac Unknown Verified 01/02/25 11:50 ferrous sulfate AdvReac SEVERE Verified 01/02/25 11:50 HEADACHE furosemide [From Lasix] AdvReac Rapid Verified 01/02/25 11:50 Heart Rate latex AdvReac Unknown Verified 01/02/25 11:50 omeprazole [From Prilosec] AdvReac Unknown Verified 01/02/25 11:50 omeprazole magnesium AdvReac Unknown Verified 01/02/25 11:50 [From Prilosec] Review of Systems ROS Statement: Those systems with pertinent positive or pertinent negative responses have been documented in the HPI. ROS Other: All systems not noted in ROS Statement are negative. Constitutional: Denies: fever Eyes: Denies: eye pain ENT: Reports: congestion Respiratory: Reports: as per HPI, cough Endocrine: Reports: fatigue Gastrointestinal: Denies: abdominal pain Musculoskeletal: Denies: back pain Past Medical History Past Medical History: Heart Failure, Hypertension, Osteoarthritis (OA), Renal Disease, Thyroid Disorder Additional Past Medical History / Comment(s): arthritis, sub arachnoid hemorrhage 1986, URINARY INCONTINENCE, CKD stage 3, cyst on kidney and ovary, hypothyroidism History of Any Multi-Drug Resistant Organisms: None Reported Past Surgical History: Joint Replacement Additional Past Surgical History / Comment(s): bilat. cataract surgery, LEFT KNEE replacement Past Anesthesia/Blood Transfusion Reactions: Motion Sickness, Postoperative Nausea & Vomiting (PONV) Past Psychological History: No Psychological Hx Reported Smoking Status: Never smoker Past Alcohol Use History: None Reported Past Drug Use History: None Reported - Past Family History Sister(s) Family Medical History: Cancer Additional Family Medical History / Comment(s): SKIN CANCER Mother Family Medical History: CVA/TIA General Exam Limitations: no limitations General appearance: alert, in no apparent distress Head exam: Present: normocephalic Eye exam: Present: normal appearance Neck exam: Present: normal inspection Respiratory exam: Present: rhonchi Cardiovascular Exam: Present: regular rate, normal rhythm GI/Abdominal exam: Present: soft. Absent: tenderness Extremities exam: Present: normal inspection. Absent: pedal edema, calf tenderness Neurological exam: Present: alert Psychiatric exam: Present: normal affect, normal mood Skin exam: Present: normal color Course Vital Signs 01/02/25 01/02/25 01/02/25 11:00 11:18 12:59 Temperature 97.7 F Pulse Rate 63 56 L 60 Respiratory 22 20 Rate Blood Pressure 100/53 126/55 O2 Sat by Pulse 96 97 Oximetry 01/02/25 01/02/25 13:09 13:17 Temperature Pulse Rate 64 61 Respiratory 20 Rate Blood Pressure 111/53 O2 Sat by Pulse 97 Oximetry Medical Decision Making - Medical Decision Making Was pt. sent in by a medical professional or institution (, PA, [employer], urgent care, hospital, or snf...) When possible be specific @ -Patient was sent in by Dr. Juan Miguel Silva Did you speak to anyone other than the patient for history (EMS, parent, family, police, friend...)? What history was obtained from this source @ -No Did you review nursing and triage notes (agree or disagree)? Why? @ -I reviewed and agree with nursing and triage notes Were old charts reviewed (outside hosp., previous admission, EMS record, old EKG, old radiological studies, urgent care reports/EKG's, snf records)? Report findings @ -No old charts were reviewed Differential Diagnosis (chest pain, altered mental status, abdominal pain women, abdominal pain men, vaginal bleeding, weakness, fever, dyspnea, syncope, hea dache, dizziness, GI bleed, back pain, seizure, CVA, palpatations, mental health, musculoskeletal)? @ -Differential Dyspnea: Coronary syndrome, arrhythmia, tamponade, asthma, COPD, pulmonary embolism, pneumonia, pneumothorax, pulmonary effusion, anaphylaxis, diabetic ketoacidosis, flailed chest, pulmonary contusion, diaphragmatic rupture, anemia, neuromuscular, this is not meant to be an all-inclusive list. EKG interpreted by me (3pts min.). @ -As above X-rays interpreted by me (1pt min.). @ -Chest x-ray concerning for CHF CT interpreted by me (1pt min.). @ -None done U/S interpreted by me (1pt. min.). @ -None done What testing was considered but not performed or refused? (CT, X-rays, U/S, labs)? Why? @ -None What meds were considered but not given or refused? Why? @ -None Did you discuss the management of the patient with other professionals (professionals i.e. Dr., PA, [employer], lab, RT, psych nurse, social science teacher, serger, teacher, soil science technical officer, child welfare caseworker)? Give summary @ -Case was discussed with Dr. Juan Miguel Silva who is familiar with this patient and will admit with requested cardiac consult Was smoking cessation discussed for >3mins.? @ -No Was critical care preformed (if so, how long)? @ -No Were there social determinants of health that impacted care today? How? (Homel essness, low income, unemployed, alcoholism, drug addiction, transportation, low edu. Level, literacy, decrease access to med. care, skilled nursing, rehab)? @ -No Was there de-escalation of care discussed even if they declined (Discuss DNR or withdrawal of care, Hospice)? DNR status @ -No What co-morbidities impacted this encounter? (DM, HTN, Smoking, COPD, CAD, Cancer, CVA, ARF, Chemo, Hep., AIDS, mental health diagnosis, sleep apnea, morbid obesity)? @ -COPD Was patient admitted / discharged? Hospital course, mention meds given and route, prescriptions, significant lab abnormalities, going to OR and other pertinent info. @ -Patient presents with dyspnea and some upper respiratory symptoms. Labs unremarkable, chest x-ray concerning for CHF. Patient does not feel comfortable with discharge home. Patient will be admitted with cardiac consult. Admission orders written. Patient and family updated. Undiagnosed new problem with uncertain prognosis? @ -No Drug Therapy requiring intensive monitoring for toxicity (Heparin, Nitro, Insulin, Cardizem)? @ -No Were any procedures done? @ -No Diagnosis/symptom? @ -CHF Acute, or Chronic, or Acute on Chronic? @ -Acute Uncomplicated (without systemic symptoms) or Complicated (systemic symptoms)? @ -Default Side effects of treatment? @ -No Exacerbation, Progression, or Severe Exacerbation? @ -No Poses a threat to life or bodily function? How? (Chest pain, USA, [place], pneumonia, PE, COPD, DKA, ARF, appy, cholecystitis, CVA, Diverticulitis, Homicidal, Suicidal, threat to staff... and all critical care pts) @ -Threat to pulmonary and cardiac function - Lab Data Result diagrams: 01/02/25 12:22 01/02/25 12:22 Lab Results 01/02/25 01/02/25 01/02/25 Range/Units 11:07 12:22 12:22 WBC 5.6 (3.8-10.6) k/uL RBC 3.72 L (3.80-5.40) m/uL Hgb 9.7 L (11.4-16.0) gm/dL Hct 31.2 L (34.0-46.0) % MCV 83.8 (80.0-100.0) fL MCH 26.0 (25.0-35.0) pg MCHC 31.0 (31.0-37.0) g/dL RDW 15.3 (11.5-15.5) % Plt Count 222 (150-450) k/uL MPV 8.1 Neutrophils % 72 % Lymphocytes % 13 % Monocytes % 9 % Eosinophils % 3 % Basophils % 1 % Neutrophils # 4.0 (1.3-7.7) k/uL Lymphocytes # 0.7 L (1.0-4.8) k/uL Monocytes # 0.5 (0-1.0) k/uL Eosinophils # 0.2 (0-0.7) k/uL Basophils # 0.0 (0-0.2) k/uL Hypochromasia Moderate PT 10.2 (10.0-12.5) sec INR 0.9 (<1.2) APTT 25.1 (22.0-30.0) sec Sodium (137-145) mmol/L Potassium (3.5-5.1) mmol/L Chloride (98-107) mmol/L Carbon Dioxide (22-30) mmol/L Anion Gap mmol/L BUN (7-17) mg/dL Creatinine (0.52-1.04) mg/dL Est GFR (CKD-EPI)AfAm (>60 ml/min/1.73 sqM) Est GFR (CKD-EPI)NonAf (>60 ml/min/1.73 sqM) Glucose (74-99) mg/dL Plasma Lactic Acid Kimani (0.7-2.0) mmol/L Calcium (8.4-10.2) mg/dL Magnesium (1.6-2.3) mg/dL Total Bilirubin (0.2-1.3) mg/dL AST (14-36) U/L ALT (4-34) U/L Alkaline Phosphatase (38-126) U/L NT-Pro-B Natriuret Pep pg/mL Total Protein (6.3-8.2) g/dL Albumin (3.5-5.0) g/dL Influenza Type A (PCR) Not Detected (Not Detectd) Influenza Type B (PCR) Not Detected (Not Detectd) RSV (PCR) Not Detected (Not Detectd) SARS-CoV-2 (PCR) Not Detected (Not Detectd) 01/02/25 01/02/25 Range/Units 12:22 12:22 WBC (3.8-10.6) k/uL RBC (3.80-5.40) m/uL Hgb (11.4-16.0) gm/dL Hct (34.0-46.0) % MCV (80.0-100.0) fL MCH (25.0-35.0) pg MCHC (31.0-37.0) g/dL RDW (11.5-15.5) % Plt Count (150-450) k/uL MPV Neutrophils % % Lymphocytes % % Monocytes % % Eosinophils % % Basophils % % Neutrophils # (1.3-7.7) k/uL Lymphocytes # (1.0-4.8) k/uL Monocytes # (0-1.0) k/uL Eosinophils # (0-0.7) k/uL Basophils # (0-0.2) k/uL Hypochromasia PT (10.0-12.5) sec INR (<1.2) APTT (22.0-30.0) sec Sodium 135 L (137-145) mmol/L Potassium 4.2 (3.5-5.1) mmol/L Chloride 99 (98-107) mmol/L Carbon Dioxide 31 H (22-30) mmol/L Anion Gap 5 mmol/L BUN 38 H (7-17) mg/dL Creatinine 1.33 H (0.52-1.04) mg/dL Est GFR (CKD-EPI)AfAm 42 (>60 ml/min/1.73 sqM) Est GFR (CKD-EPI)NonAf 37 (>60 ml/min/1.73 sqM) Glucose 111 H (74-99) mg/dL Plasma Lactic Acid Kimani 0.7 (0.7-2.0) mmol/L Calcium 8.9 (8.4-10.2) mg/dL Magnesium 2.1 (1.6-2.3) mg/dL Total Bilirubin 0.5 (0.2-1.3) mg/dL AST 31 (14-36) U/L ALT 14 (4-34) U/L Alkaline Phosphatase 127 H (38-126) U/L NT-Pro-B Natriuret Pep 1900 pg/mL Total Protein 6.9 (6.3-8.2) g/dL Albumin 3.4 L (3.5-5.0) g/dL Influenza Type A (PCR) (Not Detectd) Influenza Type B (PCR) (Not Detectd) RSV (PCR) (Not Detectd) SARS-CoV-2 (PCR) (Not Detectd) Disposition Clinical Impression: CHF (congestive heart failure) Disposition: ADMITTED IP TO THIS HOSP Is patient prescribed a controlled substance at d/c from ED?: No Referrals: Sorin Reynoso MD [Primary Care Provider] - 1-2 days Time of Disposition: 14:34
--- NOTE | 2025-01-02 12:33 | XR ---
EXAMINATION TYPE: XR chest 2V DATE OF EXAM: 01/02/2025 CLINICAL INDICATION: Female, 84 years old with history of difficulty breathing, TECHNIQUE: Frontal and lateral views of the chest are obtained. COMPARISON: Chest x-ray December 09, 2024 FINDINGS: Reticular increased markings bilaterally are redemonstrated. There is no focal air space o pacity, pleural effusion, or pneumothorax seen. Cardiomegaly again seen. Suspect also moderate to lar ge size hiatal hernia. Osseous structures are intact. IMPRESSION: Cardiomegaly with bilateral interstitial edema suspected. Correlate for CHF exacerbation . No significant change from most recent prior. [facility], , 01/02/2025 12:30 PM
[2025-01-02] MEDS: SODIUM CHLORIDE 0.9% 1,000 ML IV SCH (12:34)
[2025-01-02 12:35] LABS: Basophils % (A) 1 %; Eosinophils # (A) 0.2 k/uL (0-0.7); Eosinophils % (A) 3 %; HCT 31.2 % (34.0-46.0); HGB 9.7 gm/dL (11.4-16.0); Hypochromasia Moderate; Lymphocytes # (A) 0.7 k/uL (1.0-4.8); Lymphocytes % (A) 13 %; MCV 83.8 fL (80.0-100.0); Mean Platelet Volume 8.1; Monocytes # (A) 0.5 k/uL (0-1.0); Monocytes % (A) 9 %; Neutrophils % (A) 72 %; Platelet Count 222 k/uL (150-450); RBC 3.72 m/uL (3.80-5.40); RDW 15.3 % (11.5-15.5); WBC 5.6 k/uL (3.8-10.6)
[2025-01-02 12:48] LABS: INR 0.9 (<1.2); Partial Thromboplastin Time 25.1 sec (22.0-30.0); Prothrombin Time 10.2 sec (10.0-12.5)
[2025-01-02 12:54] LABS: ALT 14 U/L (4-34); AST 31 U/L (14-36); African American GFR (CKD) 42 (>60 ml/min/1.73 sqM); Albumin 3.4 g/dL (3.5-5.0); Alkaline Phosphatase 127 U/L (38-126); Anion Gap 5 mmol/L; Blood Urea Nitrogen 38 mg/dL (7-17); Calcium 8.9 mg/dL (8.4-10.2); Carbon Dioxide 31 mmol/L (22-30); Chloride 99 mmol/L (98-107); Glucose 111 mg/dL (74-99); Magnesium 2.1 mg/dL (1.6-2.3); Non-African American GFR(CKD) 37 (>60 ml/min/1.73 sqM); Potassium 4.2 mmol/L (3.5-5.1); Sodium 135 mmol/L (137-145); Total Bilirubin 0.5 mg/dL (0.2-1.3); Total Protein 6.9 g/dL (6.3-8.2)
[2025-01-02] MEDS: IPRATROPIUM-ALBUTEROL 3 ML NEB INHALATION STA (12:59)
[2025-01-02 13:00] LABS: NT-Pro-B-Type Natriuretic Pept 1900 pg/mL
[2025-01-02] MEDS: BUMETANIDE 0.25 MG/ML 10 ML VIAL IV SCH (15:23)
[2025-01-02] MEDS: ASPIRIN 325 MG TAB PO STA (15:24)
[2025-01-02] MEDS: ACETAMINOPHEN TAB 325 MG TAB PO PRN (16:50)
--- NOTE | 2025-01-02 18:35 | CT ---
EXAMINATION TYPE: CT chest wo con DATE OF EXAM: 01/02/2025 5:56 PM COMPARISON: None. CLINICAL INDICATION: Female, 84 years old with history of hi resolution ct of chest interstitial lung disease, STONEY TECHNIQUE: Axial images were obtained at 1 mm thick sections at 10 mm intervals. This will limit po rtions of the examination which may not be visualized within the [id number]. Images were obtained in the supine view with inspiration and expiration performed. Patient unable to perform prone imagin g Contrast used: mL of , (none if empty) Oral contrast used: (none if empty) CT DLP: 885.9 mGycm, Automated exposure control for dose reduction was used. FINDINGS: Portion of the thyroid visualized is normal. No suspicious lung nodules or focal infiltrat es are present. No enlarged mediastinal or hilar adenopathy is evident. The ascending aorta diameter at the level o f the main pulmonary artery is 3.5 cm. The main pulmonary artery diameter at the bifurcation is 3.1 cm. Coronary artery calcification is present. Limited CT sections are obtained through the upper abdomen. There is a large hiatal hernia present. C holelithiasis is present. IMPRESSION: 1. No acute high resolution CT chest changes evident. 2. Large hiatal hernia. [facility], , 01/02/2025 6:33 PM
[2025-01-02] MEDS: hydrALAZINE HCL 25 MG TAB PO SCH (19:15)
[2025-01-02 19:25] LABS: Appearance,Urine Clear (Clear); Bilirubin,Urine Negative (Negative); Blood,Urine Negative (Negative); Color,Urine Colorless; Glucose,Urine (UA) Negative (Negative); Ketones,Urine Negative (Negative); Leukocyte Esterase,Urine Negative (Negative); Nitrite,Urine Negative (Negative); PH, Urine 6.5 (5.0-8.0); Protein,Urine Negative (Negative); Specific Gravity,Urine 1.006 (1.001-1.035); Urobilinogen,Urine <2.0 mg/dL (<2.0)
--- NOTE | 2025-01-02 19:36 | P.HPIM ---
History of Present Illness H&P Date: 01/02/25 Chief Complaint: Cough, shortness of breath, nauseated, weakness History and physical dictation Date of service Room #4 64 bed 1 Patient seen in the EC department room 20. Chief complaint and ER presentation: 84 years old white female never presented to emergency room department feeling ill and sick with the cough short of breath feeling congested. Dyspnea however no fever. History of present illness: Patient have severe problem with mobility, usually patient will in a wheelchair and accompanied with her cousin with the underlying severe hearing impairment and difficult mobilization with chronic edema of the lower extremities Patient did call the office 2 days ago and advised with the laboratories and x- ray and to come to the office. Subsequently today advised to go to the laboratory and x-ray with the communication with her cousin, however patient when she came to the hospital went to the emergency room where she was evaluated by Dr. Sonido Coffman and he felt after his evaluation that the patient is sick enough to be admitted with the underlying cough and weakness and short of breath. Patient had long list of allergy to any medication and as well as many antibiotic as she feel that allergic or not or the adverse effect unknown. Home medication: Aspirin 81 mg Lansoprazole 30 mg daily Levothyroxine sodium 75 mg a.m. Demadex 20 mg once a day Hydralazine 25 mg 4 times daily Acetaminophen 1000 mg every 6 hour which is a large dose not accepted Blue emu cream Calcium vitamin D3 magnesium and zinc and other additive Malcom-Citrate 600+ D Clobetasol Temovate 0.05% cream twice a day Ensure 1 can daily Woman multi vitamin Buspirone 5 mg twice a day for anxiety History of using isosorbide mononitrate ER "Imdur ". Twice a day Allergies: Multiple on the chart however not documented the effect Past medical history: Severe hearing deficit with hearing aid Congestive heart failure, hypertension, advanced osteoarthritis, chronic kidney disease stage IIIb, hypothyroidism, subarachnoid hemorrhage in 1986. Cyst on the kidney and ovary. Surgical history: Left knee joint replacement total arthroplasty, bilateral cataract surgery, postoperative nausea and vomiting, Never smoked. No alcohol intake no other drug abuse. Family history: Cancer and skin cancer, mother CVA and TIA. ROS: Neuropsychiatry: Anxious, hearing deficit, suspicious Pulmonary: Short of breath, cough, never smoked in the past Heart: Cardiomegaly, no chest pain, history of congestive heart failure GI: Patient was nauseated on the floor, three-quarter of her stomach herniated into the chest wall Endocrine: Hypothyroidism, no diabetes mellitus, General constitutional no fever no chill, positive for obesity stage II Musculoskeletal: Advanced degenerative arthritis of the joint and the spine She has chronic edema of the lower extremities has been treated from lymphedema in the past Skin: Patient is not diabetic, 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 Psychiatry anxious and gravely disabled. On the physical exam: Vital sign on admission: Temperature 97.7 F oral, heart rate 63, respiratory rate 22, blood pressure 100/53 with the mean blood pressure is 68, oxygen saturation 96% on room air. At the time of the exam on the floor: Temperature 98.0 F oral pulse rate 66 bpm, respiratory rate 20/min, blood pressure 168/76 with a mean 100 and oxygen satura tion 95% on room air however patient was severely short of breath with wheezing audible and coughing. Head was normocephalic atraumatic, pupil was equal reactive, she had previous history of cataract surgery bilateral, bilateral hearing deficit with the hearing aid in 1 year Oropharynx natural teeth, nose no rhinitis Neck supple no JVD no thyromegaly no lymph adenopathy trachea midline chest bilateral inspiratory expiratory wheezing and rhonchi associated with harsh cough in the spite of influenza AMB was negative, RSV negative, and COVID negative. Patient never smoked in her life She had kyphosis scoliosis with kyphosis. With the chest x-ray suspicious of basilar atelectasis versus bronchitis. Heart regular sinus with cardiomegaly. proBNP was mildly elevated with the underlying decompensation added to her edema of the lower extremities Abdomen vague discomfort with feeling nauseated with the possible causes of herniation of the stomach in the chest cavity Extremities: Positive pulses puffiness of the dorsum of the feet bilateral and the edema of the lower extremities added to erythema in the front of the shaft. Neurologically stable Psychiatrically stable with the underlying anxiety. Laboratory was evaluated: #1 anemia with a hemoglobin 9.7 normocytic hypochromic, PT and INR and PTT within normal limit, Chemistry indicating sodium 135 mild hyponatremia, BUN 38 creatinine 1.33 suggestive of EGFR for non- 37 indicating chronic kidney disease stage III Glucose 111, lactic acid 0.7, liver enzyme is normal and alkaline phosphatase 127 within normal range 126. NT proBNP 1900. Imaging: #1 no acute high-resolution CT of the chest abnormalities but there is large hiatal hernia 2. Cholelithiasis which could be explaining the nausea and vomiting. No evidence by the CT of pneumonic process however with the cough and wheezing bronchitis still considered and we consulted pulmonary Dr. Ortega Chest x-ray indicate cardiomegaly with interstitial edema correlate with congestive heart failure exacerbation we consulted the cardiology however there is no comment by on the CT scan. Assessment and plan 1. Weakness, cough, wheezes bilateral with the spring start to affect 2. Viral infection with the underlying reactive bronchospasm 3. Significant herniation of the stomach in the chest cavity with the GERD disease 4. Underlying cholelithiasis. Participating factor. 5. Bladder scan in spite of the patient incontinent found that she had bladder retention for more than 380 mL of urine and require Woodward catheter and urology consultation added to UA and culture and sensitivity. Plan 1. Wait for cardiology evaluation and echocardiogram result 2. Wait for pulmonary and critical care evaluation and treatment 3. Will start her medication and control the blood pressure 4. For nausea we will start Zofran and started also on diuretics and we may have to check with the surgeon in evaluation of the cholelithiasis as well. And if any merit for consideration for the future laparoscopic cholecystectomy if this is causing the problem, against that is liver enzymes is normal as well as bilirubin total is 0.5 is also normal. 5. Patient had [place] catheter, on the floor bladder scan was done found that she had more than 380 mL of urine retention and will be placement of Woodward catheter and consulting urology Past Medical History Past Medical History: Heart Failure, Hypertension, Osteoarthritis (OA), Renal Disease, Thyroid Disorder Additional Past Medical History / Comment(s): arthritis, sub arachnoid hemorrhage 1986, URINARY INCONTINENCE, CKD stage 3, cyst on kidney and ovary, hypothyroidism History of Any Multi-Drug Resistant Organisms: None Reported Past Surgical History: Joint Replacement Additional Past Surgical History / Comment(s): bilat. cataract surgery, LEFT KNEE replacement Past Anesthesia/Blood Transfusion Reactions: Motion Sickness, Postoperative Nausea & Vomiting (PONV) Past Psychological History: No Psychological Hx Reported Smoking Status: Never smoker Past Alcohol Use History: None Reported Past Drug Use History: None Reported - Past Family History Sister(s) Family Medical History: Cancer Additional Family Medical History / Comment(s): SKIN CANCER Mother Family Medical History: CVA/TIA Medications and Allergies Home Medications Medication Instructions Recorded Confirmed Type Aspirin 81 mg PO DAILY 09/26/14 01/02/25 History Lansoprazole 30 mg PO DAILY 09/26/14 01/02/25 History Levothyroxine Sodium [Synthroid] 75 mcg PO DAILY 11/20/23 01/02/25 History Isosorbide Mononitrate ER [Imdur] 30 mg PO DAILY tab 11/24/23 01/02/25 Rx Torsemide [Demadex] 20 mg PO BID 06/23/24 01/02/25 History hydrALAZINE HCL [Apresoline] 25 mg PO QID 06/23/24 01/02/25 History Acetaminophen Tab [Tylenol Tab] 1,000 mg PO Q6H PRN 01/02/25 01/02/25 History Blue Emu Cream 1 applic TOPICAL DAILY PRN 01/02/25 01/02/25 History Malcom/D3/Mag11/Zinc/Small Engine Technician/Ady/Bor 1 tab PO DAILY 01/02/25 01/02/25 History [Caltrate 600+D Plus Tablet] Clobetasol Propionate [Temovate 1 applic TOPICAL BID PRN 01/02/25 01/02/25 History 0.05% Cream] Ensure 1 can PO DAILY 01/02/25 01/02/25 History Multivit with Calcium,Iron,Min 1 tab PO DAILY 01/02/25 01/02/25 History [Women's Multivitamin] Prevent Silicone Cream W/ Zinc 1 applic TOPICAL DAILY PRN 01/02/25 01/02/25 History Oxide busPIRone HCl [Buspar] 5 mg PO BID 01/02/25 01/02/25 History Allergies Allergy/AdvReac Type Severity Reaction Status Date / Time sulfamethoxazole Allergy Unknown "Sick as a Verified 01/02/25 11:50 [From Bactrim] Dog" trimethoprim [From Bactrim] Allergy Unknown "Sick as a Verified 01/02/25 11:50 Dog" Penicillins Allergy Rash/Hives Verified 01/02/25 11:50 adhesive AdvReac Unknown Rash, Red Verified 01/02/25 11:50 Skin from tape and cardiac electrodes. ciprofloxacin [From Cipro] AdvReac Unknown Pain in Verified 01/02/25 11:50 Arms ibuprofen [From Motrin] AdvReac Unknown Eye Pain Verified 01/02/25 11:50 doxycycline AdvReac Unknown Verified 01/02/25 11:50 ferrous sulfate AdvReac SEVERE Verified 01/02/25 11:50 HEADACHE furosemide [From Lasix] AdvReac Rapid Verified 01/02/25 11:50 Heart Rate latex AdvReac Unknown Verified 01/02/25 11:50 omeprazole [From Prilosec] AdvReac Unknown Verified 01/02/25 11:50 omeprazole magnesium AdvReac Unknown Verified 01/02/25 11:50 [From Prilosec] Physical Exam Vitals: Vital Signs Temp Pulse Resp BP Pulse Ox 01/02/25 17:46 97.8 F 63 20 162/66 98 01/02/25 13:17 61 20 111/53 97 01/02/25 13:09 64 01/02/25 12:59 60 01/02/25 11:18 56 L 20 126/55 97 01/02/25 11:00 97.7 F 63 22 100/53 96 Intake and Output 01/02/25 01/02/25 01/02/25 06:59 14:59 22:59 Other: Weight 81.647 kg Results CBC & Chem 7: 01/02/25 12:22 01/02/25 12:22 Labs: Abnormal Lab Results - Last 24 Hours (Table) 01/02/25 01/02/25 Range/Units 12:22 12:22 RBC 3.72 L (3.80-5.40) m/uL Hgb 9.7 L (11.4-16.0) gm/dL Hct 31.2 L (34.0-46.0) % Lymphocytes # 0.7 L (1.0-4.8) k/uL Sodium 135 L (137-145) mmol/L Carbon Dioxide 31 H (22-30) mmol/L BUN 38 H (7-17) mg/dL Creatinine 1.33 H (0.52-1.04) mg/dL Glucose 111 H (74-99) mg/dL Alkaline Phosphatase 127 H (38-126) U/L Albumin 3.4 L (3.5-5.0) g/dL
[2025-01-02] MEDS: ALBUTEROL NEBULIZED 2.5 MG/3 ML INHALATION SCH (20:46)
[2025-01-02] MEDS: methylPREDNISolone SOD SUCCI 125 MG/2 ML VIAL IV SCH ×2 (21:34→21:38)
[2025-01-02] MEDS: busPIRone HCl 5 MG TAB PO SCH (22:27)
[2025-01-03] MEDS: NITROGLYCERIN OINT 1 INCH/GM PACKET TOPICAL SCH (01:17)
[2025-01-03 03:27] LABS: Reticulocyte % 1.49 % (0.10-1.80)
[2025-01-03 03:42] LABS: % Iron Saturation 10.71 (12.00-45.00)
[2025-01-03] MEDS: PANTOPRAZOLE 40 MG TABLET PO SCH (08:54)
[2025-01-03] MEDS: ASPIRIN 81 MG PO SCH (08:54)
[2025-01-03] MEDS: ISOSORBIDE MONONITRATE ER 30 MG TAB.ER.24H PO SCH (08:54)
[2025-01-03] MEDS: MULTIVITAMINS, THERA 1 EACH TAB PO SCH (08:54)
[2025-01-03] MEDS: LEVOTHYROXINE 75 MCG TAB PO SCH (08:54)
[2025-01-03] MEDS ORDERED: NON FORMULARY DRUG (Cal/D3/Mag11/Zinc/Cop/Mang/Bor [Caltrate 600+D Plus Tablet] 1 EACH Tab PO SCH (09:00)
[2025-01-03] MEDS ORDERED: NON FORMULARY DRUG (Ensure 1 CAN Ml) PO SCH (09:00)
[2025-01-03] MEDS ORDERED: ASPIRIN 325 MG TAB PO SCH (09:00)
[2025-01-03 10:03] LABS: BUN/Creat Ratio 20.79 Ratio (12.00-20.00); Blood Urea Nitrogen 29.1 mg/dL (9.0-27.0); Carbon Dioxide 28.7 mmol/L (21.6-31.8); Chloride 99 mmol/L (96-109); Glucose 135 mg/dL (70-110); Potassium 4.6 mmol/L (3.5-5.5); Sodium 139 mmol/L (135-145)
[2025-01-03] MEDS: ONDANSETRON 4 MG/2 ML VIAL IVP PRN (10:15)
[2025-01-03 13:00] VITALS: BMI 36.3
--- NOTE | 2025-01-03 13:52 | CA ---
Transthoracic Echo Report Name: Radha Villavicencio Age: 84 Gender: F : 1940 Exam Date: 01/03/2025 08:32 Exam Location: [place] [facility] Ht (in): 60 Wt (lb): 180 Ordering Physician: Kole Coffman DO Attending/Referring Phys: Surfacing Machine Operator Sushila Odom, EDWARD Procedure CPT: Indications: Heart failure Cardiac Hx: Technical Quality: Fair Contrast 1: Total Dose (mL): Contrast 2: Total Dose (mL): MEASUREMENTS (Male / Female) Normal Values 2D ECHO LV Diastolic Diameter PLAX 4.8 cm 4.2 - 5.9 / 3.9 - 5.3 cm LV Systolic Diameter PLAX 2.7 cm IVS Diastolic Thickness 1.0 cm 0.6 - 1.0 / 0.6 - 0.9 cm LVPW Diastolic Thickness 1.1 cm 0.6 - 1.0 / 0.6 - 0.9 cm LV Relative Wall Thickness 0.4 RV Internal Dim ED PLAX 2.1 cm LA Systolic Diameter LX 4.7 cm 3.0 - 4.0 / 2.7 - 3.8 cm LV Diastolic Volume MOD 4C 49.6 cm??? LV Systolic Volume MOD 4C 17.1 cm??? LV Ejection Fraction MOD 4C 65.5 % LV Cardiac Index MOD 4C 1385.2 cm???/min???m??? LV Diastolic Length 4C 6.7 cm LV Systolic Length 4C 5.1 cm M-MODE Aortic Root Diameter MM 3.4 cm LA Systolic Diameter MM 5.6 cm LA Ao Ratio MM 1.7 AV Cusp Separation MM 1.6 cm DOPPLER MV Area PHT 2.4 cm??? Mitral E Point Velocity 66.2 cm/s Mitral A Point Velocity 102.0 cm/s Mitral E to A Ratio 0.6 MV Deceleration Time 316.0 ms TR Peak Velocity 285.5 cm/s TR Peak Gradient 32.6 mmHg Right Atrial Pressure 10.0 mmHg Pulmonary Artery Systolic Pressu 42.6 mmHg Right Ventricular Systolic Press 42.6 mmHg FINDINGS Left Ventricle Left ventricular ejection fraction is estimated at 55-60 %. Mildly increased posterior wall thickness.Normal left ventricular systolic function with no obvious regional wall motion abnormalities. Left ventricular cavity size normal. Right Ventricle Mild right ventricular dilatation. Mild pulmonary hypertension. Right Atrium Moderate right atrial dilatation. Left Atrium Moderately increased left atrial diameter. Mildly increased left atrial area. Mitral Valve Structurally normal mitral valve. [id number] mitral regurgitation. No mitral stenosis. Aortic Valve Trileaflet aortic valve. No aortic regurgitation. Diffuse thickening (sclerosis) of the aortic valve cusps without reduced excursion. Tricuspid Valve Structurally normal tricuspid valve. Moderate tricuspid regurgitation. No tricuspid stenosis. Pulmonic Valve Structurally normal pulmonic valve. Trace pulmonic regurgitation. No pulmonic stenosis. Pericardium No pericardial or pleural effusion. Aorta Normal size aortic root and proximal ascending aorta. CONCLUSIONS LVEF 55 to 60% No obvious regional wall motion abnormality Moderate biatrial dilatation Moderate mitral regurgitation Moderate tricuspid regurgitation Aortic sclerosis but no significant stenosis Previewed by: Dr Alin Stallings (Electronically Signed) Final Date: 03 January 2025 13:51
[2025-01-03] MEDS ORDERED: ENALAPRILAT 1.25 MG/ML 1 ML VIAL IVP PRN (14:01)
--- NOTE | 2025-01-03 15:05 | P.PN ---
Subjective Progress Note Date: 01/03/25 Progress note Date of service 01/03/[address] Reynoso Location 464 bed 1 Patient seen evaluated [id number] She stated that her cough and wheezing improved with the steroid, she denied any asthma and the childhood. Patient with Woodward catheter with a urine retention we consulted the urology. Interval: Echocardiogram read by Dr. Stallings Conclusion LV EF 55 to 60%, no obvious regional wall motion abnormalities Moderate by atrial dilatation Moderate mitral regurgitation Moderate tricuspid regurgitation Aortic sclerosis but no significant stenosis. Mild pulmonary hypertension. With the clinical picture with the edema of the lower extremities as well as history of congestive heart failure probably diastolic in nature however we do not have yet cardiology clinical evaluation and treatment yet. In the guarded of pulmonary not seen yet, patient on admission have inspiratory expiratory wheezes and severe short of breath started on steroid today she had some improvement and will be waiting for pulmonary evaluation with no history of smoking in the past. Patient had Woodward catheter with the urine retention and urology consulted. They did not see her yet. Vital sign: Temperature 97.5 F oral pulse rate 86 bpm regular Respiratory rate 24/min, she had elevated hide blood pressure 165/73 with a mean 103, oxygen saturation on room air 93. Still have cough mildly improved. With the episodic exacerbation of respiratory rate. Sed rate 118,, C-reactive protein 2.60, which both is elevated etiology is unclear TSH 4.04 which is normal with the current thyroid medication Her iron is low, iron 33, TIBC 308, iron saturation 10.71, transferrin 220, Liver enzyme was normal, BUN 38, creatinine 1.4, EGFR 37 with the underlying chronic kidney disease stage IIIb which has been chronic. She had negative influenza AMB, RSV, COVID. On the examination: Patient continued short of breath anxious and anemic Head was normocephalic atraumatic, pupils equal reactive, conjunctiva mildly pale Normal oropharynx, hearing deficit Neck was supple no JVD no thyromegaly no lymphadenopathy trachea midline. Chest still continued to have inspiratory expiratory wheezes no evidence of dullness Heart regular sinus rhythm EKG indicating 68 bpm with sinus rhythm with premature reviewed supraventricular contraction, Possible anterior infarction and abnormal EKG. Abdomen soft positive bowel sound no tenderness, Woodward catheter in place with urinary retention Extremities: Edema of the lower extremities was pitting in nature and has been in progress of improvement. Neurologically no lateralizing sign, conscious alert oriented no confusion Psychiatry she has still anxious. Assessment: 1. Congestive heart failure with preserved ejection fraction and diastolic improvement 2. Valvular heart disease as mentioned above 3. Mild pulmonary hypertension 4. Significant elevation of the sed rate, CRP with the underlying inflammatory process currently unknown etiology. #5 anemia with multifactorial,. 6. Iron deficiency anemia 7. Chronic kidney disease stage IIIb 8. Hypertension with hypertensive heart disease. 9. No evidence of diarrhea or C. difficile as there is traumatic order for C. difficile per hospital protocol. 10. Asthmatic bronchitis highly considered and waiting for the pulmonary evalu ation. Plan: 1. Will continue the steroid till seen by the pulmonary #2 started on HERSON inhibitor as needed IV for controlling the blood pressure 3. Increase the BuSpar for the anxiety to twice a day. 4. Obtaining stool for Hemoccult with the presence of iron deficiency anemia 5. Obtaining vitamin B12 and folic acid and missile malonic acid. 6. With the elevated inflammatory markers we will check on autoimmune disease will order ADDIE anti-DNA and rheumatoid factor. Objective - Vital Signs Vital signs: Vital Signs Temp 97.5 F L 01/03/25 13:53 Pulse 86 01/03/25 13:53 Resp 24 01/03/25 13:53 BP 130/62 01/03/25 13:53 Pulse Ox 93 L 01/03/25 13:53 FiO2 Intake & Output 01/02/25 01/03/25 01/03/25 18:59 06:59 18:59 Output Total 800 Balance -800 Weight 81.647 kg 84.5 kg 84.5 kg Output: Urine 800 Other: # Voids 0 # Bowel Movements 1 - Labs CBC & Chem 7: 01/02/25 12:22 01/03/25 05:51 Labs: Abnormal Lab Results - Last 24 Hours (Table) 01/02/25 01/03/25 01/03/25 Range/Units 12:22 05:51 05:51 ESR 118 H (0-30) mm/Hr BUN 29.1 H (9.0-27.0) mg/dL Est GFR (CKD-EPI) 37 L (>=60) BUN/Creatinine Ratio 20.79 H (12.00-20.00) Ratio Glucose 135 H (70-110) mg/dL Iron 33 L (50-170) UG/DL % Saturation 10.71 L (12.00-45.00) C-Reactive Protein 2.60 H (0.00-0.80) mg/dL
--- NOTE | 2025-01-03 15:08 | P.CNPUL ---
History of Present Illness Consult date: 01/03/25 Reason for consult: dyspnea History of present illness: This is a 84-year-old female patient, resides in assisted living, presented to the emergency with some difficulties with mobility, increased lower extremity edema and some exertional dyspnea. No chest pain. No cough production. Chest x-ray wheezing. The patient denies having any fever or chills. White count of 5.6, hemoglobin 9.7 and platelet count 222. Normal electrolytes. Sodium levels at 139, potassium is at 4.6, creatinine 9 with a bicarb of 28. The patient's BUN is at 29 with creatinine 1.4. Glucose is at 135. LFTs were essentially within normal limits. Serum iron level is at 33 which is low. proBNP level is 1900. TSH 4.04 and UA is negative. Viral screen was negative. The chest x-ray done in the emergency department shows cardiomegaly with some mild interstitial edema. Also, the patient was given a CT scan of the chest that showed a large hiatal hernia. Moderate abnormalities identified. The patient is Resting up comfortably in the chair. He is on room air oxygen. Echo showed preserved LV function with an EF of 55 to 60%. There was evidence of hypertension with estimated PA pressure of 42. Multiple hepatic rotation, no dyspnea micrograms, the aortic valve was within normal limits. The patient is currently on Bumex [place] milligram every 24 hours. Review of Systems Constitutional: Reports fatigue Eyes: denies as per HPI, denies blurred vision, denies bulging eye, denies decreased vision, denies diplopia, denies discharge, denies dry eye, denies irritation, denies itching, denies pain, denies photophobia, denies loss of peripheral vision, denies loss of vision, denies tunnel vision/blind spots Ears: deny: decreased hearing, ear discharge, earache, tinnitus Ears, nose, mouth and throat: Reports as per HPI Breasts: absent: as per HPI, change in shape, gynecomastia, masses, nipple discharge, pain, skin changes, swelling Cardiovascular: Reports decreased exercise tolerance, Reports dyspnea on exertion, Reports leg edema Respiratory: Reports dyspnea Genitourinary: Reports as per HPI Menstruation: Reports as per HPI Musculoskeletal: Reports as per HPI Musculoskeletal: bilateral: ankle swelling, absent: ankle pain, ankle stiffness Integumentary: Reports as per HPI Neurological: Reports as per HPI Psychiatric: Reports as per HPI Endocrine: Reports as per HPI Hematologic/Lymphatic: Reports as per HPI Allergic/Immunologic: Reports as per HPI Past Medical History Past Medical History: Heart Failure, Hypertension, Osteoarthritis (OA), Renal Disease, Thyroid Disorder Additional Past Medical History / Comment(s): arthritis, sub arachnoid hemorrhage 1986, URINARY INCONTINENCE, CKD stage 3, cyst on kidney and ovary, hypothyroidism History of Any Multi-Drug Resistant Organisms: None Reported Past Surgical History: Joint Replacement Additional Past Surgical History / Comment(s): bilat. cataract surgery, LEFT KNEE replacement Past Anesthesia/Blood Transfusion Reactions: Motion Sickness, Postoperative Nausea & Vomiting (PONV) Past Psychological History: No Psychological Hx Reported Smoking Status: Never smoker Past Alcohol Use History: None Reported Past Drug Use History: None Reported - Past Family History Sister(s) Family Medical History: Cancer Additional Family Medical History / Comment(s): SKIN CANCER Mother Family Medical History: CVA/TIA Medications and Allergies Home Medications Medication Instructions Recorded Confirmed Type Aspirin 81 mg PO DAILY 09/26/14 01/02/25 History Lansoprazole 30 mg PO DAILY 09/26/14 01/02/25 History Levothyroxine Sodium [Synthroid] 75 mcg PO DAILY 11/20/23 01/02/25 History Isosorbide Mononitrate ER [Imdur] 30 mg PO DAILY tab 11/24/23 01/02/25 Rx Torsemide [Demadex] 20 mg PO BID 06/23/24 01/02/25 History hydrALAZINE HCL [Apresoline] 25 mg PO QID 06/23/24 01/02/25 History Acetaminophen Tab [Tylenol Tab] 1,000 mg PO Q6H PRN 01/02/25 01/02/25 History Blue Emu Cream 1 applic TOPICAL DAILY PRN 01/02/25 01/02/25 History Malcom/D3/Mag11/Zinc/Mechanical Service Specialist/Ady/Bor 1 tab PO DAILY 01/02/25 01/02/25 History [Caltrate 600+D Plus Tablet] Clobetasol Propionate [Temovate 1 applic TOPICAL BID PRN 01/02/25 01/02/25 History 0.05% Cream] Ensure 1 can PO DAILY 01/02/25 01/02/25 History Multivit with Calcium,Iron,Min 1 tab PO DAILY 01/02/25 01/02/25 History [Women's Multivitamin] Prevent Silicone Cream W/ Zinc 1 applic TOPICAL DAILY PRN 01/02/25 01/02/25 History Oxide busPIRone HCl [Buspar] 5 mg PO BID 01/02/25 01/02/25 History Allergies Allergy/AdvReac Type Severity Reaction Status Date / Time sulfamethoxazole Allergy Unknown "Sick as a Verified 01/02/25 11:50 [From Bactrim] Dog" trimethoprim [From Bactrim] Allergy Unknown "Sick as a Verified 01/02/25 11:50 Dog" Penicillins Allergy Rash/Hives Verified 01/02/25 11:50 adhesive AdvReac Unknown Rash, Red Verified 01/02/25 11:50 Skin from tape and cardiac electrodes. ciprofloxacin [From Cipro] AdvReac Unknown Pain in Verified 01/02/25 11:50 Arms ibuprofen [From Motrin] AdvReac Unknown Eye Pain Verified 01/02/25 11:50 doxycycline AdvReac Unknown Verified 01/02/25 11:50 ferrous sulfate AdvReac SEVERE Verified 01/02/25 11:50 HEADACHE furosemide [From Lasix] AdvReac Rapid Verified 01/02/25 11:50 Heart Rate latex AdvReac Unknown Verified 01/02/25 11:50 omeprazole [From Prilosec] AdvReac Unknown Verified 01/02/25 11:50 omeprazole magnesium AdvReac Unknown Verified 01/02/25 11:50 [From Prilosec] Physical Exam Vitals: Vital Signs Temp Pulse Pulse Pulse Resp BP BP 01/03/25 09:14 84 01/03/25 09:02 80 01/03/25 07:20 97.9 F 64 18 165/73 01/03/25 01:30 98.8 F 84 17 127/68 01/02/25 22:27 73 138/65 01/02/25 20:57 82 01/02/25 20:46 84 01/02/25 19:50 98.7 F 84 16 01/02/25 18:27 98.0 F 66 20 01/02/25 17:46 97.8 F 63 20 162/66 01/02/25 13:17 61 20 111/53 01/02/25 13:09 64 01/02/25 12:59 60 01/02/25 11:18 56 L 20 126/55 01/02/25 11:00 97.7 F 63 22 100/53 BP Pulse Ox 01/03/25 09:14 01/03/25 09:02 01/03/25 07:20 93 L 01/03/25 01:30 94 L 01/02/25 22:27 01/02/25 20:57 01/02/25 20:46 01/02/25 19:50 155/72 97 01/02/25 18:27 168/67 95 01/02/25 17:46 98 01/02/25 13:17 97 01/02/25 13:09 01/02/25 12:59 01/02/25 11:18 97 01/02/25 11:00 96 Intake and Output 01/02/25 01/03/25 01/03/25 22:59 06:59 14:59 Output Total 800 Balance -800 Output: Urine 800 Other: # Voids 0 Weight 81.647 kg 84.5 kg General Appearance the patient is calm and comfortable and she is on room air oxygen. Head exam was generally normal. There was no scleral icterus or corneal arcus. Mucous membranes were moist. Neck was supple and without jugular venous distension, thyromegaly, or carotid bruits. Carotids were easily palpable bilaterally. There was no adenopathy. Lungs were clear to auscultation and percussion, and with normal diaphragmatic excursion. No wheezes or rales were noted. Diminished breath sounds at lung bases bilaterally, few scattered rhonchi. Cardiac exam revealed the PMI to be normally situated and sized. The rhythm was regular and no extrasystoles were noted during several minutes of auscultation. The first and second heart sounds were normal and physiologic splitting of the second heart sound was noted. There were no murmurs, rubs, clicks, or gallops. Abdominal exam revealed normal bowel sounds. The abdomen was soft, non-tender, and without masses, organomegaly, or appreciable enlargement of the abdominal aorta. Examination of the extremities revealed easily palpable radial, femoral and pedal pulses. There was no cyanosis, clubbing or edema. Examination of the skin revealed no evidence of significant rashes, suspicious appearing nevi or other concerning lesions. Neurologically, the patient is awake and alert and the patient does not have any focal neurological deficit. Cranial nerves are essentially intact. Results - Laboratory Findings CBC and BMP: 01/02/25 12:22 01/03/25 05:51 PT/INR, D-dimer PT 10.2 sec (10.0-12.5) 01/02/25 12:22 INR 0.9 (<1.2) 01/02/25 12:22 Abnormal lab findings: Abnormal Labs 01/02/25 01/02/25 01/02/25 12:22 12:22 12:22 RBC 3.72 L Hgb 9.7 L Hct 31.2 L Lymphocytes # 0.7 L ESR Sodium 135 L Carbon Dioxide 31 H BUN 38 H Creatinine 1.33 H Est GFR (CKD-EPI) BUN/Creatinine Ratio Glucose 111 H Iron 33 L % Saturation 10.71 L Alkaline Phosphatase 127 H C-Reactive Protein Albumin 3.4 L 01/03/25 01/03/25 05:51 05:51 RBC Hgb Hct Lymphocytes # ESR 118 H Sodium Carbon Dioxide BUN 29.1 H Creatinine Est GFR (CKD-EPI) 37 L BUN/Creatinine Ratio 20.79 H Glucose 135 H Iron % Saturation Alkaline Phosphatase C-Reactive Protein 2.60 H Albumin - Diagnostic Findings Chest x-ray: image reviewed CT scan - chest: image reviewed Assessment and Plan Plan: Acute on chronic dyspnea. CT of the chest was reviewed and there is no acute coronary process. Patient is alert hide hernia. Clinically, she has not signs of volume overload with increased lower edema. The patient is on room air oxygen and viral screen been negative. Lower extreme edema, echocardiogram shows preserved LV function with moderate degree of heart regurgitation History of subarachnoid hemorrhage back in 1986 Hypothyroidism Hypertension Chronic stage III kidney disease Chronic normocytic anemia, underlying iron deficiency Chronic urinary incontinence Chronic diastolic heart failure Chronic lymphedema involving lower extremities Pulmonary hypertension, likely group 2. Negative stress test back in 2016. Plan Clinically stable On room air oxygen Continue diuretics Replace iron and marked anemia R agree on the current management. Continue to follow.
[2025-01-03] MEDS: hydrALAZINE HCL 50 MG TAB PO SCH (17:33)
[2025-01-03] MEDS: guaiFENesin-DM 100-10MG/5ML 10 ML CUP PO SCH (21:58)
[2025-01-03] MEDS: HEPARIN SODIUM,PORCINE 5,000 UNIT/ML 1 ML VIAL SQ SCH (22:00)
[2025-01-03] MEDS: busPIRone HCl 5 MG TAB PO SCH (22:00)
[2025-01-04] MEDS: LEVOTHYROXINE 75 MCG TAB PO SCH (05:39)
[2025-01-04 08:05] LABS: Basophils % (A) 0 %; Eosinophils % (A) 0 %; HCT 33.5 % (34.0-46.0); HGB 9.9 gm/dL (11.4-16.0); Hypochromasia Moderate; Lymphocytes # (A) 0.6 k/uL (1.0-4.8); Lymphocytes % (A) 8 %; MCH 25.3 pg (25.0-35.0); MCHC 29.4 g/dL (31.0-37.0); MCV 85.9 fL (80.0-100.0); Mean Platelet Volume 7.7; Monocytes # (A) 0.2 k/uL (0-1.0); Monocytes % (A) 2 %; Neutrophils # (A) 6.2 k/uL (1.3-7.7); Neutrophils % (A) 89 %; Platelet Count 253 k/uL (150-450); RDW 15.3 % (11.5-15.5)
[2025-01-04 10:11] LABS: Chol/HDL Ratio 2.24 Ratio; LDL Cholesterol,Calculated 87.7 mg/dL (0.0-131.0); Rheumatoid Factor, Qnt <15 IU/mL (0-15)
--- NOTE | 2025-01-04 11:32 | P.PN ---
Subjective Progress Note Date: 01/04/25 This is a 84-year-old female patient, resides in assisted living, presented to the emergency with some difficulties with mobility, increased lower extremity edema and some exertional dyspnea. No chest pain. No cough production. Chest x-ray wheezing. The patient denies having any fever or chills. White count of 5.6, hemoglobin 9.7 and platelet count 222. Normal electrolytes. Sodium levels at 139, potassium is at 4.6, creatinine 9 with a bicarb of 28. The patient's BUN is at 29 with creatinine 1.4. Glucose is at 135. LFTs were essentially within normal limits. Serum iron level is at 33 which is low. proBNP level is 1900. TSH 4.04 and UA is negative. Viral screen was negative. The chest x-ray done in the emergency department shows cardiomegaly with some mild interstitial edema. Also, the patient was given a CT scan of the chest that showed a large hiatal hernia. Moderate abnormalities identified. The patient is Resting up comfortably in the chair. He is on room air oxygen. Echo showed preserved LV function with an EF of 55 to 60%. There was evidence of hypertension with estimated PA pressure of 42. Multiple hepatic rotation, no dyspnea micrograms, the aortic valve was within normal limits. The patient is currently on Bumex [place] milligram every 24 hours. On 01/04/2025, the patient is resting comfortably in bed. No specific complaints. She is on room air oxygen. Her white cell count is 7 with a hemoglobin 9.9 and platelet count of 253. Procalcitonin level was 0.11. proBNP level is at 4620. She had increased lower extremity edema and the patient remains on Bumex 1 mg IV every 24 hours. Fluid balance is negative. Objective - Vital Signs Vital signs: Vital Signs Temp 97.4 F L 01/04/25 07:34 Pulse 88 01/04/25 08:48 Resp 18 01/04/25 07:34 BP 145/74 01/04/25 07:34 Pulse Ox 92 L 01/04/25 07:34 FiO2 Intake & Output 01/03/25 01/04/25 01/04/25 18:59 06:59 18:59 Intake Total 750 Output Total 310 800 Balance -310 -50 Weight 84.5 kg 82.5 kg Intake: Oral 750 Output: Urine 310 800 Other: Voiding Method Indwelling Catheter # Bowel Movements 1 - Exam General Appearance the patient is calm and comfortable and she is on room air oxygen. Head exam was generally normal. There was no scleral icterus or corneal arcus. Mucous membranes were moist. Neck was supple and without jugular venous distension, thyromegaly, or carotid bruits. Carotids were easily palpable bilaterally. There was no adenopathy. Lungs were clear to auscultation and percussion, and with normal diaphragmatic excursion. No wheezes or rales were noted. Diminished breath sounds at lung bases bilaterally, few scattered rhonchi. Cardiac exam revealed the PMI to be normally situated and sized. The rhythm was regular and no extrasystoles were noted during several minutes of auscultation. The first and second heart sounds were normal and physiologic splitting of the second heart sound was noted. There were no murmurs, rubs, clicks, or gallops. Abdominal exam revealed normal bowel sounds. The abdomen was soft, non-tender, and without masses, organomegaly, or appreciable enlargement of the abdominal aorta. Examination of the extremities revealed easily palpable radial, femoral and pedal pulses. There was no cyanosis, clubbing or edema. Examination of the skin revealed no evidence of significant rashes, suspicious appearing nevi or other concerning lesions. Neurologically, the patient is awake and alert and the patient does not have any focal neurological deficit. Cranial nerves are essentially intact. - Labs CBC & Chem 7: 01/04/25 07:05 01/03/25 05:51 Labs: Abnormal Lab Results - Last 24 Hours (Table) 01/03/25 01/03/25 01/04/25 Range/Units 05:51 05:51 07:05 Hgb 9.9 L (11.4-16.0) gm/dL Hct 33.5 L (34.0-46.0) % MCHC 29.4 L (31.0-37.0) g/dL Lymphocytes # 0.6 L (1.0-4.8) k/uL ESR 118 H (0-30) mm/Hr BUN 29.1 H (9.0-27.0) mg/dL Est GFR (CKD-EPI) 37 L (>=60) BUN/Creatinine Ratio 20.79 H (12.00-20.00) Ratio Glucose 135 H (70-110) mg/dL C-Reactive Protein 2.60 H (0.00-0.80) mg/dL Assessment and Plan Plan: Acute on chronic dyspnea. CT of the chest was reviewed and there is no acute coronary process. Patient is alert hide hernia. Clinically, she has not signs of volume overload with increased lower edema. The patient is on room air oxygen and viral screen been negative. Lower extreme edema, echocardiogram shows preserved LV function with moderate degree of heart regurgitation History of subarachnoid hemorrhage back in 1986 Hypothyroidism Hypertension Chronic stage III kidney disease Chronic normocytic anemia, underlying iron deficiency Chronic urinary incontinence Chronic diastolic heart failure Chronic lymphedema involving lower extremities Pulmonary hypertension, likely group 2. Negative stress test back in 2017. Plan Clinically stable On room air oxygen Continue diuretics Replace iron and marked anemia Having issues with urinary retention the patient will be seen by urology. R agree on the current management. Continue to follow.
--- NOTE | 2025-01-04 11:35 | P.GSCN ---
History of Present Illness Consult date: 01/04/25 Reason for Consult: Urinary retention Requesting physician: Sorin Reynoso History of present illness: The patient is an 84-year-old white female who presented to the ER with complaints of dyspnea, congestion, and cough. She has significantly impaired mobility with chronic lower extremity edema. She was found to be in urinary retention in the ER and a Woodward catheter was placed. I am consulted for this reason. Renal ultrasound in November [address] scan of the chest show no evidence of hydronephrosis. The patient is unsure why the catheter was placed, and I have been unable to find any records to clarify this. She states that she is incontinent at home, largely because of her limited mobility, and t hat she requires the use of 3-4 pads daily. She has been treated for rare UTIs in the past, and has no history of urolithiasis. She reports occasional dysuria but denies hematuria. Urinalysis obtained at the time of admission was normal. Review of Systems - EENT Ears: bilateral: decreased hearing - Cardiovascular Reports high blood pressure - Respiratory Reports cough, Reports dyspnea - Genitourinary Genitourinary: Reports as per HPI Past Medical History Past Medical History: Heart Failure, Hypertension, Osteoarthritis (OA), Renal Disease, Thyroid Disorder Additional Past Medical History / Comment(s): arthritis, sub arachnoid hemorrhage 1986, URINARY INCONTINENCE, CKD stage 3, cyst on kidney and ovary, hypothyroidism History of Any Multi-Drug Resistant Organisms: None Reported Past Surgical History: Joint Replacement Additional Past Surgical History / Comment(s): bilat. cataract surgery, LEFT KNEE replacement Past Anesthesia/Blood Transfusion Reactions: Motion Sickness, Postoperative Nausea & Vomiting (PONV) Past Psychological History: No Psychological Hx Reported Smoking Status: Never smoker Past Alcohol Use History: None Reported Past Drug Use History: None Reported - Past Family History Sister(s) Family Medical History: Cancer Additional Family Medical History / Comment(s): SKIN CANCER Mother Family Medical History: CVA/TIA Medications and Allergies Home Medications Medication Instructions Recorded Confirmed Type Aspirin 81 mg PO DAILY 09/26/14 01/02/25 History Lansoprazole 30 mg PO DAILY 09/26/14 01/02/25 History Levothyroxine Sodium [Synthroid] 75 mcg PO DAILY 11/20/23 01/02/25 History Isosorbide Mononitrate ER [Imdur] 30 mg PO DAILY tab 11/24/23 01/02/25 Rx Torsemide [Demadex] 20 mg PO BID 06/23/24 01/02/25 History hydrALAZINE HCL [Apresoline] 25 mg PO QID 06/23/24 01/02/25 History Acetaminophen Tab [Tylenol Tab] 1,000 mg PO Q6H PRN 01/02/25 01/02/25 History Blue Emu Cream 1 applic TOPICAL DAILY PRN 01/02/25 01/02/25 History Malcom/D3/Mag11/Zinc/Debt Management Counselor/Ady/Bor 1 tab PO DAILY 01/02/25 01/02/25 History [Caltrate 600+D Plus Tablet] Clobetasol Propionate [Temovate 1 applic TOPICAL BID PRN 01/02/25 01/02/25 History 0.05% Cream] Ensure 1 can PO DAILY 01/02/25 01/02/25 History Multivit with Calcium,Iron,Min 1 tab PO DAILY 01/02/25 01/02/25 History [Women's Multivitamin] Prevent Silicone Cream W/ Zinc 1 applic TOPICAL DAILY PRN 01/02/25 01/02/25 History Oxide busPIRone HCl [Buspar] 5 mg PO BID 01/02/25 01/02/25 History Allergies Allergy/AdvReac Type Severity Reaction Status Date / Time sulfamethoxazole Allergy Unknown "Sick as a Verified 01/02/25 11:50 [From Bactrim] Dog" trimethoprim [From Bactrim] Allergy Unknown "Sick as a Verified 01/02/25 11:50 Dog" Penicillins Allergy Rash/Hives Verified 01/02/25 11:50 adhesive AdvReac Unknown Rash, Red Verified 01/02/25 11:50 Skin from tape and cardiac electrodes. ciprofloxacin [From Cipro] AdvReac Unknown Pain in Verified 01/02/25 11:50 Arms ibuprofen [From Motrin] AdvReac Unknown Eye Pain Verified 01/02/25 11:50 doxycycline AdvReac Unknown Verified 01/02/25 11:50 ferrous sulfate AdvReac SEVERE Verified 01/02/25 11:50 HEADACHE furosemide [From Lasix] AdvReac Rapid Verified 01/02/25 11:50 Heart Rate latex AdvReac Unknown Verified 01/02/25 11:50 omeprazole [From Prilosec] AdvReac Unknown Verified 01/02/25 11:50 omeprazole magnesium AdvReac Unknown Verified 01/02/25 11:50 [From [facility]] Surgical - Exam Vital Signs Temp Pulse Resp BP Pulse Ox 97.7 F 63 22 100/53 96 01/02/25 11:00 01/02/25 11:00 01/02/25 11:00 01/02/25 11:00 01/02/25 11:00 - General well developed, well nourished, no distress - Respiratory normal respiratory effort - Abdomen Abdomen: soft, non tender, no guarding, no rigid, no rebound - Psychiatric oriented to time, oriented to person, oriented to place, speech is normal, memory intact Results - Labs 01/04/25 07:05 01/03/25 05:51 Abnormal Lab Results - Last 24 Hours (Table) 01/03/25 01/03/25 01/04/25 Range/Units 05:51 05:51 07:05 Hgb 9.9 L (11.4-16.0) gm/dL Hct 33.5 L (34.0-46.0) % MCHC 29.4 L (31.0-37.0) g/dL Lymphocytes # 0.6 L (1.0-4.8) k/uL ESR 118 H (0-30) mm/Hr BUN 29.1 H (9.0-27.0) mg/dL Est GFR (CKD-EPI) 37 L (>=60) BUN/Creatinine Ratio 20.79 H (12.00-20.00) Ratio Glucose 135 H (70-110) mg/dL C-Reactive Protein 2.60 H (0.00-0.80) mg/dL Diabetes panel 01/03/25 01/03/25 Range/Units 05:51 05:51 Sodium 139 (135-145) mmol/L Potassium 4.6 (3.5-5.5) mmol/L Chloride 99 (96-109) mmol/L Carbon Dioxide 28.7 (21.6-31.8) mmol/L BUN 29.1 H (9.0-27.0) mg/dL Creatinine 1.4 (0.6-1.5) mg/dL Glucose 135 H (70-110) mg/dL Hemoglobin A1c 5.5 (<=6.0) % Calcium 9.0 (8.7-10.3) mg/dL Thyroid panel 01/03/25 Range/Units 05:51 TSH 4.040 (0.350-5.500) UIU/ML Calcium panel 01/03/25 Range/Units 05:51 Calcium 9.0 (8.7-10.3) mg/dL Pituitary panel 01/03/25 Range/Units 05:51 Sodium 139 (135-145) mmol/L Potassium 4.6 (3.5-5.5) mmol/L Chloride 99 (96-109) mmol/L Carbon Dioxide 28.7 (21.6-31.8) mmol/L BUN 29.1 H (9.0-27.0) mg/dL Creatinine 1.4 (0.6-1.5) mg/dL Glucose 135 H (70-110) mg/dL Calcium 9.0 (8.7-10.3) mg/dL TSH 4.040 (0.350-5.500) UIU/ML Adrenal panel 01/03/25 Range/Units 05:51 Sodium 139 (135-145) mmol/L Potassium 4.6 (3.5-5.5) mmol/L Chloride 99 (96-109) mmol/L Carbon Dioxide 28.7 (21.6-31.8) mmol/L BUN 29.1 H (9.0-27.0) mg/dL Creatinine 1.4 (0.6-1.5) mg/dL Glucose 135 H (70-110) mg/dL Calcium 9.0 (8.7-10.3) mg/dL - Imaging CT scan - chest: image reviewed Assessment and Plan (1) Retention of urine, unspecified Current Visit: Yes Status: Acute Code(s): R33.9 - RETENTION OF URINE, UNSPECIFIED SNOMED Code(s): 838911304 Plan: Woodward catheter will be removed tomorrow for a voiding trial. I would suggest that the catheter be replaced only for retention or a postvoid residual exceeding 350 cc. Time with Patient: Greater than 30
[2025-01-04 13:31] LABS: Glucose,Whole Blood 182 mg/dL (70-110)
--- NOTE | 2025-01-04 13:53 | P.PN ---
Subjective Progress Note Date: 01/04/25 Progress note date of Dictation by Dr. Reynoso Location 464 bed 1 Patient seen evaluated [id number]. Patient seen by Dr. Ortega pulmonary and critical care Patient seen by Dr. Lopez urology Patient seen by cardiology Dr. Stallings. Patient on Cyndi chair Dr. Lopez urology recommended tomorrow to remove Woodward catheter and if retaining more than 350 to be reinserted. Stool Hemoccult was negative for blood, Dr. Ortega recommended iron supplementation however patient has iron sulfate orally adverse effect Will infuse her with Ferrlecit 125 mg IV piggyback 1 today and 1 tomorrow. Her POC glucose elevated with the steroid and her lung is gradually improving we will be decreasing the steroid to 60 mg every 12 hour and probably tomorrow will decrease the dose with her dyspnea and wheezes improving. Her blood pressure fluctuating 113/48 with a mean 69 and 145/74 with a mean 97 with the stable heart rate 84-61-80 Respiratory rate 18/min. And his her oxygen saturation 92% on room air. Patient felt at lunchtime that she had low blood sugar and that is why she eat ice cream and pudding but actually we did the POC glucose was 182 which attributed to the steroid her hemoglobin A1c was normal with no history of diabetes and Hyperglycemia secondary to steroid which she is chemically induced. On exam: Patient is conscious alert oriented x 3 Head was normocephalic atraumatic pupil was equal reactive oropharynx natural teeth hearing severe hearing deficit bilateral even with his hearing aid Neck was supple no JVD no thyromegaly no lymphadenopathy trachea midline. Chest she had expiratory rhonchi and dyspnea with the attributed to herniation of the stomach in the thoracic cavity. No clear history of COPD. On admission she was wheezing inspiratory expiratory and thoughts of asthma with allergy adult onset considered. Heart: Patient had pulmonary hypertension mild and edema of the lower extremities which is chronic with possibility of lymphedema as well Patient had decreased mobility and we did in the past send her to edema specialist in [place] however was lasted few months and patient was unable to have transportation for the edema specialist to follow-up. Abdomen soft positive bowel sound with obesity Extremities edema 1+ bilateral positive pulses Neurologically stable Psychiatrically stable Assessment and plan: 1. Mobility with the advanced arthritis will consult physical therapy 2. Anemia of chronic disease, and anemia of iron deficiency, and anemia of chronic kidney disease 3. Will transfuse iron Ferrlecit 125 mg once today and once tomorrow. Patient has adverse effect with ferrous sulfate. 4. In regard of urinary retention Dr. Lopez did order removal of the catheter tomorrow and monitor the patient with bladder scan if it is more than 350 then reinsert the Woodward catheter. 5. Hypertension not well-controlled and we will add lisinopril 2.5 mg twice a day added to vj IV as needed of enalapril as to be discontinued on discharge 6. Will consult showcase maker for future planning of discharge Objective - Vital Signs Vital signs: Vital Signs Temp 97.4 F L 01/04/25 07:34 Pulse 80 01/04/25 11:56 Resp 18 01/04/25 07:34 BP 145/74 01/04/25 07:34 Pulse Ox 92 L 01/04/25 07:34 FiO2 Intake & Output 01/03/25 01/04/25 01/04/25 18:59 06:59 18:59 Intake Total 750 Output Total 310 800 550 Balance -310 -50 -550 Weight 84.5 kg 82.5 kg Intake: Oral 750 Output: Urine 310 800 550 Other: Voiding Method Indwelling Catheter # Bowel Movements 1 1 - Labs CBC & Chem 7: 01/04/25 07:05 01/03/25 05:51 Labs: Abnormal Lab Results - Last 24 Hours (Table) 01/03/25 01/04/25 01/04/25 Range/Units 15:53 07:05 13:30 Hgb 9.9 L (11.4-16.0) gm/dL Hct 33.5 L (34.0-46.0) % MCHC 29.4 L (31.0-37.0) g/dL Lymphocytes # 0.6 L (1.0-4.8) k/uL POC Glucose (mg/dL) 182 H (70-110) mg/dL HDL Cholesterol 78.00 H (40.00-60.00) mg/dL Vitamin B12 1203.0 H (200.0-944.0) pg/mL
[2025-01-04] MEDS: SODIUM FERRIC GLUCONAT-SUCROSE 125 MG in SODIUM CHLORIDE 0.9% 100 ML IVPB SCH (14:41)
--- NOTE | 2025-01-04 16:25 | P.CRDCN ---
History of Present Illness Consult date: 01/04/25 History of present illness: HISTORY OF PRESENTING ILLNESS: 84-year-old female who lives in assisted living presented to the hospital because of difficulty in getting out of chair, difficulty with mobility, increased lower extremity edema, increased shortness of breath. Cardiology was consulted for CHF evaluation and management. NT-proBNP 1900, lipid LDL 87, TSH 4.04, A1c 5.5, BUN 38, creatinine 1.3, Hb 9.7 Echo shows EF 55%, No obvious regional wall motion abnormality Mild RV dilatation, moderate biatrial dilatation, moderate mitral regurgitation, moderate tricuspid regurgitation Last tress test in 2017 was negative REVIEW OF SYSTEMS: 14 point review of system is negative except what is mentioned above in HPI. PHYSICAL EXAMINATION: Neck: Brisk carotid upstroke, no jugular venous distention. Lungs: Poor inspiratory effort, mild crackles in bilateral bases Heart: Regular rate and rhythm, S1-S2, , no murmur or rub. Abdomen: Soft nontender, positive bowel sounds. Extremities: 1-2+ pitting edema bilateral lower extremity Neuro: Alert, oritented, no focal deficits. Detailed neuro exam was not performed. ASSESSMENT: # Mild HFpEF exacerbation # Acute on chronic dyspnea, on room air, hiatal hernia, # Chronic lower extremity edema # Moderate mitral regurgitation # Essential hypertension # CKD stage III # Debility with problems with mobility # Obesity PLAN: Start coreg 3.215 mg BID She is on hydralazine and Imdur combination at this time. I will reduce the dose of hydralazine to 25 mg 3 times daily and Imdur 30 mg daily She is on lisinopril 2.5 mg twice daily, will continue Alin Stallings MD, FACC, RPVI Thank you for allowing [facility] to participate in this patient's care. Feel free to reach out in case of any followup questions. Past Medical History Past Medical History: Heart Failure, Hypertension, Osteoarthritis (OA), Renal Disease, Thyroid Disorder Additional Past Medical History / Comment(s): arthritis, sub arachnoid hemorrhage 1986, URINARY INCONTINENCE, CKD stage 3, cyst on kidney and ovary, hypothyroidism History of Any Multi-Drug Resistant Organisms: None Reported Past Surgical History: Joint Replacement Additional Past Surgical History / Comment(s): bilat. cataract surgery, LEFT KNEE replacement Past Anesthesia/Blood Transfusion Reactions: Motion Sickness, Postoperative Nausea & Vomiting (PONV) Past Psychological History: No Psychological Hx Reported Smoking Status: Never smoker Past Alcohol Use History: None Reported Past Drug Use History: None Reported - Past Family History Sister(s) Family Medical History: Cancer Additional Family Medical History / Comment(s): SKIN CANCER Mother Family Medical History: CVA/TIA Medications and Allergies Home Medications Medication Instructions Recorded Confirmed Type Aspirin 81 mg PO DAILY 09/26/14 01/02/25 History Lansoprazole 30 mg PO DAILY 09/26/14 01/02/25 History Levothyroxine Sodium [Synthroid] 75 mcg PO DAILY 11/20/23 01/02/25 History Isosorbide Mononitrate ER [Imdur] 30 mg PO DAILY tab 11/24/23 01/02/25 Rx Torsemide [Demadex] 20 mg PO BID 06/23/24 01/02/25 History hydrALAZINE HCL [Apresoline] 25 mg PO QID 06/23/24 01/02/25 History Acetaminophen Tab [Tylenol Tab] 1,000 mg PO Q6H PRN 01/02/25 01/02/25 History Blue Emu Cream 1 applic TOPICAL DAILY PRN 01/02/25 01/02/25 History Malcom/D3/Mag11/Zinc/Reproductive Endocrinologist/Ady/Bor 1 tab PO DAILY 01/02/25 01/02/25 History [Caltrate 600+D Plus Tablet] Clobetasol Propionate [Temovate 1 applic TOPICAL BID PRN 01/02/25 01/02/25 History 0.05% Cream] Ensure 1 can PO DAILY 01/02/25 01/02/25 History Multivit with Calcium,Iron,Min 1 tab PO DAILY 01/02/25 01/02/25 History [Women's Multivitamin] Prevent Silicone Cream W/ Zinc 1 applic TOPICAL DAILY PRN 01/02/25 01/02/25 History Oxide busPIRone HCl [Buspar] 5 mg PO BID 01/02/25 01/02/25 History Allergies Allergy/AdvReac Type Severity Reaction Status Date / Time sulfamethoxazole Allergy Unknown "Sick as a Verified 01/02/25 11:50 [From Bactrim] Dog" trimethoprim [From Bactrim] Allergy Unknown "Sick as a Verified 01/02/25 11:50 Dog" Penicillins Allergy Rash/Hives Verified 01/02/25 11:50 adhesive AdvReac Unknown Rash, Red Verified 01/02/25 11:50 Skin from tape and cardiac electrodes. ciprofloxacin [From Cipro] AdvReac Unknown Pain in Verified 01/02/25 11:50 Arms ibuprofen [From Motrin] AdvReac Unknown Eye Pain Verified 01/02/25 11:50 doxycycline AdvReac Unknown Verified 01/02/25 11:50 ferrous sulfate AdvReac SEVERE Verified 01/02/25 11:50 HEADACHE furosemide [From Lasix] AdvReac Rapid Verified 01/02/25 11:50 Heart Rate latex AdvReac Unknown Verified 01/02/25 11:50 omeprazole [From Prilosec] AdvReac Unknown Verified 01/02/25 11:50 omeprazole magnesium AdvReac Unknown Verified 01/02/25 11:50 [From Prilosec] Physical Exam Vitals: Vital Signs Temp Pulse Pulse Resp BP Pulse Ox 01/04/25 14:36 97.2 F L 78 19 123/66 94 L 01/04/25 11:56 80 01/04/25 11:47 80 01/04/25 08:48 88 01/04/25 08:35 84 01/04/25 07:34 97.4 F L 61 18 145/74 92 L 01/04/25 00:10 97.8 F 77 18 113/48 92 L 01/03/25 20:00 18 01/03/25 19:50 98.9 F 90 18 123/63 93 L 01/03/25 19:47 90 01/03/25 19:37 89 Intake and Output 01/04/25 01/04/25 01/04/25 06:59 14:59 22:59 Intake Total 750 Output Total 800 550 Balance -50 -550 Intake: Oral 750 Output: Urine 800 550 Other: Voiding Method Indwelling Catheter # Bowel Movements 1 Weight 82.5 kg Results 01/04/25 07:05 01/03/25 05:51 Lipids 01/03/25 Range/Units 15:53 Triglycerides 46.50 (0.00-149.00) mg/dL Cholesterol 175.00 (0.00-200.00) mg/dL HDL Cholesterol 78.00 H (40.00-60.00) mg/dL Cholesterol/HDL Ratio 2.24 Ratio CBC 04/06/25 Range/Units 07:05 WBC 7.0 (3.8-10.6) k/uL RBC 3.90 (3.80-5.40) m/uL Hgb 9.9 L (11.4-16.0) gm/dL Hct 33.5 L (34.0-46.0) % Plt Count 253 (150-450) k/uL Current Medications Generic Name Dose Route Start Last Admin Trade Name Freq PRN Reason Stop Dose Admin Acetaminophen 650 mg 01/02/25 16:38 01/04/25 11:47 Acetaminophen Tab 325 Mg Tab PO 650 mg Q6HR PRN Administration Fever and/ or Pain Albuterol Sulfate 2.5 mg 01/02/25 20:00 01/04/25 15:33 Albuterol Nebulized 2.5 Mg/3 Ml INHALATION Not Given RT-QID TAYLOR Aspirin 81 mg 01/03/25 09:00 01/04/25 07:37 Aspirin 81 Mg PO 81 mg DAILY TAYLOR Administration Buspirone HCl 10 mg 01/03/25 21:00 01/04/25 07:38 Buspirone Hcl 5 Mg Tab PO 10 mg BID TAYLOR Administration Carvedilol 3.125 mg 01/04/25 17:30 Carvedilol 6.25 Mg Tab PO BID-W/MEALS TAYLOR Enalaprilat 1.25 mg 01/03/25 14:01 Enalaprilat 1.25 Mg/Ml 1 Ml Vial IVP Q6HR PRN Blood Pressure - High Guaifenesin/Dextromethorphan 15 ml 01/03/25 22:00 01/04/25 13:06 Guaifenesin-Dm 100-10mg/5ml 10 Ml Cup PO 15 ml QID TAYLOR Administration Heparin Sodium (Porcine) 5,000 unit 01/03/25 21:00 01/04/25 07:40 Heparin Sodium,Porcine 5,000 Unit/Ml 1 Ml Vial SQ 5,000 unit Q12HR TAYLOR Administration Hydralazine HCl 50 mg 01/03/25 18:00 01/04/25 13:07 Hydralazine Hcl 50 Mg Tab PO 50 mg QID TAYLOR Administration Ferric Sodium Gluconate 125 mg 110 mls @ 100 mls/hr 01/04/25 14:00 01/04/25 14:41 / Sodium Chloride IVPB 01/05/25 10:05 100 mls/hr DAILY TAYLOR Administration Isosorbide Mononitrate 30 mg 01/03/25 09:00 01/04/25 07:37 Isosorbide Mononitrate Er 30 Mg Tab.Er.24h PO 30 mg DAILY TAYLOR Administration Levothyroxine Sodium 75 mcg 01/04/25 06:30 01/04/25 05:39 Levothyroxine 75 Mcg Tab PO 75 mcg 0630 TAYLOR Administration Lisinopril 2.5 mg 01/04/25 14:00 01/04/25 14:40 Lisinopril 2.5 Mg Tab PO 2.5 mg BID TAYLOR Administration Methylprednisolone Sodium Succinate 60 mg 01/05/25 00:00 Methylprednisolone Sod Succi 125 Mg/2 Ml Vial IV Q12H ON LICENSE OF [facility] Multivitamins 1 each 01/03/25 09:00 01/04/25 07:37 Multivitamins, Thera 1 Each Tab PO 1 each DAILY TAYLOR Administration Ondansetron HCl 4 mg 01/02/25 19:45 01/03/25 10:15 Ondansetron 4 Mg/2 Ml Vial IVP 4 mg Q6HR PRN Administration Nausea And Vomiting Pantoprazole Sodium 40 mg 01/03/25 09:00 01/04/25 07:37 Pantoprazole 40 Mg Tablet PO 40 mg DAILY TAYLOR Administration Intake and Output 01/04/25 01/04/25 01/04/25 06:59 14:59 22:59 Intake Total 750 Output Total 800 550 Balance -50 -550 Intake: Oral 750 Output: Urine 800 550 Other: Voiding Method Indwelling Catheter # Bowel Movements 1 Weight 82.5 kg 01/04/25 07:05 01/03/25 05:51
[2025-01-04] MEDS: carvediloL 3.125 MG TAB PO SCH (17:33)
[2025-01-04] MEDS: hydrALAZINE HCL 25 MG TAB PO SCH (21:24)
[2025-01-04] MEDS: methylPREDNISolone SOD SUCCI 125 MG/2 ML VIAL IV SCH (23:44)
[2025-01-05 08:44] LABS: BUN/Creat Ratio 41.47 Ratio (12.00-20.00); Blood Urea Nitrogen 70.5 mg/dL (9.0-27.0); Chloride 95 mmol/L (96-109); Glucose 125 mg/dL (70-110); Potassium 5.9 mmol/L (3.5-5.5); Sodium 132 mmol/L (135-145)
[2025-01-05 08:45] LABS: Calcium 8.7 mg/dL (8.7-10.3)
--- NOTE | 2025-01-05 11:16 | P.PN ---
Subjective HISTORY OF PRESENT ILLNESS: 84-year-old female who lives in assisted living presented to the hospital because of difficulty in getting out of chair, difficulty with mobility, increased lower extremity edema, increased shortness of breath. Cardiology was consulted for CHF evaluation and management. NT-proBNP 1900, lipid LDL 87, TSH 4.04, A1c 5.5, BUN 38, creatinine 1.3, Hb 9.7 Echo shows EF 55%, No obvious regional wall motion abnormality Mild RV dilatation, moderate biatrial dilatation, moderate mitral regurgitation, moderate tricuspid regurgitation Last tress test in 2016 was negative 01/05/2025 Patient examined this morning at the bedside. Patient currently denies chest pain or pressure. She denies shortness of breath. Creatinine increased today to 1.7. Potassium 5.9. Blood pressure stable 121/56. PHYSICAL EXAM: VITAL SIGNS: Reviewed. GENERAL: Well-developed in no acute distress. NECK: Supple. No JVD or thyromegaly LUNGS: Respirations even and unlabored. Lungs with expiratory wheezing noted HEART: Regular rate and rhythm. S1 and S2 heard. EXTREMITIES: Normal range of motion. No clubbing or cyanosis. Peripheral puls es intact. No lower extremity edema ASSESSMENT: # Acute on chronic heart failure with preserved EF # Acute on chronic dyspnea # Chronic lower extremity edema # Moderate mitral regurgitation # Essential hypertension # Acute on chronic kidney disease # Debility with problems with mobility # Obesity PLAN: Discontinue lisinopril secondary to worsening kidney function Continue additional cardiac medications including aspirin, carvedilol, hydralazine, and Imdur Continue to monitor kidney function. Repeat in AM. Nurse practitioner note has been reviewed by physician. Signing provider agrees with the documented findings, assessment, and plan of care documented by PRODUCTION MACHINIST as a scribe. Objective - Vital Signs Vital signs: Vital Signs Temp 97.7 F 01/05/25 06:55 Pulse 61 01/05/25 06:55 Resp 18 01/05/25 06:55 BP 121/56 01/05/25 06:55 Pulse Ox 91 L 01/05/25 06:55 FiO2 Intake & Output 01/04/25 01/05/25 01/05/25 18:59 06:59 18:59 Output Total 550 1000 Balance -550 -1000 Weight 86 kg Output: Urine 550 1000 Other: Voiding Method Indwelling Catheter Indwelling Catheter External Catheter # Voids 2 # Bowel Movements 1 - Labs CBC & Chem 7: 01/04/25 07:05 01/05/25 03:32 Labs: Abnormal Lab Results - Last 24 Hours (Table) 01/04/25 01/05/25 Range/Units 13:30 03:32 Sodium 132 L (135-145) mmol/L Potassium 5.9 H (3.5-5.5) mmol/L Chloride 95 L (96-109) mmol/L BUN 70.5 H (9.0-27.0) mg/dL Creatinine 1.7 H (0.6-1.5) mg/dL Est GFR (CKD-EPI) 29 L (>=60) BUN/Creatinine Ratio 41.47 H (12.00-20.00) Ratio Glucose 125 H (70-110) mg/dL POC Glucose (mg/dL) 182 H (70-110) mg/dL Microbiology - Last 24 Hours (Table) 01/03/25 21:56 Throat Culture - Preliminary Throat
--- NOTE | 2025-01-05 13:55 | P.PN ---
Subjective Progress Note Date: 01/05/25 The patient is in the hospital under Dr. Reynoso's care because of shortness of breath cough and dyspnea. She was having problems for urine retention. saw her in consultation. He felt the problem was situational. The catheter was ordered out today. She has voided several times and her residuals have been less than 100 mL. Objective - Vital Signs Vital signs: Vital Signs Temp 97.7 F 01/05/25 06:55 Pulse 80 01/05/25 11:51 Resp 18 01/05/25 06:55 BP 121/56 01/05/25 06:55 Pulse Ox 91 L 01/05/25 06:55 FiO2 Intake & Output 01/04/25 01/05/25 01/05/25 18:59 06:59 18:59 Output Total 550 1000 Balance -550 -1000 Weight 86 kg Output: Urine 550 1000 Other: Voiding Method Indwelling Catheter Indwelling Catheter External Catheter # Voids 2 # Bowel Movements 1 - Labs CBC & Chem 7: 01/04/25 07:05 01/05/25 10:37 Labs: Abnormal Lab Results - Last 24 Hours (Table) 01/05/25 01/05/25 Range/Units 03:32 10:37 Sodium 132 L (135-145) mmol/L Potassium 5.9 H 5.5 H (3.5-5.5) mmol/L Chloride 95 L (96-109) mmol/L BUN 70.5 H (9.0-27.0) mg/dL Creatinine 1.7 H (0.6-1.5) mg/dL Est GFR (CKD-EPI) 29 L (>=60) BUN/Creatinine Ratio 41.47 H (12.00-20.00) Ratio Glucose 125 H (70-110) mg/dL Microbiology - Last 24 Hours (Table) 01/03/25 21:56 Throat Culture - Preliminary Throat Assessment and Plan Assessment: Impression: Urine retention resolved Recommendations. The patient can follow-up with Dr. Reynoso and see Dr. Childs as needed.
[2025-01-05 14:43] LABS: Anti-DNA, DS unit <1.0 IU/mL; DNA Double-Stranded Negative (Negative)
--- NOTE | 2025-01-05 18:39 | P.PN ---
Subjective Progress Note Date: 01/05/25 Progress note Dictation by Dr. Reynoso Date of Location 464 bed 1. Patient seen [id number] and discussed with her her current finding. Laboratory today: Sodium 132 hyponatremia, potassium 5.9, elevated, repeat 5.5 no irregularities of the heart. BUN 70.5 and creatinine 1.7 with the earlier laboratory on her BUN 29.1 and creatinine 1.4. This finding indicating acute kidney injury unclear etiology so far with the hyponatremia. Lipid profile indicating triglyceride 46.5, total cholesterol 175, HDL 78. LDL not available, folic acid 16, vitamin B12 1203, TSH 4.04. Throat culture was normal respiratory orion. WBC 7, hemoglobin 9.9, hematocrit 33.5, platelet count 253. Acute kidney injury and we will be consulting Dr. Moses/Dr. Awan for evaluation and treatment. With the presence of hyperkalemia and the hyponatremia. Patient did not have IV fluid because of history of congestive heart failure and pulmonary hypertension diastolic dysfunction. Will obtain tomorrow CMP, as well as CBC. Today we will obtain urine osmolality and serum osmolality and urine sodium potassium chloride urine lyte On exam Vital sign temperature 97.9 F oral, pulse rate 64/min Respiratory rate 18, blood pressure 115/60 with a mean 78. Her oxygen saturation 93% with nasal cannula 1 L. She stated that she had shortness of breath in the past with her surgery as she ask her sister. Patient seen by Dr. Burkett and patient did not have no more Woodward catheter but she had [place] catheter. The head was normocephalic atraumatic, pupil is equal reactive, Oropharynx natural teeth, she had a hearing deficit bilateral with hearing aid Neck was supple no JVD no thyromegaly no lymphadenopathy trachea midline. Chest was normal breath sound but she had herniation of the stomach to third and the thoracic cavity The heart regular sinus rhythm she had still edema of the lower extremities with the underlying diastolic dysfunction and history of pulmonary hypertension Abdomen is soft positive bowel sound obese Extremities edema. Neurologically stable Psychiatry and anxiety but stable Assessment: 1. Acute kidney injury 2. Hyperkalemia and hypokalemia natremia 3. History of congestive heart failure 4. Hypertension was hypertensive heart disease. Currently controlled. 5. Urinary retention resolved and Woodward catheter removed Plan consultation with nephrology Dr. Quinn/Dr. Awan Will obtain serum osmolality, urine osmolality and random sodium and potassium, specific gravity. Will obtain in the morning CBC with differential and chemistry profile. Objective - Vital Signs Vital signs: Vital Signs Temp 97.9 F 01/05/25 14:00 Pulse 84 01/05/25 15:29 Resp 18 01/05/25 14:00 BP 115/60 01/05/25 14:00 Pulse Ox 93 L 01/05/25 14:00 FiO2 Intake & Output 01/04/25 01/05/25 01/05/25 18:59 06:59 18:59 Output Total 550 1000 Balance -550 -1000 Weight 86 kg Output: Urine 550 1000 Other: Voiding Method Indwelling Catheter Indwelling Catheter External Catheter # Voids 2 # Bowel Movements 1 - Labs CBC & Chem 7: 01/04/25 07:05 01/05/25 10:37 Labs: Abnormal Lab Results - Last 24 Hours (Table) 01/03/25 01/05/25 01/05/25 Range/Units 15:53 03:32 10:37 Sodium 132 L (135-145) mmol/L Potassium 5.9 H 5.5 H (3.5-5.5) mmol/L Chloride 95 L (96-109) mmol/L BUN 70.5 H (9.0-27.0) mg/dL Creatinine 1.7 H (0.6-1.5) mg/dL Est GFR (CKD-EPI) 29 L (>=60) BUN/Creatinine Ratio 41.47 H (12.00-20.00) Ratio Glucose 125 H (70-110) mg/dL ADDIE Screen POSITIVE A (Negative) Microbiology - Last 24 Hours (Table) 01/03/25 21:56 Throat Culture - Preliminary Throat
[2025-01-06 06:10] LABS: Glucose,Whole Blood 93 mg/dL (70-110)
[2025-01-06 08:02] LABS: Potassium,Urine Random 60.1 mmol/L (25.0-125.0)
[2025-01-06] MEDS: HYDROcodone/APAP 5-325MG 1 EACH TAB PO PRN (08:26)
[2025-01-06 08:42] LABS: ALT 37 U/L (8-44); AST 45 U/L (13-35); Albumin 3.1 g/dL (3.8-4.9); Albumin/Globulin Ratio 0.94 Ratio (1.60-3.17); Alkaline Phosphatase 114 U/L (41-126); BUN/Creat Ratio 43.55 Ratio (12.00-20.00); Basophils # (A) 0.01 X 10*3/uL (0.00-0.10); Basophils % (A) 0.1 %; Blood Urea Nitrogen 87.1 mg/dL (9.0-27.0); Calcium 8.8 mg/dL (8.7-10.3); Carbon Dioxide 26.7 mmol/L (21.6-31.8); Chloride 97 mmol/L (96-109); Eosinophils # (A) 0 X 10*3/uL (0.04-0.35); Eosinophils % (A) 0 %; Globulin 3.3 g/dL (1.6-3.3); Glucose 87 mg/dL (70-110); HCT 34.8 % (37.2-46.3); HGB 10.6 g/dL (12.0-15.0); Lymphocytes # (A) 0.84 X 10*3/uL (0.90-5.00); Lymphocytes % (A) 12.4 %; MCH 26.1 pg (27.0-32.0); MCHC 30.5 g/dL (32.0-37.0); MCV 85.7 FL (80.0-97.0); Mean Platelet Volume 10.5 FL (9.5-12.2); Monocytes # (A) 0.28 X 10*3/uL (0.20-1.00); Monocytes % (A) 4.1 %; NRBC Per 100 WBC 0 X 10*3/uL (0.00-0.01); Neutrophils # (A) 5.57 X 10*3/uL (1.80-7.70); Neutrophils % (A) 82.7 %; Platelet Count 275 X 10*3/uL (140-440); Potassium 5.3 mmol/L (3.5-5.5); RBC 4.06 X 10*6/uL (4.10-5.20); RDW 16.1 % (11.5-14.5); Sodium 134 mmol/L (135-145); Total Bilirubin <0.2 mg/dL (0.3-1.2); Total Protein 6.4 g/dL (6.2-8.2); WBC 6.75 X 10*3/uL (4.50-10.00)
--- NOTE | 2025-01-06 08:51 | XR ---
EXAMINATION TYPE: XR abdomen 1V DATE OF EXAM: 01/06/2025 8:41 AM CLINICAL INDICATION: Female, 84 years old with history of abdominal pain, pain TECHNIQUE: 2 supine views of the abdomen. COMPARISON: None. FINDINGS: Gas is seen in nondistended stomach. Suspect moderate size hiatal hernia. Scattered gas is seen in non-distended small and large bowel loops. Multilevel spurring and disc space narrowing in th e thoracolumbar spine. Scattered small inferior pelvic phleboliths IMPRESSION: Overall nonspecific strongly favor nonobstructive bowel gas pattern. [facility], , 01/06/2025 8:49 AM
[2025-01-06] MEDS: SENNOSIDES 8.6 MG TAB PO SCH (08:58)
--- NOTE | 2025-01-06 10:24 | P.NPCON ---
History of Present Illness - Reason for Consult acute renal failure, chronic renal failure - History of Present Illness Reason for consultation: Acute kidney injury on chronic kidney disease History of present illness: Patient is a 84-year-old female seen in renal consultation for acute kidney injury on chronic kidney disease. Patient has chronic kidney disease stage IIIb with baseline creatinine near 1.5. Renal function has been worsening the last few days with creatinine up to 2.0 today. Patient is not a very reliable historian. She is currently undergoing a breathing treatment. She came to the hospital on January 02, 2025 due to generalized weakness and not feeling well. She does complain of a productive cough. Viral serologies were negative. Hemodynamically stable. She denies history of diabetes. She was on lisinopril which was discontinued. Potassium level was running on the higher end but is improved today. Patient does have diastolic CHF with moderate mitral and tricuspid regurgitation. She is also being followed by urology for urinary retention. Woodward catheter had to be reinserted this admission. Vital signs are stable. General: No acute distress. HEENT: Head exam is unremarkable. On nasal cannula. LUNGS: Scattered rhonchi. HEART: Rate and Rhythm are regular. ABDOMEN: No distention. EXTREMITITES: 1+ edema. Past Medical History Past Medical History: Heart Failure, Hypertension, Osteoarthritis (OA), Renal Disease, Thyroid Disorder Additional Past Medical History / Comment(s): arthritis, sub arachnoid hemorrhage 1986, URINARY INCONTINENCE, CKD stage 3, cyst on kidney and ovary, hypothyroidism History of Any Multi-Drug Resistant Organisms: None Reported Past Surgical History: Joint Replacement Additional Past Surgical History / Comment(s): bilat. cataract surgery, LEFT KNEE replacement Past Anesthesia/Blood Transfusion Reactions: Motion Sickness, Postoperative Nausea & Vomiting (PONV) Past Psychological History: No Psychological Hx Reported Smoking Status: Never smoker Past Alcohol Use History: None Reported Past Drug Use History: None Reported - Past Family History Sister(s) Family Medical History: Cancer Additional Family Medical History / Comment(s): SKIN CANCER Mother Family Medical History: CVA/TIA Medications and Allergies Home Medications Medication Instructions Recorded Confirmed Type Aspirin 81 mg PO DAILY 09/26/14 01/02/25 History Lansoprazole 30 mg PO DAILY 09/26/14 01/02/25 History Levothyroxine Sodium [Synthroid] 75 mcg PO DAILY 11/20/23 01/02/25 History Isosorbide Mononitrate ER [Imdur] 30 mg PO DAILY tab 11/24/23 01/02/25 Rx Torsemide [Demadex] 20 mg PO BID 06/23/24 01/02/25 History hydrALAZINE HCL [Apresoline] 25 mg PO QID 06/23/24 01/02/25 History Acetaminophen Tab [Tylenol Tab] 1,000 mg PO Q6H PRN 01/02/25 01/02/25 History Blue Emu Cream 1 applic TOPICAL DAILY PRN 01/02/25 01/02/25 History Malcom/D3/Mag11/Zinc/Lehr Tender/Ady/Bor 1 tab PO DAILY 01/02/25 01/02/25 History [Caltrate 600+D Plus Tablet] Clobetasol Propionate [Temovate 1 applic TOPICAL BID PRN 01/02/25 01/02/25 History 0.05% Cream] Ensure 1 can PO DAILY 01/02/25 01/02/25 History Multivit with Calcium,Iron,Min 1 tab PO DAILY 01/02/25 01/02/25 History [Women's Multivitamin] Prevent Silicone Cream W/ Zinc 1 applic TOPICAL DAILY PRN 01/02/25 01/02/25 History Oxide busPIRone HCl [Buspar] 5 mg PO BID 01/02/25 01/02/25 History Allergies Allergy/AdvReac Type Severity Reaction Status Date / Time sulfamethoxazole Allergy Unknown "Sick as a Verified 01/02/25 11:50 [From Bactrim] Dog" trimethoprim [From Bactrim] Allergy Unknown "Sick as a Verified 01/02/25 11:50 Dog" Penicillins Allergy Rash/Hives Verified 01/02/25 11:50 adhesive AdvReac Unknown Rash, Red Verified 01/02/25 11:50 Skin from tape and cardiac electrodes. ciprofloxacin [From Cipro] AdvReac Unknown Pain in Verified 01/02/25 11:50 Arms ibuprofen [From Motrin] AdvReac Unknown Eye Pain Verified 01/02/25 11:50 doxycycline AdvReac Unknown Verified 01/02/25 11:50 ferrous sulfate AdvReac SEVERE Verified 01/02/25 11:50 HEADACHE furosemide [From Lasix] AdvReac Rapid Verified 01/02/25 11:50 Heart Rate latex AdvReac Unknown Verified 01/02/25 11:50 omeprazole [From Prilosec] AdvReac Unknown Verified 01/02/25 11:50 omeprazole magnesium AdvReac Unknown Verified 01/02/25 11:50 [From Prilosec] Physical Exam Vitals: Vital Signs Temp Pulse Pulse Resp BP Pulse Ox 01/06/25 09:14 62 01/06/25 09:03 58 L 98 01/06/25 07:30 57 L 20 106/63 98 01/06/25 06:35 55 L 17 100/55 96 01/06/25 03:58 97.5 F L 50 L 16 107/65 92 L 01/06/25 00:45 97.6 F 57 L 20 113/65 92 L 01/05/25 20:10 18 01/05/25 19:05 97.7 F 60 18 105/66 94 L 01/05/25 18:40 80 01/05/25 18:27 80 01/05/25 15:29 84 01/05/25 15:18 84 01/05/25 14:00 97.9 F 64 18 115/60 93 L 01/05/25 11:51 80 01/05/25 11:42 80 Intake and Output 01/05/25 01/06/25 01/06/25 22:59 06:59 14:59 Intake Total 360 Output Total 600 Balance -240 Intake: Oral 360 Output: Urine 600 Other: Voiding Method External Catheter # Voids 6 # Bowel Movements 1 Weight 85.5 kg Results - Lab Results Most recent lab results Calcium 8.8 mg/dL (8.7-10.3) 01/06/25 03:45 Magnesium 2.1 mg/dL (1.6-2.3) 01/02/25 12:22 01/06/25 03:45 01/06/25 03:45 Assessment and Plan Plan: Assessment: 1. Acute kidney injury secondary to ATN. Creatinine 1.3 on admission and is up to 2.0 today. UA benign. 2. Chronic kidney disease stage IIIb with baseline creatinine of 1.5 secondary to nephrosclerosis. 3. Urinary retention. Woodward catheter had to be reinserted. Urology following. 4. Chronic diastolic CHF with moderate mitral and tricuspid regurgitation. 5. Hyperkalemia secondary to acute kidney injury and lisinopril. Improved. 6. Volume overload. Plan: IV Bumex x 1 dose today. Patient takes torsemide at home. Repeat chest x-ray. Check renal ultrasound. Avoid nephrotoxins. Continue to monitor renal function and urine output. Thank you for the consultation. I will continue to follow the patient with you during her hospital stay.
[2025-01-06] MEDS: BUMETANIDE 0.25 MG/ML 4 ML VIAL IVP STA (11:14)
--- NOTE | 2025-01-06 12:43 | P.PN ---
Progress Note - Text Progress Note Date: 01/06/25 The patient has been seen for incomplete emptying of her bladder. HEr pvr run near 200ml. Her urine didnot show any uti. SHe has had some abdominal pain but I donot think this is the bladder. At present we will follow
[2025-01-06] MEDS: NA PHOS,M-B/NA PHOS,DI-BA 133 ML ENEMA RECTAL ONE (13:01)
--- NOTE | 2025-01-06 13:31 | P.PN ---
Subjective Progress Note Date: 01/06/25 Progress note Date of Dictation by Dr. Reynoso Location 464 bed 1 Patient seen today by myself [id number] Patient complaining of feeling sick and pain all over Patient seen by consultation Dr. Ortega for wheezing. Patient also seen by cardiology currently Dr. Damian and medication for h ypertension has been removed with the patient blood pressure was low 93/54 with a mean 67. Patient seen by Dr. Moses nephrology and given diuretic. During the night patient has severe abdominal discomfort and pain and they thought that retention of the urine they called Dr. Burkett who is on-call for urology and the Woodward catheter reinserted with the decreased urine output in association of acute kidney failure with acute kidney injury. 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 W ith the mean 79 Oxygen saturation 92 on 2 L nasal cannula. Laboratory today: Indicating that hemoglobin 10.6 and hematocrit 34.8 which is improved from what she had before MCV 85.7, white count 6.75 Sodium 134 potassium improved normalized to 5.3, chloride 97 carbon dioxide 26. And anion gap 10.30. Creatinine progressively increased from 1.7 yesterday to 2 and EGFR progressively worsening with the yesterday 29 and today 24., Her blood sugar 87., POC blood glucose 93. Calcium is 8.8 and total bili less than 0.2, AST 45, ALT 37 with the alk phos 114., Total protein 6.4 and normal and albumin 3.1 and globulin 3.3. Urine specific gravity 1.022 normal, urine osmolality 556 Random sodium less than 20. And urine random potassium 60.1 On the exam Patient thought that she did not have no bowel movement and currently she had enema rectal. Dr. Moses did order ultrasound of the kidney. Her complaint is very valid with the abdominal pain. However x-ray of the abdomen 2 view has indicating gas seen in nondistended stomach and moderate size hiatal hernia. Multi level sparing and disc space narrowing in the thoracolumbar. With the conclusion nonspecific and fever with nonobstructive deny wel gas pattern. No leukocytosis and no fever or chills. Complaining of wheezing inspiratory expiratory however she is seen by Dr. Ortega and no change on her medication at this time. On physical exam: Generally she is feeling sick with the abdominal pain and acute kidney injury and decreased urine output as well as wheezing and hypotension Head was normocephalic atraumatic pupil was equal reactive Patient has no IV she has a only saline lock Neck was supple no JVD no thyromegaly no lymph adenopathy. Chest she has wheezing bilateral She is on inhalation therapy and she had multiple drug allergies Heart he had a valvular heart disease with pulmonary hypertension and the chronic edema of the lower extremities. Abdomen tender and soreness with light palpation. Extremities 1+ edema Neurologically stable and psychiatrically stable Assessment: Decreased urine output Woodward catheter in place for TYLER with the presence of acute kidney injury Her sodium in the urine was less than 20 which indicating to me that she has mildly dehydrated in the spite that she had history of diastolic congestive heart failure Currently Dr. Moses is handling her renal function and we will wait for his investigation and treatment History of hypotension and medication has been removed by Dr. Damian for hyperte nsion. And Inhalation therapy with underlying wheezing and dyspnea. Plan Plan to continue the current medication Obtain BMP in a.m. Magnesium in a.m. Monitor the bowel movement and waiting for the result of the ultrasound. If blood pressure not improving probably patient may need to be on the third floor for more aggressive treatment Patient had shortness of breath progressed we may have to ask the pulmonary to really visit the case again. At this point I am not starting any IV fluid until further recommendations from nephrology. Objective - Vital Signs Vital signs: Vital Signs Temp 97.5 F L 01/06/25 03:58 Pulse 51 L 01/06/25 11:35 Resp 22 01/06/25 11:35 BP 93/54 01/06/25 11:35 Pulse Ox 98 01/06/25 09:03 FiO2 Intake & Output 01/05/25 01/06/25 01/06/25 18:59 06:59 18:59 Intake Total 360 Output Total 600 Balance -240 Weight 85.5 kg Intake: Oral 360 Output: Urine 600 Other: Voiding Method External Catheter External Catheter # Voids 6 # Bowel Movements 1 - Labs CBC & Chem 7: 01/06/25 03:45 01/06/25 03:45 Labs: Abnormal Lab Results - Last 24 Hours (Table) 01/03/25 01/03/25 01/05/25 Range/Units 15:53 15:53 10:37 RBC (4.10-5.20) X 10*6/uL Hgb (12.0-15.0) g/dL Hct (37.2-46.3) % MCH (27.0-32.0) pg MCHC (32.0-37.0) g/dL RDW (11.5-14.5) % Immature Gran # (0.00-0.04) X 10*3/uL Lymphocytes # (0.90-5.00) X 10*3/uL Eosinophils # (0.04-0.35) X 10*3/uL Sodium (135-145) mmol/L BUN (9.0-27.0) mg/dL Creatinine (0.6-1.5) mg/dL Est GFR (CKD-EPI) (>=60) BUN/Creatinine Ratio (12.00-20.00) Ratio Osmolality 308 H (275-295) mOsm/kg Total Bilirubin (0.3-1.2) mg/dL AST (13-35) U/L Albumin (3.8-4.9) g/dL Albumin/Globulin Ratio (1.60-3.17) Ratio Methylmalonic Acid 0.57 H (<0.40) umol/L Ur Random Sodium (40-220) mmol/L ADDIE Screen POSITIVE A (Negative) 01/06/25 01/06/25 01/06/25 Range/Units 00:30 03:45 03:45 RBC 4.06 L (4.10-5.20) X 10*6/uL Hgb 10.6 L (12.0-15.0) g/dL Hct 34.8 L (37.2-46.3) % MCH 26.1 L (27.0-32.0) pg MCHC 30.5 L (32.0-37.0) g/dL RDW 16.1 H (11.5-14.5) % Immature Gran # 0.05 H (0.00-0.04) X 10*3/uL Lymphocytes # 0.84 L (0.90-5.00) X 10*3/uL Eosinophils # 0 L (0.04-0.35) X 10*3/uL Sodium 134 L (135-145) mmol/L BUN 87.1 H (9.0-27.0) mg/dL Creatinine 2.0 H (0.6-1.5) mg/dL Est GFR (CKD-EPI) 24 L (>=60) BUN/Creatinine Ratio 43.55 H (12.00-20.00) Ratio Osmolality (275-295) mOsm/kg Total Bilirubin <0.2 L (0.3-1.2) mg/dL AST 45 H (13-35) U/L Albumin 3.1 L (3.8-4.9) g/dL Albumin/Globulin Ratio 0.94 L (1.60-3.17) Ratio Methylmalonic Acid (<0.40) umol/L Ur Random Sodium <20 L (40-220) mmol/L ADDIE Screen (Negative) Microbiology - Last 24 Hours (Table) 01/03/25 21:56 Throat Culture - Final Throat
[2025-01-06] MEDS: SODIUM CHLORIDE 0.9% 500 ML 500 ML IV ONE (13:59)
--- NOTE | 2025-01-06 14:04 | P.PN ---
Subjective Progress Note Date: 01/06/25 This is a 84-year-old female patient, resides in assisted living, presented to the emergency with some difficulties with mobility, increased lower extremity edema and some exertional dyspnea. No chest pain. No cough production. Chest x-ray wheezing. The patient denies having any fever or chills. White count of 5.6, hemoglobin 9.7 and platelet count 222. Normal electrolytes. Sodium levels at 139, potassium is at 4.6, creatinine 9 with a bicarb of 28. The patient's BUN is at 29 with creatinine 1.4. Glucose is at 135. LFTs were essentially within normal limits. Serum iron level is at 33 which is low. proBNP level is 1900. TSH 4.04 and UA is negative. Viral screen was negative. The chest x-ray done in the emergency department shows cardiomegaly with some mild interstitial edema. Also, the patient was given a CT scan of the chest that showed a large hiatal hernia. Moderate abnormalities identified. The patient is Resting up comfortably in the chair. He is on room air oxygen. Echo showed preserved LV function with an EF of 55 to 60%. There was evidence of hypertension with e stimated PA pressure of 42. Multiple hepatic rotation, no dyspnea micrograms, the aortic valve was within normal limits. The patient is currently on Bumex oh milligram every 24 hours. On 01/04/2025, the patient is resting comfortably in bed. No specific complaints. She is on room air oxygen. Her white cell count is 7 with a hemoglobin 9.9 and platelet count of 253. Procalcitonin level was 0.11. proBNP level is at 4620. She had increased lower extremity edema and the patient remains on Bumex 1 mg IV every 24 hours. Fluid balance is negative. The patient is seen today January 06, 2025 in follow-up on the regular medical floor. She is currently sitting up in bed. Awake and alert in no acute distress. She is having some lower abdominal discomfort. She states this was giving her some shortness of breath and we were called by the nursing staff to see the patient. Abdominal x-ray revealed nonobstructive bowel gas pattern. Maintaining O2 saturations up to 98% on 2 L per minute per nasal cannula. She has been afebrile. Hemodynamically stable. Throat culture revealed no growth. White count 6.7. Hemoglobin 10.6. Platelets 275. Sodium 134. Potassium 5.3. Bicarb 27. BUN 87. Creatinine 2.0. Glucose 87. She remains on albuterol 4 times daily. Heparin for DVT prophylaxis. Objective - Vital Signs Vital signs: Vital Signs Temp 97.5 F L 01/06/25 03:58 Pulse 51 L 01/06/25 11:35 Resp 22 01/06/25 11:35 BP 93/54 01/06/25 11:35 Pulse Ox 98 01/06/25 09:03 FiO2 Intake & Output 01/05/25 01/06/25 01/06/25 18:59 06:59 18:59 Intake Total 360 Output Total 600 Balance -240 Weight 85.5 kg Intake: Oral 360 Output: Urine 600 Other: Voiding Method External Catheter External Catheter # Voids 6 # Bowel Movements 1 - Exam GENERAL EXAM: Alert, 84-year-old female, on 2 L nasal cannula, fairly comfortable in no apparent distress. HEAD: Normocephalic. EYES: Normal reaction of pupils, equal size. NOSE: Clear with pink turbinates. THROAT: No erythema or exudates. NECK: No masses, no JVD. CHEST: No chest wall deformity. LUNGS: Equal air entry with no crackles, wheeze, rhonchi or dullness. CVS: S1 and S2 normal with no audible murmur, regular rhythm. ABDOMEN: No hepatosplenomegaly, normal bowel sounds, no guarding or rigidity. SPINE: No scoliosis or deformity SKIN: No rashes CENTRAL NERVOUS SYSTEM: No focal deficits, tone is normal in all 4 extremities. EXTREMITIES: There is no peripheral edema. No clubbing, no cyanosis. Peripheral pulses are intact. - Labs CBC & Chem 7: 01/06/25 03:45 01/06/25 03:45 Labs: Abnormal Lab Results - Last 24 Hours (Table) 01/03/25 01/03/25 01/05/25 Range/Units 15:53 15:53 10:37 RBC (4.10-5.20) X 10*6/uL Hgb (12.0-15.0) g/dL Hct (37.2-46.3) % MCH (27.0-32.0) pg MCHC (32.0-37.0) g/dL RDW (11.5-14.5) % Immature Gran # (0.00-0.04) X 10*3/uL Lymphocytes # (0.90-5.00) X 10*3/uL Eosinophils # (0.04-0.35) X 10*3/uL Sodium (135-145) mmol/L BUN (9.0-27.0) mg/dL Creatinine (0.6-1.5) mg/dL Est GFR (CKD-EPI) (>=60) BUN/Creatinine Ratio (12.00-20.00) Ratio Osmolality 308 H (275-295) mOsm/kg Total Bilirubin (0.3-1.2) mg/dL AST (13-35) U/L Albumin (3.8-4.9) g/dL Albumin/Globulin Ratio (1.60-3.17) Ratio Methylmalonic Acid 0.57 H (<0.40) umol/L Ur Random Sodium (40-220) mmol/L ADDIE Screen POSITIVE A (Negative) 01/06/25 01/06/25 01/06/25 Range/Units 00:30 03:45 03:45 RBC 4.06 L (4.10-5.20) X 10*6/uL Hgb 10.6 L (12.0-15.0) g/dL Hct 34.8 L (37.2-46.3) % MCH 26.1 L (27.0-32.0) pg MCHC 30.5 L (32.0-37.0) g/dL RDW 16.1 H (11.5-14.5) % Immature Gran # 0.05 H (0.00-0.04) X 10*3/uL Lymphocytes # 0.84 L (0.90-5.00) X 10*3/uL Eosinophils # 0 L (0.04-0.35) X 10*3/uL Sodium 134 L (135-145) mmol/L BUN 87.1 H (9.0-27.0) mg/dL Creatinine 2.0 H (0.6-1.5) mg/dL Est GFR (CKD-EPI) 24 L (>=60) BUN/Creatinine Ratio 43.55 H (12.00-20.00) Ratio Osmolality (275-295) mOsm/kg Total Bilirubin <0.2 L (0.3-1.2) mg/dL AST 45 H (13-35) U/L Albumin 3.1 L (3.8-4.9) g/dL Albumin/Globulin Ratio 0.94 L (1.60-3.17) Ratio Methylmalonic Acid (<0.40) umol/L Ur Random Sodium <20 L (40-220) mmol/L ADDIE Screen (Negative) Microbiology - Last 24 Hours (Table) 01/03/25 21:56 Throat Culture - Final Throat Assessment and Plan Assessment: Acute on chronic dyspnea. CT of the chest was reviewed and there is no acute pulmonary process. There is a large hiatal hernia. Clinically, she has not any signs of volume overload with increased lower edema. The patient is on 2 L/min per nasal cannula with O2 saturations at 98%. Viral screen negative Lower extremity edema, echocardiogram shows preserved LV function with moderate degree of heart regurgitation History of subarachnoid hemorrhage back in 1986 Hypothyroidism Hypertension Chronic stage III kidney disease Chronic normocytic anemia, underlying iron deficiency Chronic urinary incontinence Chronic diastolic heart failure Chronic lymphedema involving lower extremities Pulmonary hypertension, likely group 2 Plan: The patient was seen and evaluated Labs and medications reviewed Currently stable on 2 L nasal cannula Titrate down/off the FiO2 as tolerated Albuterol treatments 4 times daily Robitussin for her cough Bumex 1 mg IV x 1 Abdominal x-ray reviewed Nonobstructive bowel gas pattern Plan is for [facility] versus return home I have personally seen and examined the patient, performed the documentation and the assessment and plan as written. Number of minutes spent on the visit: 10 Dictation was produced using [employer] dictation software. Please excuse any grammatical, word or spelling errors.
--- NOTE | 2025-01-06 14:20 | P.PN ---
Subjective HISTORY OF PRESENT ILLNESS: 84-year-old female who lives in assisted living presented to the hospital because of difficulty in getting out of chair, difficulty with mobility, increased lower extremity edema, increased shortness of breath. Cardiology was consulted for CHF evaluation and management. NT-proBNP 1900, lipid LDL 87, TSH 4.04, A1c 5.5, BUN 38, creatinine 1.3, Hb 9.7 Echo shows EF 55%, No obvious regional wall motion abnormality Mild RV dilatation, moderate biatrial dilatation, moderate mitral regurgitation, moderate tricuspid regurgitation Last tress test in 2016 was negative 01/05/2025 Patient examined this morning at the bedside. Patient currently denies chest pain or pressure. She denies shortness of breath. Creatinine increased today to 1.7. Potassium 5.9. Blood pressure stable 121/56. 01/06/2025 Patient examined this afternoon at the bedside. Patient is currently sitting up in the chair. She denies chest pain or pressure. She denies shortness of breath. She reports significant abdominal pain. Patient's heart rate is currently in the 50s at the time of examination. She is maintaining sinus mechanism. Blood pressure has been low with a systolic in the 90s. PHYSICAL EXAM: VITAL SIGNS: Reviewed. GENERAL: Well-developed in no acute distress. NECK: Supple. No JVD or thyromegaly LUNGS: Respirations even and unlabored. Lungs with expiratory wheezing noted HEART: Regular rate and rhythm. S1 and S2 heard. EXTREMITIES: Normal range of motion. No clubbing or cyanosis. Peripheral pulses intact. No lower extremity edema ASSESSMENT: # Acute on chronic heart failure with preserved EF # Acute on chronic dyspnea # Chronic lower extremity edema # Moderate mitral regurgitation # Essential hypertension # Acute on chronic kidney disease # Debility with problems with mobility # Obesity Abdominal pain PLAN: Lisinopril discontinued 01/05/2025 secondary to worsening kidney function Discontinue carvedilol secondary to bradycardia Discontinue hydralazine due to soft blood pressures Continue aspirin and Imdur. Hold Imdur for systolic blood pressure less than 90. Continue to monitor kidney function. Repeat in AM. Further recommendations pending patient course Nurse practitioner note has been reviewed by physician. Signing provider agrees with the documented findings, assessment, and plan of care documented by [employer] as a scribe. Objective - Vital Signs Vital signs: Vital Signs Temp 97.5 F L 01/06/25 03:58 Pulse 51 L 01/06/25 11:35 Resp 22 01/06/25 11:35 BP 93/54 01/06/25 11:35 Pulse Ox 98 01/06/25 09:03 FiO2 Intake & Output 01/05/25 01/06/25 01/06/25 18:59 06:59 18:59 Intake Total 360 Output Total 600 Balance -240 Weight 85.5 kg Intake: Oral 360 Output: Urine 600 Other: Voiding Method External Catheter External Catheter # Voids 6 # Bowel Movements 1 - Labs CBC & Chem 7: 01/06/25 03:45 01/06/25 03:45 Labs: Abnormal Lab Results - Last 24 Hours (Table) 01/03/25 01/03/25 01/05/25 Range/Units 15:53 15:53 10:37 RBC (4.10-5.20) X 10*6/uL Hgb (12.0-15.0) g/dL Hct (37.2-46.3) % MCH (27.0-32.0) pg MCHC (32.0-37.0) g/dL RDW (11.5-14.5) % Immature Gran # (0.00-0.04) X 10*3/uL Lymphocytes # (0.90-5.00) X 10*3/uL Eosinophils # (0.04-0.35) X 10*3/uL Sodium (135-145) mmol/L BUN (9.0-27.0) mg/dL Creatinine (0.6-1.5) mg/dL Est GFR (CKD-EPI) (>=60) BUN/Creatinine Ratio (12.00-20.00) Ratio Osmolality 308 H (275-295) mOsm/kg Total Bilirubin (0.3-1.2) mg/dL AST (13-35) U/L Albumin (3.8-4.9) g/dL Albumin/Globulin Ratio (1.60-3.17) Ratio Methylmalonic Acid 0.57 H (<0.40) umol/L Ur Random Sodium (40-220) mmol/L ADDIE Screen POSITIVE A (Negative) 01/06/25 01/06/25 01/06/25 Range/Units 00:30 03:45 03:45 RBC 4.06 L (4.10-5.20) X 10*6/uL Hgb 10.6 L (12.0-15.0) g/dL Hct 34.8 L (37.2-46.3) % MCH 26.1 L (27.0-32.0) pg MCHC 30.5 L (32.0-37.0) g/dL RDW 16.1 H (11.5-14.5) % Immature Gran # 0.05 H (0.00-0.04) X 10*3/uL Lymphocytes # 0.84 L (0.90-5.00) X 10*3/uL Eosinophils # 0 L (0.04-0.35) X 10*3/uL Sodium 134 L (135-145) mmol/L BUN 87.1 H (9.0-27.0) mg/dL Creatinine 2.0 H (0.6-1.5) mg/dL Est GFR (CKD-EPI) 24 L (>=60) BUN/Creatinine Ratio 43.55 H (12.00-20.00) Ratio Osmolality (275-295) mOsm/kg Total Bilirubin <0.2 L (0.3-1.2) mg/dL AST 45 H (13-35) U/L Albumin 3.1 L (3.8-4.9) g/dL Albumin/Globulin Ratio 0.94 L (1.60-3.17) Ratio Methylmalonic Acid (<0.40) umol/L Ur Random Sodium <20 L (40-220) mmol/L ADDIE Screen (Negative) Microbiology - Last 24 Hours (Table) 01/03/25 21:56 Throat Culture - Final Throat
[2025-01-06 18:53] LABS: ANA Pattern See Footnote; ANA Titer 1:40
[2025-01-06 18:55] LABS: HCT 38.8 % (37.2-46.3); HGB 12.3 g/dL (12.0-15.0); MCH 26.6 pg (27.0-32.0); MCHC 31.7 g/dL (32.0-37.0); MCV 83.8 fL (80.0-97.0); Mean Platelet Volume 10.4 fL (9.5-12.2); Platelet Count 301 10*3/uL (140-440); RBC 4.63 10*6/uL (4.10-5.20); RDW 16.3 % (11.5-14.5); WBC 6.99 10*3/uL (4.50-10.00)
[2025-01-06 19:15] LABS: Band Neutrophils % 8 %; Lymphocytes # (M) 0.91 k/uL (1.0-4.8); Metamyelocytes # (M) 0.28 k/uL (0); Metamyelocytes % 4 %; Monocytes # (M) 0.07 k/uL (0-1.0); Myelocytes # (M) 0.14 k/uL (0); Myelocytes % 2 %; Neutrophils # (M) 5.66 k/uL (1.3-7.7); Neutrophils % (M) 73 %; Nucleated Red Blood Cells 0 /100 WBC (0-0); Total Cells Counted 200
[2025-01-06 19:16] LABS: Poikilocytosis (M) Present; Target Cells Present
[2025-01-06 21:38] LABS: African American GFR (CKD) 19 (>60 ml/min/1.73 sqM); Anion Gap 10 mmol/L; Calcium 9.2 mg/dL (8.4-10.2); Carbon Dioxide 27 mmol/L (22-30); Chloride 94 mmol/L (98-107); Glucose 96 mg/dL (74-99); Non-African American GFR(CKD) 17 (>60 ml/min/1.73 sqM); Potassium 5.8 mmol/L (3.5-5.1); Sodium 131 mmol/L (137-145)
--- NOTE | 2025-01-06 21:38 | P.PN ---
Progress Note - Text Progress Note Date: 01/06/25 Progress note date of service 01/06/2025. I received [employer] call from Marni nurse RN taking care of Mrs. Wilkins stated that patient vomiting blood and she request to transferred the patient to the third floor chemical pumper the already called to the floor and they have a bed available, stated that on the fourth floor nursing staff unable to handle such hematemesis. I did advise her to consult to the surgeon with the hematemesis and she had large hiatal hernia in the thoracic cavity could be also in need attention by surgical group especially patient had abdominal pain, and we did x-ray of the abdomen was negative, and she also thought that she had constipation and they di d Fleet enema as well. Patient had developed acute kidney injury, and low urine output, as she had wheezing inspiratory expiratory wheezing. Patient transferred to 374 bed 1. Because of the hematemesis we held the aspirin. Patient as mentioned of previous note today on 01/06/2025 that she had hypotension and Dr. Damian did discontinue the hydralazine and the carvedilol which was initially ordered by Dr. Stallings cardiology. She had abdominal pain fatigue and with the consultation with the surgical group warehouse operations associate [facility] surgical group Dr. Dar Morales general surgery to see and evaluate. Her general condition is deteriorated it appeared to me that she is intravascularly dehydrated.
[2025-01-06 21:55] LABS: Blood Urea Nitrogen 119 mg/dL (7-17)
[2025-01-06] MEDS: DEXTROSE 50% SYRINGE 50 ML IVP STA (22:36)
[2025-01-06] MEDS: SODIUM BICARB 8.4% 50 ML SYR (1 MEQ/ML) IV STA (22:36)
[2025-01-06] MEDS: INSULIN REGULAR 100 UNIT/ML VIAL (IV) IV ONE (22:36)
[2025-01-06] MEDS: CALCIUM GLUCONATE IN NACL 1 GM in SALINE 1 100ML.BAG IVPB ONE (22:36)
[2025-01-06] MEDS: PANTOPRAZOLE 40 MG/10 ML VIAL IVP SCH (22:52)
[2025-01-06] MEDS: FUROSEMIDE 10 MG/ML 10 ML VIAL IV ONE (23:53)
[2025-01-07] MEDS: MIDODRINE 5 MG TAB PO STA (00:10)
[2025-01-07] MEDS: FUROSEMIDE 10 MG/ML 2 ML VIAL IV STA (00:10)
[2025-01-07 03:36] LABS: HCT 39.1 % (37.2-46.3); HGB 12.2 g/dL (12.0-15.0); Lymphocytes # (A) 0.54 10*3/uL (0.90-5.00); Lymphocytes % (A) 13.1 %; MCH 25.9 pg (27.0-32.0); MCHC 31.2 g/dL (32.0-37.0); Mean Platelet Volume 10.5 fL (9.5-12.2); Monocytes % (A) 2.4 %; Neutrophils # (A) 3.48 10*3/uL (1.80-7.70); Neutrophils % (A) 84.3 %; Platelet Count 266 10*3/uL (140-440); RBC 4.71 10*6/uL (4.10-5.20); RDW 16.3 % (11.5-14.5); WBC 4.13 10*3/uL (4.50-10.00)
[2025-01-07 03:55] LABS: African American GFR (CKD) 17 (>60 ml/min/1.73 sqM); Anion Gap 10 mmol/L; Calcium 9.3 mg/dL (8.4-10.2); Carbon Dioxide 30 mmol/L (22-30); Chloride 93 mmol/L (98-107); Glucose 77 mg/dL (74-99); Non-African American GFR(CKD) 15 (>60 ml/min/1.73 sqM); Potassium 5.7 mmol/L (3.5-5.1); Sodium 133 mmol/L (137-145)
[2025-01-07 04:27] LABS: Blood Urea Nitrogen 124 mg/dL (7-17)
[2025-01-07] MEDS: DEXTROSE 50% SYRINGE 50 ML IVP STA ×2 (05:06→11:54)
[2025-01-07] MEDS: CALCIUM GLUCONATE IN NACL 1 GM in SALINE 1 100ML.BAG IVPB ONE (05:07)
[2025-01-07] MEDS: SODIUM BICARB 8.4% 50 ML SYR (1 MEQ/ML) IV STA ×2 (05:07→11:53)
[2025-01-07] MEDS: INSULIN REGULAR 100 UNIT/ML VIAL (IV) IV ONE ×2 (05:07→12:01)
[2025-01-07] MEDS: MIDODRINE 5 MG TAB PO SCH (07:03)
--- NOTE | 2025-01-07 07:04 | XR ---
EXAMINATION TYPE: XR chest 1V DATE OF EXAM: 01/07/2025 CLINICAL INDICATION: Female, 84 years old with history of sob, progress study. TECHNIQUE: Single AP portable upright view of the chest is obtained. COMPARISON: Chest CT from 5 days earlier FINDINGS: Persistent cardiomegaly. Persistent moderate to large size hiatal hernia. New increased ce ntral markings bilaterally. Degenerative changes bilateral glenohumeral joints are redemonstrated. IMPRESSION: Findings suggest new CHF exacerbation/fluid overload state. Correlate clinically. [facility], , 01/07/2025 7:01 AM
--- NOTE | 2025-01-07 08:02 | US ---
EXAMINATION TYPE: US kidneys/renal and bladder DATE OF EXAM: 01/07/2025 COMPARISON: Same day CT, prev US CLINICAL INDICATION: Female, 84 years old with history of drew; DREW TECHNIQUE: Grayscale imaging of the bilateral kidneys and urinary bladder: FINDINGS: EXAM MEASUREMENTS: Right Kidney: 9.5 x 5.2 x 4.9 cm Left Kidney: 9.1 x 4.5 x 4.5 cm Immobile, elderly pt- left kidney difficult to visualize Right Kidney: No evidence of hydro, simple appearing cystic lesion lower pole= 3.8 x 3.3 x 3.8 cm Left Kidney: Limited views show no evidence of hydro Bladder: Pt has cath in place IMPRESSION: 1. Inferior pole right renal cyst [facility], , 01/07/2025 7:59 AM
[2025-01-07 08:22] LABS: Reticulocyte % 1.49 % (0.10-1.80)
[2025-01-07 08:25] VITALS: TEMP 97.3
--- NOTE | 2025-01-07 09:16 | CT ---
EXAMINATION TYPE: CT abdomen pelvis wo con DATE OF EXAM: 01/07/2025 5:08 AM COMPARISON: 05/25/2021 CLINICAL INDICATION: Female, 84 years old with history of abdominal pain, abdominal pain TECHNIQUE: Axial images were obtained from above the diaphragm to the pubic rami in the axial plane a t 5 mm thick sections. Reconstructed images are reviewed on the computer in the coronal plane. CONTRAST: 0 mL of Isovue 300. Study performed without Oral Contrast DLP: 1120.4 mGycm, Automated exposure control for dose reduction was used. FINDINGS: Limited CT sections are obtained the lung bases. There is a large hiatal hernia. Compressive atelect asis at the left base appears to be present. Minimal right pleural effusion is present coronary arter y calcification is present. CT ABDOMEN: Free air is present. Source is not identified. This may be greater in the epigastric morenita on. Report was called to the floor nurse Lor by Dr. Gibson at the time interpretation. Liver: Normal Spleen: Normal Pancreas: Normal Adrenal glands: The adrenal glands are normal. Gallbladder: Gallstone is present Kidneys: No masses are evident. No hydronephrosis is present. There is a 3.4 cm cyst inferior pole right kidney There is a nonobstructing punctate renal stone mid right kidney. A punctate nonobstruct ing renal stones inferior pole left kidney. Aorta: Vascular calcification is within the aorta. Inferior vena cava: Normal. CT PELVIS: There are dilated small bowel loops. Air is present within the colon. No zone of transition is identi fied. ere are loops of bowel which are incompletely distended or lack oral contrast limiting their e valuation. Appendix: Not identified. Urinary bladder: Decompressed with Woodward catheter Genitourinary structures: Small uterus is present. There may be a 4.5 cm right ovarian cyst present. Left adnexa appears normal. Osseous structures: No suspicious lytic or sclerotic lesions. Facet hypertrophy is present IMPRESSION: 1. Pneumoperitoneum. 2. Cholelithiasis. 3. Nonobstructing renal stones. 4. Ascites. 5. Atelectasis left lung base. 6. Small right pleural effusion. [facility], , 01/07/2025 9:14 AM
[2025-01-07 10:59] LABS: HCT 40.1 % (37.2-46.3); HGB 12.5 g/dL (12.0-15.0); Lymphocytes # (A) 0.49 10*3/uL (0.90-5.00); Lymphocytes % (A) 12.5 %; MCHC 31.2 g/dL (32.0-37.0); MCV 83.5 fL (80.0-97.0); Mean Platelet Volume 10.2 fL (9.5-12.2); Monocytes # (A) 0.09 10*3/uL (0.20-1.00); Monocytes % (A) 2.3 %; Neutrophils # (A) 3.29 10*3/uL (1.80-7.70); Neutrophils % (A) 84.2 %; Platelet Count 259 10*3/uL (140-440); RDW 16.6 % (11.5-14.5); WBC 3.91 10*3/uL (4.50-10.00)
--- NOTE | 2025-01-07 11:02 | P.PN ---
Subjective Patient is seen in follow-up for acute kidney injury on chronic kidney disease. Renal function worsening. Urine output has been low. Patient received fluid bolus as well as IV Lasix with no improvement in urine output. Midodrine added this morning. Had coffee-ground emesis yesterday. Going for exploratory laparotomy due to pneumoperitoneum today. Vital signs are stable. General: No acute distress. HEENT: Head exam is unremarkable. On nasal cannula. LUNGS: No audible rhonchi or wheezes. HEART: Rate and Rhythm are regular. ABDOMEN: Nontender. EXTREMITITES: Trace edema. Objective - Vital Signs Vital signs: Vital Signs Temp 97.3 F L 01/07/25 08:22 Pulse 80 01/07/25 09:54 Resp 22 01/07/25 08:22 BP 133/80 01/07/25 08:22 Pulse Ox 92 L 01/07/25 09:40 FiO2 Intake & Output 01/06/25 01/07/25 01/07/25 18:59 06:59 18:59 Intake Total 120 Output Total 60 100 Balance 60 -100 Weight 87 kg Intake: Oral 120 Output: Urine 60 100 Other: Voiding Method External Catheter Indwelling Catheter - Labs CBC & Chem 7: 01/07/25 03:11 01/07/25 03:11 Labs: Abnormal Lab Results - Last 24 Hours (Table) 01/06/25 01/06/25 01/07/25 Range/Units 18:32 20:29 03:11 WBC 4.13 L (4.50-10.00) 10*3/uL MCH 26.6 L 25.9 L (27.0-32.0) pg MCHC 31.7 L 31.2 L (32.0-37.0) g/dL RDW 16.3 H (11.5-14.5) % Lymphocytes # 0.54 L (0.90-5.00) 10*3/uL Lymphocytes # (Manual) 0.91 L (1.0-4.8) k/uL Monocytes # 0.10 L (0.20-1.00) 10*3/uL Eosinophils # 0.00 L (0.04-0.35) 10*3/uL Metamyelocytes # (Man) 0.28 H (0) k/uL Myelocytes # (Manual) 0.14 H (0) k/uL Sodium 131 L (137-145) mmol/L Potassium 5.8 H (3.5-5.1) mmol/L Chloride 94 L (98-107) mmol/L BUN 119 H* (7-17) mg/dL Creatinine 2.54 H (0.52-1.04) mg/dL 01/07/25 Range/Units 03:11 WBC (4.50-10.00) 10*3/uL MCH (27.0-32.0) pg MCHC (32.0-37.0) g/dL RDW (11.5-14.5) % Lymphocytes # (0.90-5.00) 10*3/uL Lymphocytes # (Manual) (1.0-4.8) k/uL Monocytes # (0.20-1.00) 10*3/uL Eosinophils # (0.04-0.35) 10*3/uL Metamyelocytes # (Man) (0) k/uL Myelocytes # (Manual) (0) k/uL Sodium 133 L (137-145) mmol/L Potassium 5.7 H (3.5-5.1) mmol/L Chloride 93 L (98-107) mmol/L BUN 124 H* (7-17) mg/dL Creatinine 2.77 H (0.52-1.04) mg/dL Microbiology - Last 24 Hours (Table) 01/03/25 21:56 Throat Culture - Final Throat Assessment and Plan Plan: Assessment: 1. Acute kidney injury secondary to ATN. Creatinine 1.3 on admission and is up to 2.77 today. UA benign. No hydronephrosis noted on kidney ultrasound. 2. Chronic kidney disease stage IIIb with baseline creatinine of 1.5 secondary to nephrosclerosis. 3. Urinary retention. Woodward catheter had to be reinserted. Urology following. 4. Chronic diastolic CHF with moderate mitral and tricuspid regurgitation. 5. Hyperkalemia secondary to acute kidney injury and lisinopril. 6. Volume overload. Chest x-ray from today suggestive of fluid overload. 7. Pneumoperitoneum. Surgery following. Scheduled for exploratory laparotomy today. Patient had coffee-ground emesis yesterday. Plan: Hyperkalemia medically treated this morning. Repeat potassium level pending. Midodrine added this morning with improvement in blood pressure. Avoid nephrotoxins. Continue to monitor renal function and urine output. With worsening renal function, hyperkalemia and low urine output, renal repl acement therapy discussed with patient. She is refusing to start. Continue to monitor closely. Patient going for exploratory laparotomy today. Will challenge with high-dose IV Lasix if no improvement in urine output postsurgery.
[2025-01-07 11:06] LABS: Potassium 5.9 mmol/L (3.5-5.1)
[2025-01-07 11:08] LABS: African American GFR (CKD) 17 (>60 ml/min/1.73 sqM); Anion Gap 12 mmol/L; Calcium 9.4 mg/dL (8.4-10.2); Carbon Dioxide 31 mmol/L (22-30); Chloride 93 mmol/L (98-107); Glucose 60 mg/dL (74-99); Non-African American GFR(CKD) 14 (>60 ml/min/1.73 sqM); Sodium 136 mmol/L (137-145)
[2025-01-07 11:35] LABS: Blood Urea Nitrogen 134 mg/dL (7-17)
--- NOTE | 2025-01-07 11:36 | P.GSCN ---
History of Present Illness Consult date: 01/07/25 History of present illness: CHIEF COMPLAINT: Cough and shortness of breath HISTORY OF PRESENT ILLNESS: This is a 84-year-old female who presented with cough, congestion and shortness of breath. She is currently being treated for CHF exacerbation. She is followed by cardiology and pulmonary service. She is also followed by nephrology and there has been discussion about dialysis. Yesterday patient had hematemesis. Apparently she has been having episodes of coffee-ground emesis. She has had increase in abdominal pain more so in the epigastric area and right lower quadrant. A CT scan abdomen and pelvis was completed showing evidence of a pneumoperitoneum. Surgical service was notified regarding the free air in the abdomen. And she is scheduled for surgery today. She does have a large hiatal hernia noted on CAT scan. Patient did have hypotension earlier which has improved. She did receive her midodrine. Patient is not on any blood thinners besides DVT prophylaxis. PAST MEDICAL HISTORY: See below PAST SURGICAL HISTORY: See below MEDICATIONS: See below ALLERGIES: See below SOCIAL HISTORY: No illicit drug use. REVIEW OF SYSTEMS: CONSTITUTIONAL: Denies fever or chills. HEENT: Denies blurred vision, vision changes, or eye pain. Denies hemoptysis CARDIOVASCULAR: Denies chest pain or pressure. RESPIRATORY: No shortness of breath. GASTROINTESTINAL: See HPI for pertinent findings HEMATOLOGIC: Denies bleeding disorders. GENITOURINARY: Denies any blood in urine or increased urinary frequency. SKIN: Denies pruitis. Denies rash. PHYSICAL EXAM: VITAL SIGNS: Reviewed GENERAL: Well-developed in no acute distress. HEENT: No sclera icterus. Extraocular movements grossly intact. Moist buccal mucosa. Head is atraumatic, normocephalic. No nasal drainage. ABDOMEN: Soft. Obese. Nondistended. Tenderness palpation epigastric area and right lower quadrant. There is some firmness noted in the right lower abdomen and epigastric area. NEUROLOGIC: Alert and oriented. Cranial nerves II through XII grossly intact. LABORATORY DATA: WBC 3.91 Hgb 12.5 platelets 259 Sodium 133 potassium 5.9 creatinine 2.7 IMAGING: CT scan abdomen pelvis reports pneumoperitoneum. Source not identified but may be greater in the epigastric region. Cholelithiasis. Nonobstructing renal stones. Ascites. Atelectasis left lung base. Small right pleural effusion ASSESSMENT: 1. Pneumoperitoneum 2. Coffee-ground emesis 3. Large hiatal hernia 4. CHF exacerbation PLAN: - Patient scheduled for emergent exploratory laparotomy today with Dr. Kendall - Keep patient n.p.o. - Continue to correct hyperkalemia OR for Ex Lap Physician [employer] Field Technician note has been reviewed by physician. Signing provider agrees with the documented findings, assessment, and plan of care. Past Medical History Past Medical History: Heart Failure, Hypertension, Osteoarthritis (OA), Renal Disease, Thyroid Disorder Additional Past Medical History / Comment(s): arthritis, sub arachnoid hemorrhage 1986, URINARY INCONTINENCE, CKD stage 3, cyst on kidney and ovary, hypothyroidism History of Any Multi-Drug Resistant Organisms: None Reported Past Surgical History: Joint Replacement Additional Past Surgical History / Comment(s): bilat. cataract surgery, LEFT KNEE replacement Past Anesthesia/Blood Transfusion Reactions: Motion Sickness, Postoperative Nausea & Vomiting (PONV) Past Psychological History: No Psychological Hx Reported Smoking Status: Never smoker Past Alcohol Use History: None Reported Past Drug Use History: None Reported - Past Family History Sister(s) Family Medical History: Cancer Additional Family Medical History / Comment(s): SKIN CANCER Mother Family Medical History: CVA/TIA Medications and Allergies Home Medications Medication Instructions Recorded Confirmed Type Aspirin 81 mg PO DAILY 09/26/14 01/02/25 History Lansoprazole 30 mg PO DAILY 09/26/14 01/02/25 History Levothyroxine Sodium [Synthroid] 75 mcg PO DAILY 11/20/23 01/02/25 History Isosorbide Mononitrate ER [Imdur] 30 mg PO DAILY tab 11/24/23 01/02/25 Rx Torsemide [Demadex] 20 mg PO BID 06/23/24 01/02/25 History hydrALAZINE HCL [Apresoline] 25 mg PO QID 06/23/24 01/02/25 History Acetaminophen Tab [Tylenol Tab] 1,000 mg PO Q6H PRN 01/02/25 01/02/25 History Blue Emu Cream 1 applic TOPICAL DAILY PRN 01/02/25 01/02/25 History Malcom/D3/Mag11/Zinc/Tribal Judge/Ady/Bor 1 tab PO DAILY 01/02/25 01/02/25 History [Caltrate 600+D Plus Tablet] Clobetasol Propionate [Temovate 1 applic TOPICAL BID PRN 01/02/25 01/02/25 History 0.05% Cream] Ensure 1 can PO DAILY 01/02/25 01/02/25 History Multivit with Calcium,Iron,Min 1 tab PO DAILY 01/02/25 01/02/25 History [Women's Multivitamin] Prevent Silicone Cream W/ Zinc 1 applic TOPICAL DAILY PRN 01/02/25 01/02/25 History Oxide busPIRone HCl [Buspar] 5 mg PO BID 01/02/25 01/02/25 History Allergies Allergy/AdvReac Type Severity Reaction Status Date / Time sulfamethoxazole Allergy Unknown "Sick as a Verified 01/02/25 11:50 [From Bactrim] Dog" trimethoprim [From Bactrim] Allergy Unknown "Sick as a Verified 01/02/25 11:50 Dog" Penicillins Allergy Rash/Hives Verified 01/02/25 11:50 adhesive AdvReac Unknown Rash, Red Verified 01/02/25 11:50 Skin from tape and cardiac electrodes. ciprofloxacin [From Cipro] AdvReac Unknown Pain in Verified 01/02/25 11:50 Arms ibuprofen [From Motrin] AdvReac Unknown Eye Pain Verified 01/02/25 11:50 doxycycline AdvReac Unknown Verified 01/02/25 11:50 ferrous sulfate AdvReac SEVERE Verified 01/02/25 11:50 HEADACHE furosemide [From Lasix] AdvReac Rapid Verified 01/02/25 11:50 Heart Rate latex AdvReac Unknown Verified 01/02/25 11:50 omeprazole [From Prilosec] AdvReac Unknown Verified 01/02/25 11:50 omeprazole magnesium AdvReac Unknown Verified 01/02/25 11:50 [From Prilosec] Surgical - Exam Vital Signs Temp Pulse Resp BP Pulse Ox 97.7 F 63 22 100/53 96 01/02/25 11:00 01/02/25 11:00 01/02/25 11:00 01/02/25 11:00 01/02/25 11:00 Results - Labs 01/07/25 10:39 01/07/25 10:39 Abnormal Lab Results - Last 24 Hours (Table) 01/06/25 01/06/25 01/07/25 Range/Units 18:32 20:29 03:11 WBC 4.13 L (4.50-10.00) 10*3/uL MCH 26.6 L 25.9 L (27.0-32.0) pg MCHC 31.7 L 31.2 L (32.0-37.0) g/dL RDW 16.3 H (11.5-14.5) % Lymphocytes # 0.54 L (0.90-5.00) 10*3/uL Lymphocytes # (Manual) 0.91 L (1.0-4.8) k/uL Monocytes # 0.10 L (0.20-1.00) 10*3/uL Eosinophils # 0.00 L (0.04-0.35) 10*3/uL Metamyelocytes # (Man) 0.28 H (0) k/uL Myelocytes # (Manual) 0.14 H (0) k/uL Sodium 131 L (137-145) mmol/L Potassium 5.8 H (3.5-5.1) mmol/L Chloride 94 L (98-107) mmol/L BUN 119 H* (7-17) mg/dL Creatinine 2.54 H (0.52-1.04) mg/dL 01/07/25 01/07/25 01/07/25 Range/Units 03:11 10:39 10:39 WBC 3.91 L (4.50-10.00) 10*3/uL MCH 26.0 L (27.0-32.0) pg MCHC 31.2 L (32.0-37.0) g/dL RDW (11.5-14.5) % Lymphocytes # (0.90-5.00) 10*3/uL Lymphocytes # (Manual) (1.0-4.8) k/uL Monocytes # (0.20-1.00) 10*3/uL Eosinophils # (0.04-0.35) 10*3/uL Metamyelocytes # (Man) (0) k/uL Myelocytes # (Manual) (0) k/uL Sodium 133 L (137-145) mmol/L Potassium 5.7 H 5.9 H (3.5-5.1) mmol/L Chloride 93 L (98-107) mmol/L BUN 124 H* (7-17) mg/dL Creatinine 2.77 H (0.52-1.04) mg/dL Microbiology - Last 24 Hours (Table) 01/03/25 21:56 Throat Culture - Final Throat Diabetes panel 01/06/25 01/07/25 01/07/25 Range/Units 20:29 03:11 10:39 Sodium 131 L 133 L (137-145) mmol/L Potassium 5.8 H 5.7 H 5.9 H (3.5-5.1) mmol/L Chloride 94 L 93 L (98-107) mmol/L Carbon Dioxide 27 30 (22-30) mmol/L BUN 119 H* 124 H* (7-17) mg/dL Creatinine 2.54 H 2.77 H (0.52-1.04) mg/dL Glucose 96 77 (74-99) mg/dL Calcium 9.2 9.3 (8.4-10.2) mg/dL Calcium panel 01/06/25 01/07/25 Range/Units 20:29 03:11 Calcium 9.2 9.3 (8.4-10.2) mg/dL Pituitary panel 01/06/25 01/07/25 01/07/25 Range/Units 20:29 03:11 10:39 Sodium 131 L 133 L (137-145) mmol/L Potassium 5.8 H 5.7 H 5.9 H (3.5-5.1) mmol/L Chloride 94 L 93 L (98-107) mmol/L Carbon Dioxide 27 30 (22-30) mmol/L BUN 119 H* 124 H* (7-17) mg/dL Creatinine 2.54 H 2.77 H (0.52-1.04) mg/dL Glucose 96 77 (74-99) mg/dL Calcium 9.2 9.3 (8.4-10.2) mg/dL Adrenal panel 01/06/25 01/07/25 01/07/25 Range/Units 20:29 03:11 10:39 Sodium 131 L 133 L (137-145) mmol/L Potassium 5.8 H 5.7 H 5.9 H (3.5-5.1) mmol/L Chloride 94 L 93 L (98-107) mmol/L Carbon Dioxide 27 30 (22-30) mmol/L BUN 119 H* 124 H* (7-17) mg/dL Creatinine 2.54 H 2.77 H (0.52-1.04) mg/dL Glucose 96 77 (74-99) mg/dL Calcium 9.2 9.3 (8.4-10.2) mg/dL
[2025-01-07 11:55] LABS: Glucose,Whole Blood 67 mg/dL (70-110)
[2025-01-07 12:16] VITALS: RESP 16
[2025-01-07 12:30] LABS: Glucose,Whole Blood 126 mg/dL (70-110)
--- NOTE | 2025-01-07 12:31 | P.PN ---
Subjective Progress Note Date: 01/07/25 HISTORY OF PRESENT ILLNESS: 84-year-old female who lives in assisted living presented to the hospital be cause of difficulty in getting out of chair, difficulty with mobility, increased lower extremity edema, increased shortness of breath. Cardiology was consulted for CHF evaluation and management. NT-proBNP 1900, lipid LDL 87, TSH 4.04, A1c 5.5, BUN 38, creatinine 1.3, Hb 9.7 Echo shows EF 55%, No obvious regional wall motion abnormality Mild RV dilatation, moderate biatrial dilatation, moderate mitral regurgitation, moderate tricuspid regurgitation Last tress test in 2016 was negative 01/05/2025 Patient examined this morning at the bedside. Patient currently denies chest pain or pressure. She denies shortness of breath. Creatinine increased today to 1.7. Potassium 5.9. Blood pressure stable 121/56. 01/06/2025 Patient examined this afternoon at the bedside. Patient is currently sitting up in the chair. She denies chest pain or pressure. She denies shortness of breath. She reports significant abdominal pain. Patient's heart rate is currently in the 50s at the time of examination. She is maintaining sinus mechanism. Blood pressure has been low with a systolic in the 90s. 01/07 Patient seen and examined on the cardiac stepdown unit. Patient started vomiting blood yesterday and was transferred [facility]. No active vomiting at this time. A general surgery consult was added for CAT scan found pneumoperitoneum and patient is scheduled for emergent exploratory laparotomy. Blood pressure readings have been soft through the night currently 133/80, heart rate is in the 70s, pulse ox 92% on 3 L nasal cannula. Repeat blood work reveals WBC 3.9, hemoglobin 12.5. She has significant worsening of renal function with a BUN of 134 and 2.9 creatinine and she does not plan to start dialysis. Potassium is 5.9. Dr. Lewis is ordered 1 dose of IV Lasix this morning. She was started on midodrine yesterday and increased to 10 mg 3 times daily today. Discussed cardiac status with the patient and family and that patient would be at high risk for any surgical interventions. PHYSICAL EXAM: VITAL SIGNS: Reviewed. GENERAL: Well-developed in no acute distress. NECK: Supple. No JVD or thyromegaly LUNGS: Respirations even and unlabored. Lungs with expiratory wheezing noted HEART: Regular rate and rhythm. S1 and S2 heard. EXTREMITIES: Normal range of motion. No clubbing or cyanosis. Peripheral pulses intact. No lower extremity edema ASSESSMENT: # Acute on chronic heart failure with preserved EF # Acute on chronic dyspnea # Chronic lower extremity edema # Moderate mitral regurgitation # Essential hypertension # Acute on chronic kidney disease # Debility with problems with mobility # Obesity Abdominal pain PLAN: Lisinopril, Coreg and hydralazine were all discontinued due to low blood pressure readings Continue aspirin and Imdur. Hold Imdur for systolic blood pressure less than 90. Continue to monitor kidney function. Repeat in AM. Patient is at high risk for surgical intervention as planned. Prognosis guarded. Nurse practitioner note has been reviewed by physician. Signing provider agrees with the documented findings, assessment, and plan of care documented by SURVEYOR HELPER ROD as a scribe. Objective - Vital Signs Vital signs: Vital Signs Temp 97.3 F L 01/07/25 08:22 Pulse 80 01/07/25 09:54 Resp 22 01/07/25 08:22 BP 133/80 01/07/25 08:22 Pulse Ox 92 L 01/07/25 09:40 FiO2 Intake & Output 01/06/25 01/07/25 01/07/25 18:59 06:59 18:59 Intake Total 120 Output Total 60 100 Balance 60 -100 Weight 87 kg Intake: Oral 120 Output: Urine 60 100 Other: Voiding Method External Catheter Indwelling Catheter - Labs CBC & Chem 7: 01/07/25 10:39 01/07/25 10:39 Labs: Abnormal Lab Results - Last 24 Hours (Table) 01/06/25 01/06/25 01/07/25 Range/Units 18:32 20:29 03:11 WBC 4.13 L (4.50-10.00) 10*3/uL MCH 26.6 L 25.9 L (27.0-32.0) pg MCHC 31.7 L 31.2 L (32.0-37.0) g/dL RDW 16.3 H (11.5-14.5) % Lymphocytes # 0.54 L (0.90-5.00) 10*3/uL Lymphocytes # (Manual) 0.91 L (1.0-4.8) k/uL Monocytes # 0.10 L (0.20-1.00) 10*3/uL Eosinophils # 0.00 L (0.04-0.35) 10*3/uL Metamyelocytes # (Man) 0.28 H (0) k/uL Myelocytes # (Manual) 0.14 H (0) k/uL Sodium 131 L (137-145) mmol/L Potassium 5.8 H (3.5-5.1) mmol/L Chloride 94 L (98-107) mmol/L BUN 119 H* (7-17) mg/dL Creatinine 2.54 H (0.52-1.04) mg/dL 01/07/25 01/07/25 01/07/25 Range/Units 03:11 10:39 10:39 WBC 3.91 L (4.50-10.00) 10*3/uL MCH 26.0 L (27.0-32.0) pg MCHC 31.2 L (32.0-37.0) g/dL RDW (11.5-14.5) % Lymphocytes # (0.90-5.00) 10*3/uL Lymphocytes # (Manual) (1.0-4.8) k/uL Monocytes # (0.20-1.00) 10*3/uL Eosinophils # (0.04-0.35) 10*3/uL Metamyelocytes # (Man) (0) k/uL Myelocytes # (Manual) (0) k/uL Sodium 133 L (137-145) mmol/L Potassium 5.7 H 5.9 H (3.5-5.1) mmol/L Chloride 93 L (98-107) mmol/L BUN 124 H* (7-17) mg/dL Creatinine 2.77 H (0.52-1.04) mg/dL Microbiology - Last 24 Hours (Table) 01/03/25 21:56 Throat Culture - Final Throat
[2025-01-07 12:38] VITALS: BP 60/38; PULSE 70
--- NOTE | 2025-01-07 13:21 | P.PN ---
Subjective Progress Note Date: 01/07/25 Progress note Date of Dictation by Dr. Reynoso Status inpatient Location 374 bed 1. Patient seen today [id number], discussed with the patient and her niece who is power of patent attorney and the caregiver Patient interval event Evaluated acid Hemotene indicator of stress ulcer or ulcer of the stomach most probably Associated with the abdominal pain and tenderness Patient transferred from the fourth floor to the third floor for more extended care at the could not handle it on the fourth floor Consultation with the surgeon Dr. Andino with presence of the CT scan result Pneumoperitoneum Cholelithiasis Nonobstructed renal stone Ascites Atelectasis of the left lung base Small right pleural effusion. Discussion with the caregiver and the family and the patient Patient has acute kidney injury with the renal failure progressively worsening with the hyperkalemia. And elevated creatinine progressively worsening creatinine 2.90 and BUN 134. With the blood sugar 60. Added to hypotension wi th a blood pressure 60/38 with a mean 45. Dr. Moses vocational rehabilitation teacher discussed with the patient hemodialysis patient refused, Dr. Quintero did see the patient patient cardiac serrano with the initially admitted with congestive heart failure and volume and pulmonary hypertension not a candidate for surgical intervention Dr. Dr. Poon covered with Dr. Thu Donald surgical group and he was planned and intent to take her to surgery with the pneumoperitoneum and probably perforation of the gut Patient not candidate for any surgical intervention with the dialysis needed first for stabilization as well as the hypotension needed to be corrected Family as well as patient and medical condition does not permit Decision reached to be hospice care and hospice consult was requested. With the end-of-life has been discussed with the patient and family will continue her Woodward catheter for comfort care as well Discussed with her and the caregiver care and up to them for the choices however the end-of-life is eminent. On the exam conscious alert with the hypotension 60/38 progressively worsening oxygen 90% on 5 L. She has some brownish discoloration from acid Hemotene of vomiting blood, natural teeth, pupil is equal reactive Neck was supple no JVD no thyromegaly no lymphadenopathy trachea midline Chest as mention still able to breeze normal breath sound with the diminished air entry on the bases Heart regular sinus with a rate of 70/min and hypotensive Abdomen is tenderness vague and all the abdomen with the result of the CAT scan as mentioned above and has diminished bowel sound. Extremities she had feeble pulses and edema Woodward catheter in place Assessment: And plan 1. End-of-life discussion with the patient and family 2. With the above diagnosis prognosis is of the end-of-life expected 3. Hospice consulted for end-of-life care. 4. Patient expected to be soon with the above symptoms 5. Morphine drip per protocol for end-of-life for comfort care Objective - Vital Signs Vital signs: Vital Signs Temp 97.3 F L 01/07/25 08:22 Pulse 70 01/07/25 12:37 Resp 16 01/07/25 11:43 BP 60/38 01/07/25 12:37 Pulse Ox 90 L 01/07/25 12:20 FiO2 Intake & Output 01/06/25 01/07/25 01/07/25 18:59 06:59 18:59 Intake Total 120 Output Total 60 100 Balance 60 -100 Weight 87 kg Intake: Oral 120 Output: Urine 60 100 Other: Voiding Method External Catheter Indwelling Catheter Indwelling Catheter - Labs CBC & Chem 7: 01/07/25 10:39 01/07/25 10:39 Labs: Abnormal Lab Results - Last 24 Hours (Table) 01/06/25 01/06/25 01/07/25 Range/Units 18:32 20:29 03:11 WBC 4.13 L (4.50-10.00) 10*3/uL MCH 26.6 L 25.9 L (27.0-32.0) pg MCHC 31.7 L 31.2 L (32.0-37.0) g/dL RDW 16.3 H (11.5-14.5) % Lymphocytes # 0.54 L (0.90-5.00) 10*3/uL Lymphocytes # (Manual) 0.91 L (1.0-4.8) k/uL Monocytes # 0.10 L (0.20-1.00) 10*3/uL Eosinophils # 0.00 L (0.04-0.35) 10*3/uL Metamyelocytes # (Man) 0.28 H (0) k/uL Myelocytes # (Manual) 0.14 H (0) k/uL Sodium 131 L (137-145) mmol/L Potassium 5.8 H (3.5-5.1) mmol/L Chloride 94 L (98-107) mmol/L Carbon Dioxide (22-30) mmol/L BUN 119 H* (7-17) mg/dL Creatinine 2.54 H (0.52-1.04) mg/dL Glucose (74-99) mg/dL POC Glucose (mg/dL) (70-110) mg/dL Magnesium (1.6-2.3) mg/dL 01/07/25 01/07/25 01/07/25 Range/Units 03:11 10:39 10:39 WBC 3.91 L (4.50-10.00) 10*3/uL MCH 26.0 L (27.0-32.0) pg MCHC 31.2 L (32.0-37.0) g/dL RDW (11.5-14.5) % Lymphocytes # 0.49 L (0.90-5.00) 10*3/uL Lymphocytes # (Manual) (1.0-4.8) k/uL Monocytes # 0.09 L (0.20-1.00) 10*3/uL Eosinophils # 0.00 L (0.04-0.35) 10*3/uL Metamyelocytes # (Man) (0) k/uL Myelocytes # (Manual) (0) k/uL Sodium 133 L (137-145) mmol/L Potassium 5.7 H (3.5-5.1) mmol/L Chloride 93 L (98-107) mmol/L Carbon Dioxide (22-30) mmol/L BUN 124 H* (7-17) mg/dL Creatinine 2.77 H (0.52-1.04) mg/dL Glucose (74-99) mg/dL POC Glucose (mg/dL) (70-110) mg/dL Magnesium 2.5 H (1.6-2.3) mg/dL 01/07/25 01/07/25 01/07/25 Range/Units 10:39 11:53 12:28 WBC (4.50-10.00) 10*3/uL MCH (27.0-32.0) pg MCHC (32.0-37.0) g/dL RDW (11.5-14.5) % Lymphocytes # (0.90-5.00) 10*3/uL Lymphocytes # (Manual) (1.0-4.8) k/uL Monocytes # (0.20-1.00) 10*3/uL Eosinophils # (0.04-0.35) 10*3/uL Metamyelocytes # (Man) (0) k/uL Myelocytes # (Manual) (0) k/uL Sodium 136 L (137-145) mmol/L Potassium 5.9 H (3.5-5.1) mmol/L Chloride 93 L (98-107) mmol/L Carbon Dioxide 31 H (22-30) mmol/L BUN 134 H* (7-17) mg/dL Creatinine 2.90 H (0.52-1.04) mg/dL Glucose 60 L (74-99) mg/dL POC Glucose (mg/dL) 67 L 126 H (70-110) mg/dL Magnesium (1.6-2.3) mg/dL
[2025-01-07] MEDS ORDERED: MORPHINE SULFATE 2 MG/ML SYRINGE IVP PRN (13:25)
[2025-01-07] MEDS ORDERED: ATROPINE OPHTH SOLN 1% 5ML BTL SUBLINGUAL PRN (13:25)
[2025-01-07] MEDS ORDERED: GLYCOPYRROLATE 0.2 MG/ML 2 ML VIAL IVP PRN (13:25)
[2025-01-07] MEDS ORDERED: DRY MOUTH SPRAY 59 SPRAY/59 ML SPRAY MUCOUS MEM PRN (13:25)
[2025-01-07] MEDS ORDERED: LORazepam 1 MG/0.5 ML VIAL IV PRN (13:25)
[2025-01-07] MEDS: FUROSEMIDE 10 MG/ML 10 ML VIAL IV STA (13:38)
--- NOTE | 2025-01-07 13:45 | P.DS ---
Providers Date of admission: 01/02/25 14:36 Expected date of discharge: 01/07/25 Attending physician: Sorin Reynoso Consults: 01/02/25 14:35 Consult Physician Routine Consulting Provider: Jemal Cobos Consult Reason/Comments: chf Do you want consulting provider notified?: Yes 01/02/25 18:21 Consult Physician Urgent Consulting Provider: Mary Anne Briggs Consult Reason/Comments: Wheezing and coughing, no history of smoking Do you want consulting provider notified?: Yes 01/03/25 19:37 Consult Physician Routine Consulting Provider: Husam Wiggins Consult Reason/Comments: Urinary retention Do you want consulting provider notified?: Yes, Notify in am 01/05/25 17:44 Consult Physician Urgent Consulting Provider: Ivis Awan Consult Reason/Comments: DREW Do you want consulting provider notified?: Yes 01/06/25 17:30 Consult Physician Stat Consulting Provider: Chance Poon Consult Reason/Comments: hematemesis Do you want consulting provider notified?: Yes Primary care physician: Sorin eRynoso Dictation discharge Disposition patient discharged from acute care and admitted under [facility] End-of-life on comfort care protocol Dictation by Dr. Reynoos Location 374 bed 1 Date of service/06/2025. Final diagnosis 1. End-of-life 2. Pneumoperitoneum 3. Congestive heart failure diastolic with valvular heart disease and pulmonary hypertension 4. Acute kidney injury on the top of chronic with the associated acute renal failure progressively 5. Refused dialysis. 6. Cholelithiasis 7. Nonobstructive renal stone 8. Atelectasis of the left lung 9. Small right pleural effusion 10. Hypotensive with a history of hypertension in the past. 11. Hypoxemia. ER presentation: Patient seen in the ER by Dr. Sonido Coffman with having cough congestion fatigue and and dyspnea. History of COPD. And admitted with congestive heart failure. With a history of hypertension. Hospital course: Patient initially admitted to the [facility] fourth floor with the cardiology consult and seen initially by Dr. Stallings edging catcher, and Dr. Ortega the pulmonary and critical care and subsequently she had urine retention seen by Dr. Childs urology. Subsequently patient continued to have problem with the cough and breathing and found that she had hiatal hernia large which 2 third in the stomach in the thoracic cavity. She had abdominal x-ray was essentially negative and subsequently patient has abdominal pain and she had hematemesis, CT scan of the indicating pneumoperitoneum with the renal function become gradually deteriorated consultation with Dr. Moses who followed the patient and subsequently with the care and the fourth floor was augmented and the nurse Mary requested patient to be transferred to the third floor where more intensive care and at that time she had the hematemesis consultation with surgical group obtained last night seen today with the CAT scan result and the intention to take her to the OR for exploratory laparotomy to see if the perforation of the Gut., Discussed with the nephrology who requested to have dialysis with the progressive electrolyte imbalance with hyperkalemia and increase the BUN and creatinine to prepare her for surgery but the patient refused this and her hypertensive and the cardiology indicated that she could not stand surgery or dialysis With the discussion with the caregiver and the patient request end-of-life comfort care and hospice consulted I spoke with the hospice nurse and she requested to be discharged from acute care and she will start her on admission of hospice care With the hypotension and the current progression of the renal failure expectation that the patient will not be long for demise and comfort care protocol has been ordered. Plan - Discharge Summary Discharge Rx Participant: Yes New Discharge Prescriptions: No Action Lansoprazole 30 mg PO DAILY Aspirin 81 mg PO DAILY Levothyroxine Sodium [Synthroid] 75 mcg PO DAILY Isosorbide Mononitrate ER [Imdur] 30 mg PO DAILY tab Torsemide [Demadex] 20 mg PO BID Malcom/D3/Mag11/Zinc/Layer Out Plate Glass/Ady/Bor [Caltrate 600+D Plus Tablet] 1 tab PO DAILY Multivit with Calcium,Iron,Min [Women's Multivitamin] 1 tab PO DAILY busPIRone HCl [Buspar] 5 mg PO BID Blue Emu Cream 1 applic TOPICAL DAILY PRN PRN Reason: Pain hydrALAZINE HCL [Apresoline] 25 mg PO QID Ensure 1 can PO DAILY Acetaminophen Tab [Tylenol Tab] 1,000 mg PO Q6H PRN PRN Reason: Fever And/ Or Pain Prevent Silicone Cream W/ Zinc Oxide 1 applic TOPICAL DAILY PRN PRN Reason: Rash Clobetasol Propionate [Temovate 0.05% Cream] 1 applic TOPICAL BID PRN PRN Reason: Rash Discharge Medication List Aspirin 81 mg PO DAILY 09/26/14 [History] Lansoprazole 30 mg PO DAILY 09/26/14 [History] Levothyroxine Sodium [Synthroid] 75 mcg PO DAILY 11/20/23 [History] Isosorbide Mononitrate ER [Imdur] 30 mg PO DAILY tab 11/24/23 [Rx] Torsemide [Demadex] 20 mg PO BID 06/23/24 [History] hydrALAZINE HCL [Apresoline] 25 mg PO QID 06/23/24 [History] Acetaminophen Tab [Tylenol Tab] 1,000 mg PO Q6H PRN 01/02/25 [History] Blue Emu Cream 1 applic TOPICAL DAILY PRN 01/02/25 [History] Malcom/D3/Mag11/Zinc/Layer Out Plate Glass/Ady/Bor [Caltrate 600+D Plus Tablet] 1 tab PO DAILY 01/02/25 [History] Clobetasol Propionate [Temovate 0.05% Cream] 1 applic TOPICAL BID PRN 01/02/25 [History] Ensure 1 can PO DAILY 01/02/25 [History] Multivit with Calcium,Iron,Min [Women's Multivitamin] 1 tab PO DAILY 01/02/25 [History] Prevent Silicone Cream W/ Zinc Oxide 1 applic TOPICAL DAILY PRN 01/02/25 [History] busPIRone HCl [Buspar] 5 mg PO BID 01/02/25 [History] Follow up Appointment(s)/Referral(s): Sorin Reynoso MD [Primary Care Provider] - 1-2 days
[2025-01-07] MEDS ORDERED: SCOPOLAMINE 1 MG/72 HR PATCH TRANSDERM SCH (14:00)
[2025-01-07] MEDS ORDERED: MORPHINE SULFATE 100 MG in SODIUM CHLORIDE 0.9% 90 ML IV SCH (14:00)
--- NOTE | 2025-01-07 15:36 | P.PN ---
Subjective Progress Note Date: 01/07/25 This is a 84-year-old female patient, resides in assisted living, presented to the emergency with some difficulties with mobility, increased lower extremity edema and some exertional dyspnea. No chest pain. No cough production. Chest x-ray wheezing. The patient denies having any fever or chills. White count of 5.6, hemoglobin 9.7 and platelet count 222. Normal electrolytes. Sodium levels at 139, potassium is at 4.6, creatinine 9 with a bicarb of 28. The patient's BUN is at 29 with creatinine 1.4. Glucose is at 135. LFTs were essentially within normal limits. Serum iron level is at 33 which is low. proBNP level is 1900. TSH 4.04 and UA is negative. Viral screen was negative. The chest x-ray done in the emergency department shows cardiomegaly with some mild interstitial edema. Also, the patient was given a CT scan of the chest that showed a large hiatal hernia. Moderate abnormalities identified. The patient is Resting up comfortably in the chair. He is on room air oxygen. Echo showed preserved LV function with an EF of 55 to 60%. There was evidence of hypertension with e stimated PA pressure of 42. Multiple hepatic rotation, no dyspnea micrograms, the aortic valve was within normal limits. The patient is currently on Bumex oh milligram every 24 hours. On 01/04/2025, the patient is resting comfortably in bed. No specific complaints. She is on room air oxygen. Her white cell count is 7 with a hemoglobin 9.9 and platelet count of 253. Procalcitonin level was 0.11. proBNP level is at 4620. She had increased lower extremity edema and the patient remains on Bumex 1 mg IV every 24 hours. Fluid balance is negative. The patient is seen today January 06, 2025 in follow-up on the regular medical floor. She is currently sitting up in bed. Awake and alert in no acute distress. She is having some lower abdominal discomfort. She states this was giving her some shortness of breath and we were called by the nursing staff to see the patient. Abdominal x-ray revealed nonobstructive bowel gas pattern. Maintaining O2 saturations up to 98% on 2 L per minute per nasal cannula. She has been afebrile. Hemodynamically stable. Throat culture revealed no growth. White count 6.7. Hemoglobin 10.6. Platelets 275. Sodium 134. Potassium 5.3. Bicarb 27. BUN 87. Creatinine 2.0. Glucose 87. She remains on albuterol 4 times daily. Heparin for DVT prophylaxis. The patient is seen today January 07, 2025 in follow-up on the selective care unit. She is currently sitting up in bed. Awake and alert. She has been having issues with hypotension and a rapid response team was called on her a short time ago. A CT scan of the abdomen and pelvis revealed a pneumoperitoneum and the plan was for exploratory laparotomy today. Her white count is 3.9. Hemoglobin 12.5. Platelets 259. Sodium 136. Potassium 5.9. Bicarb 31. BUN 134. Creatinine 2.90. Glucose 60. Her potassium was being corrected prior to surgery. Also receiving sodium bicarbonate. Her family is at the bedside. Objective - Vital Signs Vital signs: Vital Signs Temp 97.3 F L 01/07/25 08:22 Pulse 70 01/07/25 12:37 Resp 16 01/07/25 11:43 BP 60/38 01/07/25 12:37 Pulse Ox 90 L 01/07/25 12:20 FiO2 Intake & Output 01/06/25 01/07/25 01/07/25 18:59 06:59 18:59 Intake Total 120 Output Total 60 100 Balance 60 -100 Weight 87 kg Intake: Oral 120 Output: Urine 60 100 Other: Voiding Method External Catheter Indwelling Catheter Indwelling Catheter - Exam GENERAL EXAM: Alert, very weak 84-year-old female, on 5 L nasal cannula, fairly comfortable in no apparent distress. HEAD: Normocephalic. EYES: Normal reaction of pupils, equal size. NOSE: Clear with pink turbinates. THROAT: No erythema or exudates. NECK: No masses, no JVD. CHEST: No chest wall deformity. LUNGS: Equal air entry with no crackles, wheeze, rhonchi or dullness. CVS: S1 and S2 normal with no audible murmur, regular rhythm. ABDOMEN: Abdominal distention and tenderness, no hepatosplenomegaly, normal bowel sounds, . SPINE: No scoliosis or deformity SKIN: No rashes CENTRAL NERVOUS SYSTEM: No focal deficits, tone is normal in all 4 extremities. EXTREMITIES: There is no peripheral edema. No clubbing, no cyanosis. Peripheral pulses are intact. - Labs CBC & Chem 7: 01/07/25 10:39 01/07/25 10:39 Labs: Abnormal Lab Results - Last 24 Hours (Table) 01/06/25 01/06/25 01/07/25 Range/Units 18:32 20:29 03:11 WBC 4.13 L (4.50-10.00) 10*3/uL MCH 26.6 L 25.9 L (27.0-32.0) pg MCHC 31.7 L 31.2 L (32.0-37.0) g/dL RDW 16.3 H (11.5-14.5) % Lymphocytes # 0.54 L (0.90-5.00) 10*3/uL Lymphocytes # (Manual) 0.91 L (1.0-4.8) k/uL Monocytes # 0.10 L (0.20-1.00) 10*3/uL Eosinophils # 0.00 L (0.04-0.35) 10*3/uL Metamyelocytes # (Man) 0.28 H (0) k/uL Myelocytes # (Manual) 0.14 H (0) k/uL Sodium 131 L (137-145) mmol/L Potassium 5.8 H (3.5-5.1) mmol/L Chloride 94 L (98-107) mmol/L Carbon Dioxide (22-30) mmol/L BUN 119 H* (7-17) mg/dL Creatinine 2.54 H (0.52-1.04) mg/dL Glucose (74-99) mg/dL POC Glucose (mg/dL) (70-110) mg/dL Magnesium (1.6-2.3) mg/dL 01/07/25 01/07/25 01/07/25 Range/Units 03:11 10:39 10:39 WBC 3.91 L (4.50-10.00) 10*3/uL MCH 26.0 L (27.0-32.0) pg MCHC 31.2 L (32.0-37.0) g/dL RDW (11.5-14.5) % Lymphocytes # 0.49 L (0.90-5.00) 10*3/uL Lymphocytes # (Manual) (1.0-4.8) k/uL Monocytes # 0.09 L (0.20-1.00) 10*3/uL Eosinophils # 0.00 L (0.04-0.35) 10*3/uL Metamyelocytes # (Man) (0) k/uL Myelocytes # (Manual) (0) k/uL Sodium 133 L (137-145) mmol/L Potassium 5.7 H (3.5-5.1) mmol/L Chloride 93 L (98-107) mmol/L Carbon Dioxide (22-30) mmol/L BUN 124 H* (7-17) mg/dL Creatinine 2.77 H (0.52-1.04) mg/dL Glucose (74-99) mg/dL POC Glucose (mg/dL) (70-110) mg/dL Magnesium 2.5 H (1.6-2.3) mg/dL 01/07/25 01/07/25 01/07/25 Range/Units 10:39 11:53 12:28 WBC (4.50-10.00) 10*3/uL MCH (27.0-32.0) pg MCHC (32.0-37.0) g/dL RDW (11.5-14.5) % Lymphocytes # (0.90-5.00) 10*3/uL Lymphocytes # (Manual) (1.0-4.8) k/uL Monocytes # (0.20-1.00) 10*3/uL Eosinophils # (0.04-0.35) 10*3/uL Metamyelocytes # (Man) (0) k/uL Myelocytes # (Manual) (0) k/uL Sodium 136 L (137-145) mmol/L Potassium 5.9 H (3.5-5.1) mmol/L Chloride 93 L (98-107) mmol/L Carbon Dioxide 31 H (22-30) mmol/L BUN 134 H* (7-17) mg/dL Creatinine 2.90 H (0.52-1.04) mg/dL Glucose 60 L (74-99) mg/dL POC Glucose (mg/dL) 67 L 126 H (70-110) mg/dL Magnesium (1.6-2.3) mg/dL Assessment and Plan Assessment: Acute abdominal pain. CT scan revealed pneumoperitoneum. Plan was for possible laparoscopic exploration today however the patient developed significant hypotension and hypoxemia Hypotension secondary to above Acute kidney injury secondary to ATN Hyperkalemia secondary to above Acute on chronic dyspnea. CT of the chest was reviewed and there is no acute pulmonary process. There is a large hiatal hernia. Clinically, she has not any signs of volume overload with increased lower edema. The patient is on 2 L/min per nasal cannula with O2 saturations at 98%. Viral screen negative Lower extremity edema, echocardiogram shows preserved LV function with moderate degree of heart regurgitation History of subarachnoid hemorrhage back in 1986 Hypothyroidism Hypertension Chronic stage III kidney disease Chronic normocytic anemia, underlying iron deficiency Chronic urinary incontinence Chronic diastolic heart failure Chronic lymphedema involving lower extremities Pulmonary hypertension, likely group 2 Plan: The patient was seen and evaluated Imaging, labs and medications reviewed Patient developed significant hypotension A rapid response team was called Continued with hypotension and weakness Continued to deteriorate Not likely to survive surgical intervention Discussed in detail with the patient's family at the bedside Family requested DNR CODE STATUS No significant improvement and the patient is to be placed in hospice care I have personally seen and examined the patient, performed the documentation and the assessment and plan as written. Number of minutes spent on the visit: 10 Dictation was produced using [employer] dictation software. Please excuse any grammatical, word or spelling errors.
== END 2025-01-07 14:04 | disposition hospice, inpatient (51) | DRG 291 ==
LOC: EC 10:45 → 4SSUR 14:35 → OBSVTOIN 14:36 → 4SSUR 17:19 → 3SCARD 01-06 18:23
PROVIDERS: ADMIT Internal Medicine; ATTEND Internal Medicine
DX: I13.0 Hypertensive heart and chronic kidney disease with heart failure and stage 1 through stage 4 chronic kidney disease, or unspecified chronic kidney disease (principal); I50.33 Acute on chronic diastolic (congestive) heart failure; N17.0 Acute kidney failure with tubular necrosis; K25.4 Chronic or unspecified gastric ulcer with hemorrhage; E86.0 Dehydration; E87.1 Hypo-osmolality and hyponatremia; K66.8 Other specified disorders of peritoneum; I27.22 Pulmonary hypertension due to left heart disease; D63.1 Anemia in chronic kidney disease; N18.32 Chronic kidney disease, stage 3b; J44.9 Chronic obstructive pulmonary disease, unspecified; E66.9 Obesity, unspecified; E03.9 Hypothyroidism, unspecified; I08.1 Rheumatic disorders of both mitral and tricuspid valves; R18.8 Other ascites; J98.11 Atelectasis; Z51.5 Encounter for palliative care; Z66 Do not resuscitate; Z68.37 Body mass index [BMI] 37.0-37.9, adult; D50.9 Iron deficiency anemia, unspecified; R32 Unspecified urinary incontinence; E87.5 Hyperkalemia; F41.9 Anxiety disorder, unspecified; H91.90 Unspecified hearing loss, unspecified ear; I89.0 Lymphedema, not elsewhere classified; I95.89 Other hypotension; R00.1 Bradycardia, unspecified; J98.01 Acute bronchospasm; R09.02 Hypoxemia; K21.9 Gastro-esophageal reflux disease without esophagitis; N20.0 Calculus of kidney; K44.9 Diaphragmatic hernia without obstruction or gangrene; K80.20 Calculus of gallbladder without cholecystitis without obstruction; Z53.9 Procedure and treatment not carried out, unspecified reason; Z79.82 Long term (current) use of aspirin; Z79.899 Other long term (current) drug therapy; Z79.890 Hormone replacement therapy; Z96.652 Presence of left artificial knee joint; Z74.09 Other reduced mobility; Z88.0 Allergy status to penicillin; Z88.2 Allergy status to sulfonamides; Z88.8 Allergy status to other drugs, medicaments and biological substances; Z88.1 Allergy status to other antibiotic agents; Z91.040 Latex allergy status; Z88.6 Allergy status to analgesic agent
CPT/HCPCS: 36415; 71045; 71046; 71250; 74018; 74176; 76770; 80048; 80053; 80061; 81003; 82272; 82607; 82746; 83036; 83540; 83550; 83605; 83735; 83880; 83921; 83930; 83935; 84132; 84133; 84145; 84300; 84443; 85025; 85045; 85610; 85652; 85730; 86038; 86039; 86140; 86225; 86431; 87070; 87636; 93306; 94640; 94760; 96361; 96374; 99285

== ENCOUNTER 2025-01-07 13:54 | Inpatient (IN) | payer MEDICAID ==
[2025-01-07] MEDS ORDERED: LORazepam 2 MG/ML INJ IV PRN (14:00)
[2025-01-07] MEDS ORDERED: ONDANSETRON 4 MG/2 ML VIAL IVP PRN (14:00)
[2025-01-07] MEDS ORDERED: ATROPINE OPHTH SOLN 1% 5ML BTL SUBLINGUAL PRN (14:00)
[2025-01-07] MEDS ORDERED: ACETAMINOPHEN SUPPOSITORY 650 MG SUPP RECTAL PRN (14:00)
[2025-01-07] MEDS ORDERED: DRY MOUTH SPRAY 59 SPRAY/59 ML SPRAY MUCOUS MEM PRN (14:00)
[2025-01-07] MEDS ORDERED: GLYCOPYRROLATE 0.2 MG/ML 2 ML VIAL IVP PRN (14:00)
[2025-01-07] MEDS: MORPHINE SULFATE 100 MG in SODIUM CHLORIDE 0.9% 90 ML IV SCH (14:28)
[2025-01-07] MEDS: LORazepam 1 MG/0.5 ML VIAL IV PRN (14:45)
[2025-01-07] MEDS: SCOPOLAMINE 1 MG/72 HR PATCH TRANSDERM SCH (15:02)
[2025-01-07] MEDS: MORPHINE SULFATE 4 MG/ML SYRINGE IV PRN (15:12)
== END 2025-01-07 16:58 | disposition expired | DRG 951 ==
LOC: 3SCARD 14:06
PROVIDERS: ADMIT Internal Medicine; ATTEND Internal Medicine
DX: Z51.5 Encounter for palliative care (principal); N17.0 Acute kidney failure with tubular necrosis; Z66 Do not resuscitate; I13.0 Hypertensive heart and chronic kidney disease with heart failure and stage 1 through stage 4 chronic kidney disease, or unspecified chronic kidney disease; N18.30 Chronic kidney disease, stage 3 unspecified; I27.22 Pulmonary hypertension due to left heart disease; E03.9 Hypothyroidism, unspecified; D50.9 Iron deficiency anemia, unspecified; I50.32 Chronic diastolic (congestive) heart failure; K66.8 Other specified disorders of peritoneum; I95.9 Hypotension, unspecified; E87.5 Hyperkalemia; K44.9 Diaphragmatic hernia without obstruction or gangrene; R32 Unspecified urinary incontinence; I89.0 Lymphedema, not elsewhere classified